=== PATIENT | male | born 1955 | race Caucasian/White ===

== ENCOUNTER → 2018-01-28 13:02 | Outpatient (CLI) | payer OTHER, SELFPAY ==
--- NOTE | 2018-01-28 13:08 | RAD_ITS ---
STUDY: X-RAY - LUMBAR SPINE REASON FOR EXAM: Male, 62 years old. Back pain TECHNIQUE: 5 view(s) of the lumbar spine were obtained. COMPARISON: None FINDINGS: Normal lumbar lordosis. There is no substantial scoliosis. There is a normal alignment of the vertebrae. There is multilevel endplate spondylosis of the lumbar vertebrae. There is multi-level degenerative disc disease with multi-level disc space narrowing. No fracture. There is no demonstrated spondylolysis of the pars interarticulares. The soft tissue structures are unremarkable. RAD/L/S Spine Min 4 Views IMPRESSION: Degenerative changes of the spine, as detailed above. Electronically Signed: Ethan Adams DO at 9:03 EDT Tel , Service support ,
== END ==
PROVIDERS: Family Provider Family Medicine; PCP Family Medicine; Visit Provider Family Medicine
DX: M54.5 Low back pain (principal)
CPT/HCPCS: 72110

== ENCOUNTER → 2018-02-24 11:59 | Outpatient (CLI) | payer OTHER, SELFPAY ==
[2018-02-24 15:59] LABS: Absolute Lymphocyte Count 1.12 X10^3/ul (0.83-4.51); Absolute Neutrophil Count 4.7 X10^3/uL (2.0-7.7); Basophil# 0.03 X10^3/uL; Basophil% 0.5 % (0-1); Eosinophil# 0.01 X10^3/uL; Eosinophils% 0.2 % (0-5); Hematocrit 44.2 % (40-54); Lymphocyte # 1.12 X10^3/ul (4.0); Lymphocyte % 17.6 % (19-41); Mean Corp Hgb Conc 33.9 g/gl (32-36); Mean Corpuscular Hgb 30.5 pg (27.0-32.0); Mean Corpuscular Volume 89.8 fL (80-94); Monocyte# 0.45 X10^3/uL; Monocyte% 7.1 % (0-10); Neutrophil # 4.73 X10^3/uL (2.7-7.7); Neutrophil % 74.4 % (47-70); Platelet Count 252 K/mm3 (150-450); RBC Distribution Width CV 13.8 % (11.6-14.6); RBC Distribution Width SD 45.2 fl (35.1-43.9); Red Blood Count 4.92 M/mm3 (4.6-6.2); White Blood Count 6.4 K/mm3 (4.4-11.0)
[2018-02-24 16:04] LABS: POSITIVE COUNT NO; POSITIVE DIFFERENTIAL NO; POSITIVE MORPHOLOGY NO
[2018-02-24 16:16] LABS: Erythrocyte Sedimentation Rate 5 mm/hr (0-20)
[2018-02-24 16:22] LABS: AST(SGOT) 12 U/L (15-37); Alanine Aminotransfer ALT/SGPT 21 U/L (16-61); Albumin, Serum 3.5 g/dL (3.2-5.0); Alkaline Phosphatase 59 U/L (45-117); Amylase 28 U/L (25-115); Anion Gap 8 (5-15); BUN 19 mg/dL (7-18); BUN/Creat Ratio 21.7 RATIO (10-20); Calcium,Total 8.7 mg/dL (8.5-10.1); Chloride 102 mmol/L (98-107); Creatinine, Serum 0.88 mg/dL (0.70-1.30); EST Glomerular Filtration Rate 93 mL/min (>60); Est Glom Filt Rate - Afr Amer 113 mL/min (>60); Globulin 3.4 g/dL (2.2-4.2); Glucose 95 mg/dL (74-106); Lipase 65 U/L (73-393); PSA,Total - Annual Screen 4.14 ng/mL (0.00-4.00); Protein, Total 6.9 g/dL (6.4-8.2); Sodium Level 141 mmol/L (136-145); Uric Acid 7.2 mg/dL (3.5-7.2)
== END ==
PROVIDERS: Family Provider Family Medicine; PCP Family Medicine; Visit Provider Family Medicine
DX: R10.9 Unspecified abdominal pain (principal); M10.9 Gout, unspecified; Z12.5 Encounter for screening for malignant neoplasm of prostate
CPT/HCPCS: 36415; 80053; 82150; 83690; 84153; 84550; 85025; 85652; 86140; G0103

== ENCOUNTER → 2018-03-03 08:01 | Outpatient (CLI) | payer OTHER, SELFPAY ==
--- NOTE | 2018-03-03 08:07 | US_ITS ---
STUDY: ABDOMINAL ULTRASOUND - RIGHT UPPER QUADRANT REASON FOR VISIT: Male, 63 years old. Elevated bilirubin TECHNIQUE: Ultrasound evaluation of the right upper quadrant was performed with real-time and static leon-scale imaging. TECHNICAL QUALITY: Adequate. COMPARISON: Prior study of June 17, 2006 FINDINGS: Liver: The liver measures 19.3 cm. There is increased echogenicity consistent with fatty infiltration. The bile ducts are within normal limits. There is hepatic color flow. The direction of portal flow is hepatopetal. There is a complex echogenic focus of the right hepatic lobe measuring 2.7 x 2.7 x 2.9 cm. Gallbladder: Normal distended gallbladder. The gallbladder wall measures 3.0 mm. There is a negative sonographic Linton's sign. There is no pericholecystic fluid. There are no gallstones. Common Bile Duct (C.B.D.): The common bile duct measures 4.5 mm. Pancreas: Normal size of the head, body and tail of the pancreas. There is increased echogenicity of the pancreas. There is no demonstrated pancreatic mass or cyst. There is mild dilatation of the pancreatic duct, measuring 3 mm. Right Kidney: Normal size of the right kidney. The right kidney measures 11.4 x 5.2 x 6.1 cm. Normal renal cortex. The right cortex measures 1.9 cm. There is no demonstrated renal mass or cyst. There is no right hydronephrosis. There are 2 renal calcifications measuring 3 and 5 mm respectively. US/Abdomen Limited IMPRESSION: 1. Hepatomegaly. Increased hepatic echogenicity suggestive of steatosis. Complex echogenic focus of the right hepatic lobe measuring 2.7 x 2.7 x 2.9 cm. This may represent a hemangioma. CT of the abdomen with and without intravenous contrast is recommended for further evaluation of this finding. 2. Increased echogenicity of the pancreas. Mild dilatation of the pancreatic duct measuring up to 3 mm in diameter. 3. Nonobstructing right nephrolithiasis. Electronically Signed: Norbert Yates MD at 17:05 EDT , Service support ,
== END ==
PROVIDERS: Family Provider Family Medicine; PCP Family Medicine; Visit Provider Family Medicine
DX: R16.0 Hepatomegaly, not elsewhere classified (principal); R17 Unspecified jaundice; N20.0 Calculus of kidney
CPT/HCPCS: 76705

== ENCOUNTER → 2018-03-24 13:47 | Outpatient (CLI) | payer OTHER, SELFPAY ==
--- NOTE | 2018-03-24 13:49 | CT_ITS ---
STUDY: CT ABDOMEN WITH CONTRAST REASON FOR EXAM: Male, 63 years old. Abdominal pain, abnormal ultrasound, fatty liver. RADIATION DOSAGE (If Supplied By Facility): CTDIvol = ( 19.55 ) mGy, DLP = ( 1207.93 ) mGycm TECHNIQUE: Transaxial images were obtained post I.V. administration of 100 ml of Isovue 300 contrast, and without oral contrast. Sagittal and coronal images were reconstructed. Individualized dose optimization techniques were used for this CT. COMPARISON: Right upper Quadrant ultrasound March 03, 2018 FINDINGS: The visualized lung bases are unremarkable. The visualized portions of the heart are within normal limits. Liver size within normal limits. Density is difficult to assess post-IV contrast enhancement. Well-defined 2.95 x 2.25 x 2.5 cm poorly enhancing low-density seen in the right lobe of the liver, correlating to the complex lesion identified on ultrasound. Imaging is relatively late in the portal vein phase, and the appearance is not particularly typical of hemangioma. The patent portal vein diameter is 16 mm. Normal gallbladder and extrahepatic biliary system. There is mild splenomegaly, measuring 14.2 x 13.7 x 6.4 cm. Normal pancreas. Normal bilateral adrenal glands. There is an exophytic 11.5 mm rounded lesion emanating from the anteromedial cortex of the upper pole right kidney with a density of 14 Hounsfield units, likely a mildly complicated cyst. Normal left kidney. No hydronephrosis. Normal visualized stomach. Normal small intestine. There are multiple colonic diverticula consistent with diverticulosis. The appendix is visualized and appears normal. There is mild atherosclerotic calcification of the abdominal aorta and proximal iliac arteries with elongation and tortuosity, but without a demonstrated aneurysm. Normal inferior vena cava. Normal retroperitoneum. There is a small umbilical hernia containing fat. There are diffuse degenerative changes of the visualized spine. CT/Abdomen WITH IV Contrast IMPRESSION: 1. 2.95 cm well defined, poorly enhancing low density lesion in the right lobe of liver correlation the complex lesion seen on ultrasound. This does not have the typical characteristic of cavernous hemangioma, but its etiology remains uncertain. Further evaluation with MRI suggested. 2. Prostatomegaly. 3. 11.mm exophytic probable complicated cyst at the anteromedial upper pole of the right kidney. No hydronephrosis. 4. Colonic diverticulosis without demonstrated acute diverticulitis. No sign of bowel obstruction. The appendix is normal. 5. Small, fat-containing umbilical hernia. 6. Diffuse degenerative changes of the spine. Electronically Signed: Anshul Novak MD at 17:55 EDT , Service support ,
== END ==
PROVIDERS: Family Provider Family Medicine; PCP Family Medicine; Visit Provider Family Medicine
DX: K76.0 Fatty (change of) liver, not elsewhere classified (principal)
CPT/HCPCS: 74160; Q9967

== ENCOUNTER → 2018-04-01 12:57 | Outpatient (CLI) | payer OTHER, SELFPAY ==
--- NOTE | 2018-04-01 13:00 | MRI_ITS ---
STUDY: MRI ABDOMEN WITH AND WITHOUT CONTRAST REASON FOR EXAM: Male, 63 years old. Liver lesion requiring further characterization. TECHNIQUE: Standardized fat and water weighted pulse sequences were obtained in all 3 orthogonal planes post contrast administration. 10 ml of Gadavist contrast material was administered intravenously for the contrast portion of the examination. COMPARISON: CT abdomen 03/24/2018, ultrasound abdomen 03/03/2018 and 06/17/2016. FINDINGS: Oval smoothly circumscribed focus within the right liver, measuring approximately 28 x 27 x 32 mm, exhibits low signal on T1, homogeneously bright signal on T2. On postcontrast images the lesion exhibits centripetal enhancement, peripheral puddling, gradual central fill-in, in a pattern consistent with benign hemangioma. Simple cyst of the anterior medial margin of the right renal superior pole measures 1.1 cm. No complex features, no enhancement. No other acute intra-abdominal process is evident. MRI/MRI Abd WITH and W/O Contrast IMPRESSION: Benign right renal cyst. Benign hemangioma the liver. Electronically Signed: Henri Tripp, at 17:27 EDT Tel , Service support ,
== END ==
PROVIDERS: Family Provider Family Medicine; PCP Family Medicine; Visit Provider Family Medicine
DX: R16.0 Hepatomegaly, not elsewhere classified (principal); N28.1 Cyst of kidney, acquired; D18.09 Hemangioma of other sites
CPT/HCPCS: 74183; A9585

== ENCOUNTER → 2018-04-23 16:10 | Outpatient (CLI) | payer OTHER, SELFPAY ==
[2018-04-23 17:56] LABS: ALB/GLOB Ratio 1.1 RATIO (0.9-2.4); AST(SGOT) 14 U/L (15-37); Alanine Aminotransfer ALT/SGPT 23 U/L (16-61); Albumin, Serum 3.5 g/dL (3.2-5.0); Alkaline Phosphatase 68 U/L (45-117); Anion Gap 6 (5-15); BUN 20 mg/dL (7-18); CRP 8.18 mg/L (0.0-3.0); Calcium,Total 8.5 mg/dL (8.5-10.1); Chloride 105 mmol/L (98-107); Creatinine, Serum 1.11 mg/dL (0.70-1.30); EST Glomerular Filtration Rate 71 mL/min (>60); Est Glom Filt Rate - Afr Amer 86 mL/min (>60); Globulin 3.2 g/dL (2.2-4.2); Glucose 116 mg/dL (74-106); Potassium 3.7 mmol/L (3.5-5.1); Protein, Total 6.7 g/dL (6.4-8.2); Sodium Level 141 mmol/L (136-145)
[2018-04-23 17:58] LABS: Vitamin B12 355 pg/mL (211-911)
[2018-04-25 13:33] LABS: H. Pylori Antibody (IgG) 0.16 (0.00-0.79); Hep C Antibodies 0.1 s/co ratio (0.0-0.9)
[2018-04-27 22:06] LABS: Beef <0.10 kU/L (Class 0); Corn <0.10 kU/L (Class 0); Egg, Whole <0.10 kU/L (Class 0); Milk (Cow) <0.10 kU/L (Class 0); Peanut <0.10 kU/L (Class 0); Pork <0.10 kU/L (Class 0); Soybean <0.10 kU/L (Class 0); Wheat <0.10 kU/L (Class 0)
[2018-04-28 11:11] LABS: Chocolate <0.10 kU/L (Class 0)
== END ==
PROVIDERS: Family Provider Family Medicine; PCP Family Medicine; Visit Provider Family Medicine
DX: R10.9 Unspecified abdominal pain (principal); E53.8 Deficiency of other specified B group vitamins; R53.83 Other fatigue; Z11.59 Encounter for screening for other viral diseases
CPT/HCPCS: 36415; 71046; 80053; 82607; 84403; 86003; 86005; 86140; 86677; 86803

== ENCOUNTER → 2018-06-09 07:06 | Outpatient (CLI) | payer OTHER, SELFPAY ==
--- NOTE | 2018-06-09 10:35 | STRESSREP_ITS ---
Stress Test Report Pharmacologic myocardial perfusion stress test. 63-year-old male with a history of fatigue. Stress protocol: Resting EKG demonstrates normal sinus rhythm with a rate of 76 bpm normal intervals and noted resting blood pressure 182/102 mmHg. 0.4 mg of regadenoson was infused per usual protocol followed by rapid intravenous saline flush i njection continuous EKG monitoring was performed. The maximum heart rate attained was 90 bpm which was 57% of maximum predicted heart rate the maximum workload was 1 metabolic equivalent. At rest there were no ST or T wave changes noted suggest abnormal flow reserve at peak infusion no ST or T wave changes were noted suggest abnormal flow reserve. No clinical angina was noted. Myocardial perfusion protocol. 14.0 mCi of technetium 99m sestamibi was injected at rest. 0.4 mg of regadenoson was infused per usual protocol peak infusion 42.4 mCi of technetium 99m sestamibi was injected stress images were obtained stress and rest images were reconstructed and compared in the short axis vertical long horizontal long axis. Gated images were also obtained per Perfusion SPECT analysis: Review of the stress images demonstrate normal uptake of tracer noted in all areas of the myocardium. The resting images similarly demonstrate normal uptake of tracer noted in all areas of the myocardium. No areas of reversibility are noted suggest ischemia. Gated SPECT analysis: The gated ejection fraction is 65%. Conclusion: Normal pharmacologic myocardial perfusion stress test. Preserved ejection fraction.
== END ==
PROVIDERS: Family Provider Family Medicine; PCP Family Medicine; Visit Provider Family Medicine
DX: R53.83 Other fatigue (principal)
CPT/HCPCS: 78452; 93017; A9500; A4216; J2785

== ENCOUNTER → 2018-07-17 10:15 | Outpatient (CLI) | payer OTHER, SELFPAY ==
--- NOTE | 2018-07-17 10:19 | RAD_ITS ---
STUDY: X-RAY - LEFT SHOULDER REASON FOR EXAM: Male, 63 years old. Pain. TECHNIQUE: 3 view(s) of the shoulder. COMPARISON: None. FINDINGS: Normal glenohumeral articulation. There is degenerative arthrosis of the acromioclavicular joint without inferior osseous spur formation. Normal acromion. Normal humeral head and visualized proximal humerus. There is periarticular soft tissue calcification consistent with a calcific tendinitis. Normal visualized pulmonary apex. RAD/Shoulder min 2 Views IMPRESSION: Findings concerning for early supraspinatus calcific tendinitis in the appropriate clinical setting. AC joint degenerative change. Electronically Signed: Homero Arroyo DO at 8:33 EST , Service support ,
== END ==
PROVIDERS: Family Provider Family Medicine; PCP Family Medicine; Referring Provider Family Medicine; Visit Provider Family Medicine
DX: M19.012 Primary osteoarthritis, left shoulder (principal)
CPT/HCPCS: 73030

== ENCOUNTER → 2018-07-31 11:18 | Outpatient (CLI) | payer OTHER, SELFPAY ==
--- NOTE | 2018-07-31 11:24 | US_ITS ---
STUDY: SOFT TISSUE NECK ULTRASOUND REASON FOR EXAM: Male, 63 years old. Left neck lump TECHNIQUE: Ultrasound evaluation of the left neck soft tissue was performed with real-time and static leon-scale imaging. COMPARISON: None. FINDINGS: There is a subcutaneous nonvascular isoechoic nodule measuring 1.9 x 1.9 x 1.1 cm echogenic center possibly a lymph node. US/Head/Neck Soft Tissue IMPRESSION: Possible subcutaneous node in the area of concern. Correlate with CT if clinically indicated.. Electronically Signed: Dino Burgos DO at 0:03 EST Tel [phone], Service support ,
--- OUTSIDE RECORDS SUMMARY | 2018-09-25 14:01 | XMS RPT_ITS ---
:1955 Author Organization OHIP Support Name Relationship Address Phone AMBER MOLINA Unavailable [address] + [place] [address] S Unavailable Unavailable Unavailable SCHEMTIAN, BAKARI Unavailable [address] + [place] [address] JESSE, AMBER Unavailable [address] + [place] [address] JESSE, DARLYN Unavailable [address] + [place] [address] S Unavailable Unavailable Unavailable JESSE, AMBER Unavailable [address] + [place] [address] JESSE, DARLYN Unavailable [address] + [place] [address] S Unavailable Unavailable Unavailable JESSE, AMBER Unavailable [address] + [place] [address] JESSE, DARLYN Unavailable [address] + [place] [address] S Unavailable Unavailable Unavailable JESSE, AMBER Unavailable [address] + [place] [address] JESSE, DARLYN Unavailable [address] + [place] [address] S Unavailable Unavailable Unavailable JESSE, AMBER Unavailable [address] + [place] [address] JESSE, DARLYN Unavailable [address] + [place] [address] S Unavailable Unavailable Unavailable JESSE, AMBER Unavailable [address] + [place] [address] JESSE, DARLYN Unavailable [address] + [place] [address] S Unavailable Unavailable Unavailable JESSE, AMBER Unavailable [address] + [place] [address] MACY MOLINAE Unavailable [address] + [place] [address] S Unavailable Unavailable Unavailable JESSE, AMBER Unavailable [address] + [place] [address] MACY MOLINAE Unavailable [address] + [place] [address] S Unavailable Unavailable Unavailable JESSE, AMBER Unavailable [address] + [place] [address] MACY MOLINAE Unavailable [address] + [place] [address] S Unavailable Unavailable Unavailable Care Team Providers Name Role Phone Sharif Rosales Attending Unavailable Connie, Osorioer Referring Unavailable Ranney, Christopher Primary Care Unavailable Ranney, Christopher Attending Unavailable Ranney, Christopher Primary Care Unavailable Connie, Osorioer Attending Unavailable Mahendraney, Christopher Referring Unavailable Ranney, Christopher Primary Care Unavailable Connie, Joseopher Attending Unavailable Ranney, Christopher Referring Unavailable Ranney, Christopher Primary Care Unavailable Ranney, Christopher Attending Unavailable Ranney, Christopher Referring Unavailable Ranney, Christopher Primary Care Unavailable Mahendraney, Christopher Attending Unavailable Ranney, Christopher Referring Unavailable Ranney, Christopher Primary Care Unavailable Ranney, Christopher Attending Unavailable Ranney, Christopher Referring Unavailable Ranney, Christopher Primary Care Unavailable Dale Hardy Attending Unavailable Mahendraney, Christopher Referring Unavailable Ranney, Christopher Attending Unavailable Ranney, Christopher Referring Unavailable Ranney, Christopher Primary Care Unavailable Ranney, Christopher Attending Unavailable Ranney, Christopher Referring Unavailable Ranney, Christopher Primary Care Unavailable PROBLEMS PROBLEMS DATE TYPE CONDITION / CODE ATTENDING STATUS SOURCE 07/17/2018 Unknown M25.512 - Pain in Ran[place], Active [place] left shoulder / [facility] M25.512(ICD-10) Hospital Repository 04/23/2018 Unknown R10.9 - Ranney, Active [place] Unspecified [facility] [place] [facility] abdominal pain / Hospital R10.9(ICD-10) Repository 04/23/2018 Unknown E53.8 - Ranney, Active [place] Deficiency of [facility] other specified B Hospital group vitamins / Repository E53.8(ICD-10) 03/20/2018 Unknown R17 - Unspecified Connie, Active [place] jaundice / [facility] [place] R17(ICD-10) Hospital Repository 01/28/2018 Unknown M54.5 - Low back Connie, Active [place] pain / [facility] M54.5(ICD-10) Hospital Repository PROCEDURES PROCEDURES No Procedure Records FoundRESULTS RESULTS HEAD/NECK SOFT TISSUE Observed: 07/31/2018 Status: F Source: [place] 11:25 AM [facility] REPOSITORY [facility] Imaging Services [address] [place] [address] Head/Neck Soft Tissue MR#: [id number] Acct: [id number] Name: NORBERT MOLINA Rep #: [id number] : 1955 M 63 From: Dino Burgos DO PCP: Sharif Rosales MD Status: REG CLI Study: Head/Neck Soft Tissue Date of Exam: 07/31/18 Exam# [id number] Ordering Dr: Boni Rosales MD STUDY: SOFT TISSUE NECK ULTRASOUND REASON FOR EXAM: Male, 63 years old. Left neck lump TECHNIQUE: Ultrasound evaluation of the left neck soft tissue was performed with real-time and static leon-scale imaging. COMPARISON: None. FINDINGS: There is a subcutaneous nonvascular isoechoic nodule measuring 1.9 x 1.9 x 1.1 cm echogenic center possibly a lymph node. US/Head/Neck Soft Tissue IMPRESSION: Possible subcutaneous node in the area of concern. Correlate with CT if clinically indicated.. Electronically Signed: Dino Burogs DO at 0:03 EST Tel [phone], Service support , CC: Sharif Rosales MD Wafer Polisher: Signed SHOULDER MIN 2 VIEWS Observed: 07/17/2018 Status: F Source: [place] 10:[address] [facility] REPOSITORY [facility] Imaging Services [address] [place] [address] Shoulder min 2 Views MR#: [id number] Acct: [id number] Name: NORBERT MOLINA Rupert Rep #: [id number] : 1955 M 63 From: Homero Arroyo DO PCP: Sharif Rosales MD Status: REG CLI Study: Shoulder min 2 Views Date of Exam: 07/17/18 Exam# [id number] Ordering Dr: Boni Rosales MD STUDY: X-RAY - LEFT SHOULDER REASON FOR EXAM: Male, 63 years old. Pain. TECHNIQUE: 3 view(s) of the shoulder. COMPARISON: None. FINDINGS: Normal glenohumeral articulation. There is degenerative arthrosis of the acromioclavicular joint without inferior osseous spur formation. Normal acromion. Normal humeral head and visualized proximal humerus. There is periarticular soft tissue calcification consistent with a calcific tendinitis. Normal visualized pulmonary apex. RAD/Shoulder min 2 Views IMPRESSION: Findings concerning for early supraspinatus calcific tendinitis in the appropriate clinical setting. AC joint degenerative change. Electronically Signed: Homero Arroyo DO at 8:33 EST , Service support , CC: Sharif Rosales MD Wafer Polisher: Signed STRESS REPORT Observed: 06/09/2018 Status: F Source: [place] 10:[address] [facility] REPOSITORY [facility] Cardiovascular Services [address] [place] [address] MR#: [id number] Acct: [id number] Name: NORBERT MOLINA Rep #: [id number] : 1955 63 From: Dale Hardy MD Primary Care: Ranney MD,Christopher Status: REG CLI Ordering Dr: Sex: M C Stress Test Report Pharmacologic myocardial perfusion stress test. 63-year-old male with a history of fatigue. Stress protocol: Resting EKG demonstrates normal sinus rhythm with a rate of 76 bpm normal intervals and noted resting blood pressure 182/102 mmHg. 0.4 mg of regadenoson was infused per usual protocol followed by rapid intravenous saline flush injection continuous EKG monitoring was performed. The maximum heart rate attained was 90 bpm which was 57% of maximum predicted heart rate the maximum workload was 1 metabolic equivalent. At rest there were no ST or T wave changes noted suggest abnormal flow reserve at peak infusion no ST or T wave changes were noted suggest abnormal flow reserve. No clinical angina was noted. Myocardial perfusion protocol. 14.0 mCi of technetium 99m sestamibi was injected at rest. 0.4 mg of regadenoson was infused per usual protocol peak infusion 42.4 mCi of technetium 99m sestamibi was injected stress images were obtained stress and rest images were reconstructed and compared in the short axis vertical long horizontal long axis. Gated images were also obtained per Perfusion SPECT analysis: Review of the stress images demonstrate normal uptake of tracer noted in all areas of the myocardium. The resting images similarly demonstrate normal uptake of tracer noted in all areas of the myocardium. No areas of reversibility are noted suggest ischemia. Gated SPECT analysis: The gated ejection fraction is 65%. Conclusion: Normal pharmacologic myocardial perfusion stress test. Preserved ejection fraction. 06/09/18 1035 <Electronically signed by Dale Hardy MD> Date Dale Hardy MD CC: Sharif Rosales MD Date Dictated: 06/09/18 1033 Date Transcribed: 06/09/18 103 Wafer Polisher: CO Signed COMPREHENSIVE METABOLIC Collected: 04/23/2018 Status: F Source: [place] 4:[address] [facility] REPOSITORY Order Comment: Order Date: 04/23/18 Order Info: 0786-1 - CMP TYPE CODE TESTS RESULT OUT OF RANGE REFERENCE UNITS LAB L501.0100 74-106 mg/dL High GLU 116 Result Comment: Fasting Glucose result from 100 to 125 mg/dL suggests IMPAIRED HOMEOSTASIS per A.D.A. criteria. Please note revised GLUCOSE reference range effective 2017. LAB L501.1000 7-18 mg/dL High BUN 20 LAB L501.1100 0.70-1.30 mg/dL Normal CREAT,SERUM 1.11 Result Comment: The validity of the calculated GFR AND GFRAA in patients over 70 years has not been determined. Clinical correlation is essential. LAB L501.1110 >60 mL/min Normal EST GFR 71 Result Comment: Non- GFR Calc LAB L501.1115 >60 mL/min Normal EST GFR - AA 86 Result Comment: GFR Calc LAB L501.1300 10-20 RATIO Normal BUN/CRE 18.0 LAB L501.1500 6.4-8.2 g/dL T Normal PROT 6.7 LAB L501.1800 3.2-5.0 g/dL Normal ALB 3.5 LAB L501.1950 2.2-4.2 g/dL Normal GLOB 3.2 LAB L501.2000 0.9-2.4 RATIO Normal A/G 1.1 LAB L501.2200 8.5-10.1 mg/dL CA Normal 8.5 LAB L501.4100 15-37 U/L Low AST 14 LAB L501.4305 45-117 U/L Normal ALK P 68 LAB L501.4405 16-61 U/L Normal ALT 23 LAB L501.4600 0.20-1.00 mg/dL T Normal BILI 0.90 LAB L501.5300 136-145 mmol/L NA Normal 141 LAB L501.5600 3.5-5.1 mmol/L K Normal 3.7 LAB L501.5900 98-107 mmol/L CL Normal 105 LAB L501.6100 21.0-32.0 mmol/L Normal CO2 30.0 LAB L501.6200 5-15 Normal GAP 6 Performed By: #### L500.4050, L503.0105, L509.3000 #### [facility] [address] [place], [place], [address] #### L3100.1900, L5500.0400 #### [facility] (refer to report for specific site) refer to report for address and phone number VITAMIN B12 Collected: 04/23/2018 Status: F Source: [place] [address]:[address] [facility] REPOSITORY Order Comment: Order Date: 04/23/18 Order Info: 2132-9 - B12 Order Info: 2986-8 - REMA TYPE CODE TESTS RESULT OUT OF RANGE REFERENCE UNITS LAB L503.0105 211-911 pg/mL Normal Vitamin B12 355 Performed By: #### L500.4050, L503.0105, L509.3000 #### [facility] [address] [facility] [place], [address] #### L3100.1900, L5500.0400 #### [facility] (refer to report for specific site) refer to report for address and phone number TESTOSTERONE, SERUM TOTAL Collected: 04/23/2018 Status: F Source: [place] 4:[address] [facility] REPOSITORY Order Comment: Order Date: 04/23/18 Order Info: 213-9 - B12 Order Info: 2986-8 - REMA TYPE CODE TESTS RESULT OUT OF REFERENCE UNITS RANGE LAB L509.3000 ng/dL Testosterone Normal 261.47 Result Comment: NORMAL REFERENCE RANGES MALE AGE <50 123.06 - 813.86 ng/dL MALE AGE >50 89.98 - 780.10 ng/dL FEMALE PREMENOPAUSE AGE 21 - 60 9.01 - 47.94 ng/dL FEMALE POSTMENOPAUSE AGE 45 - 89 <7.00 - 45.62 ng/dL REFERENCE RANGE AND METHODOLOGY CHANGED 08/21/2017 Performed By: #### L500.4050, L503.0105, L509.3000 #### [facility]. [place], [place], [address] #### L3100.1900, L5500.0400 #### [facility] (refer to report for specific site) refer to report for address and phone number H. PYLORI ANTIBODY Collected: 04/23/2018 Status: F Source: [place] (IGG) 4:[address] [facility] REPOSITORY Order Comment: Order Date: 04/23/18 Order Info: 0363-1 - HECAB Order Info: 7902-0 - HPYL TYPE CODE TESTS RESULT OUT OF RANGE REFERENCE UNITS LAB L3100.1900 0.00-0.79 Normal H.PYLORI 0.16 286137 Result Comment: Result Units: Index Value Negative <0.80 Equivocal 0.80 - 0.89 Positive >0.89 Performed at: [address] [id number] Quality Manager: Don Villa PhD, Phone: [phone] Performed By: #### L500.4050, L503.0105, L509.3000 #### [facility] [address]rit[address] Osman [place], [place], [address] #### L3100.1900, L5500.0400 #### [facility] (refer to report for specific site) refer to report for address and phone number ALLERGEN, RAST FOOD Collected: 04/23/2018 Status: F Source: [place] PROFILE 4:[address] [facility] REPOSITORY Order Comment: Order Date: 04/23/18 Order Info: 0762-1 - RAST TYPE CODE TESTS RESULT OUT OF RANGE REFERENCE UNITS LAB L5500.3002 Class 0 kU/L MILK Normal (COW) <0.10 LAB L5500.3004 Class 0 kU/L WHEAT Normal <0.10 LAB L5500.3008 Class 0 kU/L CORN Normal <0.10 LAB L5500.3013 Class 0 kU/L Normal PEANUT <0.10 LAB L5500.3014 Class 0 kU/L Normal SOYBEAN <0.10 LAB L5500.3026 Class 0 kU/L PORK Normal <0.10 LAB L5500.3027 Class 0 kU/L BEEF Normal <0.10 LAB L5500.3052 Class 0 kU/L Normal CHOCOLATE <0.10 Result Comment: Performed at: [address] [id number] Quality Manager: Guerrero Zhong MD, Phone: [phone] LAB L5500.3245 Class 0 kU/L Normal EGG, <0.10 WHOLE LAB L5500.3902 . Normal Negative FISH/SHELL MIX Result Comment: Allergens in this mix are: Blue mussel Fish [place] Shrimp Tuna LAB L5500.8100 . Normal RAST COMMENT Comment Result Comment: Levels of Specific IgE Class Description of Class ----- < 0.10 0 Negative 0.10 - 0.31 0/I Equivocal/Low 0.32 - 0.55 I Low 0.56 - 1.40 II Moderate 1.41 - 3.90 III High 3.91 - 19.00 IV Very High 19.01 - 100.00 V Very High >100.00 Very High Performed By: #### L500.4050, L503.0105, L509.3000 #### [facility] [address] [place], [address] #### L3100.1900, L5500.0400 #### [facility] (refer to report for specific site) refer to report for address and phone number CRP Collected: 04/23/2018 Status: F Source: [place] 4:17 [facility] REPOSITORY Order Comment: Order Date: 04/23/18 Order Info: 0786-1 - CMP TYPE CODE TESTS RESULT OUT OF RANGE REFERENCE UNITS LAB L501.6710 0.0-3.0 mg/L High 8.18 C-REACTIVE PROT Result Comment: C-Reactive Protein (CRP) provides useful information for the diagnosis, therapy and monitoring of inflammatory processes and associated diseases. For the evaluation of Relative Risk for Cardiovascular Disease, a High Sensitivity CRP (HSCRP) should be ordered. Performed By: #### L501.6710 #### [facility] [address] [facility]. [place], [place], [address] HEPATITIS C ANTIBODIES Collected: 04/23/2018 Status: F Source: [place] 4:17 [facility] REPOSITORY Order Comment: Order Date: 04/23/18 Order Info: 0363-1 - HECAB Order Info: 7902-0 - HPYL TYPE CODE TESTS RESULT OUT OF RANGE REFERENCE UNITS LAB L3100.0650 0.0-0.9 s/co ratio Normal HEP C AB 0.1 Result Comment: Negative: < 0.8 Indeterminate: 0.8 - 0.9 Positive: > 0.9 The CDC recommends that a positive HCV antibody result be followed up with a HCV Nucleic Acid Amplification test (113675). Performed By: #### L3100.0625 #### [facility] (refer to report for specific site) refer to report for address and phone number CHEST PA AND LATERAL Observed: 04/23/2018 Status: F Source: [place] 4:14 PM [facility] HOSPITAL REPOSITORY [facility] Imaging Services [address] [place] [address] Chest PA and Lateral MR#: [id number] Acct: [id number] Name: NORBERT MOLINA Rep #: [id number] : 1955 M 63 From: Guerrero Meyer MD PCP: Sharif Rosales MD Status: REG CLI Study: Chest PA and Lateral Date of Exam: 04/23/18 Exam# [id number] Ordering Dr: Boni Rosales MD STUDY: X-RAY CHEST REASON FOR EXAM: Male, 63 years old. Fatigue TECHNIQUE: Frontal and lateral views of the chest. COMPARISON: 02/08/2016 FINDINGS: Cervical spine fusion. The lungs are clear and expanded. There is no demonstrated pleural abnormality. Normal size heart. Normal mediastinum and ronna. Normal visualized pulmonary arteries. There is atherosclerotic tortuosity of the aortic arch and descending thoracic aorta. There are diffuse degenerative changes of the visualized thoracic spine. Normal visualized ribs, clavicles, and shoulders. There is no demonstrated abnormality of the visualized soft tissue structures of the upper abdomen. RAD/Chest PA and Lateral IMPRESSION: No acute pulmonary findings. Electronically Signed: Guerrero Meyer MD at 6:59 EDT Tel , Service support , CC: Sharif Rosales MD Wafer Polisher: Signed MRI ABD WITH AND W/O Observed: 04/01/2018 Status: F Source: [place] CONTRAST 1:03 PM [facility] HOSPITAL REPOSITORY [facility] Imaging Services [address] [place] [address] MRI Abd WITH and W/O Contrast MR#: [id number] Acct: [id number] Name: NORBERT MOLINA Rep #: [id number] : 1955 M 63 From: Henri Tripp MD PCP: Sharif Rosales MD Status: REG CLI Study: MRI Abd WITH and W/O Contrast Date of Exam: 04/01/18 Exam# [id number] Ordering Dr: Boni Rosales MD STUDY: MRI ABDOMEN WITH AND WITHOUT CONTRAST REASON FOR EXAM: Male, 63 years old. Liver lesion requiring further characterization. TECHNIQUE: Standardized fat and water weighted pulse sequences were obtained in all 3 orthogonal planes post contrast administration. 10 ml of Gadavist contrast material was administered intravenously for the contrast portion of the examination. COMPARISON: CT abdomen 03/24/2018, ultrasound abdomen 03/03/2018 and 06/17/2016. FINDINGS: Oval smoothly circumscribed focus within the right liver, measuring approximately 28 x 27 x 32 mm, exhibits low signal on T1, homogeneously bright signal on T2. On postcontrast images the lesion exhibits centripetal enhancement, peripheral puddling, gradual central fill-in, in a pattern consistent with benign hemangioma. Simple cyst of the anterior medial margin of the right renal superior pole measures 1.1 cm. No complex features, no enhancement. No other acute intra-abdominal process is evident. MRI/MRI Abd WITH and W/O Contrast IMPRESSION: Benign right renal cyst. Benign hemangioma the liver. Electronically Signed: Henri Tripp, at 17:27 EDT Tel , Service support , CC: Sharif Rosales MD Wafer Polisher: Signed ABDOMEN WITH IV Observed: 03/24/2018 Status: F Source: [place] CONTRAST 1:[address] [facility] REPOSITORY [facility] Imaging Services [address] [place] [address] Abdomen WITH IV Contrast MR#: [id number] Acct: [id number] Name: NORBERT MOLINA Rep #: [id number] : 1955 [place] 63 From: Jose Novak MD PCP: Sharif Rosales MD Status: REG CLI Study: Abdomen WITH IV Contrast Date of Exam: 03/24/18 Exam# [id number] Ordering Dr: Boni Rosales MD STUDY: CT ABDOMEN WITH CONTRAST REASON FOR EXAM: Male, 63 years old. Abdominal pain, abnormal ultrasound, fatty liver. RADIATION DOSAGE (If Supplied By Facility): CTDIvol = ( 19.55 ) mGy, DLP = ( 1207.93 ) mGycm TECHNIQUE: Transaxial images were obtained post I.V. administration of 100 ml of Isovue 300 contrast, and without oral contrast. Sagittal and coronal images were reconstructed. Individualized dose optimization techniques were used for this CT. COMPARISON: Right upper Quadrant ultrasound March 03, 2018 FINDINGS: The visualized lung bases are unremarkable. The visualized portions of the heart are within normal limits. Liver size within normal limits. Density is difficult to assess post-IV contrast enhancement. Well-defined 2.95 x 2.25 x 2.5 cm poorly enhancing low-density seen in the right lobe of the liver, correlating to the complex lesion identified on ultrasound. Imaging is relatively late in the portal vein phase, and the appearance is not particularly typical of hemangioma. The patent portal vein diameter is 16 mm. Normal gallbladder and extrahepatic biliary system. There is mild splenomegaly, measuring 14.2 x 13.7 x 6.4 cm. Normal pancreas. Normal bilateral adrenal glands. There is an exophytic 11.5 mm rounded lesion emanating from the anteromedial cortex of the upper pole right kidney with a density of 14 Hounsfield units, likely a mildly complicated cyst. Normal left kidney. No hydronephrosis. Normal visualized stomach. Normal small intestine. There are multiple colonic diverticula consistent with diverticulosis. The appendix is visualized and appears normal. There is mild atherosclerotic calcification of the abdominal aorta and proximal iliac arteries with elongation and tortuosity, but without a demonstrated aneurysm. Normal inferior vena cava. Normal retroperitoneum. There is a small umbilical hernia containing fat. There are diffuse degenerative changes of the visualized spine. CT/Abdomen WITH IV Contrast IMPRESSION: 1. 2.95 cm well defined, poorly enhancing low density lesion in the right lobe of liver correlation the complex lesion seen on ultrasound. This does not have the typical characteristic of cavernous hemangioma, but its etiology remains uncertain. Further evaluation with MRI suggested. 2. Prostatomegaly. 3. 11.mm exophytic probable complicated cyst at the anteromedial upper pole of the right kidney. No hydronephrosis. 4. Colonic diverticulosis without demonstrated acute diverticulitis. No sign of bowel obstruction. The appendix is normal. 5. Small, fat-containing umbilical hernia. 6. Diffuse degenerative changes of the spine. Electronically Signed: Anshul Novak MD at 17:55 EDT , Service support , CC: Sharif Rosales MD Wafer Polisher: Signed ABDOMEN LIMITED Observed: 03/03/2018 Status: F Source: [place] 8:[address] [facility] REPOSITORY [facility] Imaging Services [address] [place] [address] Abdomen Limited MR#: [id number] Acct: [id number] Name: LALITA MOLINAEZEKIEL Rep #: [id number] : 1955 63 From: Norbert Yates MD PCP: Sharif Rosales MD Status: REG CLI Study: Abdomen Limited Date of Exam: 03/03/18 Exam# [id number] Ordering Dr: Boni Rosales MD STUDY: ABDOMINAL ULTRASOUND - RIGHT UPPER QUADRANT REASON FOR VISIT: Male, 63 years old. Elevated bilirubin TECHNIQUE: Ultrasound evaluation of the right upper quadrant was performed with real-time and static leon-scale imaging. TECHNICAL QUALITY: Adequate. COMPARISON: Prior study of June 17, 2006 FINDINGS: Liver: The liver measures 19.3 cm. There is increased echogenicity consistent with fatty infiltration. The bile ducts are within normal limits. There is hepatic color flow. The direction of portal flow is hepatopetal. There is a complex echogenic focus of the right hepatic lobe measuring 2.7 x 2.7 x 2.9 cm. Gallbladder: Normal distended gallbladder. The gallbladder wall measures 3.0 mm. There is a negative sonographic Linton's sign. There is no pericholecystic fluid. There are no gallstones. Common Bile Duct (C.B.D.): The common bile duct measures 4.5 mm. Pancreas: Normal size of the head, body and tail of the pancreas. There is increased echogenicity of the pancreas. There is no demonstrated pancreatic mass or cyst. There is mild dilatation of the pancreatic duct, measuring 3 mm. Right Kidney: Normal size of the right kidney. The right kidney measures 11.4 x 5.2 x 6.1 cm. Normal renal cortex. The right cortex measures 1.9 cm. There is no demonstrated renal mass or cyst. There is no right hydronephrosis. There are 2 renal calcifications measuring 3 and 5 mm respectively. US/Abdomen Limited IMPRESSION: 1. Hepatomegaly. Increased hepatic echogenicity suggestive of steatosis. Complex echogenic focus of the right hepatic lobe measuring 2.7 x 2.7 x 2.9 cm. This may represent a hemangioma. CT of the abdomen with and without intravenous contrast is recommended for further evaluation of this finding. 2. Increased echogenicity of the pancreas. Mild dilatation of the pancreatic duct measuring up to 3 mm in diameter. 3. Nonobstructing right nephrolithiasis. Electronically Signed: Norbert Yates MD at 17:05 EDT , Service support , CC: Sharif Rosales MD Wafer Polisher: Signed CBC W/DIFF, AUTOMATED Collected: 02/24/2018 Status: F Source: [place] 12:[address] [facility] REPOSITORY Order Comment: Order Date: 02/24/18 Order Info: 0184-1 - CBCD Order Info: 85980-9 - SED TYPE CODE TESTS RESULT OUT OF RANGE REFERENCE UNITS LAB L100.1000 4.4-11.0 K/mm3 Normal WBC 6.4 LAB L100.1200 4.6-6.2 M/mm3 Normal RBC 4.92 LAB L100.1300 13.0-16.5 g/dl Normal HGB 15.0 LAB L100.1400 40-54 % Normal HCT 44.2 LAB L100.1500 80-94 fL Normal MCV 89.8 LAB L100.1600 27.0-32.0 pg Normal MCH 30.5 LAB L100.1700 32-36 g/gl Normal MCHC 33.9 LAB L100.1810 11.6-14.6 % Normal RDW CV 13.8 LAB L100.1820 35.1-43.9 fl High RDW SD 45.2 LAB L100.1900 150-450 K/mm3 Normal PLT 252 LAB L100.2000 6.2-12.0 fl Normal MPV 10.0 LAB L100.2100 47-70 % High NEUT% 74.4 LAB L100.2200 19-41 % Low LY% 17.6 LAB L100.2300 0-10 % Normal MONO% 7.1 LAB L100.2400 0-5 % Normal EO% 0.2 LAB L100.2500 0-1 % Normal BASO% 0.5 LAB L100.2550 0.0-0.9 % Normal IM GRAN % 0.200 Result Comment: IG% - Immature Granulocytes (promyelocytes, myelocytes and metamyelocytes) > 1% indicates that a LEFT SHIFT is Present. LAB L100.2620 2.0-7.7 X10 3/uL Normal Absolute Neut 4.7 LAB L100.2720 0.83-4.51 X10 3/ul Normal Absolute Lymph 1.12 Performed By: #### L100.0100, L101.9900, L500.4050, L501.2400, L501.2450, L501.9910 #### [facility] [address] [place], [address] ERYTHROCYTE SED RATE Collected: 02/24/2018 Status: F Source: [place] 12:[address] [facility] REPOSITORY Order Comment: Order Date: 02/24/18 Order Info: 0184-1 - CBCD Order Info: 02759-4 - SED TYPE CODE TESTS RESULT OUT OF RANGE REFERENCE UNITS LAB L102.0000 0-20 mm/hr Normal SED RATE 5 Performed By: #### L100.0100, L101.9900, L500.4050, L501.2400, L501.2450, L501.9910 #### [facility] [address] [place], [address] COMPREHENSIVE METABOLIC Collected: 02/24/2018 Status: F Source: [place] [facility] 12:[address] [facility] REPOSITORY Order Comment: Order Date: 02/24/18 Order Info: 0786-1 - CMP Order Info: 3084-1 - URIC Order Info: 1798-8 - VILLA Order Info: 3040-3 - LIPASE Order Info: 2857-1 - PSA TYPE CODE TESTS RESULT OUT OF RANGE REFERENCE UNITS LAB L501.0100 74-106 mg/dL Normal GLU 95 Result Comment: Please note revised GLUCOSE reference range effective 2017. LAB L501.1000 7-18 mg/dL High BUN 19 LAB L501.1100 0.70-1.30 mg/dL Normal CREAT,SERUM 0.88 Result Comment: The validity of the calculated GFR AND GFRAA in patients over 70 years has not been determined. Clinical correlation is essential. LAB L501.1110 >60 mL/min Normal EST GFR 93 Result Comment: Non- GFR Calc LAB L501.1115 >60 mL/min Normal EST GFR - AA 113 Result Comment: GFR Calc LAB L501.1300 10-20 RATIO High BUN/CRE 21.7 LAB L501.1500 6.4-8.2 g/dL T Normal PROT 6.9 LAB L501.1800 3.2-5.0 g/dL Normal ALB 3.5 LAB L501.1950 2.2-4.2 g/dL Normal GLOB 3.4 LAB L501.2000 0.9-2.4 RATIO Normal A/G 1.0 LAB L501.2200 8.5-10.1 mg/dL CA Normal 8.7 LAB L501.4100 15-37 U/L Low AST 12 LAB L501.4305 45-117 U/L Normal ALK P 59 LAB L501.4405 16-61 U/L Normal ALT 21 LAB L501.4600 0.20-1.00 mg/dL High T BILI 1.40 LAB L501.5300 136-145 mmol/L NA Normal 141 LAB L501.5600 3.5-5.1 mmol/L K Normal 4.0 LAB L501.5900 98-107 mmol/L CL Normal 102 LAB L501.6100 21.0-32.0 mmol/L Normal CO2 31.0 LAB L501.6200 5-15 Normal GAP 8 Performed By: #### L100.0100, L101.9900, L500.4050, L501.2400, L501.2450, L501.9910 #### [facility] [address] [place], [place], [address] AMYLASE Collected: 02/24/2018 Status: F Source: [place] 12:00 [facility] REPOSITORY Order Comment: Order Date: 02/24/18 Order Info: 0786-1 - CMP Order Info: 3083-09 - URIC Order Info: 1798-04 - VILLA Order Info: 0-3 - LIPASE Order Info: 1 - PSA TYPE CODE TESTS RESULT OUT OF RANGE REFERENCE UNITS LAB L501.2400 25-115 U/L Normal VILLA 28 Performed By: #### L100.0100, L101.9900, L500.4050, L501.2400, L501.2450, L501.9910 #### [facility] [address] [place], [place], [address] LIPASE Collected: 02/24/2018 Status: F Source: [place] 12:[address] [facility] REPOSITORY Order Comment: Order Date: 02/24/18 Order Info: 0786-1 - CMP Order Info: 3084-1 - URIC Order Info: 8 - VILLA Order Info: 3040-3 - LIPASE Order Info: 2857-1 - PSA TYPE CODE TESTS RESULT OUT OF REFERENCE UNITS RANGE LAB L501.2450 73-393 U/L Low LIPASE 65 Performed By: #### L100.0100, L101.9900, L500.4050, L501.2400, L501.2450, L501.9910 #### [facility] [address] [place], [address] PSA,TOTAL - ANNUAL Collected: 02/24/2018 Status: F Source: [place] SCREEN 12:[address] [facility] REPOSITORY Order Comment: Order Date: 02/24/18 Order Info: 0786-1 - CMP Order Info: 3084-1 - URIC Order Info: 8 - VILLA Order Info: 3040-3 - LIPASE Order Info: 2857-1 - PSA TYPE CODE TESTS RESULT OUT OF REFERENCE UNITS RANGE LAB L501.9910 0.00-4.00 ng/mL High PSA,TOT 4.14 SCREEN Result Comment: This test was performed using the TPSA assay method for the Zyngenia chemistry system. Values obtained with different assay methods cannot be used interchangably. When changing PSA assays in the course of monitoring a patient, additional sequential testing should be carried out to confirm baseline values. Performed By: #### L100.0100, L101.9900, L500.4050, L501.2400, L501.2450, L501.9910 #### [facility] [address] [place], [address] URIC ACID Collected: 02/24/2018 Status: F Source: [place] 12:[address] [facility] REPOSITORY Order Comment: Order Date: 02/24/18 Order Info: 0786-1 - CMP Order Info: 3084-1 - URIC Order Info: 1798-04 - VILLA Order Info: 3040-3 - LIPASE Order Info: 2857-1 - PSA TYPE CODE TESTS RESULT OUT OF RANGE REFERENCE UNITS LAB L501.1400 3.5-7.2 mg/dL Normal URIC 7.2 Result Comment: The drugs N-Acetylcysteine and Metamizole may falsely depress this assay. Performed By: #### L501.1400 #### [facility] [address] [place], [address] CRP Collected: 02/24/2018 Status: F Source: [place] 12:[address] [facility] REPOSITORY Order Comment: Order Date: 02/24/18 Order Info: 0786-1 - CMP Order Info: 3084-1 - URIC Order Info: 1798-8 - VILLA Order Info: 3040-3 - LIPASE Order Info: 2857-1 - PSA TYPE CODE TESTS RESULT OUT OF RANGE REFERENCE UNITS LAB L501.6710 0.0-3.0 mg/L High 10.20 C-REACTIVE PROT Result Comment: C-Reactive Protein (CRP) provides useful information for the diagnosis, therapy and monitoring of inflammatory processes and associated diseases. For the evaluation of Relative Risk for Cardiovascular Disease, a High Sensitivity CRP (HSCRP) should be ordered. Performed By: #### L501.6710 #### [facility] [address] [facility] [place], [address] L/S SPINE MIN 4 Observed: 01/28/2018 Status: F Source: [place] VIEWS 1:[address] [facility] REPOSITORY [facility] Services [address] [place] [address] L/S Spine Min 4 Views MR#: [id number] Acct: [id number] Name: NORBERT MOLINA Rep #: [id number] : 1955 M 62 From: Ethan Adams DO PCP: Sharif Rosales MD Status: REG CLI Study: L/S Spine Min 4 Views Date of Exam: 01/28/18 Exam# [id number] Ordering Dr: Boni Rosales MD STUDY: X-RAY - LUMBAR SPINE REASON FOR EXAM: Male, 62 years old. Back pain TECHNIQUE: 5 view(s) of the lumbar spine were obtained. COMPARISON: None FINDINGS: Normal lumbar lordosis. There is no substantial scoliosis. There is a normal alignment of the vertebrae. There is multilevel endplate spondylosis of the lumbar vertebrae. There is multi-level degenerative disc disease with multi-level disc space narrowing. No fracture. There is no demonstrated spondylolysis of the pars interarticulares. The soft tissue structures are unremarkable. RAD/L/S Spine Min 4 Views IMPRESSION: Degenerative changes of the spine, as detailed above. Electronically Signed: Ethan AdamsDO at 9:03 EDT Tel , Service support , CC: Sharif Rosales MD Wafer Polisher: Signed ALLERGIES ALLERGIES No Allergies Records FoundENCOUNTERS ENCOUNTERS ADMIT/DISCHARGE ACCOUNT ADMITTING ENCOUNTER LOCATION SOURCE NUMBER CLASS 07/31/2018 [id number] Ambulatory [place] 7 [facility] ing:US Repository 07/17/2018 [id number] Ambulatory [place] 1 [facility] ing:MTRAD Repository 06/09/2018 [id number] Ambulatory [place] 4 [facility] ing:CVS Repository 06/09/2018 [id number] Ambulatory BMSBuilding:W [place] 0 [facility] Repository 04/23/2018 [id number] Ambulatory [place] 3 [facility] ing:MTLAB Repository 04/01/2018 [id number] Ambulatory [place] 2 [facility] ing:MRI Repository 03/24/2018 [id number] Ambulatory [place] 9 [facility] ing:CT Repository 03/03/2018 [id number] [facility] ing:US Repository 02/24/2018 [id number] Ambulatory [place] 2 [facility] ing:MFPLAB Repository 01/28/2018 [id number] Ambulatory [place] 9 [facility] ing:MTRAD Repository PAYERS PAYERS ENCOUNTER GUARANTOR PAYER SUBSCRIBER SOURCE 07/31/2018 NORBERT [id number] [place] Insurance:MEDICAL MARTYDOB: TEREZA Glez [facility] [id number] [address]Mub: Number: Repository [id number] () Date:5241-57-20BB [address] [place] [address]XC: 07/31/2018 Secondary NOT GIVENUNK [place] Insurance:SELF PAY [facility] Number: Effective Repository Date:2018-07-29 07/17/2018 NORBERT Emery Primary AMBER Amos [id number] [place] Insurance:MEDICAL MARTYDOB: [facility] [id number] [facility] [address]Mbt: Number: Repository [id number] () Date:9076-03-88BO [place] [id number]: 07/17/2018 Secondary NOT GIVENUNK [place] Insurance:SELF PAY [facility] Number: Effective Repository Date:2018-07-17 06/09/2018 NORBERT Emery Primary AMBER Amos [id number] [place] Insurance:MEDICAL MARTYDOB: [facility] [id number] [facility] [address]Ybc: Number: Repository [id number] () Date:4723-10-06OG[address] [address]MR: 06/09/2018 Secondary NOT GIVENUNK [place] Insurance:SELF PAY [facility] Number: Effective Repository Date:2018-05-15 06/09/2018 NORBERT Emery Primary AMBER Amos [id number] [place] Insurance:MEDICAL MARTYDOB: [facility] [id number] Cancer Center [address]Tel: Number: Repository [id number] () Date:[id number] [address] [address]SU: 06/09/2018 Secondary NOT GIVENUNK [place] Insurance:SELF PAY [facility] Number: Effective Repository Date:2018-06-09 04/23/2018 Norbert Emery Primary Amber Amos [id number] [place] Insurance:MEDICAL MartyDOB: [facility] [id number] Cancer Center [address]Riz: Number: Repository [id number] () Date:3135-84-59BV[address] [address]TJ: 04/23/2018 Secondary NOT GIVENUNK [place] Insurance:SELF PAY [facility] Number: Effective Repository Date:2018-04-23 04/01/2018 Norbert Emery Primary Amber Colindresy[address] [place] Insurance:MEDICAL MartyDOB: [facility] [id number] [id number]: Number: Repository [id number] (HP) Date:8592-37-76XY [address] [address]IU: 04/01/2018 Secondary NOT GIVENUNK [place] Insurance:SELF PAY [facility] Number: Effective Repository Date:2018-04-01 03/24/2018 Norbert Emery Primary Amber Colindresy4917 [place] Insurance:MEDICAL MartyDOB: [facility] [id number] Cancer Center [address]Rha: Number: Repository [id number] () Date:2229-17-31HQ[address] [address]DR: 03/24/2018 Secondary NOT GIVENUNK [place] Insurance:SELF PAY [facility] Number: Effective Repository Date:2018-03-11 03/03/2018 Lalitaezekiel [id number] Primary [place] Insurance:MEDICAL MartyDOB: [facility] [id number] [id number]: (330) Number: Repository [phone] () [id number] Date:6473-50-65RU[address] [address]PH: 03/03/2018 Secondary NOT GIVENUNK [place] Insurance:SELF PAY [facility] Number: Effective Repository Date:2018-02-25 02/24/2018 Lalitaezekiel Molina4917 Primary Amber [place] Insurance:MEDICAL MartyDOB: [facility] [id number] [facility] [address]Ajk: (330) Number: Repository [phone] () [id number] Date:3043-20-60BY[address] [address]NB: 02/24/2018 Secondary NOT GIVENUNK [place] Insurance:SELF PAY [facility] Number: Effective Repository Date:2018-02-24 01/28/2018 Norbert Colindresy4917 Primary Amber Jasso [place] Insurance:MEDICAL MartyDOB: [facility] [id number] [facility] [address]Fji: (330) Number: Repository [phone] () [id number] Date:6347-06-90QG[address] [address]CG: 01/28/2018 Secondary NOT GIVENUNK [place] Insurance:SELF PAY [facility] Number: Effective Repository Date:2018-01-28
== END ==
PROVIDERS: Family Provider Family Medicine; PCP Family Medicine; Referring Provider Family Medicine; Visit Provider Family Medicine
DX: R59.0 Localized enlarged lymph nodes (principal)
CPT/HCPCS: 76536

== ENCOUNTER → 2018-08-21 07:57 | Outpatient (CLI) | payer OTHER, SELFPAY ==
--- NOTE | 2018-08-21 08:00 | CT_ITS ---
STUDY: CT SOFT TISSUE NECK WITH CONTRAST REASON FOR EXAM: Male, 63 years old. Cervical lymphadenopathy. Lump on left neck x2 years. Tender to touch. Marked with BB. 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 RADIATION DOSAGE (If Supplied By Facility): CTDIvol = ( 26.07 ) mGy, DLP = ( 852.96 ) mGycm TECHNIQUE: The patient was scanned in a multi-detector CT scanner. High resolution transaxial imaging was performed following intravenous administration of 75mL ml of Isovue 300 contrast material. Sagittal and coronal images were reconstructed. Individualized dose optimization techniques were used for this CT. COMPARISON: Ultrasound of the neck 07/31/2018. FINDINGS: Underneath the left neck and metallic BB marker is 2.4 x 1.7 cm benign lipoma of the subcutaneous space. No lymphadenopathy. Normal bilateral parotid glands. Normal bilateral education liaison spaces. Normal bilateral parapharyngeal spaces. Redundancy of the medial pharyngeal course of the right cervical internal carotid artery. This form 360 degree loop. No suspicious mass in both carotid sheaths. Normal bilateral sublingual and submandibular glands and spaces. Normal visualized nasopharynx. Normal retropharyngeal space. Normal perivertebral space. Normal visualized bilateral faucial tonsils. The visualized tongue, tongue base and oropharynx are normal. The visualized cervical lymph nodes (levels I-) are within normal size limits, and maintain normal morphology. There is no demonstrated solid or cystic mass lesion. There is no abnormal contrast enhancement. Normal epiglottis, bilateral vallecula and hypopharynx. The pre-epiglottic and paraglottic adipose spaces are normal. Normal visualized bilateral piriform sinuses, aryepiglottic folds, vocal cords, and arytenoid-cricoid articulations. Normal subglottic trachea. Normal bilateral lobes of the thyroid gland. Normal visualized pulmonary apices. Normal visualized paranasal sinuses. Normal visualized cervical spine. Mucosal edema with sclerotic thickening of the right temporal mastoid air cells. Fluid opacification of the right middle ear space. CT/Soft Tissue Neck WITH Contrast IMPRESSION: 1. Benign subcutaneous lipoma underneath the metallic BB marker in the left neck measuring 2.4 x 1.[address] evidence of cervical lymphadenopathy in the suprahyoid neck and infrahyoid neck. 3. 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 4. Chronic right otomastoiditis. Please correlate with otoscopy. Electronically Signed: Juventino Henson MD at 13:39 EST , Service support ,
[2018-08-21 08:11] LABS: CREATININE FINGERSTICK 1.3 mg/dL (0.70-1.30)
== END ==
PROVIDERS: Family Provider Family Medicine; PCP Family Medicine; Referring Provider Family Medicine; Visit Provider Family Medicine
DX: D17.0 Benign lipomatous neoplasm of skin and subcutaneous tissue of head, face and neck (principal); H70.11 Chronic mastoiditis, right ear
CPT/HCPCS: 70491; Q9967

== ENCOUNTER → 2019-05-12 12:54 | Outpatient (CLI) | payer OTHER, SELFPAY ==
--- NOTE | 2019-05-12 13:01 | VDLE_ITS ---
Reason For Study: venous insufficiency,swelling RIGHT LEFT CFV is compressible, spontaneous, phasic, CFV is compressible, spontaneous, phasic, competent and demonstrates normal competent, and demonstrates normal augmentation. augmentation. FV is compressible, spontaneous, phasic, FV is compressible, spontaneous, phasic, competent and demonstrates normal competent and demonstrates normal augmentation. augmentation. POP V is compressible, spontaneous, phasic, POP V is compressible, spontaneous, phasic, competent and demonstrates normal competent and demonstrates normal augmentation. augmentation. T/P Trunk is compressible. T/P Trunk is compressible. PTV is compressible. PTV is compressible. RT PerV is compressible. LT PerV is compressible. SFJ is INCOMPETENT and measures .80 x .96 cm. SFJ is competent and measures .92 x .95 cm. GSV proximal thigh measures .32 x .34 cm. GSV proximal thigh measures .41 x .43 cm. GSV at knee measures .10 x .15 cm. GSV at knee measures .2 x .22 cm. GSV above knee is competent. GSV is competent throughout. GSV below knee is INCOMPETENT for greater SSV proximal calf is competent and than 0.5 seconds. measures .33 x .37 cm. SSV proximal calf is competent and measures .16 x .16 cm. Procedure Exam performed in department. The exam was diagnostic. Interpretation Summary Deep veins of the lower extremities are bilaterally patent and compressible segmentally. There is no evidence of deep vein thrombosis on either side. Valvular competence appears intact within the proximal deep venous systems bilaterally. The great saphenous veins appear bilaterally patent and compressible segmentally. The right sapheno-femoral junction is incompetent . The left sapheno- femoral junction is competent . The right great saphenous vein appears competent above the knee. The right great saphenous vein appears incompetent below the knee. The left great saphenous vein appears segmentally competent. Small saphenous veins are patent and competent bilaterally. Ordering Physician: Ryan Jang Performed By: Joselito Brasher, RVT
== END ==
PROVIDERS: Family Provider Family Medicine; PCP Family Medicine; Referring Provider Podiatrist; Visit Provider Podiatrist
DX: I87.2 Venous insufficiency (chronic) (peripheral) (principal); M79.89 Other specified soft tissue disorders
CPT/HCPCS: 93970

== ENCOUNTER 2019-07-03 02:02 | Emergency (ER) | payer OTHER, SELFPAY ==
[2019-07-03 02:03] VITALS: BP 193/95; PULSE 90; RESP 16; TEMP 37.4; O2SAT 97; BMI 48.0
--- NOTE | 2019-07-03 02:29 | ED.VIS.GEN ---
History of Present Illness Chief Complaint: Gonzales C/O Informant: Patient, Significant Other Onset: Today Context: Gradual Onset Timing: Continuous Quality: gonzales blocked Location: urethral Current Severity: Severe - Discomfort from urinary retention Maximum Severity: Severe Associated Symptoms: Suprapubic discomfort. Hematuria. Narrative: Patient just had a total knee arthroplasty done at an outside hospital and was discharged today, he had urinary retention and he had a catheter placed and he was discharged with it. He is on Lovenox to prophylax against DVT. He developed hematuria right after they got home, and the catheter quickly clotted off and now he is unable to urinate and extremely uncomfortable. - Past Medical History (1) Prostate hypertrophy Status: Chronic (2) Arthritis Status: Chronic Past Medical History - Allergies and Home Meds Allergies/Adverse Reactions: Allergies No Known Allergies Allergy (Verified 07/03/19 02:07) Primary Care Physician: Boni Rosales MD [Primary Care Provider] - Surgical History: total knee arthroplasty Lives: Spouse/ Significant Other Smoking Status: Never smoker Review of Systems General: Denies: Chills, Fever, Sweats Gastrointestinal: Reports: Abdominal pain. Denies: Nausea, Vomiting Genitourinary: Reports: Hematuria, - - Urinary retention Musculoskeletal: Reports: Extremity Pain - Right knee postoperative pain. Denies: Neck pain, Back pain Skin: Reports: Wounds - knee surgical. Denies: Rash Neurological: Denies: Headache, Weakness, Numbness Physical Exam Vital Signs/Narrative: Vital Signs Temp Pulse Resp BP Pulse Ox 07/03/19 02:03 99.3 F H 90 16 193/95 H 97 General: Well nourished, Well developed, Acute Distress - uncomfortable Abdomen: Soft, Normal bowel sounds, Tender - suprapubic, - - suprapubic distension. Negative for: Guarding, Rebound tenderness Skin: Normal color, No rash Neurological: Alert, Oriented x3, Cranial nerves II-XII grossly intact, Normal Strength, Normal Sensation Psychological: Normal affect, Normal Mood Diagnostic/Tx/Re-eval - Medical Decision Making We remove the patient's Gonzales catheter which was a 16 South African, and replaced it with a 22 South African Gonzales, which resulted in gross hematuria, it did clear a little. We irrigated his bladder which resulted in getting a lot of clots out, and good flow. He felt much better. We irrigated some more, and eventually it cleared completely, and he had no recurrence of gross hematuria. At this time I feel he is stable to be discharged home and to follow-up with urology. He already has an appt in 3 days. ED Disposition - Plan for ED Patient: Disposition: Home or Assisted Living Diagnosis: Acute urinary retention, Obstructed Gonzales catheter, Hematuria Instructions: Hematuria, Caring for Your Leg Bag Referrals: Boni Rosales MD [Primary Care Provider] - Dr. Dawood [Other] (as scheduled)
[2019-07-03] MEDS: Lidocaine Jelly 2% 20 ML Syringe (URO-JET) 20 APPLIC TOPICAL (02:39)
[2019-07-03 05:40] VITALS: BP 166/94; PULSE 75; RESP 17; O2SAT 96
== END 2019-07-03 05:40 | disposition home or self-care (01) ==
PROVIDERS: Emergency Provider Emergency Medicine; Family Provider Family Medicine; PCP Family Medicine
DX: T83.091A Other mechanical complication of indwelling urethral catheter, initial encounter (principal); R31.9 Hematuria, unspecified; N40.0 Benign prostatic hyperplasia without lower urinary tract symptoms
CPT/HCPCS: 51702; 99283

== ENCOUNTER → 2019-08-05 14:05 | Outpatient (CLI) | payer OTHER, SELFPAY ==
--- NOTE | 2019-08-05 14:09 | VDLE_ITS ---
Reason For Study: Swelling RIGHT LEFT GSV is normal. CFV is compressible, spontaneous, phasic, CFV is compressible, spontaneous, phasic, competent, and demonstrates normal competent and demonstrates normal augmentation. augmentation. FV is compressible, spontaneous, phasic, competent and demonstrates normal augmentation. POP V is compressible, spontaneous, phasic, competent and demonstrates normal augmentation. T/P Trunk is compressible. PTV is compressible. RT PerV is compressible. Procedure Exam performed in department. A preliminary report was called and/or faxed to Dr. Rosales. Interpretation Summary Deep veins of the right lower extremity are patent and compressible segmentally. There is no evidence of right lower extremity deep vein thrombosis. Valvular competence appears intact within the proximal deep venous system on the right . The right great saphenous vein appears patent and compressible segmentally. Ordering Physician: Sharif Rosales Referring Physician: Sharif Rosales Performed By: Lupe Sullivan, LAWRENCE, RVT
== END ==
PROVIDERS: Family Provider Family Medicine; PCP Family Medicine; Referring Provider Family Medicine; Visit Provider Family Medicine
DX: M79.89 Other specified soft tissue disorders (principal)
CPT/HCPCS: 93971

== ENCOUNTER → 2019-08-18 11:03 | Outpatient (CLI) | payer OTHER, SELFPAY | PROVIDERS: Family Provider Family Medicine; PCP Family Medicine; Referring Provider Family Medicine | DX: N40.1 Benign prostatic hyperplasia with lower urinary tract symptoms (principal); N13.8 Other obstructive and reflux uropathy | CPT/HCPCS: 36415; 84153 ==

== ENCOUNTER → 2019-08-20 08:35 | Outpatient (CLI) | payer OTHER, SELFPAY ==
--- NOTE | 2019-08-20 08:37 | US_ITS ---
STUDY: RENAL ULTRASOUND - COMPLETE REASON FOR EXAM: Male, 64 years old. Flank pain TECHNIQUE: Ultrasound evaluation of the kidneys was performed with real-time and static khan-scale imaging. COMPARISON: Previous ultrasound of the abdomen March 03, 2018 FINDINGS: RIGHT KIDNEY: Normal location of the right kidney, which is normal in size. The right kidney measures 11.4 x 5.4 x 6.5 cm. There is a normal cortex of the right kidney. The renal cortex measures 1.5 cm. There is no right renal mass or cyst. There is a 7 x 7 x 6 mm nonobstructing calculus. There is no right hydronephrosis. DISTAL RIGHT URETER: There is non-visualization of the distal right ureter. There is no demonstrated right ureterovesical junction calculus. There is no demonstrated right ureteral jet. LEFT KIDNEY: Normal location of the left kidney, which is normal in size. The left kidney measures 11.6 x 5.5 x 5.9 cm. There is a normal cortex of the left kidney. The renal cortex measures 1.6 cm. There is no left renal mass or cyst. There are no left renal calculi. There is no left hydronephrosis. DISTAL LEFT URETER: There is non-visualization of the distal left ureter. There is no demonstrated left ureterovesical junction calculus. There is no demonstrated left ureteral jet. BLADDER: The distended urinary bladder has a volume of 70 ml. . There is wall irregularity of the posterior bladder the prostate is enlarged and demonstrates an impression on the posteroinferior aspect of the urinary bladder. A prostatic calcification is present measuring 0.8 x 1.7 x 0.7 cm. There are no demonstrated bladder calculi. US/Kidney and Bladder IMPRESSION: Nonobstructing right nephrolithiasis. Wall irregularity of the posterior bladder, which is unknown significance. Neoplastic process should be excluded. Enlarged prostate containing a calcification. A portion of the prostate demonstrates an extrinsic impression on the posteroinferior aspect of the urinary bladder. Electronically Signed: Norbert Yates MD at 19:01 EST , Service support ,
== END ==
PROVIDERS: Family Provider Family Medicine; PCP Family Medicine
DX: N20.0 Calculus of kidney (principal); N40.0 Benign prostatic hyperplasia without lower urinary tract symptoms
CPT/HCPCS: 76770

== ENCOUNTER → 2019-08-25 09:36 | Outpatient (CLI) | payer OTHER, SELFPAY ==
[2019-08-25 12:11] LABS: Absolute Lymphocyte Count 0.92 X10^3/uL (0.83-4.51); Absolute Neutrophil Count 5.2 X10^3/uL (2.0-7.7); Basophil# 0.04 X10^3/uL; Basophil% 0.6 % (0-1); Eosinophil# 0.09 X10^3/uL; Eosinophils% 1.3 % (0-5); Hematocrit 41.9 % (40-54); Hemoglobin 14.2 g/dL (13.0-16.5); Lymphocyte # 0.92 X10^3/ul (4.0); Lymphocyte % 13.8 % (19-41); Mean Corp Hgb Conc 33.9 g/dL (32-36); Mean Corpuscular Hgb 30.3 pg (27.0-32.0); Mean Corpuscular Volume 89.5 fL (80-94); Mean Platelet Vol. 9.9 fl (6.2-12.0); Monocyte# 0.45 X10^3/uL; Monocyte% 6.7 % (0-10); NRBC Flagged by Analyzer 0 % (0-5); Neutrophil # 5.16 X10^3/uL (2.7-7.7); Neutrophil % 77.3 % (47-70); POSITIVE MORPHOLOGY YES; Platelet Count 264 K/mm3 (150-450); RBC Distribution Width CV 13.6 % (11.6-14.6); Red Blood Count 4.68 M/mm3 (4.6-6.2); White Blood Count 6.7 K/mm3 (4.4-11.0)
[2019-08-25 12:25] LABS: ALB/GLOB Ratio 1.3 RATIO (0.9-2.4); AST(SGOT) 12 U/L (15-37); Alanine Aminotransfer ALT/SGPT 18 U/L (16-61); Albumin, Serum 3.7 g/dL (3.2-5.0); Alkaline Phosphatase 62 U/L (45-117); Anion Gap 5 (5-15); BUN 20 mg/dL (7-18); BUN/Creat Ratio 24.3 RATIO (10-20); Calcium,Total 8.7 mg/dL (8.5-10.1); Chloride 106 mmol/L (98-107); Creatinine, Serum 0.82 mg/dL (0.70-1.30); EST Glomerular Filtration Rate 100 mL/min (>60); Est Glom Filt Rate - Afr Amer 121 mL/min (>60); Globulin 2.9 g/dL (2.2-4.2); Glucose 97 mg/dL (74-106); Protein, Total 6.6 g/dL (6.4-8.2); Sodium Level 141 mmol/L (136-145)
[2019-08-25 12:41] LABS: Differential Indicated SCAN CRITERIA MET
== END ==
PROVIDERS: Family Provider Family Medicine; PCP Family Medicine; Visit Provider Family Medicine
DX: R10.9 Unspecified abdominal pain (principal)
CPT/HCPCS: 36415; 80053; 85025

== ENCOUNTER → 2020-07-07 11:21 | Outpatient (CLI) | payer MEDICARE, OTHER, SELFPAY ==
--- NOTE | 2020-07-07 11:30 | RAD_ITS ---
STUDY: X-RAY - ABDOMEN/PELVIS REASON FOR EXAM: Male, 65 years old. Abdominal pain. TECHNIQUE: AP supine and upright views of the abdomen and pelvis. COMPARISON: None. FINDINGS: Normal visualized lung bases. There is an unremarkable bowel gas pattern. There is no demonstrated free abdominal air. The visualized liver, spleen and kidneys are grossly normal in size and morphology. Normal soft tissue structures. Degenerative changes of the lumbar spine. 7 mm sclerotic lesion of the proximal right femur at the level of the lesser trochanter is nonspecific. RAD/Abd Inc Decub and/or Erect IMPRESSION: 1. Nonobstructive bowel gas pattern. 2. Subcentimeter sclerotic lesion of the proximal right femur is nonspecific but most commonly represents a bone island. Electronically Signed: Karthik Poole MD ([place]) at 9:34 EST , Service support ,
[2020-07-07 15:22] LABS: Absolute Lymphocyte Count 1.16 X10^3/uL (0.83-4.51); Absolute Neutrophil Count 4.8 X10^3/uL (2.0-7.7); Basophil# 0.03 X10^3/uL; Basophil% 0.5 % (0-1); Hematocrit 46.1 % (40-54); Hemoglobin 15.5 g/dL (13.0-16.5); Lymphocyte # 1.16 X10^3/ul (4.0); Lymphocyte % 18.1 % (19-41); Mean Corp Hgb Conc 33.6 g/dL (32-36); Mean Corpuscular Hgb 30.3 pg (27.0-32.0); Mean Corpuscular Volume 90.2 fL (80-94); Monocyte# 0.41 X10^3/uL; Monocyte% 6.4 % (0-10); NRBC Flagged by Analyzer 0 % (0-5); Neutrophil # 4.79 X10^3/uL (2.7-7.7); Neutrophil % 74.7 % (47-70); Platelet Count 269 K/mm3 (150-450); RBC Distribution Width CV 12.8 % (11.6-14.6); RBC Distribution Width SD 42.3 fl (35.1-43.9); Red Blood Count 5.11 M/mm3 (4.6-6.2); White Blood Count 6.4 K/mm3 (4.4-11.0)
[2020-07-07 16:18] LABS: ALB/GLOB Ratio 1.2 RATIO (0.9-2.4); AST(SGOT) 13 U/L (15-37); Alanine Aminotransfer ALT/SGPT 23 U/L (16-61); Albumin, Serum 3.7 g/dL (3.2-5.0); Alkaline Phosphatase 69 U/L (45-117); Anion Gap 4 (5-15); BUN 17 mg/dL (7-18); Calcium,Total 8.7 mg/dL (8.5-10.1); Chloride 104 mmol/L (98-107); Creatinine, Serum 0.81 mg/dL (0.70-1.30); EST Glomerular Filtration Rate 102 mL/min (>60); Est Glom Filt Rate - Afr Amer 123 mL/min (>60); Globulin 3.1 g/dL (2.2-4.2); Glucose 96 mg/dL (74-106); Protein, Total 6.8 g/dL (6.4-8.2); Sodium Level 139 mmol/L (136-145)
== END ==
PROVIDERS: PCP Family Medicine; Referring Provider Family Medicine; Visit Provider Family Medicine
DX: R10.9 Unspecified abdominal pain (principal)
CPT/HCPCS: 36415; 74019; 80053; 85025

== ENCOUNTER → 2021-07-17 12:38 | Outpatient (CLI) | payer MEDICARE, OTHER, SELFPAY ==
--- NOTE | 2021-07-17 12:46 | RAD_ITS ---
EXAM: XR ABDOMEN, 2 VIEWS AND XR CHEST, 1 VIEW : 1955 CLINICAL INDICATION: ABD PAIN TECHNIQUE: Frontal view of the chest, frontal view of the abdomen/pelvis and upright or decubitus view of the abdomen. This report was created using [employer] report generation technology. COMPARISON: None. FINDINGS: CHEST: LUNGS AND PLEURAL SPACES: Unremarkable. No consolidation or edema. No pneumothorax. No effusion. HEART: Unremarkable. Cardiac silhouette not enlarged. MEDIASTINUM: Central airways and mediastinal contour are unremarkable. ABDOMEN: INTRAPERITONEAL SPACE: No free air. GASTROINTESTINAL TRACT: Unremarkable. Non-obstructive. No bowel or stomach distention. ORGANS: Unremarkable as visualized. No organomegaly. No abnormal calcifications. TUBES, LINES AND DEVICES: None. BONES/JOINTS: No acute findings. SOFT TISSUES: No acute findings. RAD/Acute Abdomen Inc Chest IMPRESSION: Negative chest and abdominal series. at 0307 Reported and signed by: Cornelio Finn MD Electronically Signed: Cornelio Finn MD at 3:06 EST Tel , Service support ,
[2021-07-17 14:55] LABS: Hematocrit 44.4 % (40-54); Hemoglobin 15.4 g/dL (13.0-16.5); Mean Corp Hgb Conc 34.7 g/dL (32-36); Mean Corpuscular Hgb 30.6 pg (27.0-32.0); Mean Corpuscular Volume 88.1 fL (80-94); Mean Platelet Vol. 9.7 fl (6.2-12.0); Platelet Count 230 K/mm3 (150-450); RBC Distribution Width CV 12.9 % (11.6-14.6); RBC Distribution Width SD 41.6 fl (35.1-43.9); Red Blood Count 5.04 M/mm3 (4.6-6.2); White Blood Count 6.6 K/mm3 (4.4-11.0)
[2021-07-17 15:10] LABS: ALB/GLOB Ratio 1.1 RATIO (0.9-2.4); AST(SGOT) 13 U/L (15-37); Alanine Aminotransfer ALT/SGPT 19 U/L (16-61); Albumin, Serum 3.4 g/dL (3.2-5.0); Alkaline Phosphatase 61 U/L (45-117); Anion Gap 5 (5-15); BUN 17 mg/dL (7-18); Calcium,Total 8.9 mg/dL (8.5-10.1); Chloride 104 mmol/L (98-107); Cholesterol 190 mg/dL (200); Creatinine, Serum 0.77 mg/dL (0.70-1.30); EST Glomerular Filtration Rate 107 mL/min (>60); Est Glom Filt Rate - Afr Amer 130 mL/min (>60); Globulin 3.2 g/dL (2.2-4.2); Glucose 104 mg/dL (74-106); High Density Lipoprotein 43 mg/dL; PSA,Total - Annual Screen 3.34 ng/mL (0.00-4.00); Potassium 3.8 mmol/L (3.5-5.1); Protein, Total 6.6 g/dL (6.4-8.2); Sodium Level 139 mmol/L (136-145); Triglycerides 93 mg/dL; Uric Acid 7.1 mg/dL (3.5-7.2); Very Low Density Lipoprotein 19 mg/dL (5-40)
== END ==
PROVIDERS: PCP Family Medicine; Referring Provider Family Medicine; Visit Provider Family Medicine
DX: R10.9 Unspecified abdominal pain (principal); I10 Essential (primary) hypertension; N40.0 Benign prostatic hyperplasia without lower urinary tract symptoms; M10.9 Gout, unspecified; Z12.5 Encounter for screening for malignant neoplasm of prostate
CPT/HCPCS: 36415; 74022; 80053; 80061; 84153; 84550; 85027; G0103

== ENCOUNTER 2022-03-23 20:00 | Observation (INO) | payer MEDICARE, OTHER, SELFPAY ==
[2022-03-23 20:02] VITALS: BP 207/114; PULSE 80; RESP 17; TEMP 36.9; O2SAT 99; BMI 46.0
[2022-03-23 21:19] VITALS: BP 134/65
--- NOTE | 2022-03-23 22:19 | EX.ED.DYSGE1 ---
HPI History of Present Illness Chief Complaint: Wound Informant: patient Narrative Narrative: Patient had an infected sebaceous cyst resected from his right clavicle area earlier today by Dr. Bishop, he states he bent over to pick something up at home and it started bleeding and they could not get it stopped, they were instructed to leave the operative dressing on and not touch it until next Saturday. He denies any systemic symptoms. He is on no blood thinning medications or antiplatelet medications. PFSH PFSH Medical History no medical history no medical history Home Medications NK 03/23/22 [History Last Taken Unknown] Allergy/AdvReac Type Severity Reaction Status Date / Time No Known Allergies Allergy Verified 03/23/22 20:04 Family History no significant family his Social History Smoking Status: Never smoker ROS ROS ED Constitutional Constitutional ED: Denies chills or fever(s) Eyes Eyes: Denies change in vision or diplopia ENT ENT ED: Denies rhinorrhea or sore throat Cardiovascular Cardiovascular: Denies chest pain or palpitations Respiratory/Chest Respiratory/Chest: Denies cough or dyspnea Gastrointestinal Gastrointestinal: Denies abdominal pain, diarrhea, nausea or vomiting Genitourinary Genitourinary ED: Denies dysuria or hematuria Musculoskeletal Musculoskeletal: Denies back pain or neck pain Integumentary Reports other Details: Right shoulder/clavicle surgical wound, see above/HPI ; Denies abscess or rash Neurologic Neurologic: Denies headache(s), paresthesias or weakness Psychiatric Psychiatric: Denies anxiety or suicidal thoughts EXAM Physical Exam Const Vital Signs: 03/23/22 20:02 03/23/22 21:19 03/23/22 23:02 Temperature 98.5 F Temperature Source Temporal Pulse Rate 80 Respiratory Rate 17 Blood Pressure 207/114 H 134/65 H 133/93 H Blood Pressure Mean 145 88 106 Pulse Ox 99 Oxygen Delivery Method Room Air 03/23/22 23:40 Temperature 98.0 F Temperature Source Oral Pulse Rate 81 Respiratory Rate 16 Blood Pressure Blood Pressure Mean Pulse Ox 95 Oxygen Delivery Method Room Air Positive well nourished, well developed and obese General Appearance ED: well developed and NAD Nutritional Appearance: obese HEENT Reports moist mucous membranes normocephalic and atraumatic Eyes PERRL and EOMs intact bilaterally Neck full ROM and supple Resp normal respiratory effort and clear to auscultation bilaterally Cardio regular rate, regular rhythm and no murmurs GI non-tender and non-distended Auscultation: normoactive bowel sounds Palpation: soft Back/Spine no CVA tenderness General Back: other FROM Extremity normal to inspection General Extremety ED: Negative for edema, pulses abnormal or tenderness General Extremity: Negative for edema or pulses abnormal Neuro oriented x3, CN's II-XII intact bilaterally and no sensory deficits noted Sensorium / Orientation: awake and alert Motor Exam: strength 5/5 throughout Skin no rashes or lesions noted Skin Narrative: Actively bleeding from beneath the surgical dressing wound right clavicle. After removing the operative dressing, it is open and packed with gauze and actively bleeding. No signs of infection. MDM MDM MDM Narrative Medical decision making narrative: Discussed with Dr. Triplett who agreed with removing the surgical dressing, irrigating it with sterile saline, and repacking it with Surgicel or Surgifoam, then holding pressure. I did this, irrigated with 120 cc of fluid, placed a piece of Surgifoam which was the only coagulant dressing/foam that we had available, packed it with a folded sterile 4 x 4, and then applied firm pressure. I was unable to control the bleeding at all, it was more convenient/accessible to manage this with the patient sitting, however he started to become lightheaded and near syncopal, so we laid him down and had an IV placed with some fluids. At that point, the bleeding was significantly improved, but still present. I then discussed again with surgery, Dr. Triplett came and evaluated patient in the ED. See his progress notes; the patient ended up requiring operative intervention for this. He ended up maintaining stable vital signs in the emergency department and having a hemoglobin of 14.8 so I suspect that he had a near syncopal episode due to the blood loss and could have vagaled. Lab Data Attestation: I reviewed the patient's lab results. Labs: Laboratory Results - last 24 hr 03/23/22 22:33 WBC 8.4 RBC 4.78 Hgb 14.8 Hct 43.4 MCV 90.8 MCH 31.0 MCHC 34.1 RDW Std Deviation 44.8 H RDW Coeff of Esme 13.5 Plt Count 237 MPV 9.4 Procedures Other Procedures Procedure(s): Hemorrhage control by EDMD, at the bedside for 20 minutes continuously, see above for procedure details involving Surgifoam, sterile irrigation and packing, and holding pressure. Critical Care Time Critical Care Time: Yes Critical care time (excluding procedures): 30-74 minutes (35 min), Including time spent:, Discussing w/Patient &/or Family/Airconditioning Engineer, Discussing w/Consultants, Arranging Admission or Transfer, Performing Direct Patient Care at Bedside and - (Exclusive of procedure time) Discharge Plan Dx/Rx/DC Orders Clinical Impression: Postoperative hemorrhage from incision, Vasovagal near-syncope Disposition Disposition: Acute Care Hospital [facility] Discharge Date/Time: 03/24/22 00:30
[2022-03-23 22:41] LABS: Hematocrit 43.4 % (40-54); Hemoglobin 14.8 g/dL (13.0-16.5); Mean Corp Hgb Conc 34.1 g/dL (32-36); Mean Corpuscular Volume 90.8 fL (80-94); Mean Platelet Vol. 9.4 fl (6.2-12.0); Platelet Count 237 K/mm3 (150-450); RBC Distribution Width CV 13.5 % (11.6-14.6); RBC Distribution Width SD 44.8 fl (35.1-43.9); Red Blood Count 4.78 M/mm3 (4.6-6.2); White Blood Count 8.4 K/mm3 (4.4-11.0)
[2022-03-23] MEDS: Lidocaine 1%/Epi 1:100 (30ml) 30 ML VIAL INFILT (23:00)
[2022-03-23] MEDS: 0.9% Normal Saline 1,000 ML 999 ML IV (23:00)
[2022-03-23 23:02] VITALS: BP 133/93
[2022-03-23 23:40] VITALS: PULSE 81; RESP 16; TEMP 36.7; O2SAT 95; BMI 46.0
--- NOTE | 2022-03-23 23:41 | EX.PCM.CON.S ---
Assessment & Plan Assessment/Plan (1) Postoperative hemorrhage from incision: PLAN: Unfortunately I am can have to take him to surgery to get control this bleeding. Hopefully with a combination of electrocautery and suture ligation will be able to do that. We will plan on keeping him here overnight.I have counseled the patient as to the risks of the procedure, including but not limited to: infection, bleeding, injury to any blood vessels/nerves, , complications of anesthesia, etc. The patient verbalizes understanding. HPI Consult Data Date of Consult: 03/23/22 HPI Narrative HPI Narrative: CHRIS MOLINA, is a 67 M who presents Patient had an infected sebaceous cyst resected from his right clavicle area earlier today by Dr. Bishop, he states he bent over to pick something up at home and it started bleeding and they could not get it stopped, they were instructed to leave the operative dressing on and not touch it until next Saturday.? He denies any systemic symptoms.? He is on no blood thinning medications or antiplatelet medications. While in the ER I held pressure placed a wrist and put a suture of 0 Vicryl in there but he still bleeding and I am going to need to take him to surgery to get this to stop. [facility] Medical History no medical history Home Medications NK 03/23/22 [History Last Taken Unknown] Allergy/AdvReac Type Severity Reaction Status Date / Time No Known Allergies Allergy Verified 03/23/22 20:04 Family History no significant family his Social History Smoking Status: Never smoker ROS Cardiovascular Cardiovascular: Denies chest pain Respiratory/Chest Respiratory/Chest: Denies cough or dyspnea Gastrointestinal Gastrointestinal: Denies abdominal pain Physical Exam Const alert, oriented x3 and no apparent distress HEENT normocephalic and head/scalp atraumatic Eyes PERRL and EOMs intact bilaterally Resp clear to auscultation bilaterally Cardio Rate: regular rate GI soft to palpation Skin Skin Narrative: Right supraclavicular fossa with a wound that measures approximately 5 cm in length 2 cm in depth. Active venous oozing from it which cannot be controlled with simple pressure and/or suture ligation. Lab / Micro Data Result Diagrams: 03/23/22 22:33 Labs: Laboratory Results - last 24 hr 03/23/22 22:33: WBC 8.4, RBC 4.78, Hgb 14.8, Hct 43.4, MCV 90.8, MCH 31.0, MCHC 34.1, RDW Std Deviation 44.8 H, RDW Coeff of Esme 13.5, Plt Count 237, MPV 9.4
[2022-03-24] VITALS (10 sets, daily range): BP systolic 130–162; BP diastolic 77–103; PULSE 62–94; RESP 16–18; TEMP 36.6–37.3; O2SAT 89–95; BMI 46.0
[2022-03-24] MEDS: 0.9% Normal Saline 1,000 ML 55 ML IV (00:30)
[2022-03-24] MEDS: Bupivacaine 0.25% 30 ML Vial (01:13)
--- NOTE | 2022-03-24 01:44 | PCM.OPRPT ---
Report of Operation Date of Procedure: 03/24/22 Pre-Operative Diagnosis: Postop bleeding wound of right neck (supraclavicular fossa) Post-Operative Diagnosis: Same Surgery/Procedure Performed:: Wound exploration with electrocautery of wound Description of Surgical Findings:: This is a 67-year-old gentleman who had an incision and drainage of an abscess in his right supraclavicular fossa by another surgeon in the office. I explored the wound in the ER there was a area of oozing where I placed a [id number] of 0 Vicryl. And held pressure however the area was still quite a bit oozy and I felt the best thing to do was packed this and bring him to the OR where I can get a good look at everything and use electrocautery to create good hemostasis. Surgeon: James Triplett peer support specialist: Livan Lopez Type of Anesthesia: General Anesthesiologist: Carla Tao Estimated Blood Loss (mL): < 5 cc Description of Procedure: Patient was brought into the operating room. Under excellent general anesthetic the right neck in the supraclavicular fossa area was sterilely prepped and draped in the usual fashion. Packing was removed patient had an oozy wound posteriorly this was controlled with electrocautery as well as an oozy part of the wound laterally. This also was controlled with electrocautery. I had previously explored the wound in the ER and placed an 0 Vicryl suture this area was not bleeding. Once I had used electrocautery and the wound I injected local lightly packed it and waited for about 3 minutes to see if there was any other bleeding areas posteriorly it was still a little bit oozy (posteriorly) and I used some more electrocautery and had good hemostasis. Once I was convinced the area was no longer bleeding I packed it with a Betadine soaked 4 x 4. Sterile dressings were applied. And the patient tolerated the procedure well. Admit VTE Documentation VTE Present on Admission: No VTE Mechan Device Prophylaxis: SCD's VTE Pharm Prophylaxis ordered?: No Reason prophylaxis not ordered:: Treatment Not Indicated
[2022-03-24] MEDS: Cefazolin 1 GM/50 ML BAG IV (05:09)
[2022-03-24 06:28] LABS: Absolute Lymphocyte Count 0.62 X10^3/uL (0.83-4.51); Absolute Neutrophil Count 11.7 X10^3/uL (2.0-7.7); Basophil# 0.02 X10^3/uL; Basophil% 0.2 % (0-1); Hematocrit 45.7 % (40-54); Hemoglobin 15.3 g/dL (13.0-16.5); Lymphocyte # 0.62 X10^3/ul (0.83-4.51); Mean Corp Hgb Conc 33.5 g/dL (32-36); Mean Corpuscular Volume 92.7 fL (80-94); Mean Platelet Vol. 9.6 fl (6.2-12.0); Monocyte# 0.14 X10^3/uL; Monocyte% 1.1 % (0-10); NRBC Flagged by Analyzer 0 % (0-5); Neutrophil # 11.67 X10^3/uL (2.7-7.7); Neutrophil % 93.1 % (47-70); Platelet Count 238 K/mm3 (150-450); RBC Distribution Width CV 13.5 % (11.6-14.6); Red Blood Count 4.93 M/mm3 (4.6-6.2); White Blood Count 12.5 K/mm3 (4.4-11.0)
[2022-03-24 06:44] LABS: Anion Gap 5 (5-15); BUN 21 mg/dL (7-18); BUN/Creat Ratio 22.8 RATIO (10-20); Calcium,Total 8.8 mg/dL (8.5-10.1); Chloride 105 mmol/L (98-107); Creatinine, Serum 0.92 mg/dL (0.70-1.30); EST Glomerular Filtration Rate 87 mL/min (>60); Est Glom Filt Rate - Afr Amer 106 mL/min (>60); Estimated Creatinine Clearance 70.31 ml/min; Glucose 152 mg/dL (74-106); Potassium 4.2 mmol/L (3.5-5.1); Sodium Level 140 mmol/L (136-145)
--- NOTE | 2022-03-24 09:07 | PCM.PN.SRG ---
Subjective Subjective No complaints this morning. Dressing did not need to be changed last night Objective Data Objective Data Remove Dressing packing looks fine Vital Signs: Vital Signs Temp Pulse Resp BP Pulse Ox O2 Del Method O2 Flow Rate 99.1 F 89 18 162/88 H 95 Room Air 2 03/24/22 08:59 03/24/22 08:59 03/24/22 08:59 03/24/22 08:59 03/24/22 08:59 03/24/22 08:59 03/24/22 08:59 Oxygen Flow Rate (L/min) 2 Oxygen Delivery Method Room Air Weight: 285 lb Body Mass Index (BMI) 46.0 Intake & Output: Intake and Output for Last 24 Hours 03/22/22 03/23/22 03/24/22 23:59 23:59 23:59 Intake Total 1450 / 1450 Output Total 900 / 900 Balance 550 / 550 Lab / Micro Data Result Diagrams: 03/24/22 05:30 03/24/22 05:30 Labs: Laboratory Results - last 24 hr 03/23/22 22:33: WBC 8.4, RBC 4.78, Hgb 14.8, Hct 43.4, MCV 90.8, MCH 31.0, MCHC 34.1, RDW Std Deviation 44.8 H, RDW Coeff of Esme 13.5, Plt Count 237, MPV 9.4 03/24/22 05:30: WBC 12.5 H, RBC 4.93, Hgb 15.3, Hct 45.7, MCV 92.7, MCH 31.0, MCHC 33.5, RDW Std Deviation 46.0 H, RDW Coeff of Esme 13.5, Plt Count 238, MPV 9.6, Immature Gran % (Auto) 0.600, Neut % (Auto) 93.1 H, Lymph % (Auto) 5.0 L, [place] % (Auto) 1.1, Eos % (Auto) 0.0, Baso % (Auto) 0.2, Absolute Neuts (auto) 11.7 H, Absolute Lymphs (auto) 0.62 L, Nucleated RBC % 0 03/24/22 05:30: Sodium 140, Potassium 4.2, Chloride 105, Carbon Dioxide 30.0, Anion Gap 5, BUN 21 H, Creatinine 0.92, Estim Creat Clear Calc 70.31, Est GFR (MDRD) Af Amer 106, Est GFR (MDRD) Non-Af 87, BUN/Creatinine Ratio 22.8 H, Glucose 152 H, Calcium 8.8 Assessment & Plan Assessment/Plan (1) Postoperative hemorrhage from incision: PLAN: This point I [place] leave the packing in and I am going to just redressed the wound. I am going to see him back on Saturday take the packing out at that time and I think this will hopefully prevent any further bleeding.
--- NOTE | 2022-03-24 09:09 | DCINST_ITS ---
Discharge Instructions Procedure General Surgery Diet Discharge Diet: Light diet - advance as tolerated (If you have questions about your diet instructions, please talk to your doctor.) Activity Discharge Activity: May Not Drive (for 1 week or while taking narcotic pain medicine.) May shower in (days): 1 Lifting Restrictions: 10 pounds Dressing / Incision Call your doctor if your incision/area has: Continuous Slow Oozing, Sudden Increased Bleeding, Increased Pain/ Swelling, Increased Redness and Foul Smelling Discharge Call your doctor if you observe: Fever of 101 or Higher Suture Line Care: Avoid Pulling/Pushing and Avoid Pinching/Bending Additional Dressing/Incision Instructions:: Change or remove dressing in 4 days. Leave steri-strips in place for 1 week. Follow Up Care Please Follow Up With: Justina Maxwell PA-C When: Call office to schedule an appointment to be seen in about 10 days. Test Results: Test results from this visit will be discussed in further detail at your follow- up appointment, if applicable. Discharge Plan Admission Admit Date/Time: 03/24/22 00:02 Attending Provider: James Triplett Primary Care Provider: Boni Rosales Discharge Orders/Prescriptions Prescriptions: No Action NK Referrals / Follow Up: Boni Rosales MD [Primary Care Provider] - Justina Maxwell PA-C [PHYSICIAN ASSISTANT LABORATORY DIRECTOR] - (1 patient to follow-up on Saturday for packing removal and dressing change) Disposition Disposition (needs filled in before D/C Order can be placed): Home, Self Care
--- NOTE | 2022-03-24 12:59 | NURSING ---
Pt unable to void. Bladder scanned for 483. Dr. Triplett paged. Castaneda cath placed per orders. 675cc clear yellow urine out. Education given and reviewed with patient for discharge on Castaneda Catheter.
== END 2022-03-24 13:16 | disposition home or self-care (01) ==
LOC: ED 23:35 → MS3 03-24 00:23
PROVIDERS: Admitting Provider Surgery; Emergency Provider Emergency Medicine; PCP Family Medicine; Visit Provider Surgery
PROC: (CPT 20100; principal; 2022-03-24 00:45)
DX: L76.21 Postprocedural hemorrhage of skin and subcutaneous tissue following a dermatologic procedure (principal); E66.01 Morbid (severe) obesity due to excess calories; Z68.42 Body mass index [BMI] 45.0-49.9, adult; R55 Syncope and collapse; L72.3 Sebaceous cyst; L02.413 Cutaneous abscess of right upper limb; R42 Dizziness and giddiness; Y84.8 Other medical procedures as the cause of abnormal reaction of the patient, or of later complication, without mention of misadventure at the time of the procedure; G47.33 Obstructive sleep apnea (adult) (pediatric)
CPT/HCPCS: 20100; 00300; 36415; 80048; 85025; 85027; 96361; 96365; 99251; 99284; J7030; G0463; J2405

== ENCOUNTER 2022-03-29 04:31 | Emergency (ER) | payer MEDICARE, OTHER, SELFPAY ==
[2022-03-29 04:39] VITALS: BP 225/101; PULSE 95; RESP 16; TEMP 36.7; O2SAT 97; BMI 47.3
[2022-03-29 04:54] VITALS: BP 178/76
--- NOTE | 2022-03-29 04:57 | EX.ED.DYSGE1 ---
HPI History of Present Illness Chief Complaint: Complaint Narrative Narrative: Patient is a 67-year-old male with past medical history of prostate hypertrophy. He reports that he has had occasional urinary retention as well. He states he recently had surgery and following this he could not urinate so had a catheter placed. He states the catheter was removed on Saturday and he was urinating well on Saturday and throughout the day Saturday. He believes the last time he urinated was Saturday evening around 10 PM. He states he woke this morning feeling pain and distention in his abdomen and could not urinate despite trying to for the last few hours. Therefore with concern he may need a catheter replaced he presents for evaluation. [facility] Medical History (Updated 03/29/22 @ 05:[address] Yan Clifford DO) CPAP (continuous positive airway pressure) dependence Sleep apnea Home Medications tamsulosin 0.4 mg capsule (Flomax) 0.4 mg PO QHS 03/29/22 [History Last Taken Unknown] Allergy/AdvReac Type Severity Reaction Status Date / Time No Known Allergies Allergy Verified 03/29/22 04:33 Social History Smoking Status: Never smoker ROS [facility] ED Constitutional Constitutional ED: Denies chills or fever(s) ENT ENT ED: Denies sore throat Cardiovascular Cardiovascular: Denies chest pain Respiratory/Chest Respiratory/Chest: Denies cough or dyspnea Gastrointestinal Gastrointestinal: Reports abdominal pain; Denies diarrhea, nausea or vomiting Genitourinary Genitourinary ED: Reports other Details: Positive urinary retention ; Denies dysuria Musculoskeletal Musculoskeletal: Denies back pain or myalgias Integumentary Denies rash Neurologic Neurologic: Denies headache(s) Hematologic/Lymphatic Hematologic/Lymphatic: Denies easy bleeding or easy bruising EXAM Physical Exam Const Vital Signs: 03/29/22 04:39 03/29/22 04:54 Temperature 98.0 F Temperature Source Oral Pulse Rate 95 Respiratory Rate 16 Blood Pressure 225/101 H 178/76 H Blood Pressure Mean 142 110 Pulse Ox 97 Oxygen Delivery Method Room Air Positive well nourished, well developed and obese General Appearance ED: well developed Nutritional Appearance: obese Eyes PERRL and EOMs intact bilaterally Neck supple Resp normal respiratory effort and clear to auscultation bilaterally Cardio regular rate and regular rhythm Rate: other Other Details: Radial pulses are plus 2 out of 4 bilaterally are equal and symmetric GI non-distended GI Narrative: Patient has organomegaly present in the suprapubic region with tender to palpation at the site consistent with a distended bladder. No voluntary guarding or rigidity no pulsatile mass Auscultation: normoactive bowel sounds Palpation: soft Narrative: No testicular swelling no blood or discharge from the urethral meatus no signs of secondary skin infection Back/Spine no CVA tenderness Extremity normal to inspection Neuro oriented x3 and CN's II-XII intact bilaterally Sensorium / Orientation: alert Psych mental status grossly normal Skin no rashes or lesions noted MDM MDM MDM Narrative Medical decision making narrative: Patient presented to the ER hypertensive but I felt this was related to his pain from urinary retention. He had a Castaneda catheter placed and drained about 800 mL of clear urine. He states he just finished his last dose of Bactrim today and therefore I felt no need to check for UTI. He also reported only been roughly 7 hours since his last urination and therefore my concern for acute kidney injury is low. At this time as the patient's symptoms been resolved with Castaneda catheter placement and I have low concern for infection or HORACE do not feel there is need for further work-up and patient can be discharged home with Castaneda catheter in place and urology follow-up Discharge Plan Triage Chief Complaint: Complaint ED Provider: Yan Clifford Dx/Rx/DC Orders Clinical Impression: Acute urinary retention, Prostate hypertrophy Instructions: ED Castaneda Catheter, Care, ED Urinary Retention, Male Prescriptions: No Action tamsulosin [Flomax] 0.4 mg Capsule 0.4 mg PO QHS Primary Care Provider: Boni Rosales Referrals: Boni Rosales MD [Primary Care Provider] - Brad Narayan MD [Med Staff - Active Staff] - 2 Days Activity Restrictions/Additional Instructions: Please follow-up with urology for repeat evaluation and leave the Castaneda catheter in place until evaluated by them. Please return to the ER should you have any further concerns Disposition Disposition: Home, Self Care
[2022-03-29 05:06] VITALS: BP 178/76; PULSE 81; RESP 18; O2SAT 96
== END 2022-03-29 05:08 | disposition home or self-care (01) ==
PROVIDERS: Emergency Provider Emergency Medicine; PCP Family Medicine; Visit Provider Emergency Medicine
DX: N40.1 Benign prostatic hyperplasia with lower urinary tract symptoms (principal); Z68.42 Body mass index [BMI] 45.0-49.9, adult; R33.8 Other retention of urine; E66.9 Obesity, unspecified
CPT/HCPCS: 99282

== ENCOUNTER → 2022-04-23 | Outpatient (CLI) | payer MEDICARE, OTHER, SELFPAY ==
[2022-04-23 15:24] LABS: Vitamin B12 310 pg/mL (211-911)
[2022-04-23 15:30] LABS: AST(SGOT) 14 U/L (15-37); Alanine Aminotransfer ALT/SGPT 20 U/L (16-61); Albumin, Serum 3.5 g/dL (3.2-5.0); Alkaline Phosphatase 70 U/L (45-117); Bilirubin, Direct 0.22 mg/dL (0.00-0.30); Cholesterol 173 mg/dL (200); High Density Lipoprotein 45 mg/dL; Protein, Total 6.5 g/dL (6.4-8.2); Triglycerides 92 mg/dL; Uric Acid 6.7 mg/dL (3.5-7.2); Very Low Density Lipoprotein 18 mg/dL (5-40)
== END | disposition home or self-care (01) ==
LOC: MFPLAB 11:56
PROVIDERS: PCP Family Medicine; Visit Provider Family Medicine
DX: Z13.220 Encounter for screening for lipoid disorders (principal); Z12.5 Encounter for screening for malignant neoplasm of prostate; K76.0 Fatty (change of) liver, not elsewhere classified; N40.0 Benign prostatic hyperplasia without lower urinary tract symptoms; M10.9 Gout, unspecified; E53.8 Deficiency of other specified B group vitamins
CPT/HCPCS: 36415; 80061; 80076; 82607; 84550

== ENCOUNTER → 2023-01-11 | Outpatient (CLI) | payer MEDICARE, OTHER, SELFPAY ==
--- NOTE | 2023-01-11 14:16 | CT_ITS ---
STUDY: CT Abdomen And Pelvis W/ Contrast Injection 01/11/2023 4:48 PM REASON FOR EXAM: Male, 67 years old. right to left lower abd pain x 3-4 weeks. worsened this past week. nausea. known enlarged prostate. Colonoscopy 1 year ago. pain ABD PAIN Individualized dose optimization techniques were used for this CT. COMPARISON: 03.24.18. TECHNIQUE: CT Abdomen And Pelvis W/ Contrast Injection Oral and amp; IV Gastrografin and amp; 100mL Isovue-300 FINDINGS: There are atherosclerotic calcifications of visualized coronary arteries. The visualized portions of the heart are within normal limits. Stable 25 mm hypodensity in the right lobe of the liver. ACR White Paper guidelines ([place], et al. JACR 2017; 14(11):9189-3490.) suggest no follow-up is necessary. Normal gallbladder and extrahepatic biliary system. Normal spleen. Normal pancreas. Normal bilateral adrenal glands. No acute findings of the right kidney. No acute findings of the left kidney. Normal visualized stomach. Normal small intestine. There are multiple colonic diverticula consistent with diverticulosis. There is non-visualization of the appendix. There are calcifications of the abdominal aorta. This is consistent for atherosclerotic disease. There is NO abdominal aortic aneurysm. Vascular workup can be obtained based on clinical correlation. Normal inferior vena cava. Subcentimeter mesenteric lymph nodes. Urinary bladder wall has wall thickening. This can be related to a partially contractile state. However, a cystitis is not excluded. Urinalysis should be performed in an effort to exclude cystitis. There is enlargement of the prostate gland.There are prostatic calcifications. There is an umbilical hernia containing fat. There are diffuse degenerative changes of the visualized lumbar spine. There is bilateral neural foraminal stenosis at L4-5 and L5-S1.There is a left-sided inguinal hernia containing adipose tissue. CT/Abdomen/Pelvis WITH Contrast IMPRESSION: (NOT LISTED IN ORDER OF SIGNIFICANCE) Stable 25 mm hypodensity in the right lobe of the liver. ACR White Paper guidelines ([place], et al. JACR 2017; 14(11):7127-9265.) suggest no follow-up is necessary. There is enlargement of the prostate gland. There is an umbilical hernia containing fat. Urinary bladder wall has wall thickening. This can be related to a partially contractile state. However, a cystitis is not excluded. Urinalysis should be performed in an effort to exclude cystitis. There are multiple colonic diverticula consistent with diverticulosis. Other findings as above. Electronically Signed: Moose Castellon MD at 16:54 EDT ,
== END | disposition home or self-care (01) ==
LOC: CT 14:15
PROVIDERS: PCP Family Medicine; Referring Provider Family Medicine; Visit Provider Family Medicine
DX: R10.9 Unspecified abdominal pain (principal)
CPT/HCPCS: 36415; 74177; 80053; 83690; 85025; Q9967

== ENCOUNTER → 2023-01-11 | Outpatient (CLI) | payer MEDICARE, OTHER, SELFPAY ==
[2023-01-11 15:26] LABS: Absolute Lymphocyte Count 0.95 X10^3/uL (0.83-4.51); Absolute Neutrophil Count 4.9 X10^3/uL (2.0-7.7); Basophil# 0.04 X10^3/uL; Basophil% 0.6 % (0-1); Hematocrit 43.7 % (40-54); Hemoglobin 14.9 g/dL (13.0-16.5); Lymphocyte # 0.95 X10^3/ul (0.83-4.51); Lymphocyte % 15.2 % (19-41); Mean Corp Hgb Conc 34.1 g/dL (32-36); Mean Corpuscular Hgb 29.9 pg (27.0-32.0); Mean Corpuscular Volume 87.6 fL (80-94); Mean Platelet Vol. 10.2 fl (6.2-12.0); Monocyte# 0.41 X10^3/uL; Monocyte% 6.5 % (0-10); NRBC Flagged by Analyzer 0 % (0-5); Neutrophil # 4.85 X10^3/uL (2.7-7.7); Neutrophil % 77.4 % (47-70); Platelet Count 247 K/mm3 (150-450); RBC Distribution Width CV 13.2 % (11.6-14.6); RBC Distribution Width SD 42.1 fl (35.1-43.9); Red Blood Count 4.99 M/mm3 (4.6-6.2); White Blood Count 6.3 K/mm3 (4.4-11.0)
[2023-01-11 15:41] LABS: ALB/GLOB Ratio 1.3 RATIO (0.9-2.4); AST(SGOT) 17 U/L (15-37); Alanine Aminotransfer ALT/SGPT 23 U/L (16-61); Albumin, Serum 3.6 g/dL (3.2-5.0); Alkaline Phosphatase 56 U/L (45-117); Anion Gap 3 (5-15); BUN 20 mg/dL (7-18); BUN/Creat Ratio 21.6 RATIO (10-20); Chloride 109 mmol/L (98-107); Creatinine, Serum 0.93 mg/dL (0.70-1.30); EST Glomerular Filtration Rate 86 mL/min (>60); Est Glom Filt Rate - Afr Amer 105 mL/min (>60); Globulin 2.7 g/dL (2.2-4.2); Glucose 108 mg/dL (74-106); Lipase 16 U/L (13-75); Potassium 3.9 mmol/L (3.5-5.1); Protein, Total 6.3 g/dL (6.4-8.2); Sodium Level 142 mmol/L (136-145)
== END | disposition home or self-care (01) ==
LOC: MTLAB 13:53
PROVIDERS: PCP Family Medicine; Referring Provider Family Medicine; Visit Provider Family Medicine
DX: R10.9 Unspecified abdominal pain (principal)
CPT/HCPCS: 36415; 80053; 83690; 85025

== ENCOUNTER → 2024-12-10 | Outpatient (CLI) | payer MEDICARE, OTHER, SELFPAY ==
[2024-12-10 16:27] LABS: ALB/GLOB Ratio 1.7 RATIO (0.9-2.4); AST(SGOT) 20 U/L (<=37); Alanine Aminotransfer ALT/SGPT 17 U/L (<=46); Albumin, Serum 4.2 g/dL (3.4-4.8); Alkaline Phosphatase 69 U/L (40-129); Anion Gap 11 (5-15); BUN 14 mg/dL (4-19); BUN/Creat Ratio 16.7 RATIO (10-20); Calcium,Total 9.3 mg/dL (7.6-11.0); Chloride 100 mmol/L (98-108); Cholesterol 185 mg/dL (<=200); Creatinine, Serum 0.82 mg/dL (0.70-1.20); EST Glomerular Filtration Rate 95 (>60); Globulin 2.5 g/dL (2.2-4.2); Glucose 109 mg/dL (70-99); High Density Lipoprotein 46 mg/dL; Low Density Lipoprotein Calc. 120 mg/dL; PSA,Total - Annual Screen 4.58 ng/mL (0.02-4.00); Potassium 4.3 mmol/L (3.3-5.1); Protein, Total 6.8 g/dL (5.9-8.4); Sodium Level 138 mmol/L (133-145); Total Bilirubin 1.33 mg/dL (0.00-1.30); Triglycerides 96 mg/dL; Very Low Density Lipoprotein 19 mg/dL (5-40); Vitamin B12 508 pg/mL (180-914); cholesterol:hdl ratio screen 4.01
== END | disposition home or self-care (01) ==
PROVIDERS: PCP Family Medicine; Referring Provider Family Medicine; Visit Provider Family Medicine
DX: I10 Essential (primary) hypertension (principal); Z12.5 Encounter for screening for malignant neoplasm of prostate
CPT/HCPCS: 80053; 80061; 82607; 84153; G0103

== ENCOUNTER 2025-01-21 07:14 | Emergency (ER) | payer MEDICARE, OTHER, SELFPAY ==
[2025-01-21 07:14] VITALS: BP 209/127; BP 210/130; PULSE 108; RESP 20; TEMP 36.6; O2SAT 97; BMI 45.1
--- NOTE | 2025-01-21 07:22 | EDS_ITS ---
HPI History of Present Illness Chief Complaint: Castaneda C/O Narrative Narrative: 69-year-old male past medical history of BPH states he had a bladder scan performed yesterday and was seen by urology at [facility] yesterday. He states he had a bladder scan so he had a catheter that was transurethral as well as procedure performed rectally. He states that since then, he has had mild difficulty urinating. He states that it was at 2 AM, approximately 5-1/2 hours ago where he really felt the buildup of urine. He is describing suprapubic discomfort. No fevers or chills, no nausea or vomiting. He states that he has had problems and had to have Castaneda catheters in the past. No exacerbating or's. [facility] Medical History CPAP (continuous positive airway pressure) dependence Sleep apnea Home Medications ?Medication ?Instructions ?Recorded ?Last Taken ?Type tamsulosin 0.4 mg capsule (Flomax) 0.4 mg PO QHS 03/29 Unknown History Allergy/AdvReac Type Severity Reaction Status Date / Time No Known Allergies Allergy Verified 03/29/22 04:33 Social History Smoking Status: Never smoker ROS ROS ED ROS Narrative Review of systems positive for suprapubic bladder discomfort retention/unable to urinate. No fevers or chills, no nausea or vomiting, no other problems. EXAM Physical Exam Narrative Exam Narrative: Afebrile. Vital signs noted. Nontoxic-appearing. Cardiovascular examination reveals mild tachycardia. Lungs are clear to auscultation bilaterally. Abdomen is soft with noted bladder distention and tenderness suprapubically, no guarding or rebound. Positive bowel sounds. Neurological examination nonfocal and nonlateralizing. Const Vital Signs: 01/21/25 07:14 01/21/25 07:14 01/21/25 08:17 Temperature 98 F 98.5 F Temperature Source Temporal Pulse Rate 108 H 75 Respiratory Rate 20 H 18 Blood Pressure 209/127 H 210/130 H 110/64 Blood Pressure Mean 154 156 79 Pulse Ox 97 94 Oxygen Delivery Method Room Air 01/21/25 08:18 Temperature Temperature Source Pulse Rate Respiratory Rate Blood Pressure 110/64 Blood Pressure Mean 79 Pulse Ox Oxygen Delivery Method MDM MDM MDM Narrative Medical decision making narrative: Differential diagnosis includes but not limited to urinary retention secondary to BPH versus opiate use versus infection. Castaneda catheter will be placed and UAC performed. In discussion with the patient, he states he did not really prefer straight catheterization versus Castnaeda catheter insertion. He felt that keeping a Castaneda catheter for few days and following up with his urologist might be more beneficial instead of performing straight catheter drainage of the bladder. After Castaneda catheter insertion, he had approximately 600 mL of urine that had drained. Per RN, he had a small clot/blood upon initial insertion, but the remainder has been yellow in color. Upon repeat examination, patient states there is less pressure on his bladder and he feels improved. I reviewed his urinalysis. Additionally, I reviewed his medication list and he is supposed to be taking tamsulosin but he states that he had not been taking it recently and his urologist was okay with that. As he thought he was having problems yesterday evening he did take 1 Flomax. As he has the Castaneda inserted, he was told that he should start taking it daily again and follow-up with his urologist by even calling the office today. He will be given a Castaneda leg bag. In review of his urinalysis, it is negative for infection with 0 WBCs and 0 bacteria with only 5-10 RBCs. I do not feel antibiotics are indicated. I feel he be discharged to follow-up. Return instructions to the emergency department were reviewed. Disposition is discharged home in stable condition. History & Record Review Discussion w/independent historian: Patient Lab Data Attestation: I reviewed the patient's lab results. Labs: Laboratory Results - last 24 hr 01/21/25 07:30 Urine Color Yellow Urine Clarity Clear Urine pH 6.0 Ur Specific [place] 1.015 Urine Protein 15 H Urine Glucose (UA) Normal Urine Ketones Negative Urine Occult Blood 150 H Urine Nitrite Negative Urine Bilirubin Negative Urine Urobilinogen Normal Ur Leukocyte Esterase Negative Urine RBC 5-10 SEEN Urine WBC 0 SEEN Ur Squamous Epith Cells 0 SEEN Urine Bacteria 0 SEEN Urine Mucus 0 SEEN Discharge Plan Triage Chief Complaint: Castaneda C/O ED Provider: Juventino Escobar Dx/Rx/DC Orders Clinical Impression: Acute urinary retention, Prostate hypertrophy Instructions: ED Castaneda Catheter, Care, ED Urinary Retention, Male Prescriptions: No Action tamsulosin [Flomax] 0.4 mg Capsule 0.4 mg PO QHS Primary Care Provider: Sharif Rosales Referrals: Sharif Rosales MD [Primary Care Provider] - Activity Restrictions/Additional Instructions: Follow-up with your urologist for Castaneda catheter removal. Call the office even later today to make an appointment. Start your Flomax/tamsulosin again as previously directed. Return with new or worsening symptoms. Print Language: Martiniquais Disposition Disposition: Home, Self Care
[2025-01-21 07:43] LABS: Bacteria 0 SEEN /hpf (None Seen); Mucous, Urine 0 SEEN /hpf (<or=2+); Squamous Epithelial Cells - UA 0 SEEN /hpf (0-5); White Blood Cells 0 SEEN /hpf (0-5)
[2025-01-21 08:17] VITALS: BP 110/64; PULSE 75; RESP 18; TEMP 36.9; O2SAT 94
[2025-01-21 08:18] VITALS: BP 110/64
[2025-01-21 08:52] LABS: Color, Urine Yellow (Yellow); Glucose, Dipstick Normal (Normal); Ketone-Dipstick Negative (Negative); Leukocyte Esterase-Dipstick Negative /ul (Negative); Nitrite-Dipstick Negative (Negative); Occult Blood-Urine 150 /ul (Negative); Protein-Dipstick 15 mg/dl (Negative); Specific Gravity, Urine 1.015 (1.002-1.030); Urine Bilirubin Dipstick Negative (Negative); Urine Clarity Clear (Clear); Urine Urobilinogen Normal (Normal)
[2025-01-21 09:01] LABS: Red Blood Cells-Urine 5-10 SEEN /hpf (0-5)
== END 2025-01-21 09:23 | disposition home or self-care (01) ==
PROVIDERS: Emergency Provider Emergency Medicine; PCP Family Medicine; Visit Provider Emergency Medicine
DX: R33.9 Retention of urine, unspecified (principal); N40.1 Benign prostatic hyperplasia with lower urinary tract symptoms; G47.30 Sleep apnea, unspecified
CPT/HCPCS: 51702; 81001; 99283

== ENCOUNTER 2025-01-22 14:07 | Emergency (ER) | payer MEDICARE, OTHER, SELFPAY ==
[2025-01-22 14:07] VITALS: BP 121/83; PULSE 103; RESP 17; TEMP 36.2; O2SAT 95
--- NOTE | 2025-01-22 14:58 | EX.ED.GUMALE ---
HPI History of Present Illness Chief Complaint: Castaneda C/O Informant: patient Narrative Narrative: 69-year-old male presents with an issue with his Castaneda catheter. He had a placed yesterday as result of urinary retention that he had postoperatively the day before. Has been making good urine. He saw a little bit of blood today, does not think he yanked on it or anything, but he is also concerned that he had a little bit of leaking from his penis around the catheter, and he wants the tubing replaced because it kinks too easily. Denies any abdominal pain, nausea, vomiting, low back discomfort that is new, fevers or chills. He is on no anticoagulant. [facility] Medical History CPAP (continuous positive airway pressure) dependence Sleep apnea Home Medications ?Medication ?Instructions ?Recorded ?Last Taken ?Type tamsulosin 0.4 mg capsule (Flomax) 0.4 mg PO QHS 03/29/22 Unknown History Allergy/AdvReac Type Severity Reaction Status Date / Time No Known Allergies Allergy Verified 01/22/25 14:07 Social History Smoking Status: Never smoker ROS ROS ED Constitutional Constitutional ED: Denies chills or fever(s) Gastrointestinal Gastrointestinal: Denies abdominal pain, nausea or vomiting Genitourinary Genitourinary ED: Reports as per HPI and hematuria Musculoskeletal Musculoskeletal: Denies back pain or neck pain Integumentary Denies rash Neurologic Neurologic: Denies headache(s), paresthesias or weakness EXAM Physical Exam Const Vital Signs: 01/22/25 14:07 Temperature 97.2 F L Temperature Source Temporal Pulse Rate 103 H Respiratory Rate 17 Blood Pressure 121/83 H Blood Pressure Mean 95 Pulse Ox 95 Oxygen Delivery Method Room Air Positive well nourished and well developed General Appearance ED: well developed and NAD HEENT Reports moist mucous membranes normocephalic and atraumatic Eyes PERRL and EOMs intact bilaterally Neck full ROM and supple Resp normal respiratory effort GI non-tender and non-distended Auscultation: normoactive bowel sounds Palpation: soft Narrative: [place]-tinged transparent urine within the catheter. He has a temperature Castaneda in place. No active leaking from around the catheter. Back/Spine no CVA tenderness General Back: other FROM Extremity normal to inspection Neuro oriented x3, CN's II-XII intact bilaterally and no sensory deficits noted Sensorium / Orientation: awake and alert Motor Exam: strength 5/5 throughout Skin no rashes or lesions noted and no wounds MDM MDM MDM Narrative Medical decision making narrative: Nursing changed his tubing and bag. We also irrigated his bladder, and we did get some small blood clots out. We then observed him, and there was no more bleeding, transparent yellow urine. I do not think he needs a urinalysis, this should prevent more leaking. Encouraged to return for any other issues otherwise following up with urology as scheduled next week. Discharge Plan Triage Chief Complaint: Castaneda C/O ED Provider: Jayden Rahman Dx/Rx/DC Orders Clinical Impression: Hematuria, Complication of Castaneda catheter Instructions: ED Castaneda Catheter, Care Prescriptions: No Action tamsulosin [Flomax] 0.4 mg Capsule 0.4 mg PO QHS Primary Care Provider: Sharif Rosales Referrals: your urologist [Other] - Keep Andi appointment (next week) Sharif Rosales MD [Primary Care Provider] - Print Language: [place] Korean Disposition Disposition: Home, Self Care
[2025-01-22 16:33] VITALS: BP 150/83; PULSE 78; RESP 16; TEMP 36.6; O2SAT 99
== END 2025-01-22 16:34 | disposition home or self-care (01) ==
PROVIDERS: Emergency Provider Emergency Medicine; PCP Family Medicine; Visit Provider Emergency Medicine
DX: T83.091A Other mechanical complication of indwelling urethral catheter, initial encounter (principal); R31.9 Hematuria, unspecified; G47.30 Sleep apnea, unspecified; X58.XXXA Exposure to other specified factors, initial encounter
CPT/HCPCS: 99282; A4216

== ENCOUNTER 2025-01-24 07:36 | Emergency (ER) | payer MEDICARE, OTHER, SELFPAY ==
[2025-01-24 07:37] VITALS: BP 200/118; PULSE 81; RESP 20; TEMP 36.4; O2SAT 100; BMI 45.4
--- NOTE | 2025-01-24 07:45 | EX.ED.DYSGE1 ---
HPI History of Present Illness Chief Complaint: Castaneda C/O Informant: patient Onset/Context/Timing Onset: Today Context: Sudden Onset Timing: Continuous Quality: Dull Location: Bladder Worsened by: Nothing Relieved by: Nothing Narrative Narrative: Patient with leaking around his Castaneda catheter. Patient states he noticed that this morning. Patient admits to mild dull pain when he first tries to urinate. Patient states he noted some darkening of his urine today. Patient denies any fevers or chills. Patient had a recent cystoscopy and has had the Castaneda catheter in place since that time. Patient was seen here 2 days ago and had the Castaneda catheter changed. Patient states he has only been passing small clots occasionally. [facility] Medical History (Updated 01/24/25 @ 09:[address] Ton Zazueta DO) Hypertension Prostate hypertrophy CPAP (continuous positive airway pressure) dependence Sleep apnea Home Medications ?Medication ?Instructions ?Recorded ?Last Taken ?Type tamsulosin 0.4 mg capsule (Flomax) 0.4 mg PO QHS 03/29/22 01/24/25 History losartan 100 mg tablet 100 mg PO DAILY 01/24/25 01/24/25 History Allergy/AdvReac Type Severity Reaction Status Date / Time No Known Allergies Allergy Verified 01/24/25 07:37 Surgical History (Updated 01/24/25 @ 08:[address] Ton Zazueta DO) Hx of cystoscopy Hx of cervical discectomy Social History Smoking Status: Never smoker ROS ROS ED Constitutional Constitutional ED: Denies chills or fever(s) Eyes Eyes: Denies blurry vision or change in vision ENT ENT ED: Denies rhinorrhea or sore throat Cardiovascular Cardiovascular: Denies chest pain or palpitations Respiratory/Chest Respiratory/Chest: Denies cough or dyspnea Gastrointestinal Gastrointestinal: Denies nausea or vomiting Genitourinary Genitourinary ED: Reports hematuria; Denies dysuria Musculoskeletal Musculoskeletal: Denies back pain or neck pain Integumentary Denies abscess or rash Neurologic Neurologic: Denies headache(s) or weakness Allergic/Immunologic Allergic/Immunologic ED: Denies mouth swelling or urticaria EXAM Physical Exam Const Vital Signs: 01/24/25 07:37 Temperature 97.6 F L Temperature Source Temporal Pulse Rate 81 Respiratory Rate 20 H Blood Pressure 200/118 H Blood Pressure Mean 145 Pulse Ox 100 Oxygen Delivery Method Room Air Positive well nourished and well developed Constitutional Narrative: BMI is 45.5 General Appearance ED: well developed and NAD HEENT Reports moist mucous membranes Neck supple and no JVD Resp normal respiratory effort and clear to auscultation bilaterally Cardio regular rate and regular rhythm GI non-tender and non-distended Palpation: soft Neuro oriented x3, CN's II-XII intact bilaterally and no sensory deficits noted Sensorium / Orientation: alert Motor Exam: strength 5/5 throughout Psych mental status grossly normal MDM MDM MDM Narrative Medical decision making narrative: Patient was given options to irrigate the Castaneda catheter, remove the Castaneda catheter, and replace the Castaneda catheter. Patient would prefer to have the Castaneda catheter removed to see if he can urinate on his own. History & Record Review Additional record(s) reviewed:: Prior ED visit and Prior labs Treatment and Re-Evaluation :: Patient was able to urinate twice here in the emergency department. Patient had no dysuria. Patient feels better. Patient was to go home. Patient was instructed to follow-up with his primary care physician and urologist as scheduled. Patient was instructed to return if worse in any way. Patient understood and was agreeable with the plan. All questions were answered. Discharge Plan Triage Chief Complaint: Castaneda C/O ED Provider: Ton Zazueta Dx/Rx/DC Orders Clinical Impression: Prostate hypertrophy, Hypertension Instructions: ED BPH (Enlarged Prostate) Prescriptions: No Action tamsulosin [Flomax] 0.4 mg Capsule 0.4 mg PO QHS losartan 100 mg tablet 100 mg PO DAILY Patient Comments: PT TAKES EVERY OTHER DAY Primary Care Provider: Sharif Rosales Referrals: Sharif Rosales MD [Primary Care Provider] - 3-5 Days Print Language: Bolivian Disposition Disposition: Home, Self Care
[2025-01-24 09:26] VITALS: BP 180/78; PULSE 82; RESP 18; TEMP 36.6; O2SAT 96
== END 2025-01-24 09:27 | disposition home or self-care (01) ==
PROVIDERS: Emergency Provider Emergency Medicine; PCP Family Medicine; Visit Provider Emergency Medicine
DX: I10 Essential (primary) hypertension (principal); N40.0 Benign prostatic hyperplasia without lower urinary tract symptoms; G47.30 Sleep apnea, unspecified; Z79.899 Other long term (current) drug therapy
CPT/HCPCS: 99282

== ENCOUNTER 2025-01-25 05:43 | Emergency (ER) | payer MEDICARE, OTHER, SELFPAY ==
[2025-01-25 05:44] VITALS: BP 238/116; PULSE 95; RESP 22; TEMP 36.6; O2SAT 100; BMI 45.5
[2025-01-25 06:16] LABS: Bacteria 0 SEEN /hpf (None Seen); Mucous, Urine 0 SEEN /hpf (<or=2+); Squamous Epithelial Cells - UA 0 SEEN /hpf (0-5); White Blood Cells 0 SEEN /hpf (0-5)
[2025-01-25 06:18] LABS: Color, Urine Yellow (Yellow); Glucose, Dipstick Normal (Normal); Ketone-Dipstick Negative (Negative); Leukocyte Esterase-Dipstick Negative /ul (Negative); Nitrite-Dipstick Negative (Negative); Occult Blood-Urine 250 /ul (Negative); Protein-Dipstick 30 mg/dl (Negative); Specific Gravity, Urine 1.015 (1.002-1.030); Urine Bilirubin Dipstick Negative (Negative); Urine Clarity Clear (Clear); Urine Urobilinogen Normal (Normal)
[2025-01-25 06:54] LABS: Red Blood Cells-Urine 5-10 SEEN /hpf (0-5)
--- NOTE | 2025-01-25 07:00 | EX.ED.GUMALE ---
HPI History of Present Illness Chief Complaint: Complaint Informant: patient Narrative Narrative: 69-year-old male presenting to the emergency room with a chief complaint of difficulty urinating. Patient states that he recently had a Castaneda catheter placed. States he followed up with urology had what sounds like cystoscopy and prostate examination. He restarted Flomax. States he has self cathing supplies at home but did not want to wake his up. He states that around midnight and again a few hours later he urinated but did not seem like the same amount that he should. He notes some pressure in the lower pelvis. He has a follow-up appoint with urology . He does not wish a Castaneda catheter but is curious if he has a UTI. [facility] Medical History Hypertension Prostate hypertrophy CPAP (continuous positive airway pressure) dependence Sleep apnea Home Medications ?Medication ?Instructions ?Recorded ?Last Taken ?Type tamsulosin 0.4 mg capsule (Flomax) 0.4 mg PO QHS 03/29/22 01/24/25 History losartan 100 mg tablet 100 mg PO DAILY 01/24/25 01/24/25 History Allergy/AdvReac Type Severity Reaction Status Date / Time No Known Allergies Allergy Verified 01/24/25 07:37 Surgical History Hx of cystoscopy Hx of cervical discectomy Social History Smoking Status: Never smoker ROS ROS ED Constitutional Constitutional ED: Denies chills or weight loss Eyes Eyes: Denies change in vision or diplopia ENT ENT ED: Denies ear pain, rhinorrhea or sore throat Cardiovascular Cardiovascular: Denies chest pain, orthopnea, palpitations or racing heartbeat Respiratory/Chest Respiratory/Chest: Denies cough, dyspnea or orthopnea Gastrointestinal Gastrointestinal: Denies abdominal pain, diarrhea, nausea or vomiting Genitourinary Genitourinary ED: Reports other Details: Urinary retention ; Denies dysuria, hematuria or urinary frequency Musculoskeletal Musculoskeletal: Denies arthralgias or myalgias Integumentary Denies abscess or rash Neurologic Neurologic: Denies headache(s) or weakness Psychiatric Psychiatric: Denies anxiety, depression, suicidal ideation or suicidal thoughts Endocrine Endocrinology: Denies polydipsia, polyphagia or polyuria Allergic/Immunologic Allergic/Immunologic ED: Denies mouth swelling, tongue swelling or urticaria EXAM Physical Exam Const Vital Signs: 01/25/25 05:44 Temperature 97.8 F Temperature Source Oral Pulse Rate 95 Respiratory Rate 22 H Blood Pressure 238/116 H Blood Pressure Mean 156 Pulse Ox 100 Oxygen Delivery Method Room Air Positive well nourished and well developed General Appearance ED: well developed HEENT Reports normocephalic, head/scalp atraumatic and moist mucous membranes Eyes PERRL and EOMs intact bilaterally Neck no lymphadenopathy, supple and no JVD Resp normal respiratory effort and clear to auscultation bilaterally Cardio regular rate, regular rhythm and no murmurs GI normal to inspection, nondistended, normoactive bowel sounds and non-tender Palpation: soft Narrative: Circumcised male. No significant swelling or blood at meatus. Back/Spine no CVA tenderness and normal ROM Extremity normal to inspection General Extremety ED: Negative for edema General Extremity: Negative for edema Neuro oriented x3 and CN's II-XII intact bilaterally Sensorium / Orientation: alert Motor Exam: strength 5/5 throughout Psych mental status grossly normal Mood & Affect: Negative for depressed or tearful Skin no rashes or lesions noted and no wounds MDM MDM MDM Narrative Medical decision making narrative: Differential diagnosis includes but not limited to urinary retention UTI BPH prostatitis HORACE Patient was straight cath per his wishes with about 550 cc removed. Urinalysis demonstrates 5-10 red cells no white blood cells no bacteria negative nitrates negative leukocyte esterase. Again the patient does not wish to go home with a Castaneda catheter. He has catheter supplies at home and is willing to self cath and if he has problems is going to return with plans on getting a Castaneda catheter at that time otherwise he will follow-up with urology as scheduled on . History & Record Review Discussion w/independent historian: Patient Additional record(s) reviewed:: Prior ED visit and Prior labs Lab Data Attestation: I reviewed the patient's lab results. Labs: Laboratory Results - last 24 hr 01/25/25 06:05 Urine Color Yellow Urine Clarity Clear Urine pH 6.0 Ur Specific [place] 1.015 Urine Protein 30 H Urine Glucose (UA) Normal Urine Ketones Negative Urine Occult Blood 250 H Urine Nitrite Negative Urine Bilirubin Negative Urine Urobilinogen Normal Ur Leukocyte Esterase Negative Urine RBC 5-10 SEEN Urine WBC 0 SEEN Ur Squamous Epith Cells 0 SEEN Urine Bacteria 0 SEEN Urine Mucus 0 SEEN Discharge Plan Triage Chief Complaint: Complaint ED Provider: James Trinidad Dx/Rx/DC Orders Clinical Impression: Acute urinary retention, Hematuria Instructions: ED Urinary Retention, Male Prescriptions: No Action tamsulosin [Flomax] 0.4 mg Capsule 0.4 mg PO QHS losartan 100 mg tablet 100 mg PO DAILY Patient Comments: PT TAKES EVERY OTHER DAY Primary Care Provider: Sharif Rosales Referrals: Sharif Rosales MD [Primary Care Provider] - Activity Restrictions/Additional Instructions: As we discussed in keeping with your wishes that you would like to try to self cath if needed as compared to placing a catheter now you are being discharged home. Continue to orally hydrate and if you cannot urinate self cath. If you are having difficulties self cathing and please return to emergency. Please follow-up with your urologist as scheduled. Print Language: Filipino Disposition Disposition: Home, Self Care
[2025-01-25 07:04] VITALS: BP 139/84; PULSE 80; RESP 18; TEMP 36.6; O2SAT 96
== END 2025-01-25 07:05 | disposition home or self-care (01) ==
PROVIDERS: Emergency Provider Emergency Medicine; PCP Family Medicine; Visit Provider Emergency Medicine
DX: R31.9 Hematuria, unspecified (principal); I10 Essential (primary) hypertension; R33.9 Retention of urine, unspecified; N40.0 Benign prostatic hyperplasia without lower urinary tract symptoms; Z79.899 Other long term (current) drug therapy
CPT/HCPCS: 81001; 99283; P9612

== ENCOUNTER 2025-02-13 07:17 | Emergency (ER) | payer MEDICARE, OTHER, SELFPAY ==
[2025-02-13 07:17] VITALS: BP 216/129; PULSE 95; RESP 14; TEMP 36.6; O2SAT 98; BMI 44.9
--- NOTE | 2025-02-13 07:20 | ED.RN ---
pt states that he never has to wait when he comes in and does not want to wait long.
--- NOTE | 2025-02-13 07:49 | EX.ED.GUMALE ---
HPI History of Present Illness Chief Complaint: Complaint Narrative Narrative: 69-year-old male past medical history of BPH, previous urinary retention, states that sometimes he self catheterizes presents with urinary retention requesting a straight catheterization. He relates history that he just returned from [place]. He had been doing well for a few weeks so he stopped taking his Flomax about a week ago. Additionally, he tried pumpkin seeds, and thinks he is constipated which is pressing against his bladder and causing him to go into urinary retention. He has catheters at home which he usually self catheterizes when this happens, but states he does not have any lubrication. Since around midnight, he has not urinated. This was 8 hours ago. The pain developed at around 4 AM, approximately 4 hours ago. He presents to the emergency department denying other symptoms and wanting a straight catheterization. He states he does not want a Castaneda with a bag. [facility] Medical History Hypertension Prostate hypertrophy CPAP (continuous positive airway pressure) dependence Sleep apnea Home Medications ?Medication ?Instructions ?Recorded ?Last Taken ?Type tamsulosin 0.4 mg capsule (Flomax) 0.4 mg PO QHS 03/29/22 01/24/25 History losartan 100 mg tablet 100 mg PO DAILY 01/24/25 01/24/25 History Allergy/AdvReac Type Severity Reaction Status Date / Time No Known Allergies Allergy Verified 02/13/25 07:18 Surgical History Hx of cystoscopy Hx of cervical discectomy Social History Smoking Status: Never smoker ROS ROS ED ROS Narrative Review of systems positive for urinary retention, suprapubic discomfort, unable to urinate for 8 hours. Denies other symptoms. EXAM Physical Exam Narrative Exam Narrative: Afebrile. Vital signs noted. Patient sitting up on the edge of the bed, rocking back and forth, appears mildly uncomfortable. Cardiovascular examination regular rate and rhythm. Lungs clear to auscultation bilaterally. Abdomen is soft with mild suprapubic discomfort. Positive bowel sounds. Neurological examination nonfocal, nonlateralizing, moves all extremities. Const Vital Signs: 02/13/25 07:17 Temperature 98 F Temperature Source Temporal Pulse Rate 95 Respiratory Rate 14 Blood Pressure 216/129 H Blood Pressure Mean 158 Pulse Ox 98 Oxygen Delivery Method Room Air MDM MDM MDM Narrative Medical decision making narrative: Differential diagnosis includes but not limited to urinary retention from BPH and medication noncompliance versus constipation. Patient does have elevated blood pressure which I think is secondary to his suprapubic discomfort and urinary retention. As he is familiar with self catheterization, straight cath will be performed. As long as this relieves his abdominal discomfort, he will be sent home with lubrication for his catheters, although he states that he can pick some up at the drugstore. He already has follow-up with Dr. Narayan. He was told that he should take his Flomax as previously directed daily. He had approximately 450 mL of urine drained from his bladder through straight cath. He feels markedly improved on reexamination and was motivated for discharge. He was given a few packets of lubrication, but told that he should still take his Flomax daily and follow-up with urology as scheduled. Return instructions to the emergency department were reviewed. Disposition is discharged home in improved and stable condition. History & Record Review Discussion w/independent historian: Patient Additional record(s) reviewed:: Prior ED visit (Previous urinary retention and BPH) Discharge Plan Triage Chief Complaint: Complaint ED Provider: Juventino Escobar Dx/Rx/DC Orders Clinical Impression: Urinary retention, Prostate hypertrophy Instructions: Self-Catheterization for Men, ED BPH (Enlarged Prostate), ED Urinary Retention, Male Prescriptions: No Action tamsulosin [Flomax] 0.4 mg Capsule 0.4 mg PO QHS losartan 100 mg tablet 100 mg PO DAILY Patient Comments: PT TAKES EVERY OTHER DAY Primary Care Provider: Sharif Rosales Referrals: Sharif Rosales MD [Primary Care Provider] - Brad Narayan MD [Med Staff - Active Staff] - Keep Andi appointment Activity Restrictions/Additional Instructions: If you go into urinary retention again, you may need to self catheterize like you have in the past. Make sure you are taking your Flomax daily. Follow-up with urology, Dr. Narayan, as scheduled. Return with new or worsening symptoms. Print Language: Guatemalan Disposition Disposition: Home, Self Care
--- OUTSIDE RECORDS SUMMARY | 2025-02-13 07:49 | XMS RPT_ITS | CCD ---
Author Organization [facility] Care Team Providers Care Maxillofacial Pathology Name Role Phone CONNIE WEN, DR KENDRICK Primary Care Physician Connie WEN, Mireille Love Primary Care Provider Connie WEN, Mireille Love Primary Care Provider Connie WEN, Mireille Love Primary Care Provider Connie WEN, Mireille Love Primary Care Provider Connie WEN, Mireille Love Primary Care Provider Connie WEN, Dr. Kendrick Primary Care Provider Connie WEN, Dr. Kendrick Attending Provider Connie WEN, Dr. Kendrick Referring Provider [phone] Juventino Escobar MD Emergency Provider Josiah WEN, Dr. Carpenter Emergency Provider Dr. Ton Zazueta DO Emergency Provider Dr. James Trinidad DO Emergency Provider Mireille Rosales Primary Care Unavailable Juventino Escobar Attending Unavailable Mireille Rosales Primary Care Unavailable James Trinidad Attending Unavailable Mireille Rosales Primary Care Unavailable Ton Zazueta Attending Unavailable Mireille Rosales Attending Unavailable Mireille Rosales Primary Care Unavailable Mireille Rosales Referring Unavailable Mireille Rosales Primary Care Unavailable Jayden Rahman Attending Unavailable MIREILLE ROSALES Primary Care UnavailHAMILTON Christianson Attending Unavailjerome e MIREILLE ROSALES Primary Care Unavailjerome e HAMILTON VICENTE Referring MIREILLE Samayoa Primary Care HAMILTON Ayala Attending MIREILLE [facility] HAMILTON Ayala Attending David farfan Medications Current Medications Medication Drug Class(es) Dates Sig (Normalized) Sig (Original) 8 hr acetaminophen 650 mg extended release oral tablet (11 sources) take 1 tablet by mouth every eight hours as needed acetaminophen (TYLENOL ARTHRITIS PAIN) 650 mg CR tablet Take 650 mg by mouth every 8 hours as needed. Active Comment on above: Take 650 mg by mouth every 8 hours as needed. aspirin 325 mg oral tablet (11 sources) Platelet Aggregation Inhibitor, Nonsteroidal Anti-inflammatory Drug aspirin 325 mg ORAL tablet Take 325 mg by mouth as needed. Active Comment on above: Take 325 mg by mouth as needed. CPAP (11 sources) CPAP Active CPAP losartan potassium 100 mg oral tablet (3 sources) Angiotensin 2 Receptor Darwin Start: 12-16-2024 take 1 tablet by mouth once daily Losartan 100 mg tablet Active 100 mg PO DAILY January 24, 2025 12:00am Completed/Discontinued Medications Medication Drug Class(es) Dates Sig (Normalized) Sig (Original) docusate sodium 100 mg oral capsule (3 sources) Start: 07-03-2019 End: 03-29-2022 take 1 capsule by mouth once daily as needed docusate sodium (COLACE) 100 mg capsule Take 1 capsule by mouth once daily as needed. 0 07/03/2019 03/29/2022 Discontinued (Course of therapy completed) Comment on above: Take 1 capsule by [facility] once daily as needed. ergocalciferol, vitamin D2, (VITAMIN D2 ORAL) (3 sources) End: 03-29-2022 ergocalciferol, vitamin D2, (VITAMIN D2 ORAL) Take by mouth once daily. 0 03/29/2022 Discontinued (Discontinued by Patient) ergocalciferol, vitamin D2, (VITAMIN D2 ORAL) Take by mouth once daily. 0 Active Comment on above: Take by mouth once d aily. psyllium husk (METAMUCIL ORAL) (3 sources) End: 03-29-2022 psyllium husk (METAMUCIL ORAL) Take by mouth. 0 03/29/2022 Discontinued (Discontinued by Patient) psyllium husk (M ETAMUCIL ORAL) Take by mouth. 0 Active Comment on above: Take by mouth. sulfamethoxazole 800 mg / trimethoprim 160 mg oral tablet (2 sources) Dihydrofolate Reductase Inhibitor Antibacterial, Sulfonamide Antimicrobial Start: End: sulfamethoxazole-tr imethoprim (BACTRIM DS) 800-160 mg per tablet Take 1 tablet by mouth twice daily for 3 days. FOR 3 DAYS. 6 tablet 0 03/26/2022 03/29/2022 Discontinued (Course of therapy completed) Comment on above: Take 1 tablet by leander twice daily for 3 days. FOR 3 DAYS. tamsulosin hydrochloride 0.4 mg oral capsule (15 sources) alpha-Adrenergic Darwin Start: End: take 2 capsules by mouth once daily at bedtime tamsulosin (FLOMAX) 0.4 mg Take 2 capsules by mouth daily at bedtime. 180 capsule 3 08/21/2023 01/20/2025 Discontinued Start: 03-29-2022 End: 07-24-2023 take 1 capsule by mouth at bedtime Tamsulosin (Flomax) 0.4 mg Capsule Active 0.4 mg PO AT BEDTIME March 29, 2022 12:00am Comment on above: Take 1 capsule by mo ut daily at bedtime. take 1 capsule by mo uth daily at bedtime Problems Active Problems Problem Classification Problem Date Documented Date Episodic/Chronic Complication of device; implant or graft (10 sources) Obstructed indwelling urinary catheter; Translations: [Other mechanical complication of indwelling urethral catheter, initial encounter] Onset: 01-28-2025 07-04-2019 Episodic Complications of surgical procedures or medical care (11 sources) Postoperative hemorrhage; Translations: [Postoperative hemorrhage from incision] Episodic Disorders of lipid metabolism (11 sources) Hyperlipidemia; Translations: [Hyperlipidemia, unspecified] Onset: 09-25-2007 09-25-2007 Chronic Diverticulosis and diverticulitis (11 sources) Diverticulosis of colon; Translations: [Diverticulosis of large intestine without perforation or abscess without bleeding] Onset: 08-02-2006 10-19-2007 Chronic Essential hypertension (14 sources) Essential hypertension; Translations: [Essential (primary) hypertension] Onset: 09-25-2007 06-05-2019 Chronic Genitourinary symptoms and ill-defined conditions (20 sources) Nocturia; Translations: [Nocturia] Onset: 09-25-2007 10-19-2007 Episodic Hyperplasia of prostate (12 sources) Large prostate ; Translations: [Benign prostatic hyperplasia without lower urinary tract symptoms] Onset: 01-20-2025 Chronic Neoplasms of unspecified nature or uncertain behavior (11 sources) Neoplasm of brain; Translations: [Neoplasm of unspecified behavior of brain] Onset: 09-25-2007 10-19-2007 Chronic Osteoarthritis (20 sources) Degenerative joint disease involving multiple joints; Translations: [Polyosteoarthritis, unspecified] Onset: 11-18-2007 11-18-2007 Chronic Other diseases of bladder and urethra (1 source) Other specified disorders of bladder; Translations: [Bladder wall thickening] Onset: 01-20-2025 Chronic Other diseases of bladder and urethra (2 sources) Hypertrophy of bladder; Translations: [Other specified disorders of bladder] 02-01-2025 Chronic Other male genital disorders (11 sources) Secondary erectile dysfunction; Translations: [Male erectile dysfunction, unspecified] Onset: 10-06-2008 10-06-2008 Chronic Other nervous system disorders (11 sources) Carpal tunnel syndrome; Translations: [Carpal tunnel syndrome, unspecified upper limb] Onset: 09-25-2007 09-25-2007 Chronic Other nutritional; endocrine; and metabolic disorders (11 sources) Morbid obesity; Translations: [Morbid (severe) obesity due to excess calories] Onset: 09-25-2007 06-05-2019 Chronic Other screening for suspected conditions (not mental disorders or infectious disease) (7 sources) Patient encounter status; Translations: [Encounter for screening for malignant neoplasm of prostate] Onset: 12-18-2024 03-18-2024 Episodic Other skin disorders (1 source) Infection of sebaceous cyst; Translations: [Sebaceous cyst] Episodic Residual codes; unclassified (11 sources) Sleep apnea; Translations: [Sleep apnea, unspecified] Onset: 09-25-2007 06-05-2019 Chronic Syncope (9 sources) Vasovagal symptom; Translations: [Syncope and collapse] Episodic Unclassified (2 sources) next week Past or Other Problems Problem Classification Problem Date Documented Date Episodic/Chronic Abdominal hernia (11 sources) Diaphragmatic hernia; Translations: [Diaphragmatic hernia without obstruction or gangrene] Onset: 10-06-2008 10-06-2008 Episodic Abdominal pain (11 sources) Abdominal pain; Translations: [Unspecified abdominal pain] Onset: 10-19-2007 10-19-2007 Episodic Other and unspecified benign neoplasm (11 sources) Lipoma (clinical); Translations: [Benign lipomatous neoplasm, unspecified] Onset: 06-12-2011 06-12-2011 Episodic Other skin disorders (11 sources) Sebaceous cyst of skin; Translations: [Sebaceous cyst] Onset: 05-31-2009 05-31-2009 Episodic Residual codes; unclassified (11 sources) Edema; Translations: [Edema, unspecified] Onset: 09-25-2007 09-25-2007 Episodic Skin and subcutaneous tissue infections (11 sources) Abscess; Translations: [Cutaneous abscess, unspecified] Onset: 12-17-2013 12-17-2013 Episodic Spondylosis; intervertebral disc disorders; other back problems (20 sources) Neck pain; Translations: [Cervicalgia] Onset: 09-25-2007 10-19-2007 Episodic Results Test Name Value Interpretation Reference Range Facility Bilirubin Test strip Ql (U)O rdered By: James Trinidad on 01-25-2025 Bilirubin Ql (U) Negative Negative [facility] Emergency Department Summary on 01-25-2025 Emergency Department Summary [facility] Medical Records Department [address] [place] [address] Emergency Department Summary 01/25/25 MR#: [id number] Acct: [id number] Name: NORBERT GOINS Rep #: [id number] : [id number] 69 From: James Trinidad DO PCP: Dr. Mireille Rosales MD Status:DEP ER Location: ED [facility] History of Present Illness Chief Complaint: Complaint Informant: patient Narrative Narrative: 69-year-old male presenting to the emergency room with a chief complaint of difficulty urinating. Patient states that he recently had a Castaneda catheter placed. States he followed up with urology had what sounds like cystoscopy and prostate examination. He restarted Flomax. States he has self cathing supplies at home but did not want to wake his up. He states that around midnight and again a few hours later he urinated but did not seem like the same amount that he should. He notes some pressure in the lower pelvis. He has a follow-up appoint with urology . He does not wish a Castaneda catheter but is curious if he has a UTI. [facility] Medical History Hypertension Prostate hypertrophy CPAP (continuous positive airway pressure) dependence Sleep apnea Home Medications ???Medication ???Instructions ???Recorded ???Last Taken ???Type tamsulosin 0.4 mg capsule (Flomax) 0.4 mg PO QHS 03/29/22 01/24/25 History losartan 100 mg tablet 100 mg PO DAILY 01/24/25 01/24/25 History Allergy/AdvReac Type Severity Reaction Status Date / Time No Known Allergies Allergy Verified 01/24/25 07:37 Surgical History Hx of cystoscopy Hx of cervical discectomy Social History Smoking Status: Never smoker ROS ROS ED Constitutional Constitutional ED: Denies chills or weight loss Eyes Eyes: Denies change in vision or diplopia ENT ENT ED: Denies ear pain, rhinorrhea or sore throat Cardiovascular Cardiovascular: Denies chest pain, orthopnea, palpitations or racing heartbeat Respiratory/Chest Respiratory/Chest: Denies cough, dyspnea or orthopnea Gastrointestinal Gastrointestinal: Denies abdominal pain, diarrhea, nausea or vomiting Genitourinary Genitourinary ED: Reports other Details: Urinary retention ; Denies dysuria, hematuria or urinary frequency Musculoskeletal Musculoskeletal: Denies arthralgias or myalgias Integumentary Denies abscess or rash Neurologic Neurologic: Denies headache(s) or weakness Psychiatric Psychiatric: Denies anxiety, depression, suicidal ideation or suicidal thoughts Endocrine Endocrinology: Denies polydipsia, polyphagia or polyuria Allergic/Immunologic Allergic/Immunologic ED: Denies mouth swelling, tongue swelling or urticaria EXAM Physical Exam Const Vital Signs: 01/25/25 05:44 Temperature 97.8 F Temperature Source Oral Pulse Rate 95 Respiratory Rate 22 H Blood Pressure 238/116 H Blood Pressure Mean 156 Pulse Ox 100 Oxygen Delivery Method Room Air Positive well nourished and well developed General Appearance ED: well developed HEENT Reports normocephalic, head/scalp atraumatic and moist mucous membranes Eyes PERRL and EOMs intact bilaterally Neck no lymphadenopathy, supple and no JVD Resp normal respiratory effort and clear to auscultation bilaterally Cardio regular rate, regular rhythm and no murmurs GI normal to inspection, nondistended, normoactive bowel sounds and non-tender Palpation: soft Narrative: Circumcised male. No significant swelling or blood at meatus. Back/Spine no CVA tenderness and normal ROM Extremity normal to inspection General Extremety ED: Negative for edema General Extremity: Negative for edema Neuro oriented x3 and CN's II-XII intact bilaterally Sensorium / Orientation: alert Motor Exam: strength 5/5 throughout Psych mental status grossly normal Mood Affect: Negative for depressed or tearful Skin no rashes or lesions noted and no wounds MDM MDM MDM Narrative Medical decision making narrative: Differential diagnosis includes but not limited to urinary retention UTI BPH prostatitis HORACE Patient was straight cath per his wishes with about 550 cc removed. Urinalysis demonstrates 5-10 red cells no white blood cells no bacteria negative nitrates negative leukocyte esterase. Again the patient does not wish to go home with a Castaneda catheter. He has catheter supplies at home and is willing to self cath and if he has problems is going to return with plans on getting a Castaneda catheter at that time otherwise he will follow-up with urology as scheduled on . History Record Review Discussion w/independent historian: Patient Additional record(s) reviewed:: Prior ED (more content not included)... Normal [facility] Ketones Test strip Ql (U)Ord ered By: James Trinidad on 01-25-2025 Ketones Ql (U) Negative Negative [facility] Microscopic analysis of urin e for red blood cells (RBC)Ordered By: James Trinidad on 01-25-2025 Microscopic analysis of urine for red blood cells (RBC) 5-10 SEEN /hpf 0-5 [facility] Mucus LM Ql (Urine sed)Order ed By: James Trinidad on 01-25-2025 Mucus Ql (Urine sed) 0 SEEN /hpf [facility] Nitrite Test strip Ql (U)Ord ered By: James Trinidad on 01-25-2025 Nitrite Ql (U) Negative Negative [facility] Protein Test strip Ql (U)Ord ered By: James Trinidad on 01-25-2025 Protein Ql (U) 30 mg/dl High Negative [facility] Squamous epithelial cells de tection in urine sediment by light microscopyOrdered By: James Trinidad on 01-25-2025 Epithelial cells.squamous LM Ql (Urine sed) 0 SEEN /hpf 0-5 [facility] Urinalysis, Completeon 01-25 RBC 5-10 SEEN Normal 0-5 [facility] Comment on above: Order Comment: LOLY CTOR TO SPECIFY Performed By: #### L [id number] #### [facility] [address] [place], [address] BACTERIA 0 SEEN Normal None Seen [facility] Comment on above: Order Comment: LOLY CTOR TO SPECIFY Performed By: #### L [id number] #### [facility] [address] [place], [address] EPI,SQUAMOUS 0 SEEN Normal 0-5 [facility] Comment on above: Order Comment: LOLY CTOR TO SPECIFY Performed By: #### [id number] #### [facility] [address] [place], [address] Mucus Ql (Urine sed) 0 SEEN Normal [facility] Comment on above: Order Comment: LOLY CTOR TO SPECIFY Performed By: #### [id number] #### [facility] [address] [place], [address] WBC 0 SEEN Normal 0-5 [facility] Comment on above: Order Comment: LOLY CTOR TO SPECIFY Performed By: #### [id number] #### [facility] [address] [place], [address] Urine clarityOrdered By: Bryan Trinidad on 01-25-2025 Clarity (U) Clear Clear [facility] Urine color determinationOrd ered By: James Trinidad on 01-25-2025 Color (U) Yellow Yellow [facility] Urine glucose detectionOrder ed By: James Trinidad on 01-25-2025 Glucose Ql (U) Normal mg/dl Normal [facility] Urine leukocyte esterase det ection by dipstickOrdered By: James Trinidad on 01-25-2025 Leukocyte esterase Test strip Ql (U) Negative Negative [facility] Urine pHOrdered By: James hewitt on 01-25-2025 pH (U) 6.0 [pH] 5.0 - 8.0 [facility] Urine sediment bacteria coun t by microscopy (number/high power field)Ordered By: James Trinidad on 01-25-2025 Bacteria LM.HPF (Urine sed) [#/Area] 0 /[HPF] None Seen [facility] Urine specific gravity measu rementOrdered By: James Trinidad on 01-25-2025 Specific gravity (U) [Rel density] 1.015 1.002-1.03 0 [facility] Urine urobilinogen measureme ntOrdered By: James Trinidad on 01-25-2025 Urobilinogen Ql (U) Normal mg/dl Normal [facility] White blood cell countOrdere d By: James Trinidad on 01-25-2025 White blood cell count 0 SEEN /hpf 0-5 [facility] Emergency Department Summary on 01-24-2025 Emergency Department Summary [facility] Medical Records Department [address] [place] [address] Emergency Department Summary 01/24/25 MR#: [id number] Acct: [id number] Name: NORBERT GOINS Rep #: [id number] : 1955 69 From: Ton Zazueta DO PCP: Dr. Mireille Rosales MD Status:DEP ER Location: ED HPI History of Present Illness Chief Complaint: Castaneda C/O Informant: patient Onset/Context/Timing Onset: Today Context: Sudden Onset Timing: Continuous Quality: Dull Location: Bladder Worsened by: Nothing Relieved by: Nothing Narrative Narrative: Patient with leaking around his Castaneda catheter. Patient states he noticed that this morning. Patient admits to mild dull pain when he first tries to urinate. Patient states he noted some darkening of his urine today. Patient denies any fevers or chills. Patient had a recent cystoscopy and has had the Castaneda catheter in place since that time. Patient was seen here 2 days ago and had the Castaneda catheter changed. Patient states he has only been passing small clots occasionally. [facility] Medical History (Updated 01/24/25 @ 09:[address] Ton Zazueta, DO) Hypertension Prostate hypertrophy CPAP (continuous positive airway pressure) dependence Sleep apnea Home Medications ???Medication ???Instructions ???Recorded ???Last Taken ???Type tamsulosin 0.4 mg capsule (Flomax) 0.4 mg PO QHS 03/29/22 01/24/25 History losartan 100 mg tablet 100 mg PO DAILY 01/24/25 01/24/25 History Allergy/AdvReac Type Severity Reaction Status Date / Time No Known Allergies Allergy Verified 01/24/25 07:37 Surgical History (Updated 01/24/25 @ 08:[address] Ton Zazueta, DO) Hx of cystoscopy Hx of cervical discectomy Social History Smoking Status: Never smoker ROS ROS ED Constitutional Constitutional ED: Denies chills or fever(s) Eyes Eyes: Denies blurry vision or change in vision ENT ENT ED: Denies rhinorrhea or sore throat Cardiovascular Cardiovascular: Denies chest pain or palpitations Respiratory/Chest Respiratory/Chest: Denies cough or dyspnea Gastrointestinal Gastrointestinal: Denies nausea or vomiting Genitourinary Genitourinary ED: Reports hematuria; Denies dysuria Musculoskeletal Musculoskeletal: Denies back pain or neck pain Integumentary Denies abscess or rash Neurologic Neurologic: Denies headache(s) or weakness Allergic/Immunologic Allergic/Immunologic ED: Denies mouth swelling or urticaria EXAM Physical Exam Const Vital Signs: 01/24/25 07:37 Temperature 97.6 F L Temperature Source Temporal Pulse Rate 81 Respiratory Rate 20 H Blood Pressure 200/118 H Blood Pressure Mean 145 Pulse Ox 100 Oxygen Delivery Method Room Air Positive well nourished and well developed Constitutional Narrative: BMI is 45.5 General Appearance ED: well developed and NAD HEENT Reports moist mucous membranes Neck supple and no JVD Resp normal respiratory effort and clear to auscultation bilaterally Cardio regular rate and regular rhythm GI non-tender and non-distended Palpation: soft Neuro oriented x3, CN's II-XII intact bilaterally and no sensory deficits noted Sensorium / Orientation: alert Motor Exam: strength 5/5 throughout Psych mental status grossly normal MDM MDM MDM Narrative Medical decision making narrative: Patient was given options to irrigate the Castaneda catheter, remove the Castaneda catheter, and replace the Castaneda catheter. Patient would prefer to have the Castaneda catheter removed to see if he can urinate on his own. History Record Review Additional record(s) reviewed:: Prior ED visit and Prior labs Treatment and Re-Evaluation :: Patient was able to urinate twice here in the emergency department. Patient had no dysuria. Patient feels better. Patient was to go home. Patient was instructed to follow-up with his primary care physician and urologist as scheduled. Patient was instructed to return if worse in any way. Patient understood and was agreeable with the plan. All questions were answered. Discharge Plan Triage Chief Complaint: Castaneda C/O ED Provider: Ton Zazueta Dx/Rx/DC Orders Clinical Impression: Prostate hypertrophy, Hypertension Instructions: ED BPH (Enlarged Prostate) Prescriptions: No Action tamsulosin [Flomax] 0.4 mg Capsule 0.4 mg PO QHS losartan 100 mg tablet 100 mg PO DAILY Patient Comments: PT TAKES EVERY OTHER DAY Primary Care Provider: Mireille Rosales Referrals: Mireille Rosales MD [Primary Care Provider] - 3-5 Days Print Language: Anguillan Disposition Disposition: Home, Self Care What to do if you have Problems For any increased pain, shortness of breath, bleeding, nausea or vomiting, chest pain, or any u (more content not included)... Normal [facility] Emergency Department Summary on 01-22-2025 Emergency Department Summary [facility] Medical Records Department [address] [place] [address] Emergency Department Summary 01/22/25 MR#: [id number] Acct: [id number] Name: NORBERT GOINS Rep #: [id number] : 1955 69 From: Jayden Rahman MD PCP: Dr. Mireille Rosales MD Status:REG ER Location: ED HPI History of Present Illness Chief Complaint: Castaneda C/O Informant: patient Narrative Narrative: 69-year-old male presents with an issue with his Castaneda catheter. He had a placed yesterday as result of urinary retention that he had postoperatively the day before. Has been making good urine. He saw a little bit of blood today, does not think he yanked on it or anything, but he is also concerned that he had a little bit of leaking from his penis around the catheter, and he wants the tubing replaced because it kinks too easily. Denies any abdominal pain, nausea, vomiting, low back discomfort that is new, fevers or chills. He is on no anticoagulant. [facility] Medical History CPAP (continuous positive airway pressure) dependence Sleep apnea Home Medications ???Medication ???Instructions ???Recorded ???Last Taken ???Type tamsulosin 0.4 mg capsule (Flomax) 0.4 mg PO QHS 03/29/22 Unknown H istory Allergy/AdvReac Type Severity Reaction Status Date / Time No Known Allergies Allergy Verified 01/22/25 14:07 Social History Smoking Status: Never smoker ROS ROS ED Constitutional Constitutional ED: Denies chills or fever(s) Gastrointestinal Gastrointestinal: Denies abdominal pain, nausea or vomiting Genitourinary Genitourinary ED: Reports as per HPI and hematuria Musculoskeletal Musculoskeletal: Denies back pain or neck pain Integumentary Denies rash Neurologic Neurologic: Denies headache(s), paresthesias or weakness EXAM Physical Exam Const Vital Signs: 01/22/25 14:07 Temperature 97.2 F L Temperature Source Temporal Pulse Rate 103 H Respiratory Rate 17 Blood Pressure 121/83 H Blood Pressure Mean 95 Pulse Ox 95 Oxygen Delivery Method Room Air Positive well nourished and well developed General Appearance ED: well developed and NAD HEENT Reports moist mucous membranes normocephalic and atraumatic Eyes PERRL and EOMs intact bilaterally Neck full ROM and supple Resp normal respiratory effort GI non-tender and non-distended Auscultation: normoactive bowel sounds Palpation: soft Narrative: [place]-tinged transparent urine within the catheter. He has a temperature Castaneda in place. No active leaking from around the catheter. Back/Spine no CVA tenderness General Back: other FROM Extremity normal to inspection Neuro oriented x3, CN's II-XII intact bilaterally and no sensory deficits noted Sensorium / Orientation: awake and alert Motor Exam: strength 5/5 throughout Skin no rashes or lesions noted and no wounds MDM MDM MDM Narrative Medical decision making narrative: Nursing changed his tubing and bag. We also irrigated his bladder, and we did get some small blood clots out. We then observed him, and there was no more bleeding, transparent yellow urine. I do not think he needs a urinalysis, this should prevent more leaking. Encouraged to return for any other issues otherwise following up with urology as scheduled next week. Discharge Plan Triage Chief Complaint: Castaneda C/O ED Provider: Jayden Rahman Dx/Rx/DC Orders Clinical Impression: Hematuria, Complication of Castaneda catheter Instructions: ED Castaneda Catheter, Care Prescriptions: No Action tamsulosin [Flomax] 0.4 mg Capsule 0.4 mg PO QHS Primary Care Provider: Mireille Rosales Referrals: your urologist [Other] - Keep Andi appointment (next week) Mireille Rosales MD [Primary Care Provider] - Print Language: Anguillan Disposition Disposition: Home, Self Care What to do if you have Problems For any increased pain, shortness of breath, bleeding, nausea or vomiting, chest pain, or any unexpected problems, contact your Primary Care Provider. Call [facility] ([phone]) or report to the closest Emergency Room. Call 911 if necessary. 01/22/25 2275 Cosigner Signature (if applicable): CC: Dr. Mireille Rosales MD Signed Normal [facility] Bilirubin Test strip Ql (U)O rdered By: Juventino Escobar on 01-21-2025 Bilirubin Ql (U) Negative Negative [facility] Emergency Department Summary on 01-21-2025 Emergency Department Summary [facility] Medical Records Department [address] [place] [address] Emergency Department Summary 01/21/25 MR#: [id number] Acct: [id number] Name: LALITA GOINSCHRISTIANO Rupert Rep #: [id number] : 1955 69 From: Juventino Escobar MD PCP: Dr. Mireille Rosales MD Status:REG ER Location: ED HPI History of Present Illness Chief Complaint: Castaneda C/O Narrative Narrative: 69-year-old male past medical history of BPH states he had a bladder scan performed yesterday and was seen by urology at my [facility] yesterday. He states he had a bladder scan so he had a catheter that was transurethral as well as procedure performed rectally. He states that since then, he has had mild difficulty urinating. He states that it was at 2 AM, approximately 5-1/2 hours ago where he really felt the buildup of urine. He is describing suprapubic discomfort. No fevers or chills, no nausea or vomiting. He states that he has had problems and had to have Castaneda catheters in the past. No exacerbating or's. [facility], [facility] Medical History CPAP (continuous positive airway pressure) dependence Sleep apnea Home Medications ???Medication ???Instructions ???Recorded ???Last Taken ???Type tamsulosin 0.4 mg capsule (Flomax) 0.4 mg PO QHS 03/29/22 Unknown H istory Allergy/AdvReac Type Severity Reaction Status Date / Time No Known Allergies Allergy Verified 03/29/22 04:33 Social History Smoking Status: Never smoker ROS ROS ED ROS Narrative Review of systems positive for suprapubic bladder discomfort retention/unable to urinate. No fevers or chills, no nausea or vomiting, no other problems. EXAM Physical Exam Narrative Exam Narrative: Afebrile. Vital signs noted. Nontoxic-appearing. Cardiovascular examination reveals mild tachycardia. Lungs are clear to auscultation bilaterally. Abdomen is soft with noted bladder distention and tenderness suprapubically, no guarding or rebound. Positive bowel sounds. Neurological examination nonfocal and nonlateralizing. Const Vital Signs: 01/21/25 07:14 01/21/25 07:14 01/21/25 08:17 Temperature 98 F 98.5 F Temperature Source Temporal Pulse Rate 108 H 75 Respiratory Rate 20 H 18 Blood Pressure 209/127 H 210/130 H 110/64 Blood Pressure Mean 154 156 79 Pulse Ox 97 94 Oxygen Delivery Method Room Air 01/21/25 08:18 Temperature Temperature Source Pulse Rate Respiratory Rate Blood Pressure 110/64 Blood Pressure Mean 79 Pulse Ox Oxygen Delivery Method MDM MDM MDM Narrative Medical decision making narrative: Differential diagnosis includes but not limited to urinary retention secondary to BPH versus opiate use versus infection. Castaneda catheter will be placed and UAC performed. In discussion with the german amato, he states he did not really prefer straight catheterization versus Castaneda catheter insertion. He felt that keeping a Castaneda catheter for few days and following up with his urologist might be more beneficial instead of performing straight catheter drainage of the bladder. After Castaneda catheter insertion, he had approximately 600 mL of urine that had drained. Per RN, he had a small clot/blood upon initial insertion, but the remainder has been yellow in color. Upon repeat examination, patient states there is less pressure on his bladder and he feels improved. I reviewed his urinalysis. Additionally, I reviewed his medication list and he is supposed to be taking tamsulosin but he states that he had not been taking it recently and his urologist was okay with that. As he thought he was having problems yesterday evening he did take 1 Flomax. As he has the Castaneda inserted, he was told that he should start taking it daily again and follow-up with his urologist by even calling the office today. He will be given a Castaneda leg bag. In review of his urinalysis, it is negative for infection with 0 WBCs and 0 bacteria with only 5-10 RBCs. I do not feel antibiotics are indicated. I feel he be discharged to follow-up. Return instructions to the emergency department were reviewed. Disposition is discharged home in stable condition. History Record Review Discussion w/independent historian: Patient Lab Data Attestation: I reviewed the patient's lab results. Labs: Laboratory Results - last 24 hr 01/21/25 07:30 Urine Color Yellow Urine Clarity Clear Urine pH 6.0 Ur Specific [place] 1.015 Urine Protein 15 H Urine Glucose (UA) Normal Urine Ketones Negative Urine Occult Blood 150 H Urine Nitrite Negative Urine Bilirubin Negative Urine Urobilinogen Normal Ur Leukocyte Esterase Negative Urine RBC 5-10 SEEN Urine WBC 0 SEEN Ur Squamous Epith Cells 0 SEEN U (more content not included)... Normal [facility] Ketones Test strip Ql (U)Ord ered By: Juventino Escobar on 01-21-2025 Ketones Ql (U) Negative Negative [facility] Microscopic analysis of urin e for red blood cells (RBC)Ordered By: Juventino Escobar on 01-21-2025 Microscopic analysis of urine for red blood cells (RBC) 5-10 SEEN /hpf 0-5 [facility] Mucus LM Ql (Urine sed)Order ed By: Juventino Escobar on 01-21-2025 Mucus Ql (Urine sed) 0 SEEN /hpf [facility] Nitrite Test strip Ql (U)Ord ered By: Juventino Escobar on 01-21-2025 Nitrite Ql (U) Negative Negative [facility] Protein Test strip Ql (U)Ord ered By: Juventino Escobar on 01-21-2025 Protein Ql (U) 15 mg/dl High Negative [facility] Squamous epithelial cells de tection in urine sediment by light microscopyOrdered By: Juventino Escobar on 01-21-2025 Epithelial cells.squamous LM Ql (Urine sed) 0 SEEN /hpf 0-5 [facility] Urinalysis, Completeon 01-21 RBC 5-10 SEEN Normal 0-5 [facility] Comment on above: Order Comment: NATHANIEL TER SPECIMEN Performed By: #### L 400.0001 #### [facility] [address] [place], [address] BACTERIA 0 SEEN Normal None Seen [facility] Comment on above: Order Comment: NATHANIEL TER SPECIMEN Performed By: #### L 400.0001 #### [facility] [address] [place], [address] EPI,SQUAMOUS 0 SEEN Normal 0-5 [facility] Comment on above: Order Comment: NATHANIEL TER SPECIMEN Performed By: #### L 400.0001 #### [facility] [address] [place], [address] Mucus Ql (Urine sed) 0 SEEN Normal [facility] Comment on above: Order Comment: NATHANIEL TER SPECIMEN Performed By: #### L 400.0001 #### [facility] [address] [place], [address] WBC 0 SEEN Normal 0-5 [facility] Comment on above: Order Comment: NATHANIEL TER SPECIMEN Performed By: #### L 400.0001 #### [facility] [address] [place], [address] Urine clarityOrdered By: Jessica Escobar on 01-21-2025 Clarity (U) Clear Clear [facility] Urine color determinationOrd ered By: Juventino Escobar on 01-21-2025 Color (U) Yellow Yellow [facility] Urine glucose detectionOrder ed By: Juventino Escobar on 01-21-2025 Glucose Ql (U) Normal mg/dl Normal [facility] Urine leukocyte esterase det ection by dipstickOrdered By: Juventino Escobar on 01-21-2025 Leukocyte esterase Test strip Ql (U) Negative Negative [facility] Urine pHOrdered By: Juventino carrington on 01-21-2025 pH (U) 6.0 [pH] 5.0 - 8.0 [facility] Urine sediment bacteria coun t by microscopy (number/high power field)Ordered By: Juevntino Escobar on 01-21-2025 Bacteria LM.HPF (Urine sed) [#/Area] 0 /[HPF] None Seen [facility] Urine specific gravity measu rementOrdered By: Juventino Escobar on 01-21-2025 Specific gravity (U) [Rel density] 1.015 1.002-1.03 0 [facility] Urine urobilinogen measureme ntOrdered By: Juventino Escobar on 01-21-2025 Urobilinogen Ql (U) Normal mg/dl Normal [facility] White blood cell countOrdere d By: Juventino Escobar on 01-21-2025 White blood cell count 0 SEEN /hpf 0-5 [facility] CNOVon 01-20-2025 CNOV Office Visit (UROLMD ) -- NORBERT GOINS ([id number]) 1955 M Date Time Provider Department 01/20/25 2:00 PM [facility]IL[facility] VICENTE UROLUNA During your visit today, we recorded the following information about you: Weight Height 131.1 kg 1.676 m Hamilton Vicente MD 01/20/2025 2:58 PM Signed AFTER YOUR CYSTOSCOPY You have undergone a cystoscopy: Hamilton Vicente MD has inserted a telescope into your bladder through your urethra. WHAT TO EXPECT -Possible burning during urination; and/or -Blood tinged urine. - More urgency for 1-2 days These normally subside within 24-48 hours and with increased fluid intake. WHAT TO DO: -Resume normal activities and medication. -Increase your fluid intake for the next day. MEDICATION: -If an antibiotic is prescribed, take it as directed until ALL the medication is gone. WHEN TO CALL THE DOCTOR: -If you have a fever above 100* Fahrenheit; -If you are unable to urinate; -If large blood clots form in your urine; and/or -If your urine becomes bloody and does not clear with increased fluids. PHONE NUMBERS: [phone] [place] [phone] [place] [phone] [place] [phone] [facility] MD 01/20/2025 3:03 PM Signed [facility] UROLOGY PROCEDURE NOTE [facility] ([facility]) FLEXIBLE CYSTOURETHROSCOPY AND TRUS UROLOGY OUTPATIENT PROCEDURE NOTE UNIVERSAL PROTOCOL AND SAFETY CHECKLISTUNIVERSAL PROTOCOL / SAFETY CHECKLIST Procedure to be Performed: Cysto/TRUS Indication: Bladder Wall Thickening Sign In: A Moment of CARE was completed. Personnel directly involved with the procedure wore the appropriate PPE (Personal Protective Equipment). Patient/Surrogate Stated/Verified: PATIENT VERIFIED(optional for EMERGENT procedures): Patient name, Date of , Relevant allergies and The intended procedure Time Out Communication: Intended patient and procedure match the source documents. Consent documented and matches the intended procedure. Sign Out: SIGN OUT (optional for EMERGENT procedures): All specimen containers correctly labeled. PHYSICIAN NOTE: FLEXIBLE CYSTOURETHROSCOPY AND TRANSRECTAL ULTRASOUND PROCEDURE DATE: January 20, 2025 FINDINGS Urethra: Normal Sphincter: Normal / Coapted Prostate: Enlarged Lateral Lobes / Enlarged Median Lobe Bladder Neck: High, Patent Urothelium: normal appearing, no evidence of tumor, no erythema, no foreign body Trabeculation: Yes Inflammation: No Diverticulum: Yes Ureteral Orifices: normal appearing, orthotopic position, clear efflux bilaterally Trigone: normal appearing Procedure: Flexible cystoscopy and transrectal ultrasound Anesthesia: Lidocaine Gel Procedure Details: In the cystoscopy suite, the patient was placed in the supine position, prepped, and draped in the usual manner. Lidocaine gel was placed per urethra for local anasthesia. No tamie-procedural antibiotics were given. Cystourethroscopy was performed using a flexible scope. Sterile technique was maintained throughout. The urethra, prostate, and bladder were inspected in their entirety. Specific findings from the procedure are detailed in the corresponding section of this note. The cystoscope was carefully removed. The patient was placed in the lateral decubitus position. Digital rectal exam was normal. The ultrasound probe was placed into the rectum and the prostate visualized. The prostate was visualized in sagittal and transverse planes and no hypoechoic lesion identified. The total prostate volume was 129 gm Complications: None Estimated Blood Loss: None Preoperative diagnosis: BPH with obstruction Postoperative diagnosis: Same Disposition / Plan: - I discussed the potential etiologies of his urinary symptoms which sound most consistent with an enlarged prostate - I discussed the treatment options which include medications or surgery - We discussed surgical options for BPH including simple prostatectomy, transurethral resection of prostate (TURP), greenlight photovaporization of the prostate (PVP), Rezum, Urolift, I-TIND, and HoLEP -We discussed the r/b with risks including bleeding, urinary retention, need for intermittent catheterization, worsened urinary symptoms, failure to improve symptoms, recurrent symptoms and retrograde ejaculation. - The decision for which surgical approach depends on patient preference, patient specific anatomy and size, and medical comorbidities - He would be a good candidate for HoLEP -He chose to discontinue Tamsulosin on his own. - We also discussed the addition of Finasteride if the patient would prefer maximal medical therapy - He will consider his options but prefers to remain off medication. - Check PSA in 6 months prior to follow up Hamilton Vicente MD, MS Associate Staff Richard (more content not included)... Normal [facility] ISOPSA ASSAY FOR UROLOGY USE ONLYOrdered By: Robin Andino on 01-05-2025 Interpretation View results in Scan hunter Documents link when available. [facility] IsoPSA 6.1 [facility] TPSA Results 4.4 [facility] Free PSA [Mass/Vol]on 2024 Free PSA/Total PSA [Mass fraction] 29 % [facility] Comment on above: Total and free PSA t est methodology used is the Electrochemiluminescence Immunoassay by [employer]. Total or free PSA values by differing methodologies cannot be interchanged. The below table lists the probability of finding prostate cancer upon needle biopsy, for men 50 years or older and total PSA concentrations from 4.0-10.0 ng/mL. Results should be interpreted within the broader clinical context. Free PSA(%) 50-59 years 60-69 years >69 years <11 49.2% 57.5% 64.5% 11-18 26.9% 33.9% 40.8% 19-25 18.3% 23.9% 29.7% >25 9.1% 12.2% 15.8% Interpretation and review of laboratory results Abnormal [facility] Prostate specific Ag [Mass/Vol] 4.02 ng/mL High NINF - 2.60 ng/mL [facility] Comment on above: Total PSA test metho dology used is the Electrochemiluminescence Immunoassay by [employer]. Total PSA values by differing methodologies cannot be interchanged. For an individual patient, the significance of a PSA level should be interpreted in a broad clinical context, including age, race, family history, digital rectal exam, prostate size, results of prior testing (prostate biopsy, free PSA, PCA3), and use of 5-alpha reductase inhibitors. Considering the high incidence of asymptomatic cancer in the general population that may not pose an ultimate risk to a patient, the decision to recommend urological evaluation or prostate biopsy should be individualized after consideration of all these factors. REFERENCE: Kayla Harris M.D., M.P.H., Qamar Arciniega M.D., Ph.D., Guerrero Smith M.D., Ginette Watkins, M.P.H., Erica Pop Sc.D. Effect of Verification Bias on Screening for Prostate Cancer by Measurement of Prostatic Specific Antigen. N Engl J Med 2003,349:335-42. [facility] Free PSA/Total PSA [Mass fraction] 29 % Normal [facility] Comment on above: Order Comment: Speci men Type: BLOOD SPECIMEN Ordering Facility: [facility] Address: [address] [place] [address] Result Comment: Tota l and free PSA test methodology used is the Electrochemiluminescence Immunoassay by [employer]. Total or free PSA values by differing methodologies cannot be interchanged. The below table lists the probability of finding prostate cancer upon needle biopsy, for men 50 years or older and total PSA concentrations from 4.0-10.0 ng/mL. Results should be interpreted within the broader clinical context. Free PSA(%) 50-59 years 60-69 years >69 years <11 49.2% 57.5% 64.5% 11-18 26.9% 33.9% 40.8% 19-25 18.3% 23.9% 29.7% >25 9.1% 12.2% 15.8% Performed By: #### 1 0886-0 #### [facility] CLIA [id number] [address] [place] [address] [place] Prostate specific Ag [Mass/Vol] 4.02 ng/mL High <2.60 [facility] Comment on above: Order Comment: Speci men Type: BLOOD SPECIMEN Ordering Facility: [facility] Address: [address] [place] [address] Result Comment: Tota l PSA test methodology used is the Electrochemiluminescence Immunoassay by [employer]. Total PSA values by differing methodologies cannot be interchanged. For an individual patient, the significance of a PSA level should be interpreted in a broad clinical context, including age, race, family history, digital rectal exam, prostate size, results of prior testing (prostate biopsy, free PSA, PCA3), and use of 5-alpha reductase inhibitors. Considering the high incidence of asymptomatic cancer in the general population that may not pose an ultimate risk to a patient, the decision to recommend urological evaluation or prostate biopsy should be individualized after consideration of all these factors. REFERENCE: Kayla Harris M.D., M.P.H., Qamar Arciniega M.D., Ph.D., Guerrero Smith M.D., Ginette Watkins, M.P.H., Erica Pop, ScIshmaelD. Effect of Verification Bias on Screening for Prostate Cancer by Measurement of Prostatic Specific Antigen. N Engl J Med 2003,349:335-42. Performed By: #### 1 0886-0 #### [facility] CLIA [id number] [address] [place] [address] OF [facility] ISOPSA ASSAY FOR UROLOGY USE ONLYon 01-04-2025 INTERPRETATION View results in Scan hunter Documents link when available. Normal [facility] Comment on above: Order Comment: Speci men Type: BLOOD SPECIMEN Ordering Facility: [facility] Address: [address] [place] [address] Performed By: #### I SOPSA #### [facility] CLIA [id number] [address] [place] [address], [place] [address] ISOPSA INDEX 6.1 Normal [facility] Comment on above: Order Comment: Speci men Type: BLOOD SPECIMEN Ordering Facility: [facility] Address: [address] [place] [address] Performed By: #### I SOPSA #### [facility] CLIA [id number] [address] [place] [address], [place] [address] TPSA RESULTS 4.4 Normal [facility] Comment on above: Order Comment: Speci men Type: BLOOD SPECIMEN Ordering Facility: [facility] Address: [address] [place] [address] Performed By: #### I SOPSA #### [facility] CLIA [id number] [address] [place] [address], [place] [address] CNOVon 12-18-2024 CNOV Office Visit (UROLMD ) -- NORBERT GOINS ([id number]) 1955 M Date Time Provider Department 12/18/24 10:00 AM [facility]ILTON VICENTE During your visit today, we recorded the following information about you: Weight Height 133.8 kg 1.676 m Jamila Hunter NEREIDA 02/01/2025 12:06 AM Signed Post void bladder scan completed. 0 ml residual remaining. Results reported to Hamilton Frausto MD 02/01/2025 12:06 AM Signed [facility] UROLOGY ESTABLISHED PATIENT CLINIC NOTE UROL [facility] PATIENT INFO: Norbert Goins AGE: [age] year old PCP: Mireille Rosales MD IMPRESSION/PLAN: 1. Benign prostatic hyperplasia with urinary retention - ICD9: 600.01, 788.20, ICD10: N40.1, R33.8 (primary diagnosis) -Patient had previously been on tamsulosin. Will not restart at this time since patient does not feel voiding symptoms are bothersome. Will further evaluate prostate lodgment and bladder wall thickening with cystoscopy/TRUS. 2. Prostate cancer screening - ICD9: V76.44, ICD10: Z12.5 Follow-up PSA as stated below 3. Screening for genitourinary condition - ICD9: V81.6, ICD10: Z13.89 4. Bladder wall thickening - ICD9: 596.89, ICD10: N32.89 -See above 5. Elevated prostate specific antigen (PSA) - ICD9: 790.93, ICD10: R97.20 - I discussed the implications of an elevated total PSA value. I discussed several possible causes of elevation, including BPH, prostatitis and prostate cancer. I also discussed causes of false elevations of PSA values, including sexual activity, bicycle/motorcycle riding, vigorous exercise, and taking vitamins containing biotin 48-72 hours prior to PSA test. We talked about approaches to management which would include surveillance with PSA rechecks at regular intervals, IsoPSA testing, MRI of prostate followed by biopsy, Transperineal biopsy, or standard TRUS Bx. After discussing the pros and cons of each approach we decided to proceed with obtaining an IsoPSA test, along with a repeat total and free PSA I explained that the iso-PSA test provides a clearer picture to determine if the elevation is caused by high-grade prostate cancer. In clinical studies of 429 patients undergoing biopsy, IsoPSA test had a sensitivity of 93% and specificity of 47% for predicting the presence of high grade prostate cancer (Mcpherson>=7) on biopsy. In that study, IsoPSA had a negative predictive value of 92%%, meaning that 92% of patients with IsoPSA Indicies <=6.0 did not have a high-grade cancer (Cosme>=7) detected on biopsy. REASON FOR VISIT: Elevated PSA, BPH HPI: Norbert Goins returns for continuing evaluation and management. Last seen March 18, 2024 Was recently told that his PSA was elevated, now at 4.58. Known history of BPH (without voiding dysfunction), and recent CT shows bladder wall thickening. INTERNATIONAL PROSTATE SYMPTOM SCORE (I-PSS) 1)INCOMPLETE EMPTYING Over the past month, how often have you had a sensation of not emptying your bladder completely after you finished urinating? SCORE: 1- Less than 1 time in 5 2)FREQUENCY Over the past month, how often have you had to urinate again less than two hours after you finished urinating? SCORE: 0- Not at all 3)INTERMITTENCY Over the past month, how often have you found you stopped and started again several times when you urinated? SCORE: 1- Less than 1 time in 5 4)URGENCY Over the past month, how often have you found it difficult to postpone urination? SCORE: 1- Less than 1 time in 5 5)WEAK STREAM Over the past month, how often have you had a weak stream? SCORE: 1- Less than 1 time in 5 6)STRAINING Over the past month, how often have you had to push or strain to begin urination SCORE: 0- Not at all 7)NOCTURIA Over the past month, how many times did you most typically get up to urinate from the time you went to bed at night until the time you get up in the morning? SCORE:1 TOTAL I-PSS SCORE: 5 QUALITY OF LIFE DUE TO URINARY SYMPTOMS If you were to spend the rest of yur life with your urinary condition just the way it is now, how would you feel about that? 1- Pleased UROLOGICAL DATA: Urinalysis: GLUCOSE UA (POCT) Negative 12/18/2024 BILIRUBIN UA (POCT) Small 12/18/2024 KETONE UA (POCT) 40 12/18/2024 SPECIFIC GRAVITY UA (POCT) 1.020 12/18/2024 HEMOGLOBIN/BLOOD UA (POCT) Negative 12/18/2024 PH UA (POCT) 6.0 12/18/2024 PROTEIN UA (POCT) Negative 12/18/2024 UROBILINOGEN UA (POCT) 1.0 12/18/2024 NITRITE UA (POCT) Negative 12/18/2024 LEUKOCYTES UA (POCT) Trace 12/18/2024 COLOR UA (POCT) Yellow 12/18/2024 CLARITY UA (POCT) Clear 12/18/2024 Post Void Residual, Ultrasound: 0 cc, empties well OTHER DATA: PSA Date Value 01/04/2025 4.02 ng/mL 08/18/2019 2.70 PSA, Percent Free (%) Date Value 01/04/2025 29 IsoPSA (no units) Date Value 01/04/2025 6.1 (more content not included)... Normal [facility] UA DIP, URINE (POC)on 2024 BILIRUBIN UA (POCT) Small Abnormal Negative [facility] CLARITY UA (POCT) Clear [facility] COLOR UA (POCT) Yellow [facility] GLUCOSE UA (POCT) Negative Negative mg/dL [facility] Hemoglobin Ql (U) Negative Negative [facility] Interpretation and review of laboratory results Abnormal [facility] KETONE UA (POCT) 40 mg/dL Abnormal Negative [facility] LEUKOCYTES UA (POCT) Trace Abnormal Negative [facility] NITRITE UA (POCT) Negative Negative [facility] PH UA (POCT) 6 4.5 - 8.0 [facility] Protein Ql (U) Negative Negative mg/dL [facility] SPECIFIC GRAVITY UA (POCT) 1.02 1.005 - 1.030 [facility] UROBILINOGEN UA (POCT) 1 Chante l E.U./dL [facility] Location:[facility], [address] [place], [address] [facility] POINT OF CARE [facility] Anion gap in Serum or Plasma Ordered By: Mireille Rosales on 12-10-2024 Anion gap [Moles/Vol] 11 mmol/L 5- [facility] BUN/creatinine ratioOrdered By: Mireille Rosales on 12-10-2024 Urea nitrogen/Creatinine [Mass ratio] 16.7 mg/mg 10- [facility] Bilirubin, totalOrdered By: Mireille Rosales on 12-10-2024 Bilirubin [Mass/Vol] 1.33 mg/dL High 0.00-1.30 [facility] Calculated very low density lipoprotein (VLDL) cholesterol measurementOrdered By: Mireille Rosales on 12-10-2024 Calculated very low density lipoprotein (VLDL) cholesterol measurement 19 mg/dL - [facility] VLDL Cholesterol 19 mg/dL - [facility] Carbon dioxide, total [Moles /volume] in Central venous bloodOrdered By: Mireille Rosales on 12-10-2024 CO2 [Moles/Vol] 27.0 mmol/L 21.0-32.0 [facility] Chloride assayOrdered By: Bossman Rosales on 12-10-2024 Chloride [Moles/Vol] 100 mmol/L 98-108 [facility] Comprehensive Metabolic Prof ilon 12-10-2024 Albumin [Mass/Vol] 4.2 g/dL Normal 3.4-4.8 [facility] Comment on above: Order Comment: Order Date: 06/30/24 Order Info: [id number] - CMP Order Info: [id number] - LIPID Order Info: [id number] - PSA Performed By: #### L 501.9910, L500.4100, [id number] #### [facility] [address] [place], [address] Albumin/Globulin [Mass ratio] 1.7 {ratio} Normal 0.9-2.4 [facility] Comment on above: Order Comment: Order Date: 06/30/24 Order Info: [id number] - CMP Order Info: [id number] - LIPID Order Info: [id number] - PSA Performed By: #### L 501.9910, L500.4100, [id number] #### [facility] [address] [place], [address] ALK PHOS 69 U/L Normal 40-129 [facility] Comment on above: Order Comment: Order Date: 06/30/24 Order Info: [id number] - CMP Order Info: - LIPID Order Info: 1 - PSA Performed By: #### L 501.9910, L500.4100, [id number] #### [facility] [address] [place], [address] ALT [Catalytic activity/Vol] 17 U/L Normal <=46 [facility] Comment on above: Order Comment: Order Date: 06/30/24 Order Info: [id number]- - CMP Order Info: - LIPID Order Info: [id number] - PSA Performed By: #### L 501.9910, L500.4100, [id number] #### [facility] [address] [place], [address] AST [Catalytic activity/Vol] 20 U/L Normal <=37 [facility] Comment on above: Order Comment: Order Date: 06/30/24 Order Info: [id number] - CMP Order Info: - LIPID Order Info: [id number] - PSA Performed By: #### L 501.9910, L500.4100, [id number] #### [facility] [address] [place], [address] Bilirubin [Mass/Vol] 1.33 mg/dL High 0.00-1.30 [facility] Comment on above: Order Comment: Order Date: 06/30/24 Order Info: [id number] - CMP Order Info: - LIPID Order Info: [id number] - PSA Performed By: #### L 501.9910, L500.4100, L500.4050 #### [facility] [address] [place], [address] BUN/CRE 16.7 RATIO Normal 10-20 [facility] Comment on above: Order Comment: Order Date: 06/30/24 Order Info: [id number] - CMP Order Info: - LIPID Order Info: [id number] - PSA Performed By: #### L 501.9910, L500.4100, L500.4050 #### [facility] [address] [place], [address] Calcium [Mass/Vol] 9.3 mg/dL Normal 7.6-11.0 [facility] Comment on above: Order Comment: Order Date: 06/30/24 Order Info: [id number] - CMP Order Info: - LIPID Order Info: [id number] - PSA Performed By: #### L 501.9910, L500.4100, [id number] #### [facility] [address] [place], [address] Chloride [Moles/Vol] 100 mmol/L Normal 98-108 [facility] Comment on above: Order Comment: Order Date: 06/30/24 Order Info: [id number] - CMP Order Info: - LIPID Order Info: [id number] - PSA Performed By: #### L 501.9910, L500.4100, [id number] #### [facility] [address] [place], [address] CO2 [Moles/Vol] 27.0 mmol/L Normal 21.0-32.0 [facility] Comment on above: Order Comment: Order Date: 06/30/24 Order Info: [id number] - CMP Order Info: - LIPID Order Info: [id number] - PSA Performed By: #### L 501.9910, L500.4100, [id number] #### [facility] [address] [place], [address] Creatinine [Mass/Vol] 0.82 mg/dL Normal 0.70-1.20 [facility] Comment on above: Order Comment: Order Date: 06/30/24 Order Info: [id number] - CMP Order Info: - LIPID Order Info: [id number] - PSA Performed By: #### L 501.9910, L500.4100, [id number] #### [facility] [address] [place], [address] GAP 11 Normal 5-15 [facility] Comment on above: Order Comment: Order Date: 06/30/24 Order Info: [id number] - CMP Order Info: - LIPID Order Info: [id number] - PSA Performed By: #### L 501.9910, L500.4100, [id number] #### [facility] [address] [place], [address] GFR/1.73 sq M.predicted among non-blacks MDRD (S/P/Bld) [Vol rate/Area] 95 mL/min/{1.73_m2} Normal >60 [facility] Comment on above: Order Comment: Order Date: 06/30/24 Order Info: [id number] - CMP Order Info: - LIPID Order Info: [id number] - PSA Result Comment: mL/m in/1.73m2 CKD-EPI Creatinine Equation (2020) Performed By: #### L 501.9910, L500.4100, [id number] #### [facility] [address] [place], [address] Globulin (S) [Mass/Vol] 2.5 g/dL Normal 2.2-4.2 [facility] Comment on above: Order Comment: Order Date: 06/30/24 Order Info: [id number] - CMP Order Info: - LIPID Order Info: [id number] - PSA Performed By: #### L 501.9910, L500.4100, [id number] #### [facility] [address] [place], [address] Glucose [Mass/Vol] 109 mg/dL High 70-99 [facility] Comment on above: Order Comment: Order Date: 06/30/24 Order Info: [id number] - CMP Order Info: [id number] - LIPID Order Info: 1 - PSA Performed By: #### L 501.9910, L500.4100, L500.4050 #### [facility] [address] [place], [address] Potassium [Moles/Vol] 4.3 mmol/L Normal 3.3-5.1 [facility] Comment on above: Order Comment: Order Date: 06/30/24 Order Info: [id number]- - CMP Order Info: [id number] - LIPID Order Info: [id number] - PSA Performed By: #### L 501.9910, L500.4100, [id number] #### [facility] [address] [place], [address] Sodium [Moles/Vol] 138 mmol/L Normal 133-145 [facility] Comment on above: Order Comment: Order Date: 06/30/24 Order Info: [id number] - CMP Order Info: - LIPID Order Info: [id number] - PSA Performed By: #### L 501.9910, L500.4100, [id number] #### [facility] [address] [place], [address] T PROT 6.8 g/dL Normal 5.9-8.4 [facility] Comment on above: Order Comment: Order Date: 06/30/24 Order Info: [id number] - CMP Order Info: - LIPID Order Info: [id number] - PSA Performed By: #### L 501.9910, L500.4100, [id number] #### [facility] [address] [place], [address] Urea nitrogen [Mass/Vol] 14 mg/dL Normal 4-19 [facility] Comment on above: Order Comment: Order Date: 06/30/24 Order Info: [id number] - CMP Order Info: [id number] - LIPID Order Info: [id number] - PSA Performed By: #### L 501.9910, L500.4100, L500.4050 #### [facility] [address] [place], [address] GFR/1.73 sq M.predicted magdalene g non-blacks MDRD (S/P/Bld) [Vol rate/Area]Ordered By: Mireille Rosales on 12-10-2024 Estimated GFR (MDRD) Non-Af Amer 95 >60 [facility] Comment on above: mL/min/1.73m2 CKD-EP I Creatinine Equation (2020) Glomerular filtration rate ( GFR) estimation/1.73 sq m using serum, plasma, or whole bOrdered By: Mireille Rosales on 12-10-2024 GFR/1.73 sq M.predicted among non-blacks MDRD (S/P/Bld) [Vol rate/Area] 95 mL/min/{1.73_m2} >60 [facility] Comment on above: mL/min/1.73m2 CKD-EP I Creatinine Equation (2020) LDL calc ser/plasOrdered By: Mireille Rosales on 12-10-2024 Cholesterol in LDL [Mass/Vol] 120 mg/dL [facility] Comment on above: Safpexkvyj=876-451 m g/dL & Higher Ecsh=448 mg/dL or greater LDL Cholesterol, Calculated 120 mg/dL [facility] Comment on above: Nxvbybdtfe=560-367 m g/dL & Higher Ohwt=817 mg/dL or greater Laboratory - Chemistry and C hemistry - challengeOrdered By: Mireille Rosales on 12-10-2024 AST [Catalytic activity/Vol] 20 U/L <38 [facility] Lipid Profileon 12-10-2024 CHOL:HDL 4.01 Normal [facility] Comment on above: Order Comment: Order Date: 06/30/24 Order Info: [id number] - CMP Order Info: [id number] - LIPID Order Info: [id number] - PSA Performed By: #### L 501.9910, L500.4100, L500.4050 #### [facility] [address] [place], [address] Cholesterol [Mass/Vol] 185 mg/dL Normal <=200 [facility] Comment on above: Order Comment: Order Date: 06/30/24 Order Info: [id number] - CMP Order Info: - LIPID Order Info: [id number] - PSA Result Comment: Chol esterol level, Desirable <200 mg/dL Borderline high cholesterol 200-239 mg/dL High cholesterol >=240 mg/dL Recommendations of the NCEP Adult Treatment Panel for the following risk-cutoff thresholds for the [place] population. Performed By: #### L 501.9910, L500.4100, L500.4050 #### [facility] [address] [place], [address] Cholesterol in HDL [Mass/Vol] 46 mg/dL Normal [facility] Comment on above: Order Comment: Order Date: 06/30/24 Order Info: [id number] - CMP Order Info: - LIPID Order Info: [id number] - PSA Result Comment: Julieta onal Cholesterol Education Program (NCEP) guidelines: <40 mg/dL: Low HDL-cholesterol (major risk factor for CHD) >= 60 mg/dL: High HDL-cholesterol (negative risk factor for CHD) HDL-cholesterol is affected by a number of factors, e.g. smoking, exercise, hormones, sex and age. Performed By: #### L 501.9910, L500.4100, L500.4050 #### [facility] [address] [place], [address] Cholesterol in LDL [Mass/Vol] 120 mg/dL Normal [facility] Comment on above: Order Comment: Order Date: 06/30/24 Order Info: [id number] - CMP Order Info: - LIPID Order Info: [id number] - PSA Result Comment: Bord yqhdxc=363-341 mg/dL Higher Etck=567 mg/dL or greater Performed By: #### L 501.9910, L500.4100, L500.4050 #### [facility] [address] [place], [address] Cholesterol in VLDL [Mass/Vol] 19 mg/dL Normal 5-40 [facility] Comment on above: Order Comment: Order Date: 06/30/24 Order Info: 07 - CMP Order Info: - LIPID Order Info: [id number] - PSA Performed By: #### L 501.9910, L500.4100, L500.4050 #### [facility] [address] [place], [place], [address] Triglyceride [Mass/Vol] 96 mg/dL Normal [facility] Comment on above: Order Comment: Order Date: 06/30/24 Order Info: [id number] - CMP Order Info: [id number] - LIPID Order Info: [id number] - PSA Result Comment: The drugs N-Acetylcysteine and Metamizole may falsely depress this assay. Normal range: <150 mg/dL Borderline High: 150-199 mg/dL High: 200-499 mg/dL Very High: >500 mg/dL Performed By: #### L 501.9910, L500.4100, L500.4050 #### [facility] [address] [place], [address] PSA, total screeningOrdered By: Mireille Rosales on 12-10-2024 Prostate Specific Antigen Screen 4.58 ng/mL High 0.02-4.00 [facility] Comment on above: This test was perfor med using the [employer] tPSA method. Measured values of a patient sample can vary depending on the testing procedure used. PSA values determined on patient samples by different testing procedures cannot be used interchangeably. If there is a change in PSA assays while monitoring therapy, sequential testing should be performed to confirm baseline values. PSA,Total - Annual Screenon 12-10-2024 PSA,TOT SCREEN 4.58 ng/mL High 0.02-4.00 [facility] Comment on above: Order Comment: Order Date: 06/30/24 Order Info: [id number] - CMP Order Info: [id number] - LIPID Order Info: [id number] - PSA Result Comment: This test was performed using the [employer] tPSA method. Measured values of a patient??sample can vary depending on the testing procedure used. PSA values determined on patient samples by different testing procedures cannot be used interchangeably. If there is a change in PSA assays while monitoring therapy, sequential testing should be performed to confirm baseline values. Performed By: #### L 501.9910, L500.4100, L500.4050 #### [facility] [place], [address] Potassium (Unsp spec) [Mass/ Vol]Ordered By: Mireille Rosales on 12-10-2024 Potassium [Moles/Vol] 4.3 mmol/L 3.3-5.1 [facility] Potassium measurement (mass/ volume)Ordered By: Mireille Rosales on 12-10-2024 Potassium (Unsp spec) [Mass/Vol] 4.3 mmol/L 3.3-5.1 [facility] Screening total cholesterol/ high density lipoprotein (HDL) cholesterol ratioOrdered By: Mireille Rosales on 12-10-2024 Cholesterol.total/Chol esterol in HDL [Mass ratio] 4.01 {ratio} [facility] Serum creatinine measurement (mass/volume)Ordered By: Mireille Rosales on 12-10-2024 Creatinine [Mass/Vol] 0.82 mg/dL 0.70-1.20 [facility] Serum globulin measurementOr dered By: Mireille Rosales on 12-10-2024 Globulin (S) [Mass/Vol] 2.5 g/dL 2.2-4.2 [facility] Serum glucose measurement (m ass/volume)Ordered By: Mireille Rosales on 12-10-2024 Glucose [Mass/Vol] 109 mg/dL High 70-99 [facility] Serum or plasma alanine aguirre otransferase (ALT) measurementOrdered By: Mireille Rosales on 12-10-2024 ALT [Catalytic activity/Vol] 17 U/L <47 [facility] Serum or plasma albumin patrick urement (mass/volume)Ordered By: Mireille Rosales on 12-10-2024 Albumin [Mass/Vol] 4.2 g/dL 3.4-4.8 [facility] Serum or plasma albumin/glob ulin mass ratioOrdered By: Mireille Rosales on 12-10-2024 Albumin/Globulin [Mass ratio] 1.7 {ratio} 0.9-2.4 [facility] Serum or plasma alkaline jessica sphatase measurementOrdered By: Mireille Rosales on 12-10-2024 ALP [Catalytic activity/Vol] 69 U/L 40-129 [facility] Serum or plasma calcium patrick urement (mass/volume)Ordered By: Mireille Rosales on 12-10-2024 Calcium [Mass/Vol] 9.3 mg/dL 7.6-11.0 [facility] Serum or plasma cholesterol in HDL measurement (mass/volume)Ordered By: Mireille Rosales on 12-10-2024 Cholesterol in HDL [Mass/Vol] 46 mg/dL >40 [facility] Comment on above: National Cholesterol Education Program (NCEP) guidelines:<40 mg/dL: Low HDL-cholesterol (major risk factor for CHD)>= 60 mg/dL: High HDL-cholesterol (negative risk factor for CHD)HDL-cholesterol is affected by a number of factors, e.g. smoking, exercise, hormones, sex and age. Serum or plasma cholesterol measurement (mass/volume)Ordered By: Mireille Rosales on 12-10-2024 Cholesterol [Mass/Vol] 185 mg/dL <201 [facility] Comment on above: Cholesterol level, D esirable <200 mg/dLBorderline high cholesterol 200-239 mg/dLHigh cholesterol >=240 mg/dLRecommendations of the NCEP Adult Treatment Panel for the following risk-cutoff thresholds for the [place] population. Serum or plasma urea nitroge n measurement (mass/volume)Ordered By: Mireille Rosales on 12-10-2024 Urea nitrogen [Mass/Vol] 14 mg/dL 4-19 [facility] Sodium levelOrdered By: Hang Rosales on 12-10-2024 Sodium [Moles/Vol] 138 mmol/L 133-145 [facility] Total proteinOrdered By: Archana istopher Rosales on 12-10-2024 Protein [Mass/Vol] 6.8 g/dL 5.9-8.4 [facility] Triglycerides measurementOrd ered By: Mireille Rosales on 12-10-2024 Triglyceride [Mass/Vol] 96 mg/dL <199 [facility] Comment on above: The drugs N-Acetylcy steine and Metamizole may falsely depress this assay. Normal range: <150 mg/dLBorderline High: 150-199 mg/dLHigh: 200-499 mg/dLVery High: >500 mg/dL Vitamin B12on 12-10-2024 Cobalamin (Vitamin B12) [Mass/Vol] 508 pg/mL Normal 180-914 [facility] Comment on above: Order Comment: Order Date: 06/30/24 Order Info: [id number] - CMP Order Info: [id number] - LIPID Order Info: [id number] - PSA Performed By: #### L 503.0106 #### [facility] [address] [place], [address] Vitamin B12 ser/plasOrdered By: Mireille Rosales on 12-10-2024 Cobalamin (Vitamin B12) [Mass/Vol] 508 pg/mL 180-914 [facility] CNOVon 03-18-2024 CNOV Office Visit (UROLMD ) -- NORBERT GOINS ([id number]) 1955 M Date Time Provider Department 03/18/24 11:00 AM [facility] During your visit today, we recorded the following information about you: Weight Height 138.8 kg 1.676 m Jamila Hunter MA 03/18/2024 11:42 AM Signed Post void bladder scan completed. 0 ml residual remaining. Results reported to Hamilton Frausto MD 03/18/2024 11:42 AM Signed [facility] UROLOGY ESTABLISHED PATIENT CLINIC NOTE UROL [facility] PATIENT INFO: Norbert Goins 69 year old PCP: Mireille Rosales MD IMPRESSION/PLAN: 1. Benign prostatic hyperplasia with urinary retention - ICD9: 600.01, 788.20, ICD10: N40.1, R33.8 (primary diagnosis) -At this point patient is really asymptomatic and does not have any major complaints such as the previous urinary retention he had presented with. Since he is rarely taking tamsulosin have asked him to discontinue the medication altogether. He is in agreement. He may contact me in the future if he develops symptoms. 2. Prostate cancer screening - ICD9: V76.44, ICD10: Z12.5 -Patient is due for PSA testing. He plans to see his PCP for general exam in the very near future and we will have him obtain a PSA. Visit complexity inherent to evaluation and management associated with medical care services that serve as the continuing focal point for all needed health care services and/or with medical care services that are part of ongoing care related to a patient?s single, serious condition or a complex condition. REASON FOR VISIT: BPH management HPI: Norbert Goins returns for continuing evaluation and management. Overall he feels to be doing well and does not present with any urinary complaints. He periodically takes tamsulosin 0.4 as needed, about 1 time a month, mostly if he's having more nocturia. I had originally asked him to increase his dose to 0.8 mg but he failed to do so. Overall feels that he's voiding fine without medication. INTERNATIONAL PROSTATE SYMPTOM SCORE (I-PSS) 1)INCOMPLETE EMPTYING Over the past month, how often have you had a sensation of not emptying your bladder completely after you finished urinating? SCORE: 1- Less than 1 time in 5 2)FREQUENCY Over the past month, how often have you had to urinate again less than two hours after you finished urinating? SCORE: 1- Less than 1 time in 5 3)INTERMITTENCY Over the past month, how often have you found you stopped and started again several times when you urinated? SCORE: 1- Less than 1 time in 5 4)URGENCY Over the past month, how often have you found it difficult to postpone urination? SCORE: 1- Less than 1 time in 5 5)WEAK STREAM Over the past month, how often have you had a weak stream? SCORE: 1- Less than 1 time in 5 6)STRAINING Over the past month, how often have you had to push or strain to begin urination SCORE: 0- Not at all 7)NOCTURIA Over the past month, how many times did you most typically get up to urinate from the time you went to bed at night until the time you get up in the morning? SCORE:1 TOTAL I-PSS SCORE: 6 QUALITY OF LIFE DUE TO URINARY SYMPTOMS If you were to spend the rest of yur life with your urinary condition just the way it is now, how would you feel about that? 1- Pleased UROLOGICAL DATA: Patient was unable to provide urine specimen today. Post Void Residual, Ultrasound: 0 cc, empties well OTHER DATA: PSA (no units) Date Value 08/18/2019 2.70 No results found for: ISOPSA Creatinine Date Value Ref Range Status 06/30/2019 0.86 0.73 - 1.22 mg/dL Final 06/05/2019 0.93 0.73 - 1.22 mg/dL Final 05/04/2001 0.7 0.7 - 1.4 mg/dL Final 05/03/2001 0.6 (A) 0.7 - 1.4 mg/dL Final No results found for: TESTOST, TESTFREE PMHx/PSHx: see above, otherwise unchanged Rx: reviewed and unchanged ROS: see above, otherwise unchanged Labs: None Imaging: None MEDICATIONS: Current Outpatient Medications Medication Sig tamsulosin (FLOMAX) 0.4 mg Take 2 capsules by mouth daily at bedtime. acetaminophen (TYLENOL ARTHRITIS PAIN) 650 mg CR tablet Take 650 mg by mouth every 8 hours as needed. CPAP aspirin 325 mg ORAL tablet Take 325 mg by mouth as needed. No current facility-administered medications for this visit. PHYSICAL EXAM: Ht 167.6 cm (5' 6) Wt (!) 138.8 kg (306 lb) BMI 49.39 kg/m? Body mass index is 49.39 kg/m?. General: Well masculinized, well nourished male Psych: euthymic, NAD Neuro: AANDOx3 Inguinal: No lesions, adenopathy, or hernias exam deferred SUNSHINE deferred FOLLOW UP: as needed Hamilton Vicente M.D, MS Associate Staff [facility] [place] [facility] Allergies As of Date: 03/18/2024 (No Known Allergies) Date Reviewed: 03/18/2024 Reviewed by: Jamila Hunter, (more content not included)... Normal [facility] Basophil percentageon 2021 Bilirubin [Mass/Vol] 1.20 mg/dL 0.20-1.00 [facility] Work Phone: Comment on above: For patients on eltr ombopag therapy, use of Dimension Cameron TBIL is not recommended. Cholesterol [Mass/Vol] 173 mg/dL <200 [facility] Work Phone: Comment on above: <200 mg/dL Desirable 200-240 mg/dL Borderline >240 mg/dL High Risk Protein [Mass/Vol] 6.5 g/dL 6.4-8.2 [facility] Work Phone: Triglyceride [Mass/Vol] 92 mg/dL <199 [facility] [place] Work Phone: Comment on above: The drugs N-Acetylcy steine and Metamizole may falsely depress this assay.Serum Triglycerides Reference Interval Normal <150 mg/dL Borderline high 150 - 199 mg/dL High 200 - 499 mg/dL Very High > or = 500 mg/dL Direct bilirubinon 2 Bilirubin.direct [Mass/Vol] 0.22 mg/dL 0.00-0.30 [facility] [place] Work Phone: Laboratory - Chemistry and C hemistry - challengeon 04-23-2022 ALP [Catalytic activity/Vol] 70 U/L 45-117 [facility] Work Phone: ALT [Catalytic activity/Vol] 20 U/L 16-61 [facility] Work Phone: Cobalamin (Vitamin B12) [Mass/Vol] 310 pg/mL 211-911 [facility] Work Phone: Globulin (S) [Mass/Vol] 3.0 g/dL 2.2-4.2 [facility] Work Phone: Serum or plasma albumin patrick urement (mass/volume)on 04-23-2022 Albumin [Mass/Vol] 3.5 g/dL 3.2-5.0 [facility] Work Phone: Serum or plasma cholesterol in HDL measurement (mass/volume)on 04-23-2022 Cholesterol in HDL [Mass/Vol] 45 mg/dL >40 [facility] [place] Work Phone: Comment on above: The drugs N-Acetylcy steine and Metamizole may falsely depress this assay. Reference Range HDL <40 mg/dL Low HDL Cholesterol HDL >or= 60 mg/dL High HDL Cholesterol Serum or plasma cholesterol in VLDL measurement (mass/volume)on 04-23-2022 Cholesterol in VLDL [Mass/Vol] 18 mg/dL 5-40 [facility] Work Phone: Serum or plasma low density lipoprotein (LDL) cholesterol measurement (mass/volume)on 04-23-2022 Cholesterol in LDL [Mass/Vol] 110 mg/dL 0-130 [facility] Work Phone: Serum or plasma uric acid me asurement (mass/volume)on 04-23-2022 Urate [Mass/Vol] 6.7 mg/dL 3.5-7.2 [facility] Work Phone: Comment on above: The drugs N-Acetylcy steine and Metamizole may falsely depress this assay. Thin prep Papanicolaou smear with manual screeningon 04-23-2022 Thin prep Papanicolaou smear with manual screening 14 U/L 15-37 [facility] Work Phone: Absolute lymphocyte counton 03-24-2022 Lymphocytes Auto (Unsp spec) [#/Vol] 0.62 10*3/uL 0.83-4.51 [facility] Work Phone: Basophil percentageon 2021 Basophils/100 WBC (Bld) 0.2 % 0-1 [facility] Work Phone: Chloride [Moles/Vol] 105 mmol/L 98-107 [facility] Work Phone: Eosinophils/100 WBC (Bld) 0.0 % 0-5 [facility] Work Phone: Glucose [Mass/Vol] 152 mg/dL 74-106 [facility] Work Phone: Comment on above: Fasting Glucose resu lt greater than or equal to 126 mg/dL suggests DIABETES MELLITUS per A.D.A. criteria. Neutrophils (Bld) [#/Vol] 11.7 10*3/uL 2.0-7.7 [facility] Work Phone: Neutrophils/100 WBC (Bld) 93.1 % 47-70 [facility] Work Phone: [phone] Potassium [Moles/Vol] 4.2 mmol/L 3.5-5.1 [facility] Work Phone: Sodium [Moles/Vol] 140 mmol/L 136-145 [facility] Work Phone: WBC (Bld) [#/Vol] 12.5 10*3/uL 4.4-11.0 [facility] Work Phone: Blood erythrocytes count (nu mber/volume)on 03-24-2022 RBC (Bld) [#/Vol] 4.93 10*6/uL 4.6-6.2 [facility] Work Phone: Blood hemoglobin measurement (mass/volume)on 03-24-2022 Hemoglobin (Bld) [Mass/Vol] 15.3 g/dL 13.0-16.5 [facility] Work Phone: Blood lymphocytes/100 leukoc yteson 03-24-2022 Lymphocytes/100 WBC (Bld) 5.0 % 19-41 [facility] Work Phone: Blood monocytes/100 leukocyt eson 03-24-2022 Monocytes/100 WBC (Bld) 1.1 % 0-10 [facility] Work Phone: Blood platelet mean volumeon 03-24-2022 Platelet mean volume (Bld) [Entitic vol] 9.6 fL 6.2-12.0 [facility] Work Phone: Determination of erythrocyte mean corpuscular volume (MCV)on 03-24-2022 MCV (RBC) [Entitic vol] 92.7 fL 80-94 [facility] Work Phone: Hematocrit Auto (Bld) [Volum e fraction]on 03-24-2022 Hematocrit (Bld) [Volume fraction] 45.7 % 40-54 [facility] Work Phone: Laboratory - Chemistry and C hemistry - challengeon 03-24-2022 CO2 [Moles/Vol] 30.0 mmol/L 21.0-32.0 [facility] Work Phone: Urea nitrogen/Creatinine [Mass ratio] 22.8 mg/mg 10-20 [facility] [place] Work Phone: Laboratory - Hematology and Cell countson 03-24-2022 Erythrocyte distribution width (RBC) [Entitic vol] 46.0 fL 35.1-43.9 [facility] Work Phone: Erythrocyte distribution width (RBC) [Ratio] 13.5 % 11.6-14.6 [facility] Work Phone: Immature granulocytes/100 WBC (Bld) 0.600 % 0.0-0.9 [facility] Work Phone: Comment on above: IG% - Immature Granu locytes (promyelocytes, myelocytes and metamyelocytes) > 1% indicates that a LEFT SHIFT is Present. MCH (RBC) [Entitic mass] 31.0 pg 27.0-32.0 [facility] Work Phone: Nucleated RBC/100 WBC (Bld) [Ratio] 0 % 0-5 [facility] Work Phone: MCHC Auto (RBC) [Mass/Vol]on 03-24-2022 MCHC (RBC) [Mass/Vol] 33.5 g/dL 32-36 [facility] Work Phone: No Panel Informationon 03-24 Estimated Creatinine Clearance Calc 70.31 ml/min [facility] Work Phone: Estimated GFR (MDRD) Amer 106 mL/min >60 [facility] Work Phone: Comment on above: GFR Calc Estimated GFR (MDRD) Non-Af Amer 87 mL/min >60 [facility] Work Phone: Comment on above: Non- GFR Calc Platelets bldon 03-24-2022 Platelets (Bld) [#/Vol] 238 10*3/uL 150-450 [facility] Work Phone: Serum or plasma calcium patrick urement (mass/volume)on 03-24-2022 Calcium [Mass/Vol] 8.8 mg/dL 8.5-10.1 [facility] Work Phone: Serum or plasma creatinine m easurement (mass/volume)on 03-24-2022 Creatinine [Mass/Vol] 0.92 mg/dL 0.70-1.30 [facility] Work Phone: Comment on above: The validity of the calculated GFR & GFRAA in patients over 70 years has not been determined. Clinical correlation is essential. Serum or plasma urea nitroge n measurement (mass/volume)on 03-24-2022 Urea nitrogen [Mass/Vol] 21 mg/dL 7-18 [facility] Work Phone: Thin prep Papanicolaou smear with manual screeningon 03-24-2022 Thin prep Papanicolaou smear with manual screening 5 5-15 [facility] Work Phone: Basophil percentageon 2021 WBC (Bld) [#/Vol] 8.4 10*3/uL 4.4-11.0 [facility] Work Phone: Blood erythrocytes count (nu mber/volume)on 03-23-2022 RBC (Bld) [#/Vol] 4.78 10*6/uL 4.6-6.2 [facility] Work Phone: Blood hemoglobin measurement (mass/volume)on 03-23-2022 Hemoglobin (Bld) [Mass/Vol] 14.8 g/dL 13.0-16.5 [facility] Work Phone: Blood platelet mean volumeon 03-23-2022 Platelet mean volume (Bld) [Entitic vol] 9.4 fL 6.2-12.0 [facility] Work Phone: Determination of erythrocyte mean corpuscular volume (MCV)on 03-23-2022 MCV (RBC) [Entitic vol] 90.8 fL 80-94 [facility] Work Phone: Hematocrit Auto (Bld) [Volum e fraction]on 03-23-2022 Hematocrit (Bld) [Volume fraction] 43.4 % 40-54 [facility] Work Phone: Laboratory - Hematology and Cell countson 03-23-2022 Erythrocyte distribution width (RBC) [Entitic vol] 44.8 fL 35.1-43.9 [facility] Work Phone: Erythrocyte distribution width (RBC) [Ratio] 13.5 % 11.6-14.6 [facility] Work Phone: MCH (RBC) [Entitic mass] 31.0 pg 27.0-32.0 [facility] Work Phone: MCHC Auto (RBC) [Mass/Vol]on 03-23-2022 MCHC (RBC) [Mass/Vol] 34.1 g/dL 32-36 [facility] Work Phone: Platelets bldon 03-23-2022 Platelets (Bld) [#/Vol] 237 10*3/uL 150-450 [facility] Work Phone: XR FLUORO GUIDANCE FOR THERA PY INJECTIONon 01-30-2022 XR FLUORO GUIDANCE FOR THERAPY INJECTION ORIGINAL Images acquired, not reported on this accession number. [facility] ([place]) PROGRESSon 07-23-2019 PROGRESS HNO ID: [id number] Author: Melisa Huizar) LANETTE French Service: ? Author Type: Clinical Steel Melter Type: Progress Notes Filed: 07/23/2019 11:22 AM Note Text: NAME:Norbert Goins DATE: July 23, 2019 CCF#: [id number] Lower Extremity X-Ray(s): Knee, AP / Lat / Merchant Right and Wt. Bearing COMPLETED TECH ID SIGN: MELISA FRENCH [facility] XR KNEE 3V AP/LAT/MERCHANT R Ton 07-23-2019 XR KNEE 3V AP/LAT/MERCHANT RT * * *Final Report* * * DATE OF EXAM: Jul 23 2019 11:20AM HEIDI [id number] - XR KNEE 3V AP/LAT/MERCHANT RT / PROCEDURE REASON: M25.561-Right knee pain, unspecified chronicity * * * * Physician Interpretation * * * * PROCEDURE: Right knee INDICATION: Right knee pain, unspecified chronicity .1ST P.O. TKR TECHNIQUE: XR KNEE 3V AP/LAT/MERCHANT RT COMPARISON: 03/10/2019 FINDINGS: There is a new right total knee arthroplasty in satisfactory position without evidence for loosening. No fracture or joint effusion. Lateral joint compartment narrowing in the left knee appears similar. IMPRESSION: Interval TKA Trim Sawyer: PSCB Transcribe Date/Time: Jul 23 2019 11:33A Dictated by : ТАТЬЯНА NAIK MD This examination was interpreted and the report reviewed and electronically signed by: ТАТЬЯНА NAIK MD on Jul 23 2019 11:33AM EST [id number] [facility] Cult Urineon 07-17-2019 Cult Urine Test performed at [facility] No growth <1,000 CFU/ml. [facility] Comment on above: Performed By: #### C _URI #### [place] [address] ED NOTEon 07-17-2019 ED NOTE HNO ID: [id number] Author: Francisco OmerRn) CAROL Curiel Service: Emergency Medicine Author Type: Registered Nurse Type: ED Notes Filed: 07/17/2019 11:44 AM Note Text: Patient discharged to home, accompanied by W/ , Uses walker Discharge instructions given to patient, discharge teaching performed, Patient verbalized understanding of discharge instructions and follow-up care, Patient AANDOx4 MAEx4. Patient ambulates without difficulty. Pt provided information for accessing Imaging3. Belongings remain with patient, Valuables remain with patient. [facility] ED NOTE HNO ID: [id number] Author: Sameera OmerRn) CAROL Farris Service: Emergency Medicine Author Type: Registered Nurse Type: ED Notes Filed: 07/17/2019 10:16 AM Note Text: Visitor at bedside. [facility] ED NOTE HNO ID: [id number] Author: Mariam Landers DO Service: Emergency Medicine Author Type: Physician Type: ED Notes Filed: 07/17/2019 9:36 AM Note Text: TEACHING ATTESTATION: I personally saw and examined the patient. I reviewed the resident?s note. I agree with the resident?s assessment and plan unless otherwise noted. This is a 64-year-old male presents to the emergency department with urinary retention. Patient had a knee replacement on 06/29/2019 and had a Castaneda placed since his surgery since he could not urinate. He did see a physician's botany laboratory assistant yesterday who pulled his Castaneda catheter and then patient was sent home with catheters to self catheter as he continued to have trouble urinating. Patient states he was in an extreme amount of pain last night as he was having difficulty Being himself and was getting blood clots. Patient was seen with Dr. Wilson, resident physician, please see his note for full history and physical exam. Patient did have on ultrasound approximately 400 mL of urine. Castaneda was placed and 400 mL of urine was obtained that was nonbloody. Urinalysis and urine culture pending. We will make contact with urology to set up outpatient follow-up as patient cannot be seen by a urologist in [place]. Please see Dr. Wilson's note for final disposition and diagnosis. Abdomen is soft and pain much improved after Castaneda catheter placed. Normal [facility] ED NOTE HNO ID: [id number] Author: Sameera Brock) CAROL Farris Service: Emergency Medicine Author Type: Registered Nurse Type: ED Notes Filed: 07/17/2019 8:59 AM Note Text: urine specimen obtained and sent. Normal [facility] ED NOTE HNO ID: [id number] Author: Sameera Brock) CAROL Farris Service: Emergency Medicine Author Type: Registered Nurse Type: ED Notes Filed: 07/17/2019 9:00 AM Note Text: Bladder scan completed per order - appx 348 ml of urine noted in bladder - physician made aware [facility] ED NOTE HNO ID: [id number] Author: Sameera Brock) CAROL Farris Service: Emergency Medicine Author Type: Registered Nurse Type: ED Notes Filed: 07/17/2019 8:34 AM Note Text: Physician at bedside assessing pt at this time. [facility] ED PROV NOTEon 07-17-2019 ED PROV NOTE HNO ID: [id number] Author: Mariam Landers DO Service: Emergency Medicine Author Type: Physician Type: ED Provider Notes Filed: 07/18/2019 9:36 PM Note Text: ED Provider Note Patient Name: Norbert Goins SERVICE DATE: 07/17/19 History Patient presents with: Urinary Problem: The patient has been unable to void since last night. The patient has had a castaneda catheter recently. The patient has a known UTI. Patient is a 64 year old male with past medical history of right knee replacement, urinary retention presents emergency Department with inability to urinate. Patient had knee replacement surgery on June 29, a Castaneda was placed for urinary retention during that stay. Castaneda was removed yesterday at urology office by the physician's botany laboratory assistant. Patient passed a voiding trial at that time but later developed urinary retention. Patient was given instructions as well as supplies for straight cathetering. Patient has been unable to straight catheter since last night and has having increasing abdominal pain with inability to void. Patient has tried multiple times Thing is gotten blood clots only no urine. Patient has no other complaints. 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 HENT: Negative for congestion and rhinorrhea. Eyes: Negative for pain and visual disturbance. Respiratory: Negative for cough and shortness of breath. Cardiovascular: Negative for chest pain and leg swelling. Gastrointestinal: Positive for abdominal pain. Negative for vomiting. Genitourinary: Positive for difficulty urinating. Negative for dysuria and frequency. Musculoskeletal: Negative for arthralgias and myalgias. Skin: Negative for pallor and rash. Neurological: Negative for syncope and headaches. Psychiatric/Behavioral: Negative for self-injury and suicidal ideas. Physical Exam BP 139/83 Pulse 86 Temp (Src) 97.9 (Oral) Resp 16 Ht 5' 4 (1.63m) Wt 260 lb (117.9kg) SpO2 95% BMI 44.61 kg/(m2). O2 Therapy: Room Air Physical Exam Vitals signs and nursing note reviewed. Constitutional: General: He is not in acute distress. Appearance: He is well-developed. He is not diaphoretic. HENT: Head: Normocephalic and atraumatic. Nose: Nose normal. Eyes: Pupils: Pupils are equal, round, and reactive to light. Neck: Musculoskeletal: Normal range of motion and neck supple. Cardiovascular: Rate and Rhythm: Normal rate and regular rhythm. Pulmonary: Effort: Pulmonary effort is normal. Breath sounds: Normal breath sounds. Abdominal: General: Bowel sounds are normal. Palpations: Abdomen is soft. Tenderness: There is tenderness (Suprapubic). Musculoskeletal: Normal range of motion. General: Swelling (Right leg) present. No deformity. Comments: No calf tenderness Skin: General: Skin is warm and dry. Capillary Refill: Capillary refill takes less than 2 seconds. Comments: Well-healing right knee surgical incision Neurological: General: No focal deficit present. Mental Status: He is alert and oriented to person, place, and time. Psychiatric: Behavior: Behavior normal. Diagnostic Testing ED Labs Ordered and Reviewed URINALYSIS WITH MICROSCOPIC (AK,AV,EU,FV,HL,LADY,MM,SP) - Abnormal; Notable for the following components: Result Value Ref Range Ketones, Urine 15 (*) Negative mg/dL Hemoglobin, Urine SMALL (*) Negative Leukocytes Esterase SMALL (*) Negative RBC, Urine 8.2 (*) 0.0 - 5.0 /hpf WBC, Urine 26.5 (*) 0.0 - 5.0 /hpf All other components within normal limits URINE CULTURE (AK,AV,EU,FV,HL,LADY,MM,SP) Procedures ED Course / Clinical Impression ED Course as of Jul 17 1622 Freeman Wilson's Documentation SatJul 17, 2019 0912 64 year old male presents with urinary retention. On initial assessment patient was found non-toxic, no acute distress, vitals hemodynamically stable and afebrile. Initial concern for urinary tract infection, urinary retention, hematuria, clots. 0933 Urinalysis shows small hemoglobin likely secondary from catheterization, small leukocyte esterase with 26 white blood cells, no bacteria seen. Patient is on day 2 of a three-day ciprofloxacin prescription. Urology attending paged. [phone] Lawson who will facilitate outpatient follow-up, no need for more abx. No indication for admission. Discussed findings and diagnosis with the patient, follow-up and return to ED precautions given, patient voiced understanding, agrees with plan, questions answered, patient was discharged. Clinical Impressions as of Jul 17 1622 Urine retention MDM / Disposition / Plan MDM SIGNATURE: MD Freeman Olivarez (Res) MD Steve Resident 07/17/191621 Mariam Landers DO 07/18/192135 [facility] Urinalysis Routineon 019 Bacteria LM.HPF (Urine sed) [#/Area] NONE Normal None [facility] Comment on above: Performed By: #### U RIN2 #### [address] [address] Ep Cells Urine 0.9 /hpf Normal 0.0-5.0 [facility] Comment on above: Performed By: #### U RIN2 #### [address] [address] Hyaline Cast 0.7 /lpf Normal 0.0-1.0 [facility] Comment on above: Performed By: #### U RIN2 #### [address] [address] RBC LM.HPF (Urine sed) [#/Area] 8.2 /[HPF] High 0.0-5.0 [facility] Comment on above: Performed By: #### U RIN2 #### [address] [address] WBC LM.HPF (Urine sed) [#/Area] 26.5 /[HPF] High 0.0-5.0 [facility] Comment on above: Performed By: #### U RIN2 #### [address], [place] [address] Appearance (U) CLEAR Normal [facility] Comment on above: Performed By: #### U RIN2 #### [facility] [address] [place] [address] Bilirubin (U) [Mass/Vol] Negative Normal Negative [facility] Comment on above: Performed By: #### U RIN2 #### [facility] [address] [place] [address] Color (U) YELLOW Normal [facility] Comment on above: Performed By: #### U RIN2 #### [facility] [address] [place] [address] Glucose Ql (U) Negative Normal Negative [facility] Comment on above: Performed By: #### U RIN2 #### [facility] [address] [place] [address] Hemoglobin,Urine SMALL Abnormal Negative [facility] Comment on above: Performed By: #### U RIN2 #### [facility] [address] [place] [address] Ketone Urine 15 mg/dL Abnormal Negative [facility] Comment on above: Performed By: #### U RIN2 #### [facility] [address] [place] [address] Leukocytes Esterase SMALL Abnormal Negative [facility] Comment on above: Performed By: #### U RIN2 #### [facility] [address] [place] [address] Nitrites Urine Negative Normal Negative [facility] Comment on above: Performed By: #### U RIN2 #### [facility] [address] [place] [address] pH (U) 7.0 [pH] Normal 5.0-8.0 [facility] Comment on above: Performed By: #### U RIN2 #### [facility] [address] [place] [address] Protein (U) [Mass/Vol] Negative Normal Negative [facility] Comment on above: Performed By: #### U RIN2 #### [place] [address] Specific [place], Ur 1.014 Normal 1.005-[address] [facility] Comment on above: Performed By: #### U RIN2 #### [facility] [address] [place] [address] Urobilinogen,Ur 0.2 EU/dL Normal 0.2-1.0 [facility] Comment on above: Performed By: #### U RIN2 #### [facility] [address] [place] [address] CASE MANAGEMon 07-02-2019 CASE MANAGEM HNO ID: [id number] Author: Neisha (Rn) CAROL Bauman Service: Case Management Author Type: Registered Nurse Type: Care Mgt Progress Note Filed: 07/02/2019 11:17 AM Note Text: CARE MANAGEMENT DISCHARGE NOTE SERVICE DATE: 07/02/2019 SERVICE TIME: 11:14 AM LOS: 0 days Admission Date: 06/29/2019 DISCHARGE ARRANGEMENT (list agency and phone number) Home Care - PT Provider: [facility] Notified of dc, all dc documents completed, SOC 24-48 hrs after dc CAREGIVER ASSESSMENT: Caregiver is ready, willing and able to meet the patient's needs as recommended by the inter-professional team? Yes Patient's transition needs and plan for meeting these needs: DC home with [facility], surgical follow up Does the patient have an acute stroke diagnosis, or has the patient had a stroke during this admission? No HANDOFF COMMUNICATION: Primary Care Physician: Name: Mireille Rosales Summary of care sent to: Arturo Lockhart MD? Internal Medicine [phone] [facility] [address] [place] [address] Mireille Rosales MD? PCP - General Family Practice [phone] [facility] [address] [place] [id number] [facility]? [phone] [address] Next Steps: Follow up Sushil Dumas Jr, MD? Urology Other [phone] [address] [facility] [address] TRANSPORTATION ARRANGEMENTS: Car - Spouse to transport ADDITIONAL CONTACT RESOURCES: Discharge Information Row Name Admission (Current) from 06/29/[address] [place] [facility] Start of Care 07/03/19 FOLLOW UP: Future Appointments Date Time Provider Department Center 07/09/2019 9:30 AM Teo DONG (Pa) [facility] 07/23/2019 11:30 AM Tima MCADAMS (Pa) [place] [facility] SIGNATURE: Neisha Bauman RN PATIENT NAME: Norbert Goins DATE: July 02, 2019 TIME: 11:13 AM PAGER/CONTACT #: [phone] Normal [facility] CBCon 07-02-2019 Erythrocyte distribution width (RBC) [Ratio] 13.6 % Normal 11.5-15.0 [facility] Comment on above: Performed By: #### T SCR30 #### [facility] [address] [phone] Hematocrit (Bld) [Volume fraction] 35.4 % Low 39.0-51.0 [facility] Comment on above: Performed By: #### T SCR30 #### [facility] [address] [phone] Hemoglobin (Bld) [Mass/Vol] 11.9 g/dL Low 13.0-17.0 [facility] Comment on above: Performed By: #### T SCR30 #### [facility] [address] [phone] MCH (RBC) [Entitic mass] 30.5 pG Normal 26.0-34.0 [facility] Comment on above: Performed By: #### T SCR30 #### [facility] [address] [phone] MCHC (RBC) [Mass/Vol] 33.6 g/dL Normal 30.5-36.0 [facility] Comment on above: Performed By: #### T SCR30 #### [facility] [address] [phone] MCV (RBC) [Entitic vol] 90.8 fL Normal 80.0-100.0 [facility] Comment on above: Performed By: #### T SCR30 #### [facility] [address] [phone] Platelet mean volume (Bld) [Entitic vol] 9.7 fL Normal 9.0-12.7 [facility] Comment on above: Performed By: #### T SCR30 #### [facility] [address] [facility] [phone] Platelets (Bld) [#/Vol] 217 10*3/uL Normal 150-400 [facility] Comment on above: Performed By: #### T SCR30 #### [facility] [address] [facility] [phone] RBC (Bld) [#/Vol] 3.90 10*6/uL Low 4.20-6.00 [facility] Comment on above: Performed By: #### T SCR30 #### [facility] [address] [facility] [phone] WBC (Bld) [#/Vol] 6.08 10*3/uL Normal 3.70-11.00 [facility] Comment on above: Performed By: #### T SCR30 #### [facility] [address] [facility] [phone] CNCOon 07-02-2019 CNCO Letter Text Normal [facility] PLAN OF CAREon 07-02-2019 PLAN OF CARE HNO ID: [id number] Author: Lynsey Henry (Regional Sales Consultant) Service: Pharmacy Author Type: ? Type: Plan of Care Filed: 07/02/2019 3:51 PM Note Text: INSULATION CUTTER AND FORMER BEDSIDE DELIVERY SURVEY 1. Patient to use [facility] Bedside Delivery - YES Insurance Information as follows: 2. Insurance card on file - YES 3. Credit card for payment - YES PHARMACY BEDSIDE DELIVERY SERVICE Patient Name: Norbert Goins The marked outpatient medications were Filled at: [place] and delivered to the patient's bedside to 273 Medication List START taking these medications docusate sodium 100 mg capsule Commonly known as: COLACE Take 1 capsule by mouth twice daily. X enoxaparin 40 mg/0.4 mL Syrg Commonly known as: LOVENOX Inject 0.4 mL subcutaneously once daily for 11 days. X oxyCODONE-acetaminophen 5-325 mg tablet Commonly known as: PERCOCET Take 1-2 tablets by mouth every 4 hours as needed for Pain for up to 7 days. X polyethylene glycol 3350 17 gram packet Commonly known as: MIRALAX, GLYCOLAX Take 1 Packet by mouth once daily. X tamsulosin ER 0.4 mg Cap Commonly known as: FLOMAX Take 1 capsule by mouth once daily. X CONTINUE taking these medications aspirin 325 mg tablet CPAP VITAMIN D2 ORAL You might also be taking other medications not listed above. If you have questions about any of your other medications, talk to the person who prescribed them or your Primary Care Provider. STOP taking these medications FISH OIL ORAL mupirocin 2 % ointment Commonly known as: BACTROBAN TYLENOL 325 mg Cap Generic drug: acetaminophen Lynsey Henry (Fermentalg) PAGER: [phone] July 02, 2019 3:[address] [facility] PROGRESSon 07-02-2019 PROGRESS HNO ID: [id number] Author: Artruo Lockhart Service: General Internal Medicine Author Type: Physician Type: Progress Notes Filed: 07/02/2019 9:42 AM Note Text: INPATIENT CONSULT PROGRESS NOTES Patient Name: Norbert Goins DATE of SERVICE: 07/02/2019 TIME of SERVICE: 7:54 CONSULTING SERVICE: Medicine,post op 3 . INTERVAL HPI: Uneventful night , pain is fairly control Patient seen and examined:Blood pressure 142/77, pulse 85, temperature 37.4 ?C (99.3 ?F), temperature source Oral, resp. rate 16, height 168.9 cm (5' 6.5), weight 118.4 kg (261 lb), SpO2 92 %. Vitals/Meds/Labs/U/O reviewed Alert AND Oriented NO n/v NO light headedness, NO sob CVS ? RRR Lungs ? CTAB Abdomen ? soft,NT, + BS LLE ? Ankle No edema RLE ? Ankle No edema Castaneda with clear urine MEDICATIONS: Current Facility-Administered Medications Medication Dose Route Frequency - enoxaparin 30 mg injection (LOVENOX) 30 mg SUBCUTANEOUS q 12 HR - NaCl 0.9% iv infusion 100 mL/hr INTRAVENOUS CONTINUOUS - NaCl 0.9% 2-10 mL 2-10 mL INTRAVENOUS q 12 H - ondansetron orally disintegrating 4 mg tab(s) (ZOFRAN ODT) 4 mg ORAL q 6 H PRN Or - ondansetron (PF) 4 mg injection (ZOFRAN) 4 mg INTRAVENOUS q 6 H PRN - polyethylene glycol 3350 17 g packet (MIRALAX, GLYCOLAX) 17 g ORAL DAILY PRN - aluminum-magnesium hydroxide-simethicone 200-200-20 mg/5 mL 30 mL (MAALOX,MYLANTA,MAG-AL PLUS) 30 mL ORAL q 6 H PRN - ascorbic acid (vitamin C) 500 mg tab(s) (VITAMIN C) 500 mg ORAL BID w MEALS - docusate sodium 100 mg cap(s) (COLACE) 100 mg ORAL BID - diazePAM 5 mg tab(s) (VALIUM) 5 mg ORAL DAILY PRN - tamsulosin ER 0.4 mg cap(s) (FLOMAX) 0.4 mg ORAL DAILY - oxyCODONE-acetaminophen 5-325 mg 1-2 tablet (PERCOCET) 1-2 tablet ORAL q 4 H PRN Body mass index is 41.5 kg/m?. DATA: CBC: Recent Labs 07/02/19 0641 WBC 6.08 RBC 3.90* HB 11.9* HCT 35.4* PLT 217 MCV 90.8 MCH 30.5 MPV 9.7 ASSESSMENT AND PLAN: A. OA S/P - Total Knee Unilateral: right, DVT prophylaxis with Lovenox and SCD Continue PT/OT LIZZY Urinary retension continue Flomax Discharge home with castaneda SIGNATURE: Arturo Lockhart MD [facility] PROGRESS HNO ID: [id number] Author: Juan F Mohamud Service: Orthopaedic Surgery Author Type: Nurse Practitioner Type: Progress Notes Filed: 07/02/2019 8:30 AM Note Text: -- Attestation signed by Enrrique Guillen at 07/15/2019 9:21 PM Orthopaedic Staff Note Patient seen and examined, and I agree with the above note. Patient shows no signs or symptoms of a DVT or infection at this time. Enrrique Guillen MD -- POSTOP NOTE ORTHOPEDIC SERVICE DATE: 07/02/2019 SERVICE TIME: 8:29 AM IMPRESSION/PLAN: S/P Procedure(s) (LRB): ARTHROPLASTY REPLACE JOINT TOTAL KNEE (Right) on 06/29/2019 Physical Therapy, recommending outpatient PT WBAT RLE DVT prophylaxis: with Lovenox and Intermittent pneumatic compression device (IPCD) Pain control Urinary retention - reinserted castaneda catheter yesterday, urology consulted, will follow up as outpatient. Case Management for discharge planning, discharge today Plan of care discussed with: Provider, RN, Patient. ACTIVE PROBLEM LIST DIVERTICULOSIS COLON - NO HEMORRHAGE Morbid Obesity (Hcc) Neoplasm of Unspecified Nature of Brain Sleep Apnea Edema Nocturia Essential Hypertension Other and Unspecified Hyperlipidemia Cervicalgia Carpal Tunnel Syndrome Lumbago Abdominal Pain, Unspecified Site Generalized Osteoarthrosis, Unspecified Site Diaphragmatic Hernia Without Mention of Obstruction Or Gangrene Impotence of Organic Origin Sebaceous Cyst Lipoma of Unspecified Site Abscess Primary Osteoarthritis of Right Knee Urinary Retention POST OPERATIVE COMPLICATIONS: Complicated by uneventful/none SUBJECTIVE: Patient states that they are comfortable Well Controlled knee(s) pain. Mild incisional pain. OBJECTIVE: VITAL SIGNS: BP 142/77 Pulse 85 Temp 37.4 ?C (99.3 ?F) (Oral) Resp 16 Ht 168.9 cm (5' 6.5) Wt 118.4 kg (261 lb) SpO2 93% BMI 41.50 kg/m? INTAKE AND OUTPUT: Intake/Output Summary (Last 24 hours) at 07/02/2019 0829 Last data filed at 07/02/2019 0600 Gross per 24 hour Intake ? Output 2905 ml Net -2905 ml LABS: Hemoglobin Date Value Ref Range Status 07/02/2019 11.9 (L) 13.0 - 17.0 g/dL Final 07/01/2019 12.0 (L) 13.0 - 17.0 g/dL Final Hematocrit Date Value Ref Range Status 07/02/2019 35.4 (L) 39.0 - 51.0 % Final 07/01/2019 35.6 (L) 39.0 - 51.0 % Final Platelet Count Date Value Ref Range Status 07/02/2019 217 150 - 400 k/uL Final 07/01/2019 212 150 - 400 k/uL Final WBC Date Value Ref Range Status 07/02/2019 6.08 3.70 - 11.00 k/uL Final 07/01/2019 8.46 3.70 - 11.00 k/uL Final Creatinine Date Value Ref Range Status 06/30/2019 0.86 0.73 - 1.22 mg/dL Final 06/05/2019 0.93 0.73 - 1.22 mg/dL Final Potassium Date Value Ref Range Status 06/30/2019 4.1 3.7 - 5.1 mmol/L Final 06/05/2019 4.1 3.7 - 5.1 mmol/L Final VTE Prophylaxis: Active VTE Risk Category Order: 06/29/19 1615 VTE RISK CATEGORY: SURGICAL MODERATE [place]ISK ([place] Active VTE Medication Orders: 06/30/19 0900 ENOXAPARIN 30 MG INJECTION (LOVENOX) Active VTE Prophylaxis Orders: 06/29/19 161 PNEUMATIC COMPRESSION STOCKINGS ([place]) 06/29/19 161 ACTIVITY - MOBILIZE PATIENT ([place], [place]) PHYSICAL EXAMINATION: Right Lower Extremity: Dorsalis pedis pulses palpable. Posterior tibial pulses palpable. Dorsi flexion 5/5. Plantar flexion 5/5. Extensor hallucis extension: 5/5. Sensory intact to light touch L1-S1. Dressing clean, dry and intact. Surgical site no drainage and Silverlon intact. Thigh is not swollen, calf is not tender, no signs of DVT or infection Problem Review and Assessment: Skin and Abdominal Wall: Patient monitored, no new events overnight Cardiovascular and Vascular: Patient monitored, no new events overnight Respiratory: Patient monitored, no new events overnight Endocrine and Metabolic: Patient monitored, no new events overnight Gastrointestinal: Patient monitored, no new events overnight Genitourinary and Nephrology: Patient monitored, no new events overnight Behavioral, Cerebrovascular and Nervous: Patient monitored, no new events overnight Infectious: Patient monitored, no new events overnight DATA: Diagnostic tests reviewed for today's visit: Most recent labs and imaging results. SIGNATURE: Juan F Mohamud APRN.CNP PATIENT NAME: Norbert Goins DATE: July 02, 2019 TIME: 8:29 AM PAGER/CONTACT #: [phone] The patient has undergone major orthopedic surgery and participating in therapy. Pain cannot be managed within an average of 30 MED per day. Patient requiring average of higher than 30 MED per day in order to control pain and allow patient to actively and safely participate in therapy and this is the lowest dose consistent with patient's medical condition. Non-narcotic medication options have been discussed. In addition, the patient has been advised of the benefits and risks of the opioid (including the potential for addiction). Patient demonstrated understanding of risks of benefits. [facility] THERAPY NTon 07-02-2019 THERAPY NT HNO ID: [id number] Author: Maureen Milan Service: Physical Therapy Author Type: Polisher Hand Type: Therapy (PT/OT/Speech/Resp) Filed: 07/02/2019 9:49 AM Note Text: -- Attestation signed by Pedro Eddy at 07/08/2019 9:08 AM I reviewed and agree with the documentation corresponding to this therapy visit. SIGNATURE: Pedro Eddy, PT DATE: July 08, 2019 TIME: 9:08 AM -- Physical Therapy Treatment SERVICE DATE: 07/02/2019 SERVICE TIME: 08 to 0850 ROOM: [id number] Recommended Discharge Disposition: Home PT Recommended Discharge Disposition Comments: Patient would benefit from continued PT to address strength, balance, endurance and safety deficits. Anticipated Discharge Needs: Family Training;Physical Assist at Home;Supervision at Home Physical Assist at Home for: Transfers;Ambulation;Clean ing;Laundry;Meals;Medicati on Management;Stairs;Safety;S elf Care;Shopping;Transportati on Supervision at Home due to: Decreased safety awareness(s/p R TKA) Recommended Discharge Equipment: No equipment needs anticipated PT Recommendations to Nursing: Ambulate with device;To bathroom;In halls;Transfer to/from chair;OOB for Meals;Sit at edge of bed;With assist of 1 person(attend to dizziness, paced activity) Device: Wheeled Walker(gait belt) PT 6 Clicks Score: 17 Precautions/Activity Restrictions: Total Knee Replacement;Weight Bearing Restrictions;Fall Risk;Lines/Tubes/Drains Extremity With Weight Bearing Restricted: Right Lower Extremity Right Lower Extremity Weight Bearing Status: WBAT ASSESSMENT : Patient successfully able to tolerate gait training and seated exercises with no adverse effects. Patient continues to require cues for safety, patient is noted to be impulsive. At times, patient is dismissive of therapist cues and education. Patient requires no more than CGA with all functional mobility. Patient now agreeable to Home PT, case work aide notified. Patient would benefit from continued therapy to address strength, balance, endurance and safety deficits. R Knee AROM, sitting with no overpressure: 90 degrees of flexion Patient Disposition at Start of Session: Supine in Bed;Call Sun in Reach;SCDs;Other: See Comment(Ice to knee) Patient Disposition at End of Session: OOB in Chair;Call Sun in Reach;Other: See Comment(Ice to knee) Tolerated Full Session Physical Therapy Problem List: Education Deficit;Pain;Safety Deficits;Decreased Activity Tolerance;Decreased Range Of Motion;Functional Mobility Impairment Patient /Caregiver Goals: Go Home(with Home PT and assist of family) Goals for Plan of Care: Able to perform HEP with: Supervision(x15 reps TKA exercises for increased funct motion AND stgth) Transfer supine to/from sit with: Supervision(w/min elev HOB, use of rail) Transfer sit to/from stand with: Supervision(w/walker WBAT RLE) Ambulate with: Supervision(WBAT RLE, safe tech) Distance: [id number]' for basic self care AND home mobility Device: Wheeled Walker Ambulate up and down curb step with: Contact Guard Assistance(WBAT RLE, safe tech) Device: Wheeled Walker Car transfer with: Minimal Assistance(w/walker WBAT RLE, safe tech) ROM: Achieve 10 - 90 degrees R knee motion to improve RLE functional abilities Goal: Patient voices AND demonstrates comprehension of TKA instructions AND education for safe homegoing w/assist AND OP PT. Progress Toward Goals: Progressing as expected Rehab Potential: Good PLAN: Treatment Frequency (times per week): 7;BID Current admission Treatment Interventions: Education;Self Care / Home Management;Energy Conservation Training;Joint Mobility;Strengthening;Fun ctional Mobility Training;Balance Training;Neuromuscular Re-education;Modalities;Ed thanh Management;Pain Management Modalities: Ice Plan of Care developed with: Patient;Caregiver;Family TREATMENT INTERVENTIONS: Therapy Diagnosis: Difficulty walking-musculoskeletal;Ge neral symptoms and signs-other;Decreased activities of daily living (ADL) Interventions Provided: Therapeutic Exercise (85483);Therapeutic Activity (55892);Gait Training (72157) Therapeutic Exercise (16118) Treatment Minutes: 10 1 unit Skilled Intervention(s): Instruction in therapeutic exercise for bilateral AP, GS with 5 second hold; R LE only heel slides, LAQ, slightly resisted isometric hip abduction/addduction x 15 reps each Verbal and tactile cuing provided for correct performance of exercises Cues for diaphragmatic breathing Re-emphasized the importance of frequent performance of anti-embolic exercises Therapeutic Activity (29603) Treatment Minutes: 4 0 units Skilled Intervention(s): Instructed patient in supine to sit pushing with upper extremities to sit up Instruction in sit to stand technique with proper hand placement and body positioning at edge of bed/chair Instruction in stand to sit technique with lower extremities touching chair/bed and reaching back for surface Gait Training (18040) Treatment Minutes: 15 1 unit Skilled Intervention(s): Instruction in sequencing, gait pattern, step-to gait Instruction in correction of gait deviations, cues for upright posture, safety, diaphragmatic breathing Instruction in use of equipment, cues for sequence and pattern Gait belt in place for safety with all functional mobility. RN aware of patient status. Discussed with patient sitting up for no longer than 1 hr and calling for assistance 100% of the time. Total Timed Code Treatment Minutes: 29 Total Treatment Time (minutes): 29 SUBJECTIVE: Current Hospital Course: Chart reviewed and no significant medical updates relevant to therapy were noted Reason for Physical Therapy Consult : for post musculoskeletal surgery care. Presented w/progressive R knee pain. 06/29/19 underwent R TKA Relevant Past Medical History: cervical fusion, obesity, sleep apnea, HLD, back pain, OA Patient Report: Patient agreeable to participate in PT. Patient states, This is just painful but I know if will get better. Patient appropriate for PT per RNAmy. 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',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 [employer], travels OBJECTIVE: CURRENT FUNCTIONAL STATUS: Current Functional Mobility Assist Level Additional Information Rolling Supine to Sit Minimal Assistance(HOB 30 degrees, assist with LE mgmt) Sit to Supine (patient in bed side chair at end of treatment) Scooting Stand By Assistance(forward to EOB) Sit to Stand Contact Guard Assistance(with FWW) Stand to Sit Contact Guard Assistance(with FWW) Bed to Chair Toilet/Commode Gait Contact Guard Assistance(step-to gait) Gait Device: Wheeled Walker Gait Distance (feet): 250'x1 Stairs Contact Guard Assistance([id number]) Not attempted this session Stairs Device: Crutch(es);Hand Held Assist;Rail Number of Stairs: 4(x2 trials total) Curb Step Car Transfer Gait Deviations Right Lower Extremity: Weight bearing decreased;Heel strike during initial stance decreased;Push-off during terminal stance decreased;Step length decreased General Gait Deviations: Antalgic gait pattern;Sonya decreased;Step length decreased;Flexed trunk posture Balance: Static Sitting;Dynamic Sitting;Static Standing;Dynamic Standing Static Sitting Balance: Good- / Fair+ Accepts minimal resistance Dynamic Sitting Balance: Good-/Fair+ Able to sit unsupported AND weight shift across midline minimally Static Standing Balance: Fair- Requires Min A or UE support in order to stand without LOB Dynamic Standing Balance: Poor+ Able to stand with Min A and reach ipsilaterally, unable to weight shift -HLM: 7: Walk 25 feet or more Please see discipline specific clinical documentation flowsheet for complete details for this therapy evaluation/treatment. SIGNATURE: Muareen Milan PTA PATIENT NAME: Norbert Goins DATE: July 02, 2019 TIME: 9:44 AM Normal [facility] CBCon 07-01-2019 Erythrocyte distribution width (RBC) [Ratio] 13.5 % Normal 11.5-15.0 [facility] Comment on above: Performed By: #### C BC ####[facility] [address] [address] Hematocrit (Bld) [Volume fraction] 35.6 % Low 39.0-51.0 [facility] Comment on above: Performed By: #### C BC ####[facility] [address] [place] [address] Hemoglobin (Bld) [Mass/Vol] 12.0 g/dL Low 13.0-17.0 [facility] Comment on above: Performed By: #### C BC ####[facility] [address] [place] [address] MCH (RBC) [Entitic mass] 30.4 pG Normal 26.0-34.0 [facility] Comment on above: Performed By: #### C BC ####[facility] [address] [place] [address] MCHC (RBC) [Mass/Vol] 33.7 g/dL Normal 30.5-36.0 [facility] Comment on above: Performed By: #### C BC ####[address] [address] MCV (RBC) [Entitic vol] 90.1 fL Normal 80.0-100.0 [facility] Comment on above: Performed By: #### C BC ####[facility] [address] [place] [address] Platelet mean volume (Bld) [Entitic vol] 10.1 fL Normal 9.0-12.7 [facility] Comment on above: Performed By: #### C BC ####[facility] [address] [place] [address] Platelets (Bld) [#/Vol] 212 10*3/uL Normal 150-400 [facility] Comment on above: Performed By: #### C BC ####[facility] [address] [place] [address] RBC (Bld) [#/Vol] 3.95 10*6/uL Low 4.20-6.00 [facility] Comment on above: Performed By: #### C BC ####[facility] [address] [phone] WBC (Bld) [#/Vol] 8.46 10*3/uL Normal 3.70-11.00 [facility] Comment on above: Performed By: #### C BC ####[facility] [address] [phone] NURSING PROGon 07-01-2019 NURSING PROG HNO ID: [id number] Author: Holly (Rn) CAROL Lynn Service: ? Author Type: Registered Nurse Type: Nursing Progress Note Filed: 07/01/2019 5:46 AM Note Text: Nursing Progress Note Patient Name: Norbert Goins Patient Location: [place] [address]/[place] [address] Daily Note: 2200 Pt BS 313. No pain or pressure at this time. 2225 Pt able to void 100ml 2335 Pt void 50ml 300Pt void 50ml. Pt C/o pain and pressure. BS 568. CERTIFIED NURSE AIDE paged to confirm straight cath vs castaneda. Straight cath attempted x2. Large blood clots obstructing catheter. CERTIFIED NURSE AIDE paged. 400 CERTIFIED NURSE AIDE to floor to attempt [address] castaneda. Coude placed for 1000ml dark mariam urine with clots. Will continue to monitor. This note was completed by: Holly Lynn RN [facility] PROGRESSon 07-01-2019 PROGRESS HNO ID: [id number] Author: Arturo Lockhart Service: General Internal Medicine Author Type: Physician Type: Progress Notes Filed: 07/01/2019 10:30 AM Note Text: INPATIENT CONSULT PROGRESS NOTES Patient Name: Norbert Goins DATE of SERVICE: 07/01/2019 TIME of SERVICE: 7:55 CONSULTING SERVICE: Medicine,post op 2 . INTERVAL HPI: castaneda cath reinserted yesterday Patient seen and examined:Blood pressure 126/63, pulse 67, temperature 36.3 ?C (97.3 ?F), temperature source Oral, resp. rate 16, height 168.9 cm (5' 6.5), weight 118.4 kg (261 lb), SpO2 96 %. Vitals/Meds/Labs/U/O reviewed Alert AND Oriented NO Nausea and vomiting NO light headedness, NO shortness of breathe CVS ? RRR Lungs ? CTAB Abdomen ? soft,NT, + BS LLE ? Ankle No edema RLE ? Ankle No edema Castaneda with clear urine MEDICATIONS: Current Facility-Administered Medications Medication Dose Route Frequency - enoxaparin 30 mg injection (LOVENOX) 30 mg SUBCUTANEOUS q 12 HR - NaCl 0.9% iv infusion 100 mL/hr INTRAVENOUS CONTINUOUS - NaCl 0.9% 2-10 mL 2-10 mL INTRAVENOUS q 12 H - HYDROcodone 5 mg - acetaminophen 325 mg tablet (NORCO) 1-2 tablet ORAL q 4 H PRN - ondansetron orally disintegrating 4 mg tab(s) (ZOFRAN ODT) 4 mg ORAL q 6 H PRN Or - ondansetron (PF) 4 mg injection (ZOFRAN) 4 mg INTRAVENOUS q 6 H PRN - polyethylene glycol 3350 17 g packet (MIRALAX, GLYCOLAX) 17 g ORAL DAILY PRN - aluminum-magnesium hydroxide-simethicone 200-200-20 mg/5 mL 30 mL (MAALOX,MYLANTA,MAG-AL PLUS) 30 mL ORAL q 6 H PRN - ascorbic acid (vitamin C) 500 mg tab(s) (VITAMIN C) 500 mg ORAL BID w MEALS - docusate sodium 100 mg cap(s) (COLACE) 100 mg ORAL BID - diazePAM 5 mg tab(s) (VALIUM) 5 mg ORAL DAILY PRN - tamsulosin ER 0.4 mg cap(s) (FLOMAX) 0.4 mg ORAL DAILY - bisacodyl 10 mg suppository (DULCOLAX) 10 mg RECTAL ONCE Body mass index is 41.5 kg/m?. DATA: CBC: Recent Labs 07/01/19 0624 WBC 8.46 RBC 3.95* HB 12.0* HCT 35.6* PLT 212 MCV 90.1 MCH 30.4 MPV 10.1 ASSESSMENT AND PLAN: A. OA S/P - Total Knee Unilateral: right, DVT prophylaxis with Lovenox and SCD Continue PT/OT LIZZY Urinary retension continue Flomax D/c castaneda at noon Possible discharge today SIGNATURE: Arturo Lockhart MD [facility] PROGRESS HNO ID: [id number] Author: Juan F Mohamud Service: Orthopaedic Surgery Author Type: Nurse Practitioner Type: Progress Notes Filed: 07/01/2019 8:24 AM Note Text: -- Attestation signed by Enrrique Gulilen at 07/02/2019 12:25 AM Orthopaedic Staff Note Patient seen and examined, and I agree with the above note. Patient shows no signs or symptoms of a DVT or infection at this time. Enrrique Guillen MD -- POSTOP NOTE ORTHOPEDIC SERVICE DATE: 07/01/2019 SERVICE TIME: 8:22 AM IMPRESSION/PLAN: S/P Procedure(s) (LRB): ARTHROPLASTY REPLACE JOINT TOTAL KNEE (Right) on 06/29/2019 Physical Therapy, recommending outpatient PT WBAT RLE Urinary retention - reinserted castaneda last night with blood clots. Flomax started yesterday. D/c castaneda at noon. DVT prophylaxis: with Lovenox and Intermittent pneumatic compression device (IPCD) Pain control Case Management for discharge planning Plan of care discussed with: Provider, RN, Patient. ACTIVE PROBLEM LIST DIVERTICULOSIS COLON - NO HEMORRHAGE Morbid Obesity (Hcc) Neoplasm of Unspecified Nature of Brain Sleep Apnea Edema Nocturia Essential Hypertension Other and Unspecified Hyperlipidemia Cervicalgia Carpal Tunnel Syndrome Lumbago Abdominal Pain, Unspecified Site Generalized Osteoarthrosis, Unspecified Site Diaphragmatic Hernia Without Mention of Obstruction Or Gangrene Impotence of Organic Origin Sebaceous Cyst Lipoma of Unspecified Site Abscess Primary Osteoarthritis of Right Knee POST OPERATIVE COMPLICATIONS: Complicated by urinary retention s/p spinal SUBJECTIVE: Patient states that they are comfortable Controlled knee(s) pain. Denies incisional pain. OBJECTIVE: VITAL SIGNS: BP 126/63 Pulse 67 Temp 36.3 ?C (97.3 ?F) (Oral) Resp 16 Ht 168.9 cm (5' 6.5) Wt 118.4 kg (261 lb) SpO2 96% BMI 41.50 kg/m? INTAKE AND OUTPUT: Intake/Output Summary (Last 24 hours) at 07/01/2019 0822 Last data filed at 07/01/2019 0800 Gross per 24 hour Intake 240 ml Output 1500 ml Net -1260 ml LABS: Hemoglobin Date Value Ref Range Status 07/01/2019 12.0 (L) 13.0 - 17.0 g/dL Final 06/30/2019 13.5 13.0 - 17.0 g/dL Final Hematocrit Date Value Ref Range Status 07/01/2019 35.6 (L) 39.0 - 51.0 % Final 06/30/2019 39.2 39.0 - 51.0 % Final Platelet Count Date Value Ref Range Status 07/01/2019 212 150 - 400 k/uL Final 06/30/2019 241 150 - 400 k/uL Final WBC Date Value Ref Range Status 07/01/2019 8.46 3.70 - 11.00 k/uL Final 06/30/2019 11.76 (H) 3.70 - 11.00 k/uL Final Creatinine Date Value Ref Range Status 06/30/2019 0.86 0.73 - 1.22 mg/dL Final 06/05/2019 0.93 0.73 - 1.22 mg/dL Final Potassium Date Value Ref Range Status 06/30/2019 4.1 3.7 - 5.1 mmol/L Final 06/05/2019 4.1 3.7 - 5.1 mmol/L Final VTE Prophylaxis: Active VTE Risk Category Order: 06/29/19 1615 VTE RISK CATEGORY: SURGICAL MODERATE RISK ([place]) Active VTE Medication Orders: 06/30/19 0900 ENOXAPARIN 30 MG INJECTION (LOVENOX) Active VTE Prophylaxis Orders: 06/29/19 1615 PNEUMATIC COMPRESSION STOCKINGS ([place]) 06/29/19 1615 ACTIVITY - MOBILIZE PATIENT ([place], [place]) PHYSICAL EXAMINATION: Right Lower Extremity: Dorsalis pedis pulses palpable. Posterior tibial pulses palpable. Dorsi flexion 5/5. Plantar flexion 5/5. Extensor hallucis extension: 5/5. Sensory intact to light touch L1-S1. Dressing clean, dry and intact. Surgical site no drainage and Silverlon intact. Thigh is not swollen, calf is not tender, no signs of DVT or infection Problem Review and Assessment: Skin and Abdominal Wall: Patient monitored, no new events overnight Cardiovascular and Vascular: Patient monitored, no new events overnight Respiratory: Patient monitored, no new events overnight Endocrine and Metabolic: Patient monitored, no new events overnight Gastrointestinal: Patient monitored, no new events overnight Genitourinary and Nephrology: Patient monitored, no new events overnight Behavioral, Cerebrovascular and Nervous: Patient monitored, no new events overnight Infectious: Patient monitored, no new events overnight DATA: Diagnostic tests reviewed for today's visit: Most recent labs and imaging results. SIGNATURE: Juan F Mohamud APRN.CNP PATIENT NAME: Norbert Goins DATE: July 01, 2019 TIME: 8:22 AM PAGER/CONTACT #: [phone] The patient has undergone major orthopedic surgery and participating in therapy. Pain cannot be managed within an average of 30 MED per day. Patient requiring average of higher than 30 MED per day in order to control pain and allow patient to actively and safely participate in therapy and this is the lowest dose consistent with patient's medical condition. Non-narcotic medication options have been discussed. In addition, the patient has been advised of the benefits and risks of the opioid (including the potential for addiction). Patient demonstrated understanding of risks of benefits. [facility] THERAPY NTon 07-01-2019 THERAPY NT HNO ID: [id number] Author: Maureen Milan Service: Physical Therapy Author Type: Polisher Hand Type: Therapy (PT/OT/Speech/Resp) Filed: 07/01/2019 11:00 AM Note Text: -- Attestation signed by Pedro OmerPt) Surjit at 07/08/2019 9:06 AM I reviewed and agree with the documentation corresponding to this therapy visit. SIGNATURE: Pedro Eddy, PT DATE: July 08, 2019 TIME: 9:06 AM -- PHYSICAL THERAPY MISSED VISIT SERVICE DATE: 07/01/2019 SERVICE TIME: 1035 to 1035 ROOM: [place] [address] Attempted Treatment. Patient not seen due to Declined. Patient sleeping upon arrival however, easily awakes. Patient reports he is anxious to have catheter removed in an house and declined PT until catheter has been removed. States, you know, I just want to get this taken out and see how things go. I am not worried about walking and getting into the house, maybe we can do it after the catheter comes out. Patient with many questions regarding urology, notified RACING DRIVER Clifton Mohamud. Will re-attempt patient as schedule permits and with patient appropriateness. SIGNATURE: Maureen Milan PTA PATIENT NAME: Norbert Goins DATE: July 01, 2019 TIME: 10:57 AM Normal [facility] Urinalysison 07-01-2019 Bilirubin, Urine Negative Normal Negative [facility] Comment on above: Performed By: #### U A, UAMIC ####[facility] [address] [place] [phone] Clarity (U) Clear Normal Clear [facility] Comment on above: Performed By: #### U A, UAMIC ####[facility] [address] [place] [phone] Color (U) Yellow Normal Yellow [facility] Comment on above: Performed By: #### U A, UAMIC ####[facility] [address] [place] [address] Glucose Ql (U) Negative Normal Negative [facility] Comment on above: Performed By: #### U A, UAMIC ####[facility] [address] [place] [address] Hemoglobin/Blood,Ur Large Critically abnormal Negative [facility] Comment on above: Performed By: #### U A, UAMIC ####[facility] [address] [place] [address] Ketones Ql (U) Negative Normal Negative [facility] Comment on above: Performed By: #### U A, UAMIC ####[facility] [address] [place] [address] Leukest Negative Normal [facility] Comment on above: Performed By: #### U A, UAMIC ####[facility] [address] [place] [address] Nitrite Ql (U) Negative [facility] Comment on above: Performed By: #### U A, UAMIC ####[facility] [address] [place] [address] pH (Bld) 6.0 Normal 5.0-8.0 [facility] Comment on above: Performed By: #### U A, UAMIC ####[facility] [address] [place] [address] Protein (U) [Mass/Vol] Negative Normal Negative [facility] Comment on above: Performed By: #### U A, UAMIC ####[facility] [address] [place] [address] Specific [place], Ur <=1.005 Normal 1.001-[address] [place] [address] Comment on above: Performed By: #### U A, UAMIC ####[facility] [address] [place] [address] Urobilinogen Qn (U) 0.2 Normal 0.2-1.0 [facility] Comment on above: Performed By: #### U A, UAMIC ####[facility] [address] [place] [address] Urine Microscopic (FOR LAB U SE ONLY)on 07-01-2019 Cast SEE COMMENT Normal 0 [facility] Comment on above: Result Comment: 0 Performed By: #### T SCR30 #### [facility] Laboratory [address] [facility] [phone] Epithelial cells LM.HPF (Urine sed) [#/Area] SEE COMMENT Normal [facility] Comment on above: Result Comment: 0-5 Squamous Epithelial Cells Performed By: #### T SCR30 #### [facility] [address] [facility] [phone] RBC (U) [#/Vol] 5-10 Critically abnormal 0-3 [facility] Comment on above: Performed By: #### T SCR30 #### [facility] [address] [facility] [phone] WBC (Bld) [#/Vol] 0-5 Normal 0-5 [facility] Comment on above: Performed By: #### T SCR30 #### [facility] [address] [place] [phone] Basic Metabolic Panlon 06-30 Anion gap [Moles/Vol] 10 mmol/L Normal 9-18 [facility] Comment on above: Performed By: #### C BC, BMP ####[facility] [address] [place] [address] Calcium [Mass/Vol] 8.9 mg/dL Normal 8.5-10.2 [facility] Comment on above: Performed By: #### C BC, BMP ####[facility] [address] [place] [address] Chloride [Moles/Vol] 100 mmol/L Normal 97-105 [facility] Comment on above: Performed By: #### C BC, BMP ####[facility] [address] [place] [address] CO2 [Moles/Vol] 26 mmol/L Normal 22-30 [facility] Comment on above: Performed By: #### C BC, BMP ####[facility] [address] [place] [address] Creatinine [Mass/Vol] 0.86 mg/dL Normal 0.73-1.22 [facility] Comment on above: Performed By: #### C BC, BMP ####[facility] [address] [place] [address] eGFR- Amer. >60 Normal [facility] Comment on above: Performed By: #### C ESTELLA, BMP ####[facility] [phone] GFR/1.73 sq M predicted among non-blacks MDRD (S/P/Bld) [Vol rate/Area] mL/min/{1.73_m2} [facility] Comment on above: Result Comment: eGFR (Estimated GFR) Units of measure: mL/min/1.73 meters squared eGFR is derived from the reexpressed MDRD Study equation using the following parameters: serum creatinine, age, gender and race. The creatinine assay has been calibrated to be traceable to IDMS. An eGFR <60 mL/min/1.73m2 for >3 months is consistent with chronic kidney disease. Refer to KDOQI guidelines for clinical interpretation. In patients with unstable renal function, e.g. those with acute kidney injury, the eGFR may not accurately reflect actual GFR. Performed By: #### C ESTELLA, BMP ####[facility] [address] [place] [phone] Glucose [Mass/Vol] 136 mg/dL High 74-99 [facility] Comment on above: Result Comment: The [place] Diabetes Association (ADA) provides guidance for cutoff values for fasting glucose and random glucose. The ADA defines fasting as no caloric intake for at least 8 hours. Fasting plasma glucose results between 100 to 125 mg/dL indicate increased risk for diabetes (prediabetes). Fasting plasma glucose results greater than or equal to 126 mg/dL meet the criteria for diagnosis of diabetes. In the absence of unequivocal hyperglycemia, results should be confirmed by repeat testing. In a patient with classic symptoms of hyperglycemia or hyperglycemic crisis, random plasma glucose results greater than or equal to 200 mg/dL meet the criteria for diagnosis of diabetes. Reference: Standards of Medical Care in Diabetes 2016, [place] Diabetes Association. Diabetes Care. 2016.39(Suppl 1). Performed By: #### C BC, BMP ####[facility] [phone] Potassium [Moles/Vol] 4.1 mmol/L Normal 3.7-5.1 [facility] Comment on above: Performed By: #### C BC, BMP ####[facility] [phone] Sodium [Moles/Vol] 136 mmol/L Normal 136-144 [facility] Comment on above: Performed By: #### C BC, BMP ####[facility] [address] [place] [phone] Urea nitrogen [Mass/Vol] 20 mg/dL Normal 9-24 [facility] Comment on above: Performed By: #### C BC, BMP ####[facility] [address] [place] [phone] CASE MGT INIT Tresa 2018 CASE MGT INIT ARASELI HNO ID: [id number] Author: Neisha (Rn) CAROL Bauman Service: Case Management Author Type: Registered Nurse Type: Care Mgt Initial Assessment Filed: 06/30/2019 12:46 PM Note Text: CARE MANAGEMENT: ASSESSMENT AND DISCHARGE PLAN SERVICE DATE: 06/30/2019 SERVICE TIME: 12:41 PM PRIMARY CARE PHYSICIAN: Mireille Rosales MD (Confirmed with spouse) ADMISSION STATUS: Extended Recovery Needs Prior to Discharge: To Be Determined;Discharge Prescriptions;OT/PT Evaluation;Discharge Transportation;Pharmacy Bedside Delivery 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 No Advance Directive: Current Advance Directive: Health Care Power of Lithographic Proofer Apprentice In Chart: No Car Oiler Attempted to Assist with AD Completion: Yes Action: Education Provided(Spouse stated documents at home, she is POA) Health Literacy: 1. How often do you need to have someone help you when you read instructions, pamphlets, or other written material from your doctor or pharmacy? Never - 1 2. How confident are you filling out medical forms by yourself? Extremely - 1 If Patient scores > 3 on either question, the following interventions were put into place: Patient did not score > 3 FUNCTIONAL AND COGNITIVE/BEHAVIORAL PRIOR TO ADMISSION: Baseline Mental Status: Alert AND Oriented, Person, Place , Time and Situation Functional Status: Independent Does Patient Currently Receive Any Community Services or Home Care? None Equipment Prior to Admission: Bi-level Positive Airway Pressure/Continuous Positive Airway Pressure Cane - Straight Crutches Elevated toilet seat Walker Grab Bars Has the Patient Been in a Snf Facility in the Past 30 days? No SOCIAL: Living Arrangement: Home Lives With: Spouse Financial Resources: Employed: [employer] Primary Contact: Extended Emergency Contact Information Primary Emergency Contact: BusterAmber Jasso Mobile Relation: Spouse Supportive: Yes Other Important Patient Contacts: None Caregiver Assessment: Caregiver is ready, willing and able to meet the patient's needs as recommended by the inter-professional team? Yes Patient's transition needs and plan for meeting these needs: DC home with Outpatient Therapy, surgical follow up Does the patient have an acute stroke diagnosis, or has the patient had a stroke during this admission? No Medication Adherence: I am convinced of the importance of my prescription medication: Agree completely - 0 I worry that my prescription medication will do more harm than good to me Disagree completely - 0 I feel financially burdened by my [id number] expenses for my prescription medication: Disagree completely - 0 Patient is categorized as low risk < 2 Are you interested in bedside delivery of your medications? Yes, uses [facility] on [address] in [place] Food Concerns: In the Last Month, Have You had Trouble Getting Food? No trouble getting food During the Last Month, Have You Worried Whether Your Food Would Run Out Before You Had Enough Money to Buy More? No Is the Patient Psychosocially Complex? No ASSESSMENT AND PLAN: Medical Needs: 2 or more chronic diseases and Wound Care - active or potential Psychosocial Needs: None FREEDOM OF CHOICE EXPLAINED: Yes - CM met with patient at bedside to complete initial assessment and discuss dc planning. Patient requesting dc orders for Outpatient Therapy and spouse will transport home AND to therapy sessions. CM will follow for any further dc planning needs. POTENTIAL TRANSITION PLANS Outpatient Therapy SIGNATURE: Neisha Bauman RN PATIENT NAME: Norbert Goins DATE: June 30, 2019 TIME: 12:41 PM PAGER/CONTACT #: [phone] Normal [facility] CBCon 06-30-2019 Erythrocyte distribution width (RBC) [Ratio] 13.3 % Normal 11.5-15.0 [facility] Comment on above: Performed By: #### C ESTELLA, BMP ####[facility] [address] [place] [address] Hematocrit (Bld) [Volume fraction] 39.2 % Normal 39.0-51.0 [facility] Comment on above: Performed By: #### C ESTELLA, BMP ####[facility] [address] [place] [address] Hemoglobin (Bld) [Mass/Vol] 13.5 g/dL Normal 13.0-17.0 [facility] Comment on above: Performed By: #### C ESTELLA, BMP ####[facility] [address] [place] [address] MCH (RBC) [Entitic mass] 30.4 pG Normal 26.0-34.0 [facility] Comment on above: Performed By: #### C ESTELLA, BMP ####[facility] [address] [place] [address] MCHC (RBC) [Mass/Vol] 34.4 g/dL Normal 30.5-36.0 [facility] Comment on above: Performed By: #### C ESTELLA, BMP ####[facility] [address] [place] [address] MCV (RBC) [Entitic vol] 88.3 fL Normal 80.0-100.0 [facility] Comment on above: Performed By: #### C ESTELLA, BMP ####[facility] [address] [place] [address] Platelet mean volume (Bld) [Entitic vol] 10.3 fL Normal 9.0-12.7 [facility] Comment on above: Performed By: #### C ESTELLA, BMP ####[facility] [address] [place] [address] Platelets (Bld) [#/Vol] 241 10*3/uL Normal 150-400 [facility] Comment on above: Performed By: #### C ESTELLA, BMP ####[facility] [address] [place] [phone] RBC (Bld) [#/Vol] 4.44 10*6/uL Normal 4.20-6.00 [facility] Comment on above: Performed By: #### C ESTELLA, BMP ####[facility] [address] [phone] WBC (Bld) [#/Vol] 11.76 10*3/uL High 3.70-11.00 [facility] Comment on above: Performed By: #### C ESTELLA, BMP ####[facility] [address] [phone] PROGRESSon 06-30-2019 PROGRESS HNO ID: [id number] Author: Arturo Lockhart Service: General Internal Medicine Author Type: Physician Type: Progress Notes Filed: 06/30/2019 10:43 AM Note Text: INPATIENT CONSULT PROGRESS NOTES Patient Name: Norbert Goins DATE of SERVICE: 06/30/19 TIME of SERVICE: 8:17 CONSULTING SERVICE: Medicine,post op 1 Plan of care discussed with: Provider, RN, Patient. INTERVAL HPI: required castaneda cath last night Patient seen and examined: Vitals/Meds/Labs/U/O reviewed Alert Oriented mild nausea this morning, No vomiting NO light headedness, NO shortness of breathe Dry oral mucosa CVS ? RRR Lungs ? Clear to auscultation Abdomen ? soft,NT, + BS LLE ? Ankle No edema RLE ? Ankle No edema MEDICATIONS: Current Facility-Administered Medications Medication Dose Route Frequency - enoxaparin 30 mg injection (LOVENOX) 30 mg SUBCUTANEOUS q 12 HR - NaCl 0.9% iv infusion 75 mL/hr INTRAVENOUS CONTINUOUS - NaCl 0.9% 2-10 mL 2-10 mL INTRAVENOUS q 12 H - HYDROcodone 5 mg - acetaminophen 325 mg tablet (NORCO) 1-2 tablet ORAL q 4 H PRN - morphine 2 mg injection 2 mg INTRAVENOUS q 2 H PRN - ketorolac 15 mg injection (TORADOL) 15 mg INTRAVENOUS q 6 H - ondansetron orally disintegrating 4 mg tab(s) (ZOFRAN ODT) 4 mg ORAL q 6 H PRN Or - ondansetron (PF) 4 mg injection (ZOFRAN) 4 mg INTRAVENOUS q 6 H PRN - polyethylene glycol 3350 17 g packet (MIRALAX, GLYCOLAX) 17 g ORAL DAILY PRN - aluminum-magnesium hydroxide-simethicone 200-200-20 mg/5 mL 30 mL (MAALOX,MYLANTA,MAG-AL PLUS) 30 mL ORAL q 6 H PRN - ascorbic acid (vitamin C) 500 mg tab(s) (VITAMIN C) 500 mg ORAL BID w MEALS - docusate sodium 100 mg cap(s) (COLACE) 100 mg ORAL BID - scopolamine 1 mg over 3 days 1 Patch (TRANSDERM-SCOP) 1 Patch TRANSDERMAL Pre-Op Once - diazePAM 5 mg tab(s) (VALIUM) 5 mg ORAL DAILY PRN PHYSICAL EXAM: Patient Vitals for the past 24 hrs: BP Temp Temp src Pulse Resp SpO2 Height Weight 06/30/19 0753 147/79 36.5 ?C (97.7 ?F) Oral 67 16 93 % ? ? 06/30/19 0324 131/70 36.4 ?C (97.5 ?F) Oral 82 16 95 % ? ? 06/29/19 2353 141/82 36.4 ?C (97.5 ?F) Oral 76 16 96 % ? ? 06/29/19 1938 152/91 36.5 ?C (97.7 ?F) Oral 100 16 93 % ? ? 06/29/19 1721 142/91 36.5 ?C (97.7 ?F) Oral (!) 54 16 93 % ? ? 06/29/19 1618 143/78 36.8 ?C (98.2 ?F) Oral 63 16 93 % ? ? 06/29/19 1600 144/85 36.4 ?C (97.5 ?F) Temporal Art 61 16 97 % ? ? 06/29/19 1545 133/79 ? ? (!) 58 16 96 % ? ? 06/29/19 1530 148/84 ? ? (!) 58 16 95 % ? ? 06/29/19 1515 146/83 ? ? 68 16 94 % ? ? 06/29/19 1458 142/85 37.1 ?C (98.8 ?F) Temporal Art 76 12 96 % ? ? 06/29/19 1205 141/78 ? ? 67 16 99 % ? ? 06/29/19 1200 150/88 ? ? 61 16 98 % ? ? 06/29/19 1155 170/94 ? ? 69 16 95 % ? ? 06/29/19 1119 161/88 37.1 ?C (98.8 ?F) Temporal Art 65 16 95 % 168.9 cm (5' 6.5) 118.4 kg (261 lb) Body mass index is 41.5 kg/m?. DATA: CBC: Recent Labs 06/30/19440 WBC 11.76* RBC 4.44 HB 13.5 HCT 39.2 PLT 241 MCV 88.3 MCH 30.4 MPV 10.3 Coags: No results for input(s): INR, APTT in the last 24 hours. Invalid input(s): PT CMP: Recent Labs 06/30/19440 NA 136 K 4.1 CHLOR 100 CO2 26 BUN 20 CREAT 0.86 GLUC 136* CA 8.9 ANION 10 ASSESSMENT AND PLAN: A. OA S/P - Total Knee Unilateral: right, DVT prophylaxis with Lovenox and SCD Continue PT/OT LIZZY Possible discharge today D/c janet SIGNATURE: Arturo Lockhart MD TIME: 10:[address] [facility] PROGRESS HNO ID: [id number] Author: Juan F Leija) [employer] Service: Orthopaedic Surgery Author Type: Nurse Practitioner Type: Progress Notes Filed: 06/30/2019 9:12 AM Note Text: -- Attestation signed by Enrrique Guillen at 07/02/2019 12:23 AM Orthopaedic Staff Note Patient seen and examined, and I agree with the above note. Patient shows no signs or symptoms of a DVT or infection at this time. Enrrique Guillen MD -- POSTOP NOTE ORTHOPEDIC SERVICE DATE: 06/30/2019 SERVICE TIME: 9:10 AM IMPRESSION/PLAN: S/P Procedure(s) (LRB): ARTHROPLASTY REPLACE JOINT TOTAL KNEE (Right) on 06/29/2019 Physical Therapy evaluation WBAT RLE Complaining of dizziness, Meniere's exacerbation likely anesthesia induced DVT prophylaxis: with Lovenox and Intermittent pneumatic compression device (IPCD) Pain control Case Management for discharge planning, await therapy recommendations Plan of care discussed with: Provider, RN, Patient. ACTIVE PROBLEM LIST DIVERTICULOSIS COLON - NO HEMORRHAGE Morbid Obesity (Hcc) Neoplasm of Unspecified Nature of Brain Sleep Apnea Edema Nocturia Essential Hypertension Other and Unspecified Hyperlipidemia Cervicalgia Carpal Tunnel Syndrome Lumbago Abdominal Pain, Unspecified Site Generalized Osteoarthrosis, Unspecified Site Diaphragmatic Hernia Without Mention of Obstruction Or Gangrene Impotence of Organic Origin Sebaceous Cyst Lipoma of Unspecified Site Abscess Primary Osteoarthritis of Right Knee POST OPERATIVE COMPLICATIONS: Complicated by uneventful/none SUBJECTIVE: Patient states that they are comfortable Well Controlled knee(s) pain. Denies incisional pain. OBJECTIVE: VITAL SIGNS: BP 147/79 Pulse 67 Temp 36.5 ?C (97.7 ?F) (Oral) Resp 16 Ht 168.9 cm (5' 6.5) Wt 118.4 kg (261 lb) SpO2 93% BMI 41.50 kg/m? INTAKE AND OUTPUT: Intake/Output Summary (Last 24 hours) at 06/30/2019 0910 Last data filed at 06/30/2019 0400 Gross per 24 hour Intake 1340 ml Output 975 ml Net 365 ml LABS: Hemoglobin Date Value Ref Range Status 06/30/2019 13.5 13.0 - 17.0 g/dL Final 06/05/2019 15.1 13.0 - 17.0 g/dL Final Hematocrit Date Value Ref Range Status 06/30/2019 39.2 39.0 - 51.0 % Final 06/05/2019 45.4 39.0 - 51.0 % Final Platelet Count Date Value Ref Range Status 06/30/2019 241 150 - 400 k/uL Final 06/05/2019 279 150 - 400 k/uL Final WBC Date Value Ref Range Status 06/30/2019 11.76 (H) 3.70 - 11.00 k/uL Final 06/05/2019 7.42 3.70 - 11.00 k/uL Final Creatinine Date Value Ref Range Status 06/30/2019 0.86 0.73 - 1.22 mg/dL Final 06/05/2019 0.93 0.73 - 1.22 mg/dL Final Potassium Date Value Ref Range Status 06/30/2019 4.1 3.7 - 5.1 mmol/L Final 06/05/2019 4.1 3.7 - 5.1 mmol/L Final VTE Prophylaxis: Active VTE Risk Category Order: 06/29/19 1615 VTE RISK CATEGORY: SURGICAL MODERATE RISK ([place], [place]) Active VTE Medication Orders: 06/30/19 0900 ENOXAPARIN 30 MG INJECTION (LOVENOX) Active VTE Prophylaxis Orders: 06/29/19 161 PNEUMATIC COMPRESSION STOCKINGS ([place]) 06/29/19 161 ACTIVITY - MOBILIZE PATIENT ([place], [place]) PHYSICAL EXAMINATION: Right Lower Extremity: Dorsalis pedis pulses palpable. Posterior tibial pulses palpable. Dorsi flexion 5/5. Plantar flexion 5/5. Extensor hallucis extension: 5/5. Sensory intact to light touch L1-S1. Dressing clean, dry and intact. Surgical site no drainage and Silverlon intact. Thigh is not swollen, calf is not tender, no signs of DVT or infection Problem Review and Assessment: Skin and Abdominal Wall: Patient monitored, no new events overnight Cardiovascular and Vascular: Patient monitored, no new events overnight Respiratory: Patient monitored, no new events overnight Endocrine and Metabolic: Patient monitored, no new events overnight Gastrointestinal: Patient monitored, no new events overnight Genitourinary and Nephrology: Patient monitored, no new events overnight Behavioral, Cerebrovascular and Nervous: Patient monitored, no new events overnight Infectious: Patient monitored, no new events overnight DATA: Diagnostic tests reviewed for today's visit: Most recent labs and imaging results. SIGNATURE: Juan F Mohamud APRN.CNP PATIENT NAME: Norbert Goins DATE: June 30, 2019 TIME: 9:10 AM PAGER/CONTACT #: [phone] The patient has undergone major orthopedic surgery and participating in therapy. Pain cannot be managed within an average of 30 MED per day. Patient requiring average of higher than 30 MED per day in order to control pain and allow patient to actively and safely participate in therapy and this is the lowest dose consistent with patient's medical condition. Non-narcotic medication options have been discussed. In addition, the patient has been advised of the benefits and risks of the opioid (including the potential for addiction). Patient demonstrated understanding of risks of benefits. Normal [facility] THERAPY NTon 06-30-2019 THERAPY NT HNO ID: [id number] Author: Maureen Milan Service: Physical Therapy Author Type: Polisher Hand Type: Therapy (PT/OT/Speech/Resp) Filed: 06/30/2019 5:01 PM Note Text: -- Attestation signed by Pedro Eddy at 07/08/2019 9:07 AM I reviewed and agree with the documentation corresponding to this therapy visit. SIGNATURE: Pedro Eddy, PT DATE: July 08, 2019 TIME: 9:07 AM -- Physical Therapy Treatment SERVICE DATE: 06/30/2019 SERVICE TIME: 1544 to 1624 ROOM: [id number] Recommended Discharge Disposition: Outpatient Physical Therapy Recommended Discharge Disposition Comments: Patient w/ dizziness, R knee pain w/motion/amb, decreased RLE motion AND strength, balance AND functional mobility s/p R TKA indicating benefit of continued OP PT post acute stay to restore full functional RLE use. Anticipated Discharge Needs: Family Training;Physical Assist at Home;Supervision at Home Physical Assist at Home for: Transfers;Ambulation;Clean ing;Laundry;Meals;Medicati on Management;Stairs;Safety;S elf Care;Shopping;Transportati on Supervision at Home due to: Decreased safety awareness(s/p R TKA) Recommended Discharge Equipment: No equipment needs anticipated PT Recommendations to Nursing: Ambulate with device;To bathroom;In halls;Transfer to/from chair;OOB for Meals;Sit at edge of bed;With assist of 1 person(attend to dizziness, paced activity) Device: Wheeled Walker(gait belt) PT 6 Clicks Score: 17 Precautions/Activity Restrictions: Total Knee Replacement;Weight Bearing Restrictions;Fall Risk;Lines/Tubes/Drains Extremity With Weight Bearing Restricted: Right Lower Extremity Right Lower Extremity Weight Bearing Status: WBAT ASSESSMENT : Patient pleasant and cooperative. Patient is distractible and requires frequent redirection. Patient able to tolerate gait training, stair training and seated exercises with no adverse effects. Patient notes slight nausea at end of session. Patient demonstrates poor insight into current deficits and is at times impulsive. Consistent cues provided throughout session for safety. Patient requires CGA-SBA with all functional mobility and gait training. R Knee AROM, sitting with no overpressure: 95 degrees of flexion Patient Disposition at Start of Session: Supine in Bed;Call Sun in Reach;SCDs;Family Present;Other: See Comment(Ice to knee) Patient Disposition at End of Session: Supine in Bed;Call Sun in Reach;SCDs;Family Present;Other: See Comment(Ice to knee) Tolerated Full Session Physical Therapy Problem List: Education Deficit;Pain;Safety Deficits;Decreased Activity Tolerance;Decreased Range Of Motion;Balance Impaired Patient /Caregiver Goals: Go Home(with Home PT and assist of family) Goals for Plan of Care: Able to perform HEP with: Supervision(x15 reps TKA exercises for increased funct motion AND stgth) Transfer supine to/from sit with: Supervision(w/min elev HOB, use of rail) Transfer sit to/from stand with: Supervision(w/walker WBAT RLE) Ambulate with: Supervision(WBAT RLE, safe tech) Distance: [id number]' for basic self care AND home mobility Device: Wheeled Walker Ambulate up and down curb step with: Contact Guard Assistance(WBAT RLE, safe tech) Device: Wheeled Walker Car transfer with: Minimal Assistance(w/walker WBAT RLE, safe tech) ROM: Achieve 10 - 90 degrees R knee motion to improve RLE functional abilities Goal: Patient voices AND demonstrates comprehension of TKA instructions AND education for safe homegoing w/assist AND OP PT. Progress Toward Goals: Progressing as expected Rehab Potential: Good PLAN: Treatment Frequency (times per week): 7;BID Current admission Treatment Interventions: Education;Self Care / Home Management;Energy Conservation Training;Joint Mobility;Strengthening;Fun ctional Mobility Training;Balance Training;Neuromuscular Re-education;Modalities;Ed thanh Management;Pain Management Modalities: Ice Plan of Care developed with: Patient;Caregiver;Family TREATMENT INTERVENTIONS: Therapy Diagnosis: Difficulty walking-musculoskeletal;Ge neral symptoms and signs-other;Decreased activities of daily living (ADL) Interventions Provided: Therapeutic Exercise (72918);Therapeutic Activity (32379);Gait Training (47379) Therapeutic Exercise (32112) Treatment Minutes: 10 1 unit Skilled Intervention(s): Instruction in therapeutic exercise for R LE only heel slides, LAQ x 15 reps each Verbal and tactile cuing provided for correct performance of exercises Cues for diaphragmatic breathing Re-emphasized the importance of frequent performance of anti-embolic exercises Therapeutic Activity (76556) Treatment Minutes: 10 1 unit Skilled Intervention(s): Instructed patient in supine to sit pushing with upper extremities to sit up Instructed patient in sit to supine using safe, effective technique Instruction in sit to stand technique with proper hand placement and body positioning at edge of bed/chair Instruction in stand to sit technique with lower extremities touching chair/bed and reaching back for surface Issued to patient discharge instructions sheet for orthopedics with extensive education/review on the following topics: -safety/precautions recommendations -activity recommendations/contraindi cations includin) WB restrictions are in effect until follow-up with surgeon 2) balance activity and rest 3) do not sit for longer than 1 hour without getting up to move around 4) Must contact MD to get permission to resume driving -parameters of ice and cryotherapy as well as elevation of surgical level about level of heart -signs and symptoms of infection -symptoms of blood clot -equipment recommended and issued -rehab department phone number and contact information Gait Training (95972) Treatment Minutes: 20 1 unit Skilled Intervention(s): Instruction in sequencing, gait pattern, step-to gait Instruction in correction of gait deviations, cues for upright posture, safety, safe pacing Instruction in stair negotiation, [id number]. Instruction in use of equipment, cues for sequence and pattern Gait belt in place for safety with all functional mobility. RN aware of patient status. Discussed with patient sitting up for no longer than 1 hr and calling for assistance 100% of the time. Total Timed Code Treatment Minutes: 40 Total Treatment Time (minutes): 40 SUBJECTIVE: Current Hospital Course: Chart reviewed and no significant medical updates relevant to therapy were noted Reason for Physical Therapy Consult : for post musculoskeletal surgery care. Presented w/progressive R knee pain. 06/29/19 underwent R TKA Relevant Past Medical History: cervical fusion, obesity, sleep apnea, HLD, back pain, OA Patient Report: Patient agreeable to participate in PT. Patient states, I am just going to pull on the door jam to get into my house like I always do, it will be fine. Patient appropriate for PT per RNChin. 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',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 [employer], travels OBJECTIVE: CURRENT FUNCTIONAL STATUS: Current Functional Mobility Assist Level Additional Information Rolling Supine to Sit Stand By Assistance(HOB 30 degrees, use of rails) Sit to Supine Stand By Assistance(HOB 30 degrees, no use of rails) Scooting Stand By Assistance(forward/retro in bed) Sit to Stand Contact Guard Assistance(with FWW) Stand to Sit Contact Guard Assistance(with FWW) Bed to Chair Toilet/Commode Gait Contact Guard Assistance(step-to gait ) Gait Device: Wheeled Walker Gait Distance (feet): 80'x2 Stairs Contact Guard Assistance([id number]) Stairs Device: Crutch(es);Hand Held Assist;Rail Number of Stairs: 4(x2 trials total) x1 trial crutch and hand held assist x1 trial crutch and hand rail Curb Step Car Transfer Gait Deviations Right Lower Extremity: Weight bearing decreased;Heel strike during initial stance decreased;Push-off during terminal stance decreased;Step length decreased General Gait Deviations: Sonya decreased;Step length decreased;Flexed trunk posture;Non-functional gait speed Balance: Static Sitting;Dynamic Sitting;Static Standing;Dynamic Standing Static Sitting Balance: Good- / Fair+ Accepts minimal resistance Dynamic Sitting Balance: Good-/Fair+ Able to sit unsupported AND weight shift across midline minimally Static Standing Balance: Fair- Requires Min A or UE support in order to stand without LOB Dynamic Standing Balance: Poor+ Able to stand with Min A and reach ipsilaterally, unable to weight shift JH-HLM: 7: Walk 25 feet or more Please see discipline specific clinical documentation flowsheet for complete details for this therapy evaluation/treatment. SIGNATURE: Maureen Milan PTA PATIENT NAME: Norbert Goins DATE: June 30, 2019 TIME: 4:[address] [facility] THERAPY NT HNO ID: [id number] Author: Pedro (Pt) Surjit Service: Physical Therapy Author Type: Physical Therapist Type: Therapy (PT/OT/Speech/Resp) Filed: 06/30/2019 3:40 PM Note Text: Physical Therapy Evaluation SERVICE DATE: 06/30/2019 SERVICE TIME: 1046 to 1136 ROOM: [place] [id number] Recommended Discharge Disposition: Outpatient Physical Therapy Recommended Discharge Disposition Comments: Patient w/ dizziness, R knee pain w/motion/amb, decreased RLE motion AND strength, balance AND functional mobility s/p R TKA indicating benefit of continued OP PT post acute stay to restore full functional RLE use. Anticipated Discharge Needs: Family Training;Physical Assist at Home;Supervision at Home Physical Assist at Home for: Transfers;Ambulation;Clean ing;Laundry;Meals;Medicati on Management;Stairs;Safety;S elf Care;Shopping;Transportati on Supervision at Home due to: Decreased safety awareness(s/p R TKA) Recommended Discharge Equipment: No equipment needs anticipated PT Recommendations to Nursing: Ambulate with device;To bathroom;In halls;Transfer to/from chair;OOB for Meals;Sit at edge of bed;With assist of 1 person(attend to dizziness, paced activity) Device: Wheeled Walker(gait belt) PT 6 Clicks Score: 17 Precautions/Activity Restrictions: Total Knee Replacement;Weight Bearing Restrictions;Fall Risk;Lines/Tubes/Drains Extremity With Weight Bearing Restricted: Right Lower Extremity Right Lower Extremity Weight Bearing Status: WBAT ASSESSMENT : Patient presents with dizziness, R knee pain w/motion/amb, decreased RLE motion AND strength, balance AND functional mobility s/p R TKA. Requires skilled PT for progressive therapeutic exercise, balance AND functional mobility training, instruction in safety, TKA HEP, proper equipment use, pain AND edema control techniques, progressive AND paced activity, with attention to physiological symptoms. Co-morbidities (see below) influence his current functional status. 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 Recommending initial 24 hr assist for safe transition to home setting and OP PT for progressive TKA rehab to restore full RLE function without compensations. Patient Disposition at Start of Session: OOB in Chair;Call Sun in Reach(iceman R knee) Patient Disposition at End of Session: Supine in Bed;Call Sun in Reach;SCDs;Family Present(iceman R knee) Tolerated Full Session(w/dizziness) Physical Therapy Problem List: Education Deficit;Edema;Pain;Safety Deficits;Impaired Self Care;Decreased Activity Tolerance;Decreased Range Of Motion;Decreased Strength;Functional Mobility Impairment;Balance Impaired;Decreased Skin Integrity Patient /Caregiver Goals: Go Home Goals for Plan of Care: Able to perform HEP with: Supervision(x15 reps TKA exercises for increased funct motion AND stgth) Transfer supine to/from sit with: Supervision(w/min elev HOB, use of rail) Transfer sit to/from stand with: Supervision(w/walker WBAT RLE) Ambulate with: Supervision(WBAT RLE, safe tech) Distance: [id number]' for basic self care AND home mobility Device: Wheeled Walker Ambulate up and down curb step with: Contact Guard Assistance(WBAT RLE, safe tech) Device: Wheeled Walker Car transfer with: Minimal Assistance(w/walker WBAT RLE, safe tech) ROM: Achieve 10 - 90 degrees R knee motion to improve RLE functional abilities Goal: Patient voices AND demonstrates comprehension of TKA instructions AND education for safe homegoing w/assist AND OP PT. Progress Toward Goals: Progressing as expected Rehab Potential: Good PLAN: Treatment Frequency (times per week): 7;BID Current admission Treatment Interventions: Education;Self Care / Home Management;Energy Conservation Training;Joint Mobility;Strengthening;Fun ctional Mobility Training;Balance Training;Neuromuscular Re-education;Modalities;Ed thanh Management;Pain Management Modalities: Ice Plan of Care developed with: Patient;Caregiver;Family TREATMENT INTERVENTIONS: Therapy Diagnosis: Difficulty walking-musculoskeletal;Ge neral symptoms and signs-other;Decreased activities of daily living (ADL) Interventions Provided: Evaluation;Therapeutic Exercise (77503);Therapeutic Activity (07208);Gait Training (46553) $ Evaluation-Low (93109) Billed Units: 1 unit Therapeutic Exercise (43086) Treatment Minutes: 15 1 unit Skilled Intervention(s): Instruction in therapeutic exercise - to perform TKA exercises 2x/day, intermitt anti-embolytics to increase circulation Verbal and tactile cuing provided for correct ex technique - controlled motions, increased range as able, breathing w/exertion AND isometrics Facilitation of muscle control, optimal recruitment and alignment via tapping, tactile cues to increase isolated R quads contraction Education in benefits of general exercise AND mobility Performed RLE exercises per flow sheet, including passive AND sheet assisted R calf stretch, sheet assisted R heel slide in supine Issued AND reviewed written TKA HEP instructions. Therapeutic Activity (15948) Treatment Minutes: 15 1 unit Skilled Intervention(s): Instructed patient in sit to supine using safe, effective technique, breathing during LOWER EXTREMITY raise Instructed patient to attend to AND communicate physiological changes, paul increased dizziness during session Educated patient on TKA precautions with demonstrations provided Educated patient on WBAT WB status right LE. Educated patient on importance of OOB activity with nursing to reduce risk of functional decline, purpose of anti-embolitic exercises Educated patient on role of PT during acute stay Educated patient on PT POC and rationale for discharge recommendation of initial [facility] for safe transition to home setting, including basement business. Instructed patient in use of call light for ALL OOB and mobility activities for safety in hospital setting Gait Training (96536) Treatment Minutes: 10 1 unit Skilled Intervention(s): Prior to patient practice, therapist demonstrated sit to stand transfers and amb with WBAT status. Therapist demonstrated safe walker negotiation for forward/retro/side steps and safe approach of sitting surface. Gait belt intact with all functional out of bed mobility Patient provided with step by step cues with all functional mobility. Instruction in sit to stand technique with proper hand placement and body positioning at edge of bed/chair, Instruction in stand to sit technique with LE's touching chair/bed and reaching back for surface Instruction in sequencing, gait pattern - step to pattern, with plan to progress to step through pattern Instruction in correction of gait deviations - flat foot placement, w/ expectation of calf stretch Instruction in WB precautions - WBAT based on pain level, increase BUE wt bearing as needed Instruction in use of equipment, cues for sequence and pattern - wheeled walker vs rollator (recommended w/patient's quick pace) Gait belt intact with all functional out of bed mobility Patient provided with step by step cues with all functional mobility. Notified RN of patient status, performance, PT recommendations Total Timed Code Treatment Minutes: 40 Total Treatment Time (minutes): 50 SUBJECTIVE: Current Hospital Course: Chart reviewed; POD #1 R TKA Reason for Physical Therapy Consult : for post musculoskeletal surgery care. Presented w/progressive R knee pain. 06/29/19 underwent R TKA Relevant Past Medical History: cervical fusion, obesity, sleep apnea, HLD, back pain, OA; per pt, Meniere's disease Patient Report: Patient agreeable to PT session, with plan for return to bed end of session. Patient reports prior use of valium for Meniere's dizziness symptoms. Patient relates that he has not experienced dizziness in quite a while. Patient with vague answers to questions about his prior functional status and home setting. Patient also making several statements indicating plans for home activity in opposition to instructions (I might get up. It's probably already healed. and desire to get into his hot tub). 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',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 [employer], travels OBJECTIVE: Range of Motion: ROM Limitation Comments ROM Limitation Comments: grossly 20-90 R knee AAROM, 0 R ankle dflex, 10 - 120 to L knee, 10 L ankle dflex Strength: WFL Except;Strength Limitation Comments Strength Limitation Comments: grossly 2/5 R hip, knee Quality of Movement: (tends to move about quickly, breath holding) Vision Deficits: Wears glasses(reading) Dizziness 3/10 (out of 1-10 scale) throughout session 3/10 R knee w/R knee motions AND amb (0/10 start of session) Follows 2 step commands w/ mod cues 2+ edema BLE Silvadene dressing ant L knee, no dng CURRENT FUNCTIONAL STATUS: Cuing provided for functional mobility as noted in above interventions. Current Functional Mobility Assist Level Additional Information Rolling Supine to Sit Sit to Supine Contact Guard Assistance(min elev HOB, use of rail) W/RLE management Scooting Contact Guard Assistance(sitting, supine) W/RLE management in supine Sit to Stand Contact Guard Assistance(w/walker, WBAT RLE) For safety, balance Stand to Sit Contact Guard Assistance(w/walker, WBAT RLE) For safety, balance Bed to Chair Toilet/Commode Gait Contact Guard Assistance(WBAT RLE) for safety, balance Gait Device: Wheeled Walker Gait Distance (feet): 60' Stairs Curb Step Car Transfer Gait Deviations Right Lower Extremity: Weight bearing decreased;Stance time decreased;Heel strike during initial stance decreased;Knee flexion during stance increased;Step length decreased;Lacks full knee extension during terminal swing;Foot clearance decreased;Lacks hip extension beyond mid-stance;Ankle dorsiflexion limited(wt on R toes/in ankle pflex) General Gait Deviations: Step length decreased;Flexed trunk posture;Difficulty changing direction/turning(step to gait pattern, quick pace, limited walker use in turn) Balance: Static Sitting;Dynamic Sitting;Static Standing;Dynamic Standing Static Sitting Balance: Good- / Fair+ Accepts minimal resistance Dynamic Sitting Balance: Good-/Fair+ Able to sit unsupported AND weight shift across midline minimally Static Standing Balance: Fair-(WBAT RLE) Requires Min A or UE support in order to stand without LOB(WBAT RLE) Dynamic Standing Balance: Poor+(WBAT RLE) Able to stand with Min A and reach ipsilaterally, unable to weight shift(WBAT RLE) -HLM: 7: Walk 25 feet or more Please see discipline specific clinical documentation flowsheet for complete details for this therapy evaluation/treatment. SIGNATURE: Pedro Eddy PT PATIENT NAME: Norbert Goins DATE: June 30, 2019 TIME: 3:[address] [facility] THERAPY NT HNO ID: [id number] Author: Erika Todd Service: Occupational Therapy Author Type: Occupational Therapist Type: Therapy (PT/OT/Speech/Resp) Filed: 06/30/2019 10:38 AM Note Text: Occupational Therapy Evaluation SERVICE DATE: 06/30/2019 SERVICE TIME: 914 to 950 ROOM: [id number] Recommended Discharge Disposition: Home OT Recommended Discharge Disposition Comments: for home safety evaluation and follow through with recommendations Anticipated Discharge Needs: Physical Assist at Home;Equipment Physical Assist at Home for: Cleaning;Meals;Laundry;Ella f Care;Safety Recommended Discharge Equipment: Shower Chair;Grab Bars-Shower OT Recommendations to Nursing: To Bathroom for ADL?s /and or Toileting;OOB for meals;With assist of 1 person Equipment: Wheeled Walker(gait belt) OT 6 Clicks Score: 20 Precautions/Activity Restrictions: Total Knee Replacement;Lines/Tubes/Dr menendez ASSESSMENT: Pt is at CGA/Sharmila level for ADLS and functional mobility. Patient's impairments and limitations include impaired self care task performance, decreased functional mobility, decreased alertness, dizziness (hx of Meniere's? vitals were stable) . This may impact patient's ability to function without assist from caregivers. Patient is willing to participate as able. Patient requires skilled OT services to address self care limitations as well as advancement of daily activities with recommendation of progression to home OT level of care post hospital stay. Patient Disposition at Start of Session: Supine in Bed;Call Sun in Reach Patient Disposition at End of Session: OOB in Chair;Call Sun in Reach Tolerance Limited By Alertness Occupational Therapy Problem List: Pain;Safety Deficits;Impaired Self Care;Functional Mobility Impairment Patient /Caregiver Goals: Go Home Goals for Plan of Care: Grooming with: Stand By Assistance Lower Body Bathing with: Stand By Assistance Lower Body Dressing with: Stand By Assistance Toilet Hygiene with: Stand By Assistance Chair Transfer with: Stand By Assistance Toilet Transfer with: Stand By Assistance Progress Toward Goals: Progressing as expected PLAN: Treatment Frequency (times per week): 5 Current admission Treatment Interventions: Education;Self Care / Home Management;Functional Mobility Training Plan of Care developed with: Patient TREATMENT INTERVENTIONS: Therapy Diagnosis: Decreased activities of daily living (ADL) Interventions Provided: Evaluation;Therapeutic Activity (51149) $ Evaluation-Low (03103) Billed Units: 1 unit Therapeutic Activity (97310) Treatment Minutes: 24 2 units Skilled Intervention(s): Pt educated in role of OT. Pt educated in knee precautions with therapist demonstration. Instructed and facilitated in LB dressing with verbal, visual, and tactile cues for safety and technique while adhering to knee precautions. Pt educated in role of iceman to assist with pain and edema, therapist demonstrated don/doffing. Pt educated in DME for safety with TKR handout given. Instructed and facilitated in bed mobility, sit to stand technique with proper hand placement and body positioning, walker safety, functional mobility from bed to chair with verbal, visual, and tactile cues for hand placement, walker sequencing, safety (impulsivity), and encouragement. Instructed in walk in shower with therapist simulation and recommendation use of shower chair. Extended time required. Pt educated in plan of care. 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) Entry To Home: Stairs Number Of Stairs Into Home: 1 Number Of Stairs To Bed/Bath: 0(first floor set-up) Tub/Shower Type: walk in shower Laundry: spouse will complete Equipment Owned: Cane;Wheeled Walker;Rollator;Elevated Toilet Seat Prior Functional Level: Within Functional Limits Prior Functional Level Comments: per patient, ind with ADLS, IADLS, + 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 OBJECTIVE: Cognition/Communication Deficits Orientation Deficits: (alert and oriented x3) Responsiveness: Drowsy CURRENT FUNCTIONAL STATUS: Current Activities of Daily Living Assist Level Feeding Independent(per clinical judgment) Grooming Contact Guard Assistance(for safety during standing portion of task) Bathing Upper Body Supervision(per clinical judgment) Bathing Lower Body Minimal Assistance(for thoroughness, per clinical judgment) Dressing Upper Body Supervision(seated, per clinical judgment) Dressing Lower Body Contact Guard Assistance(pt able to don socks and simulated underwear seated EOB) Toileting Contact Guard Assistance(for safety in standing, per clinical judgment') Functional Mobility Assist Level Rolling Supine to Sit Stand By Assistance Sit to Supine Scooting Stand By Assistance Sit to Stand Contact Guard Assistance Stand to Sit Contact Guard Assistance Bed to Chair Toilet/Commode Functional Mobility Contact Guard Assistance Wheeled Walker Please see discipline specific clinical documentation flowsheet for complete details for this therapy evaluation/treatment. SIGNATURE: Erika Todd OTR/L PATIENT NAME: Norbert Goins DATE: June 30, 2019 TIME: 10:[address] [facility] ANES Skyler 06-29-2019 ANES POST HNO ID: [id number] Author: Vladimir Ochoa Service: Anesthesiology Author Type: Anesthesiologist Type: Anesthesia PostOp Filed: 06/29/2019 4:48 PM Note Text: POST ANESTHESIA EVALUATION NOTE SERVICE DATE: 06/29/2019 SERVICE TIME: : 1955 Vitals: 06/29/19 1119 06/29/19 1458 06/29/19 1600 06/29/19 1618 Temp: 37.1 ?C (98.8 ?F) 37.1 ?C (98.8 ?F) 36.4 ?C (97.5 ?F) 36.8 ?C (98.2 ?F) 06/29/19 1530 06/29/19 1545 06/29/19 1600 06/29/19 1618 BP: 148/84 133/79 144/85 143/78 06/29/19 1530 06/29/19 1545 06/29/19 1600 06/29/19 1618 Pulse: (!) 58 (!) 58 61 63 06/29/19 1530 06/29/19 1545 06/29/19 1600 06/29/19 1618 Resp: 16 16 16 16 06/29/19 1530 06/29/19 1545 06/29/19 1600 06/29/19 1618 SpO2: 95% 96% 97% 93% Validated Vital Signs: Yes POST ANES STATUS: No apparent anesthetic complications. The patient is appropriately hydrated with stable respiratory and cardiovascular status. Patient has safe and adequate airway control. The patient has appropriate pain relief and no significant post operative nausea or vomiting. The patient has achieved baseline mental status. Intra-Operative Events: No Significant Anesthesia Events Further assessment by Anesthesia Service: None Other Remarks: SIGNATURE: Vladimir Ochoa MD PATIENT NAME: Norbert Goins DATE: June 29, 2019 TIME: 4:48 PM PAGER/CONTACT #: anesthesia [facility] ANES PREOPon 06-29-2019 ANES PREOP HNO ID: [id number] Author: Moses Inman Service: Anesthesiology Author Type: Anesthesiologist Type: Anesthesia PreOp Filed: 06/29/2019 11:31 AM Note Text: ANESTHESIOLOGY DAY OF SURGERY NOTE SERVICE DATE: 06/29/2019 SERVICE TIME: 11:31 AM : 1955 Procedure(s) (LRB): ARTHROPLASTY REPLACE JOINT TOTAL KNEE (Right) Surgeon(s): Enrrique Guillen Estimated body mass index is 41.5 kg/m? as calculated from the following: Height as of this encounter: 168.9 cm (5' 6.5). Weight as of this encounter: 118.4 kg (261 lb). Most recent hematocrit and potassium results: Hematocrit 45.4 06/05/2019 Potassium 4.1 06/05/2019 ANES DOS/PREOP NOTE: Vitals: 06/29/19 1119 BP: 161/88 Pulse: 65 Resp: 16 Temp: 37.1 ?C (98.8 ?F) TempSrc: Temporal Artery SpO2: 95% Weight: 118.4 kg (261 lb) Height: 168.9 cm (5' 6.5) ACTIVE PROBLEM LIST DIVERTICULOSIS COLON - NO HEMORRHAGE Morbid Obesity (Hcc) Neoplasm of Unspecified Nature of Brain Sleep Apnea Edema Nocturia Essential Hypertension Other and Unspecified Hyperlipidemia Cervicalgia Carpal Tunnel Syndrome Lumbago Abdominal Pain, Unspecified Site Generalized Osteoarthrosis, Unspecified Site Diaphragmatic Hernia Without Mention of Obstruction Or Gangrene Impotence of Organic Origin Sebaceous Cyst Lipoma of Unspecified Site Abscess Primary Osteoarthritis of Right Knee 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, brain stem PAST SURGICAL HISTORY Procedure Laterality Date - COLONOSCOP W/ OR W/O BRS SPEC 08/02/06 Diverticulosis - EGD W/O [facility] SPECIMEN W/BX 08/02/06 HH, antral gastritis - PAST SURGICAL HISTORY OF 2000 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 Current Outpatient Medications on File Prior to Encounter: acetaminophen (TYLENOL) 325 mg cap Take by mouth. aspirin 325 mg ORAL tablet Take 325 mg by mouth as needed. Current Facility-Administered Medications Medication Dose Route Frequency Provider Last Rate Last Dose - lactated ringers infusion 50 mL/hr INTRAVENOUS CONTINUOUS Tima Moore (Pa) - tranexamic acid 1,000 mg in NaCl 0.9% 100 mL (CYKLOKAPRON) 1,000 mg INTRAVENOUS Pre-Op Once Tima Moore (Pa) - tranexamic acid 1,000 mg in NaCl 0.9% 100 mL (CYKLOKAPRON) 1,000 mg INTRAVENOUS ONCE Tima Moore (Pa) - ceFAZolin iv piggyback 2 g in D5W (iso-osmotic) 100 mL (ANCEF) 2 g INTRAVENOUS Pre-Op Once Tima Moore (Pa) - vancomycin 1.5 g in D5W 250 mL (VANCOCIN) 1.5 g INTRAVENOUS Pre-Op Once Tima Moore (Pa) - acetaminophen 650 mg tab(s) (TYLENOL) 650 mg ORAL Pre-Op Once Moses Inman - celecoxib 200 mg cap(s) (CeleBREX) 200 mg ORAL Pre-Op Once Moses Inman - gabapentin 100 mg cap(s) (NEURONTIN) 100 mg ORAL Pre-Op Once Moses Inman - oxyCODONE ER 10 mg tab(s) (OxyCONTIN) 10 mg ORAL Pre-Op Once Moses Inman - scopolamine 1 mg over 3 days 1 Patch (TRANSDERM-SCOP) 1 Patch TRANSDERMAL Pre-Op Once Moses Inman And - [START ON 06/30/2019] scopolamine - REMOVE PATCH OTHER ONCE Moses Inman And - scopolamine - VERIFY patch OTHER q 8 H Moses Inman - midazolam (PF) 2 mg injection (VERSED) 2 mg INTRAVENOUS ONCE Moses Inman Allergies: ALLERGIES No Known Allergies DOS EXAM: Adequate NPO status: Yes Anesthetic risks, benefits, alternatives, personnel and consent discussed: Yes Patient agrees to proceed: Yes Previous Anesthesia: No history of adverse event. Airway Assessment: MP 2; Neck ROM: Full ROM without neurologic symptoms; Airway Evaluation: No significant abnormalities Symptoms of Sleep Apnea: Snoring Dentition: Teeth intact Additional Physical Exam: Lungs: Patient health status unchanged since recent history and physical. See history and physical for exam findings. Cardiac: Patient health status unchanged since recent history and physical. See history and physical for exam findings. Additional Pertinent Findings: N/A Blood Products: Not anticipated for this procedure. Anesthetic Plan: Spinal, MAC with Sedation and Block with Sedation Pain Management Plan: Parenteral or Oral ASA Class: 3 Other Medical Problems: None I have interviewed and examined the patient. I have reviewed the medical record and/or the pre-anesthesia evaluation, pertinent labs, and test results. Significant changes in the patient's condition since the History and Physical, not otherwise documented in primary service progress notes: No This contains updated information obtained within 48 hours of Surgery/Procedure. SIGNATURE: Moses Inman MD PATIENT NAME: Norbert Goins DATE: June 29, 2019 TIME: 11:31 AM CSN: [id number] Normal [facility] CONSULTon 06-29-2019 CONSULT HNO ID: [id number] Author: Arturo Lockhart Service: General Internal Medicine Author Type: Physician Type: Consults Filed: 07/14/2019 11:56 AM Note Text: [facility]- Consultation NORBERT GOINS : 1955 AGE: 64 SEX: M ACCTNUM: [id number] HOSP SVC: OROR LOCATION: Formerly named [facility] ATTENDING PHYSICIAN: ENRRIQUE GUILLEN DATE OF SERVICE: 06/29/2019 TIME OF SERVICE: 04:45 PM REASON FOR CONSULTATION: Postop medical management. HISTORY: This is a 64-year-old young white gentleman whose significant medical history includes osteoarthritis, sleep apnea, and obesity. Patient underwent elective right total knee arthroplasty under spinal anesthesia. Patient had uneventful intraoperative course. Estimated blood loss 100 cc. During initial evaluation, patient was alert and oriented. Denying any nausea, vomiting, lightheadedness, dizziness. His pain is fairly controlled. PAST MEDICAL HISTORY: As mentioned above. PAST SURGICAL HISTORY: Includes brain stem tumor surgery, cervical neck fusion, colonic polyp. FAMILY HISTORY: Mother had colon cancer and diabetes. One sister with bladder cancer. SOCIAL HISTORY: He does not smoke or drink alcohol. MEDICATIONS: His current home medication list reviewed. ALLERGIES: He has no known drug allergies. REVIEW OF SYSTEMS: HEENT/Neck: No history of seizure disorder. History of migraine and history of schwannoma. No history of chronic cough, wheezing, or dyspnea with exertion. No history of asthma. History of obstructive sleep apnea. No history of coronary artery disease, congestive heart failure, or cardiac arrhythmia. Claims good appetite. Regular bowel movement. No history of hepatitis or colitis. No history of chronic dysuria, hematuria, CKD, or renal calculi. No history of diabetes, hypothyroidism. No history of DVTs, paresthesia of feet, or bleeding diathesis. PHYSICAL EXAM: General: Young white gentleman. The patient is alert and oriented. HEENT: Sclerae anicteric. Neck: Good carotid pulse felt. No carotid bruit. No thyromegaly appreciated. Lungs: Clear to auscultation bilaterally. Cardiovascular: S1, S2. Regular rhythm. No murmur, gallop, or rub present. Abdomen: Soft, nontender, nondistended. No mass felt. Lower Extremities: No ankle edema noted. IMPRESSION: 1. Osteoarthritis, status post right total knee arthroplasty. Deep venous thrombosis prophylaxis as ordered by Dr. Guillen. 2. Obstructive sleep apnea. Continue home CPAP. Thank you very much for kind referral. Continue to follow while he is in the hospital. Arturo Lockhart M.D. Internal Medicine SKCricket:[id number] /[id number] [facility] NURSING PROGon 06-29-2019 NURSING PROG HNO ID: [id number] Author: Devante (Rn) CAROL Bailey Service: Nursing Author Type: Registered Nurse Type: Nursing Progress Note Filed: 06/29/2019 3:52 PM Note Text: Report to Pebbles MACHADO. [facility] OPERATIVE NOon 06-29-2019 OPERATIVE NO HNO ID: [id number] Author: Enrrique Guillen Service: Orthopaedic Surgery Author Type: Physician Type: Operative Report Filed: 06/29/2019 4:12 PM Note Text: [facility] OPERATIVE REPORT PATIENT NAME: Norbert Goins CSN: [id number] LOG ID: [id number] Surgery Date: 06/29/2019 Surgeon(s) and Bacteriology Technician(s): Surgeon(s) and Role: * Enrrique Guillen - Primary * Jai Miranda - Fellow ???* Ilir Rucker - Resident * Tima STORM BMI: Estimated body mass index is 41.5 kg/m? as calculated from the following: Height as of this encounter: 168.9 cm (5' 6.5). Weight as of this encounter: 118.4 kg (261 lb). Procedure(s): Procedure(s) (LRB): ARTHROPLASTY REPLACE JOINT TOTAL KNEE (Right) Anesthesia: Spinal Incision Start: 1:18 PM Incision Stop: 2:55 PM Attestation: I was present for all of the critical portions of the operation and performed all critical portions. The resident/fellow/PA assisted during exposure, implantation of the device, and deep closure. The PA performed the closure of the subcutaneous tissue and skin. I was scrubbed from skin incision through the closure of the extensor mechanism and was immediately available for the duration of the entire case. Preop Diagnosis: Pre-Op Diagnosis Codes: * Primary osteoarthritis of right knee [M17.11] Postop Diagnosis: Same as Pre-Op Diagnosis Codes: * Primary osteoarthritis of right knee [M17.11] Implants: Implant Name Type Inv. Item Serial No. Director Oracle Lot No. LRB Model Num No. Used CEMENT SIMPLEX P BONE RADIOPAQUE FULL DOSE STERILE - [id number] Cement / Putty CEMENT SIMPLEX P BONE RADIOPAQUE FULL DOSE STERILE [employer] [id number] COMPONENT TRIATHLON 4 FEMORAL CEMENTED POSTERIOR STABILIZE KNEE RIGHT - [id number] Joint - Knee COMPONENT TRIATHLON 4 FEMORAL CEMENTED POSTERIOR STABILIZE KNEE RIGHT [employer] [id number] Right [id number] INSERT TRIATHLON 4 X3 9MM TIBIAL POSTERIOR STABILIZE KNEE - [id number] Joint - Knee INSERT TRIATHLON 4 X3 9MM TIBIAL POSTERIOR STABILIZE KNEE [employer] [id number] Right [id number] BASEPLATE TRIATHLON 4 UNIVERSAL COCR TIBIAL TOTAL STABILIZE CEMENTED KNEE - [id number] Plate BASEPLATE TRIATHLON 4 UNIVERSAL COCR TIBIAL TOTAL STABILIZE CEMENTED KNEE [employer] [id number] Right [id number] COMPONENT TRIATHLON 35MM 10MM PATELLAR ASYMMETRIC KNEE - [id number] Joint - Patella COMPONENT TRIATHLON 35MM 10MM PATELLAR ASYMMETRIC KNEE STRY/[facility] [employer] [id number] Right [id number] Problem List: ACTIVE PROBLEM LIST DIVERTICULOSIS COLON - NO HEMORRHAGE Morbid Obesity (Hcc) Neoplasm of Unspecified Nature of Brain Sleep Apnea Edema Nocturia Essential Hypertension Other and Unspecified Hyperlipidemia Cervicalgia Carpal Tunnel Syndrome Lumbago Abdominal Pain, Unspecified Site Generalized Osteoarthrosis, Unspecified Site Diaphragmatic Hernia Without Mention of Obstruction Or Gangrene Impotence of Organic Origin Sebaceous Cyst Lipoma of Unspecified Site Abscess Primary Osteoarthritis of Right Knee OPERATIVE INDICATIONS: The patient has a long history of progressive right knee pain, arthritis, and degeneration. Non-operative treatment has been attempted but has not improved or controlled the symptoms and pain that occurs during normal daily activities. Knee motion has also become limited and is restricting the patient. Total knee arthroplasty was recommended. The risks, benefits and potential complications of the arthroplasty surgery were discussed with the patient in detail. Specific details of the surgical procedure, hospitalization, recovery, rehabilitation, and long-term precautions were also presented. Pre-operative teaching was provided. Implant/prosthesis selection was outlined, and the many options available were explained; the final choice will be made at the time of the procedure to match the anatomy and condition of the bone, ligaments, tendons, and muscles. We discussed my relationship with [employer] and that I receive royalty payments from [employer] for technology I developed was fully disclosed. A [employer] product may be used in this care I provide. I do not receive any money for products that I or any other [facility] physicians prescribe or use. My choice on which product to use in this care was not influenced by my relationship with [employer]. I select the product that in my hands is believed to be the best option for treatment. The patient was evaluated medically for pre-operative optimization, and risk assessment. Tamie-operative blood management and the potential for blood transfusion were discussed with risks and options clearly outlined. Understanding of all topics was conveyed to me by the patient pre-operatively, and patient consent was given to proceed with the right total knee replacement. OPERATIVE PROCEDURE: The patient was identified and brought into the Operating Room by the anesthesia and nursing teams. Anesthesia was successfully performed. The patient was then positioned supine on the operating room table, and all bony prominences were padded. Intravenous antibiotic prophylaxis dosing was confirmed. A tourniquet was applied to the upper thigh. A full knee exam was done after anesthesia was in full effect. The patient had developed a valgus deformity in the knee from cartilage wear and bone loss. Flexion contracture was mild. The leg was prepped and draped in the usual sterile fashion. A surgical time-out was performed immediately preceding the incision with all personnel in the operating room; the patient identity was again confirmed, the correct knee surgical site and extremity were identified and confirmed, X-rays were reviewed, and availability of the appropriate surgical equipment was established. The knee was exsanguinated and exposed using an anterior-midline skin incision. Dissection was carried down through skin and subcutaneous tissue to the extensor mechanism with a scalpel. A median para-patellar arthrotomy was made to enter the knee space sharply. A large amount of normal appearing joint fluid was encountered and suctioned. The synovium was thickened, hypertrophic, and inflamed. A partial synovectomy was performed for exposure, and the medial and lateral gutters were cleared of scar and synovial reflections. The deep fibers of the medial collateral ligament was carefully elevated off the proximal 5-10 mm of tibial bone. The patella was then subluxed laterally. The knee was then flexed up to 90 degrees. Degenerative meniscal remnants were excised medially and laterally along with an excision of the patellar fat pad and anterior cruciate ligament. Assessment of the knee joint revealed severe end-stage articular cartilage damage. Retractors were then placed to protect the medial and lateral collateral ligament attachments on the distal femur. The intramedullary cavity of the femur was entered through the intra-condylar notch above the PCL with a step drill. The entry hole was overdrilled as compared to the intramedullary roberta diameter and the femoral canal was suctioned to prevent fat embolization. An intramedullary alignment system was then placed, fixed to the femur with pins, and the distal femoral osteotomy was made in 7 degrees of valgus with an 8 mm distal resection off the intact femoral condyle. The femoral component was then sized in the AP dimension followed by ML size verification to prevent component overhang. The 4-in-1 cutting block was then placed to allow for equal posterior condylar resections taking into account the extent of posterior condylar wear. Once the 4-in-1 block was [address], the anterior, posterior, and chamfer cuts were then fashioned with an oscillating saw. Remaining osteophytes were then removed with a rongeur. The patella was then measured and a patellar resection of 9-10 mm was carried out. The patella diameter was sized according to best fit and the drill holes were placed for the asymmetric patellar peg pattern. Attention was then turned to the tibia. Retractors were placed medially and laterally to protect the collateral ligaments. Using extra medullary alignment, including a pivoting drop roberta to reduce parallax in the varus valgus plane, a proximal tibial cut was carried out at 0 - 2? of varus and 0? of posterior slope. Box preparation was then completed on the femoral side including removal of posterior condylar osteophytes to enhance flexion. The appropriate tibial size was selected and the template was oriented along the lateral border of the tibia and rotationally to the middle one third of the patellar tendon attachment. The template was pinned into place and the punch was used to prepare the proximal tibia for a universal baseplate keel. Peripheral tibial osteophytes were removed as well as posterior femoral condylar osteophytes to enhance flexion. Trialing was carried out choosing a tibial trial thickness that allowed the knee to come into full extension and flexion to 130?. Mild ligamentous release was required for proper balancing. Excellent varus valgus stability was achieved throughout the range of motion. The bony surfaces were prepared with pulsatile lavage and thoroughly dried in preparation for cementing the final implants. Polymethylmethacrylate (PMMA) bone cement was utilized and the asymmetric patellar component was cemented into place along with the tibial baseplate. Suction was applied to an anterior tibial pinhole to help with cement penetration and avoid marrow contamination of the cement implant interface during component impaction. All excess cement was debrided from the wound. The femoral component was cemented into place again using intramedullary suction to aid with cement penetration. All excess cement was again debrided from the interfaces. The final tibial polyethylene insert was then impacted onto the tibial tray. Secure fixation was achieved. Once the cement had cured, the knee was copiously irrigated and the tourniquet was let down. Hemostasis was achieved with electrocautery and patellar tracking was then inspected. The patella tracked midline. The extensor mechanism was closed with Surgilon interrupted sutures. Knee stability and range of motion with the capsule closed was excellent, and range of motion was 0 to 130 without excessive stress on the repair. Instrument and sponge count was completed and confirmed correct. The subcutaneous tissues were closed with Polysorb interrupted sutures, and the skin was closed with a running 4-0 Maxon subcuticular stitch. Steri-Strips were applied to the tag ends of the suture and Sureclose skin adhesive was applied to the skin incision with the knee in flexion. A Silverlon dressing was applied again with the knee in flexion, followed by a compressive wrap. The patient was then transferred to PACU. EBL: 100 cc COMPLICATIONS: none DRAINS: none SPECIMEN SENT TO PATHOLOGY: Distal femoral bone fragments, proximal tibial joint surface, posterior patellar bone/cartilage, and synovium. SIGNATURE: Enrrique Guillen MD DATE: June 29, 2019 TIME: 2:[address] [facility] PT EDon 06-29-2019 PT ED HNO ID: [id number] Author: Libertad (Carol) CAROL Beach Service: ? Author Type: Registered Nurse Type: Patient Education Filed: 06/29/2019 11:08 AM Note Text: PRE OP LEARNING ASSESSMENT PROCEDURE/SURGERY: SURGERY: Right Total Knee Replacement READINESS TO LEARN COGNITIVE ABILITY: Alert and oriented MOTIVATION TO LEARN: Interested FAMILY SUPPORT: High - Very involved in pt care PATIENT LEARNS BEST BY: Verbal Instruction FACTORS AFFECTING LEARNING: None PHYSICAL LIMITATIONS AFFECTING LEARNING: Pain Electronically Signed By: Libertad Beach RN In Department: [facility] SURGERY [facility] SURGICAL PATHOLOGYon 019 SURGICAL PATHOLOGY Specimen originated from [facility] Specimen #: [id number] Submitting Physician: Enrrique Guillen M.D. FINAL DIAGNOSIS Knee, right, arthroplasty - Degenerative joint disease. SEK/breana/07/03/19 Salty Ramos MD (Electronic Signature) SPECIMEN SUBMITTED A: RIGHT KNEE BONE CLINICAL DATA PRIMARY OSTEOARTHRITIS OF RIGHT KNEE; RIGHT TOTAL KNEE REPLACEMENT GROSS DESCRIPTION A. Received in formalin labeled right knee are multiple segments of bone and cartilage measuring 6.6 x 6.5 x 3.2 cm in aggregate. Recognizable segments of tibial plateau and femoral condyles are identified, and display eburnation and roughening of the articular surfaces. No soft tissue is present. Software Quality Assurance Engineer sections to include articular surface are submitted in one cassette following decalcification. NEH/glw 06/30/2019 [place] [address] Date of Report: 07/03/2019 Date of Procedure: 06/29/2019 Date of Receipt: 06/29/2019 Submitted by: Enrrique Guillen M.D. Location: 2E Diagnostic interpretation performed at [place] [address]. [place] Number: [id number] [facility] NURSING PROGon 06-09-2019 NURSING PROG HNO ID: [id number] Author: Ale (Rn) CAROL Villeda Service: ? Author Type: Registered Nurse Type: Nursing Progress Note Filed: 06/17/2019 11:13 AM Note Text: PACC Nurse Progress Note History AND Physical: PACC Visit Date: 06/05/19 Original HANDP Date: N/A ED visit Date: N/A Outside HANDP Scanned Date: N/A Labs Within Last 6 Months: CBC: Date 06/05/19 Wnl BMP/CMP: Date 06/05/19 glucose 113 STAAMP: Date 06/05/19 +for MRSA message sent to provider and Dr Guillen TYPE AND SCREEN: Date 06/05/19 [place]: Date 05/01/2001 Anemia profile 06/05/19 Wnl Imaging Within Last 12 Months: X-ray bilateral knees 03/10/19 Cardiac Testing: EKG in last 12 Months: Yes: Date: 06/05/19, Comment: SINUS BRADYCARDIA WITH SINUS ARRHYTHMIA INFERIOR MYOCARDIAL INFARCTION BMI Percentile (PEDS): N/A Risk Assessment: N/A Anesthesia Review: N/A Narrative: N/A Pre-op Considerations: +LIZZY uses C-Pap Chart Check: Complete Mupirocin and instructions Ale Villeda RN June 17, 2019 11:13 AM June 10, 2019 10:22 AM Called and left message for patient to return call to PACC - for review of Mupirocin instructions. Maddi Alcala RN June 10, 2019 10:35 AM Received call back from patient. Reviewed abnormal nasal culture and Mupirocin instructions with patient - Apply 0.5 inch with cotton swab (Q-tip) to each nostril in the morning and evening for 5 days prior to and including day of surgery. Patient verbalized an understanding. EKG remains preliminary. Maddi Alcala RN Normal [facility] Type and SCR (30D)on 019 ABO/RH(D) Positive Normal [facility] Comment on above: Performed By: #### T [id number] #### [facility] Laboratory [address] [place] [address] HOSPon 05-27-2019 HOSP Patient:Norbert Goins MRN: Height:5' 6.5(1.689 m) Weight:261 lb (118.389 kg) Outpatient Medications as of 06/29/19: acetaminophen (TYLENOL) 325 mg cap mupirocin (BACTROBAN) 2 % ointment ergocalciferol, vitamin D2, (VITAMIN D2 ORAL) docosahexanoic acid/epa (FISH OIL ORAL) CPAP aspirin 325 mg ORAL tablet Admission/Clinic Administered Medications as of 06/29/19: lactated ringers infusion tranexamic acid 1,000 mg in NaCl 0.9% 100 mL (CYKLOKAPRON) tranexamic acid 1,000 mg in NaCl 0.9% 100 mL (CYKLOKAPRON) ceFAZolin iv piggyback 2 g in D5W (iso-osmotic) 100 mL (ANCEF) vancomycin 1.5 g in D5W 250 mL (VANCOCIN) scopolamine 1 mg over 3 days 1 Patch (TRANSDERM-SCOP) scopolamine - REMOVE PATCH scopolamine - VERIFY patch Problem List: DIVERTICULOSIS COLON - NO HEMORRHAGE [K57.30] Morbid obesity (HCC) [E66.01] Neoplasm of unspecified nature of brain [D49.6] Sleep apnea [G47.30] Edema [R60.9] Nocturia [R35.1] Essential hypertension [I10] Other and unspecified hyperlipidemia [E78.5] Cervicalgia [M54.2] Carpal tunnel syndrome [G56.00] Lumbago [M54.5] Abdominal pain, unspecified site [R10.9] Generalized osteoarthrosis, unspecified site [M15.9] Diaphragmatic hernia without mention of obstruction or gangrene [K44.9] Impotence of organic origin [N52.9] Sebaceous cyst [L72.3] Lipoma of unspecified site [D17.9] Abscess [L02.91] Primary osteoarthritis of right knee [M17.11] Allergies: No Known Allergies Date Verified:06/29/19 Lab Values Lab Value Units Date High Low POTA* 4.1 mmol/L 06/05/2019 5.1 3.7 KAMERON* 45.4 % 06/05/2019 51.0 39.0 Progress Notes ([place] [facility] [email or web address] MAYELIN Ricci 06/23/2019 4:03 PM Signed TOTAL JOINT COMPLETE CARE PROGRAM PRE-OPERATIVE TEACHING Service Date: 06/16/2019 Service Time: 3:54 PM Date of : 1955 Gender: male Date of Surgery: 06/29/19 Procedure: Right Total Knee Replacement Complete Care Program was discussed with the patient: Patient Coordinator Front Desk Identification: Patient identified a career technical supervisor to help when discharged to home: , taking some time off Home Environment: Home Layout: Ranch, Entry Steps: 1, small step, Bedroom Location: 1st floor, Bathroom Location: 1st floor and walk in shower. Pt owns walker?, crutches, cane. High toilets. Discussed with patient importance of attending joint education class and provided date and times of class: YES declined Patient received Joint Education Binder: Yes Patient plans discharge home with outpt PT if possible. SIGNATURE: MAYELIN Ricci PATIENT NAME: Norbert Goins DATE: June 16, 2019 TIME: 1:24 PM PAGER/CONTACT #: [phone] Progress Notes ([facility]): Maddi Saenz PA-C 06/10/2019 8:17 AM Signed Mupirocin called into [facility]. Ale Villeda will notify the patient. [facility] PROGRESSon 03-10-2019 PROGRESS HNO ID: [id number] Author: Myriam (Ct) Carolynn, LANETTE Service: ? Author Type: Clinical Steel Melter Type: Progress Notes Filed: 03/10/2019 2:36 PM Note Text: NAME:Norbert Goins DATE: March 10, 2019 CCF#: [id number] Lower Extremity X-Ray(s): Knee, AP / Lat / Merchant Bilateral and Wt. Bearing COMPLETED TECH ID SIGN: MYRIAM BRADY [facility] XR KNEE 3V AP/LAT/ANAMIKA BILon 03-10-2019 XR KNEE 3V AP/LAT/ANAMIKA ESTEFANIA * * *Final Report* * * DATE OF EXAM: Mar 10 2019 2:35PM HEIDI 5635 - XR KNEE 3V AP/LAT/ANAMIKA ESTEFANIA / PROCEDURE REASON: multiple diagnoses * * * * Physician Interpretation * * * * PROCEDURE: Bilateral knees INDICATION: Pain in both knees, unspecified chronicity TECHNIQUE: XR KNEE 3V AP/LAT/ANAMIKA ESTEFANIA COMPARISON: None FINDINGS: Right knee: Significant lateral joint compartment narrowing with resultant genu valgus. Moderate patellofemoral joint compartment narrowing. Tricompartment spur formation. No fracture or joint effusion. Left knee: Moderate lateral joint compartment narrowing is slight genu valgus. Significant lateral patellofemoral joint compartment narrowing. Tricompartment spur formation. No fracture or joint effusion. IMPRESSION: Bilateral osteoarthrosis Trim Sawyer: PSCKate Transcribe Date/Time: Mar 10 2019 3:56P Dictated by : ТАТЬЯНА NAIK MD This examination was interpreted and the report reviewed and electronically signed by: ТАТЬЯНА NAIK MD on Mar 10 2019 3:58PM EST [id number] [facility] Vital Signs Date Time Vital Sign Value Performing Clinician Katia velásquez 01-25-2025 07:04-0400 Body temperature 98 [degF] Dr. Mireille bonilla MD Work Phone: [facility] 01-25-2025 07:04-0400 Diastolic blood pressure 84 mm[Hg] Dr. Mireille Rosales MD Work Phone: [facility] 01-25-2025 07:04-0400 Heart rate 80 /min Dr. Mireille bonilla MD Work Phone: [facility] 01-25-2025 07:04-0400 Respiratory rate 18 /min Dr. Mireille bonilla MD Work Phone: [facility] 01-25-2025 07:04-0400 SaO2% (BldA) [Mass fraction] 96 % Dr. Mireille Rosales MD Work Phone: [facility] 01-25-2025 07:04-0400 Systolic blood pressure 139 mm[Hg] Dr. Mireille Rosales MD Work Phone: [facility] 01-25-2025 05:44-0400 Body height 167.[address] Mireille bonilla MD Work Phone: [phone] [place] [address] 01-25-2025 05:44-0400 Body mass index (BMI) [Ratio] 45.5 kg/m2 Dr. Mireille Rosales MD Work Phone: [facility] 01-25-2025 05:44-0400 Body weight 127.[address] Mireille bonilla MD Work Phone: [facility] 01-24-2025 09:26-0400 Body temperature 98 [degF] Dr. Mireille bonilla MD Work Phone: [facility] 01-24-2025 09:26-0400 Diastolic blood pressure 78 mm[Hg] Dr. Mireille Rosales MD Work Phone: [facility] 01-24-2025 09:26-0400 Heart rate 82 /min Dr. Mireille bonilla MD Work Phone: [facility] 01-24-2025 09:26-0400 Respiratory rate 18 /min Dr. Mireille bonilla MD Work Phone: [facility] 01-24-2025 09:26-0400 SaO2% (BldA) [Mass fraction] 96 % Dr. Mireille Rosales MD Work Phone: [facility] 01-24-2025 09:26-0400 Systolic blood pressure 180 mm[Hg] Dr. Mireille Rosales MD Work Phone: [facility] 01-24-2025 07:37-0400 Body height 167.[address] Mireille bonilla MD Work Phone: [phone] [place] [address] 01-24-2025 07:37-0400 Body mass index (BMI) [Ratio] 45.4 kg/m2 Dr. Mireille Rosales MD Work Phone: [phone] [place] [address] 01-24-2025 07:37-0400 Body weight 127.[address] Mireille bonilla MD Work Phone: 8(808)[phone] [place] [address] 01-22-2025 16:33-0400 Body temperature 98 [degF] Dr. Mireille bonilla MD Work Phone: 5(903)[phone] [place] [address] 01-22-2025 16:33-0400 Diastolic blood pressure 83 mm[Hg] Dr. Mireille Rosales MD Work Phone: [facility] 01-22-2025 16:33-0400 Heart rate 78 /min Dr. Mireille bonilla MD Work Phone: [facility] 01-22-2025 16:33-0400 Respiratory rate 16 /min Dr. Mireille bonilla MD Work Phone: [facility] 01-22-2025 16:33-0400 SaO2% (BldA) [Mass fraction] 99 % Dr. Mireille Rosales MD Work Phone: [facility] 01-22-2025 16:33-0400 Systolic blood pressure 150 mm[Hg] Dr. Mireille Rosales MD Work Phone: [facility] 01-21-2025 08:18-0400 Diastolic blood pressure 64 mm[Hg] Dr. Mireille Rosales MD Work Phone: [facility] 01-21-2025 08:18-0400 Systolic blood pressure 110 mm[Hg] Dr. Mireille Rosales MD Work Phone: [facility] 01-21-2025 08:17-0400 Body temperature 98.5 [degF] Dr. Mireille bonilla MD Work Phone: [facility] 01-21-2025 08:17-0400 Heart rate 75 /min Dr. Mireille bonilla MD Work Phone: [facility] 01-21-2025 08:17-0400 Respiratory rate 18 /min Dr. Mireille bonlila MD Work Phone: [facility] 01-21-2025 08:17-0400 SaO2% (BldA) [Mass fraction] 94 % Dr. Mireille Rosales MD Work Phone: [facility] 01-21-2025 07:14-0400 Body mass index (BMI) [Ratio] 45.1 kg/m2 Dr. Mireille Rosales MD Work Phone: [facility] 01-21-2025 07:14-0400 Body weight [address] Mireille bonilla MD Work Phone: [facility] 12-18-2024 10:01-0400 Body height 167.6 cm Hamilton Vicente MD Work Phone: [facility] 12-18-2024 10:01-0400 Body mass index (BMI) [Ratio] 47.61 kg/m2 Hamilton Vicente MD Work Phone: [facility] 12-18-2024 10:01-0400 Body weight 133.81 kg Hamilton Vicente MD Work Phone: [facility] 03-18-2024 11:08-0400 Body height 167.6 cm Hamilton Vicente MD Work Phone: [facility] 03-18-2024 11:08-0400 Body mass index (BMI) [Ratio] 49.39 kg/m2 Hamilton Vicente MD Work Phone: [facility] 03-18-2024 11:08-0400 Body weight 138.8 kg Hamilton Vicente MD Work Phone: [facility] 04-05-2022 10:22-0400 Body height 167.6 cm Hamilton Vicente MD Work Phone: [facility] 04-05-2022 10:22-0400 Body weight 134.26 kg Hamilton Vicente MD Work Phone: [facility] 04-04-2022 14:38-0400 Body height 167.6 cm Sussy Bishop MD Work Phone: [facility] 04-04-2022 14:38-0400 Body temperature 97.7 [degF] Sussy Bishop MD Work Phone: [facility] 04-04-2022 14:38-0400 Body weight 134.54 kg Sussy Bishop MD Work Phone: [facility] 04-04-2022 14:38-0400 Diastolic blood pressure 88 mm[Hg] Sussy Bishop MD Work Phone: [facility] 04-04-2022 14:38-0400 Heart rate 91 /min Sussy Bishop MD Work Phone: [facility] 04-04-2022 14:38-0400 SaO2% (BldA) [Mass fraction] 95 % Sussy Bishop MD Work Phone: [facility] 04-04-2022 14:38-0400 Systolic blood pressure 130 mm[Hg] Sussy Bishop MD Work Phone: [facility] 03-29-2022 05:06-0400 Diastolic blood pressure 76 mm[Hg] [facility] Work Phone: 03-29-2022 05:06-0400 Heart rate 81 /min [facility] Work Phone: 03-29-2022 05:06-0400 Respiratory rate 18 /min [facility] Work Phone: 03-29-2022 05:06-0400 SaO2% (BldA) [Mass fraction] 96 % [facility] Work Phone: 03-29-2022 05:06-0400 Systolic blood pressure 178 mm[Hg] [facility] Work Phone: 03-29-2022 04:39-0400 Body height 167.64 cm [facility] Work Phone: 03-29-2022 04:39-0400 Body mass index (BMI) [Ratio] 47.3 kg/m2 [facility] Work Phone: 03-29-2022 04:39-0400 Body temperature 98 [degF] [facility] Work Phone: 03-29-2022 04:39-0400 Body weight 133 kg [facility] Work Phone: 03-28-2022 14:35-0400 Body height 167.6 cm Sussy Bishop MD Work Phone: [facility] 03-28-2022 14:35-0400 Body temperature 97.81 [degF] Sussy Bishop MD Work Phone: [facility] 03-28-2022 14:35-0400 Body weight 133.81 kg Sussy Bishop MD Work Phone: [facility] 03-28-2022 14:35-0400 Diastolic blood pressure 84 mm[Hg] Sussy Bishop MD Work Phone: [facility] 03-28-2022 14:35-0400 Heart rate 97 /min Sussy Bishop MD Work Phone: [facility] 03-28-2022 14:35-0400 SaO2% (BldA) [Mass fraction] 96 % Sussy Bishop MD Work Phone: [facility] 03-28-2022 14:35-0400 Systolic blood pressure 140 mm[Hg] Sussy Bishop MD Work Phone: [facility] 03-24-2022 12:56-0400 Body temperature 99 [degF] [facility] Work Phone: 03-24-2022 12:56-0400 Diastolic blood pressure 88 mm[Hg] [facility] Work Phone: 03-24-2022 12:56-0400 Heart rate 85 /min [facility] Work Phone: 03-24-2022 12:56-0400 Respiratory rate 18 /min [facility] Work Phone: 03-24-2022 12:56-0400 SaO2% (BldA) [Mass fraction] 95 % [facility] Work Phone: 03-24-2022 12:56-0400 Systolic blood pressure 135 mm[Hg] [facility] Work Phone: 03-24-2022 08:59-0400 Inhaled oxygen flow rate 2 L/min [facility] Work Phone: 03-24-2022 02:44-0400 Body height 167.64 cm [facility] Work Phone: 03-24-2022 02:44-0400 Body mass index (BMI) [Ratio] 46 kg/m2 [facility] Work Phone: 03-24-2022 02:44-0400 Body weight 129.27 kg [facility] Work Phone: 03-24-2022 00:23-0400 Body temperature 98 [degF] [facility] Work Phone: 03-24-2022 00:23-0400 Diastolic blood pressure 93 mm[Hg] [facility] Work Phone: 03-24-2022 00:23-0400 Heart rate 81 /min [facility] Work Phone: 03-24-2022 00:23-0400 Respiratory rate 16 /min [facility] Work Phone: 03-24-2022 00:23-0400 SaO2% (BldA) [Mass fraction] 95 % [facility] Work Phone: 03-24-2022 00:23-0400 Systolic blood pressure 133 mm[Hg] [facility] Work Phone: 03-23-2022 23:40-0400 Body height 167.64 cm [facility] Work Phone: 03-23-2022 23:40-0400 Body mass index (BMI) [Ratio] 46 kg/m2 [facility] Work Phone: 03-23-2022 23:40-0400 Body weight 129.27 kg [facility] Work Phone: 03-19-2022 09:49-0400 Body height 167.6 cm Sussy Bishop MD Work Phone: [facility] 03-19-2022 09:49-0400 Body temperature 97.81 [degF] Sussy Bishop MD Work Phone: [facility] 03-19-2022 09:49-0400 Body weight 136.99 kg Sussy Bishop MD Work Phone: [facility] 03-19-2022 09:49-0400 Diastolic blood pressure 110 mm[Hg] Sussy Bishop MD Work Phone: [facility] 03-19-2022 09:49-0400 Heart rate 88 /min Sussy Bishop MD Work Phone: [facility] 03-19-2022 09:49-0400 Respiratory rate 14 /min Sussy Bishop MD Work Phone: [facility] 03-19-2022 09:49-0400 SaO2% (BldA) [Mass fraction] 97 % Sussy Bishop MD Work Phone: [facility] 03-19-2022 09:49-0400 Systolic blood pressure 166 mm[Hg] Sussy Bishop MD Work Phone: [facility] 01-30-2022 07:36-0400 Heart rate 69 /min DR RODOLFO LUCAS MD [facility] 01-30-2022 07:22-0400 Diastolic Blood Pressure NBP [address] RODOLFO LUCAS MD [facility] 01-30-2022 07:22-0400 Heart rate 74 /min DR RODOLFO LUCAS MD [facility] 01-30-2022 07:22-0400 Respiratory rate 16 /min DR RODOLFO LUCAS MD [facility] 01-30-2022 07:22-0400 Systolic Blood Pressure NBP [address] RODOLFO LUCAS MD [facility] 01-30-2022 07:13-0400 Diastolic Blood Pressure NBP [address] RODOLFO LUCAS MD [facility] 01-30-2022 07:13-0400 Heart rate 79 /min DR RODOLFO LUCAS MD [facility] 01-30-2022 07:13-0400 Respiratory rate 16 /min DR RODOLFO LUCAS MD [facility] 01-30-2022 07:13-0400 Systolic Blood Pressure NBP [address] RODOLFO LUCAS MD [facility] 01-30-2022 07:09-0400 Diastolic Blood Pressure NBP [address] RODOLFO LUCAS MD [facility] 01-30-2022 07:09-0400 Respiratory rate 15 /min DR RODOLFO LUCAS MD [facility] 01-30-2022 07:09-0400 Systolic Blood Pressure NBP [address] RODOLFO LUCAS MD [facility] 01-30-2022 06:49-0400 Body height 167.[address] RODOLFO LUCAS MD [facility] 01-30-2022 06:49-0400 Body weight [address] RODOLFO LUCAS MD [facility] 01-30-2022 06:48-0400 Body temperature 96.8 [degF] DR RODOLFO LUCAS MD [facility] 01-30-2022 06:48-0400 Heart rate 73 /min DR RODOLFO LUCAS MD [facility] Encounters Encounter Date Encounter Type Care Provider Facility Start: 01-25-2025 End: 01-25-2025 Emergency department patient visit Dr. Mireille Rosales MD Work Phone: -Emergency Department Work Phone: Start: 01-24-2025 End: 01-24-2025 Emergency department patient visit Dr. Mireille Rosales MD Work Phone: -Emergency Department Work Phone: Start: 01-22-2025 End: 01-22-2025 Emergency department patient visit Dr. Mireille Rosales MD Work Phone: -Emergency Department Work Phone: Start: 01-21-2025 End: 01-21-2025 Emergency department patient visit Dr. Mireille Rosales MD Work Phone: -Emergency Department Work Phone: Start: 01-20-2025 End: 01-20-2025 ambulatory MIREILLE ROSALES Facility:[facility] Start: 01-04-2025 End: 01-04-2025 ambulatory MIREILLE ROSALES Facility:[facility] Start: 12-18-2024 End: 12-18-2024 Patient encounter procedure Hamilton Vicente MD Work Phone: Urology Comment on above: Benign prostatic hyp erplasia with urinary retention (Primary Dx); Prostate cancer screening; Screening for genitourinary condition; Bladder wall thickening; Elevated prostate specific antigen (PSA) Start: 12-18-2024 End: 12-18-2024 ambulatory MIREILLE ROSALES Facility:[facility] Start: 12-10-2024 End: 12-10-[address] Mireille Rosales MD Work Phone: [facility] Work Phone: Start: 12-10-2024 End: 12-10-[address] Mireille Rosales MD -[facility] Work Phone: Start: 12-10-2024 End: 12-10-2024 ambulatory Mireille Rosales Facility:[facility] Start: 03-18-2024 End: 03-18-2024 ambulatory MIREILLE ROSALES Facility:[facility] Start: 03-18-2024 End: 03-18-2024 Patient encounter procedure Hamilton Vicente MD Work Phone: Urology Comment on above: Benign prostatic hyp erplasia with urinary retention (Primary Dx); Prostate cancer screening Start: 06-21-2023 Refill Hamilton miller MD Work Phone: Urology Comment on above: Refill Request Start: 01-29-2023 Refill Hamilton miller MD Work Phone: Urology Comment on above: Refill Request Start: 08-29-2022 Refill Hamilton miller MD Work Phone: Urology Comment on above: Refill Request Start: 04-23-2022 End: 04-23-2022 ambulatory [facility] Work Phone: Start: 04-23-2022 End: 04-23-2022 Patient encounter procedure [facility] Start: 04-05-2022 End: 04-05-2022 Patient encounter procedure Hamilton Vicente MD Work Phone: Urology Comment on above: Retention of urine ( Primary Dx); Benign prostatic hyperplasia with urinary retention Start: 04-04-2022 End: 04-04-2022 Patient encounter procedure Sussy Bishop MD Work Phone: General Surgery Comment on above: Status post skin and subcutaneous tissue surgery (Primary Dx) Start: 03-29-2022 End: 03-29-2022 Emergency department patient visit [facility] Start: 03-28-2022 End: 03-28-2022 Patient encounter procedure Sussy Bishop MD Work Phone: General Surgery Comment on above: Status post skin and subcutaneous tissue surgery (Primary Dx) Start: 03-26-2022 End: 03-26-2022 Patient encounter procedure Sussy Bishop MD Work Phone: General Surgery Comment on above: Status post skin and subcutaneous tissue surgery (Primary Dx); Dysuria Start: 03-24-2022 End: 03-24-2022 Evaluation and management of inpatient [facility] Start: 03-24-2022 End: 03-24-2022 Evaluation and management of inpatient [facility] Start: 03-19-2022 Telephone encounter Sussy Gutierrez MD Work Phone: General Surgery Comment on above: 03/23/2022 EXCISION O F INFECTED SEBACEOUS CYST [facility] Start: 03-19-2022 End: 03-19-2022 Patient encounter procedure Sussy Bishop MD Work Phone: General Surgery Comment on above: Infected sebaceous c yst (Primary Dx) Start: 01-30-2022 End: 01-30-[address] RODOLFO LUCAS MD [facility] Procedures Date Procedure Procedure Detail Performing Clinician Start: 01-25-2025 Urnls dip stick/tabl et reagent auto microscopy Dr. Mireille Rosales MD Work Phone: Start: 01-21-2025 Urnls dip stick/tabl et reagent auto microscopy Dr. Mireille Rosales MD Work Phone: Start: 12-18-2024 Urnls dip stick/tabl et rgnt auto w/o microscopy Hamilton Vciente MD Work Phone: Start: 12-10-2024 Prostate specific antigen measurement Dr. Mireille Rosales MD Work Phone: Comment on above: This test was perfor med using the [employer] tPSA method. Measured values of a patient sample can vary depending on the testing procedure used. PSA values determined on patient samples by different testing procedures cannot be used interchangeably. If there is a change in PSA assays while monitoring therapy, sequential testing should be performed to confirm baseline values. Start: 03-24-2022 Thyroidectomy Start: 07-17-2019 Adult depression screening assessment Sussy Bishop MD Work Phone: Start: 06-05-2019 Antibody screen Comment on above: Performed By: #### T [id number] #### [facility] [address] [place] [address] Start: 09-25-2007 Lipid 1996 panel - Serum or Plasma Hamilton Vicente MD Work Phone: Arthroplasty of knee DR BARON LUCAS MD Comment on above: RIGHT H/O: surgery Status post skin and subcutaneous tissue surgery Sussy Bishop MD Work Phone: H/O: surgery Status post skin and subcutaneous tissue surgery Sussy Bishop MD Work Phone: H/O: surgery Status post skin and subcutaneous tissue surgery Sussy Bishop MD Work Phone: Intracranial tumor (disorder) DR RODOLFO LUCAS MD Neck structure (body structure) DR RODOLFO LUCAS MD Plan of Treatment Date Care Activity Detail Author Start: 07-28-2025 End: 07-28-2025 Patient encounter procedure 07/28/2025 1:30 PM EST Office Visit Urology [address] [place] [id number] Hamilton Vicente MD [address] [place] [address] 6 MONTH FOLLOW UP, PSA PRIOR Urology Comment on above: 6 MONTH FOLLOW UP, P SA PRIOR Start: 05-03-2025 Influenza vaccination Influenz a Vaccine (Season Ended) [facility] Start: 01-25-2025 [facility] Start: 01-24-2025 [facility] Start: 01-24-2025 Removal of urinary catheter [facility] Start: 01-22-2025 [facility] Start: 01-21-2025 [facility] Start: 09-02-2024 Advance Directive Discussion Advance Directive Discussion [facility] Start: 05-03-2024 Covid-19 Vaccine ( season) Covid-19 Vaccine ( season) [facility] Start: 05-03-2024 Influenza vaccination Influenza Vacc ine (#1) [facility] Start: 09-02-2023 Advance Directive Discussion Advance Directive Discussion [facility] Start: 09-02-2023 Behavioral Health Screening Behavioral Health Screening [facility] Start: 05-03-2023 Covid-19 Vaccine ( season) Covid-19 Vaccine ( season) [facility] Start: 05-03-2023 Influenza vaccination [facility] Start: 10-13-2022 Urine microalbumin profile DTaP,Tdap,Td Vaccine (2 - Td or Tdap) [facility] Start: 09-02-2022 ADVANCE DIRECTIVE DISCUSSION ADVANCE DIRECTIVE DISCUSSION [facility] Start: 09-02-2022 DEPRESSION ASSESSMENT DEPRESSION ASS ESSMENT [facility] Start: 06-30-2022 DIABET[facility]CREEN [facility] Start: 06-30-2022 Diabetes Screening Diabetes Screenin g [facility] Start: 05-03-2022 Influenza vaccination INFLUENZA (#1) [facility] Start: 03-24-2022 Anes integ musc & nr v head neck&posterior trunk ANESTH HEAD/NECK/PTRUNK [facility] Work Phone: Start: 03-24-2022 Exploration penetrat ing wound spx neck EXPLORE WOUND NECK [facility] Work Phone: Start: 03-24-2022 Patient discharge [facility] Work Phone: Start: 03-24-2022 Admission procedure [facility] Work Phone: Start: 03-24-2022 Introduction of urin rajinder catheter [facility] Work Phone: Start: 03-24-2022 Application of intermittent pneumatic compression device [facility] Work Phone: Start: 03-24-2022 Following clinical pathway protocol [facility] Work Phone: Start: 03-24-2022 Ambulation without limitation [facility] Work Phone: Start: 03-24-2022 Assessment of risk o f venous thromboembolism [facility] Work Phone: Start: 03-24-2022 Catheterization of vein [facility] Work Phone: Start: 03-24-2022 Consultation for treatment [facility] Work Phone: Start: 03-24-2022 Incentive spirometry [facility] Work Phone: Start: 03-24-2022 Maintenance of drain age tube [facility] Work Phone: Start: 03-24-2022 Vital signs measurements [facility] Work Phone: Start: 03-24-2022 [facility] Work Phone: Start: 03-24-2022 Thyroidectomy Thyroidectomy (Not Applicable) [facility] Work Phone: Start: 09-02-2021 ADVANCE DIRECTIVE DISCUSSION ADVANCE DIRECTIVE DISCUSSION [facility] Start: 07-17-2020 Adult depression screening assessment DEPRESSION SCREENING [facility] Start: 02-20-2020 Pneumococcal Vaccine : 65+ (1 - PCV) Pneumococcal Vaccine: 65+ (1 - PCV) [facility] Start: 02-20-2020 Pneumococcal Vaccine : 65+ (1 of 1 - PCV) Pneumococcal Vaccine: 65+ (1 of 1 - PCV) [facility] Start: 02-20-2020 PNEUMOCOCCAL: 65+ (1 - PCV) PNEUMOCOCCAL: 65+ (1 - PCV) [facility] Start: 2015 RSV Vaccine (1 - 1-d ose 60+ series) RSV Vaccine (1 - 1-dose 60+ series) [facility] Start: 2015 RSV Vaccine (1 - Ris k 60-74 years 1-dose series) RSV Vaccine (1 - Risk 60-74 years 1-dose series) [facility] Start: 09-25-2012 Lipid 1996 panel - S mo or Plasma Lipid Screening [facility] Start: 09-25-2012 Lipid panel Lipid Screening [facility] Start: 09-25-2012 LIPID SCREEN LIPID SCREEN [facility] Start: 09-25-2012 PROSTATE CANCER SCRE ENING DISCUSSION PROSTATE CANCER SCREENING DISCUSSION [facility] Start: 09-25-2012 Prostate specific an tigen measurement Prostate Cancer Screening Discussion [facility] Start: 09-26-2007 Urine microalbumin profile [facility] Start: 2005 Pneumococcal Vaccine : 50+ (1 of 1 - PCV) Pneumococcal Vaccine: 50+ (1 of 1 - PCV) [facility] Start: 2005 SHINGRIX VACCINE (1 of 2) PERKINS GRIX VACCINE (1 of 2) [facility] Start: 02-20-2000 COLOGUARD (FIT-DNA) COLOGUARD (FIT-D NA) [facility] Start: 02-20-2000 Colonoscopy COLONOSCOPY [facility] Start: 02-20-2000 COLORECTAL CANCER SCREENING COLORECTAL CANCER SCREENING [facility] Start: 02-20-[address] COLONOGRAPHY [facility] Start: 02-20-2000 FECAL OCCULT BLOOD FECAL OCCULT BLOO D [facility] Start: 02-20-2000 Screening for malign ant neoplasm of colon [facility] Start: 02-20-2000 [facility] Start: 1973 ANNUAL PCP 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 ABDULKADIR DISEASE VISIT ANNUAL PCP TEAM CHRONIC DISEASE VISIT [facility] Start: 1973 Anxiety Screening Anxiety Screening [facility] Start: 1973 BP CONTROLLED (<130/80) BP CONTROLLE D (<130/80) [facility] Start: 1973 Depression Screening Depression Scre ening [facility] Start: 1973 HEPATITIS C SCREENING HEPATITIS C [facility] Start: 1973 Hepatitis C screening Hepatitis C [facility] Start: 1955 COVID-19 VACCINE (#1) COVID-19 VACCI NE (#1) [facility] CYSTO/TRUS ONLY CYSTO/TRUS ONLY Procedures Routine Benign prostatic hyperplasia with urinary retention Bladder wall thickening Ordered: 12/18/2024 [facility] Work Phone: Comment on above: Ordered: 12/18/2024 Patient Education [facility] Work Phone: Patient referral [facility] Work Phone: [facility] Immunizations Immunization Date Immunization Notes Care Provider Darinel puente 09-25-2007 tetanus and diphther ia toxoids, adsorbed, preservative free, for adult use (2 Lf of tetanus toxoid and 2 Lf of diphtheria toxoid) Sussy Bishop MD Work Phone: [facility] Work Phone: Payers Date Payer Category Payer Self-pay [id number] 2024 Unknown [id number] 2022 Unknown [facility]MED[facility] GENERIC MEDICAL GENERIC [id number] 2022-Present [phone] [address] [address] [place] [address] Indemnity [id number] 2022 Unknown HOSPITAL/MEDICAL GENERIC MEDICAL GENERIC [id number] 2022-Present [phone] [address] [address] [place] [address] Indemnity [id number] 2020 Medicare MEDICARE MEDICAR E A AND B [id number] 2020-Present [phone] [place] [address] Medicare [id number] 2020 Medicare [id number] 2020 Medicare [id number] Unknown [id number] Unknown [id number] Unknown [id number] Unknown [id number] Unknown [id number] Unknown [id number] Social History Date Type Detail Facility Start: 01-30-2022 End: 08-21-2023 Tobacco smoking status Never smoked tobacco (finding) [facility] Start: 1955 Sex Assigned At Male A [facility] Start: 03-19-2022 End: 03-18-2024 Alcohol intake Current drinker of alcohol (finding) [facility] Start: 1955 Sex Assigned At Not on file [facility] Start: 03-09-2022 End: 04-11-2022 Exposure to SARS-CoV-2 (event) Not sure [facility] Start: 03-23-2022 End: 03-29-2022 Tobacco smoking status NHIS Unknown if ever smoked [facility] Work Phone: Start: 07-03-2019 Spouse/ Signif icant Other [facility] Start: 04-07-2019 End: 08-21-2023 Tobacco use and exposure Smokeless tobacco non-user [facility] Start: 04-11-2022 End: 08-21-2023 History of Social function [facility] Work Phone: Start: 04-11-2022 End: 08-21-2023 Tobacco use panel [facility] Work Phone: PHQ2 Score 0 [facility] Work Phone: Start: 12-16-2024 Sex Male (finding) [facility] Medical Equipment Procedure Code Equipment Code Equipment Original Text Equipment Identifier Dates Thyroidectomy Plant polysaccha ride haemostatic agent, bioabsorbable ([id number] FDA Start: 03-24-2022 Cement Simplex P Bone Radiopaque Full Dose Sterile - [id number] Start: 06-29-2019 Component Triath silvia 4 Femoral Cemented Posterior Stabilize Knee Right - [id number] Start: 06-29-2019 Insert Triathlon 4 X3 9mm Tibial Posterior Stabilize Knee - [id number] Start: 06-29-2019 Component Triath silvia 35mm 10mm Patellar Asymmetric Knee - [id number] Start: 10-28-2019 Baseplate Triath silvia 4 [place] Cocr Tibial Total Stabilize Cemented Knee - [id number] Start: 06-29-2019 Goals Date Patient Goal Desired Activity /State Functional Status Date Assessment Result Facility 03-24-2022 Functional status Ambulates [facility] Work Phone: 01-30-2022 Functional Status Awake, Resting [facility] 07-02-2019 Are you deaf, or do you have serious difficulty hearing Yes 07/02/2019 4:15 PM Salome Bolden RN Yes [facility] 07-02-2019 Are you blind, or do you have serious difficulty seeing, even when wearing glasses No 07/02/2019 4:15 PM Salome Bolden RN No [facility] 07-02-2019 Do you have serious difficulty walking or climbing stairs Yes 07/02/2019 4:15 PM Salome Bolden RN Yes [facility] 07-02-2019 Do you have difficul ty dressing or bathing Yes 07/02/2019 4:15 PM Salome Bolden RN Yes [facility] 07-02-2019 Because of a physica l, mental, or emotional condition, do you have difficulty doing errands alone such as visiting a physician's office or shopping Yes 07/02/2019 4:15 PM Salome Bolden RN Yes [facility] Mental Status Date Assessment Result Facility 03-24-2022 Cognitive function Level Of Cons ciousness Awake;Alert;Appropriate;Fol lows Commands [facility] Work Phone: 03-24-2022 Cognitive function Voice/Name [facility] Work Phone: 01-30-2022 Mental Status Orientation Oriented x 4 [facility] 07-02-2019 Because of a physica l, mental, or emotional condition, do you have serious difficulty concentrating, remembering, or making decisions Yes 07/02/2019 4:15 PM EDSalome Dumont RN Yes [facility] Clinical Notes 01-30-2022 to 01-20-2025 Hamilton Vicente MD - 12/18/2024 10:28 AM Jamila Villa MA - 12/18/2024 10:01 AM Hamilton Lanier MD - 03/18/2024 11:31 AM Jamila Villa MA - 03/18/2024 11:09 AM EDT Note Date & Type Note Facility 01-20-2025 Note HNO ID: [id number] Author: HAMILTON VICENTE MD Service: ? Author Type: Physician Type: Progress Notes Filed: 01/20/2025 15:03 Note Text: [facility] UROLOGY PROCEDURE NOTE [facility]) FLEXIBLE CYSTOURETHROSCOPY AND TRUS UROLOGY OUTPATIENT PROCEDURE NOTE UNIVERSAL PROTOCOL AND SAFETY CHECKLISTUNIVERSAL PROTOCOL / SAFETY CHECKLIST Procedure to be Performed: Cysto/TRUS Indication: Bladder Wall Thickening Sign In: A Moment of CARE was completed. Personnel directly involved with the procedure wore the appropriate PPE (Personal Protective Equipment). Patient/Surrogate Stated/Verified: PATIENT VERIFIED(optional for EMERGENT procedures): Patient name, Date of , Relevant allergies and The intended procedure Time Out Communication: Intended patient and procedure match the source documents. Consent documented and matches the intended procedure. Sign Out: SIGN OUT (optional for EMERGENT procedures): All specimen containers correctly labeled. PHYSICIAN NOTE: FLEXIBLE CYSTOURETHROSCOPY AND TRANSRECTAL ULTRASOUND PROCEDURE DATE: January 20, 2025 FINDINGS Urethra: Normal Sphincter: Normal / Coapted Prostate: Enlarged Lateral Lobes / Enlarged Median Lobe Bladder Neck: High, Patent Urothelium: normal appearing, no evidence of tumor, no erythema, no foreign body Trabeculation: Yes Inflammation: No Diverticulum: Yes Ureteral Orifices: normal appearing, orthotopic position, clear efflux bilaterally Trigone: normal appearing Procedure: Flexible cystoscopy and transrectal ultrasound Anesthesia: Lidocaine Gel Procedure Details: In the cystoscopy suite, the patient was placed in the supine position, prepped, and draped in the usual manner. Lidocaine gel was placed per urethra for local anasthesia. No tamie-procedural antibiotics were given. Cystourethroscopy was performed using a flexible scope. Sterile technique was maintained throughout. The urethra, prostate, and bladder were inspected in their entirety. Specific findings from the procedure are detailed in the corresponding section of this note. The cystoscope was carefully removed. The patient was placed in the lateral decubitus position. Digital rectal exam was normal. The ultrasound probe was placed into the rectum and the prostate visualized. The prostate was visualized in sagittal and transverse planes and no hypoechoic lesion identified. The total prostate volume was 129 gm Complications: None Estimated Blood Loss: None Preoperative diagnosis: BPH with obstruction Postoperative diagnosis: Same Disposition / Plan: - I discussed the potential etiologies of his urinary symptoms which sound most consistent with an enlarged prostate - I discussed the treatment options which include medications or surgery - We discussed surgical options for BPH including simple prostatectomy, transurethral resection of prostate (TURP), greenlight photovaporization of the prostate (PVP), Rezum, Urolift, I-TIND, and HoLEP -We discussed the r/b with risks including bleeding, urinary retention, need for intermittent catheterization, worsened urinary symptoms, failure to improve symptoms, recurrent symptoms and retrograde ejaculation. - The decision for which surgical approach depends on patient preference, patient specific anatomy and size, and medical comorbidities - He would be a good candidate for HoLEP -He chose to discontinue Tamsulosin on his own. - We also discussed the addition of Finasteride if the patient would prefer maximal medical therapy - He will consider his options but prefers to remain off medication. - Check PSA in 6 months prior to follow up Hamilton Vicente MD, MS [facility] 12-18-2024 Note HNO ID: [id number] Author: HAMILTON VICENTE MD Service: ? Author Type: Physician Type: Progress Notes Filed: 02/01/2025 00:06 Note Text: [facility] [place] UROLOGY ESTABLISHED PATIENT CLINIC NOTE UROL [facility] PATIENT INFO: Norbert Goins AGE: [age] year old PCP: Mireille Rosales MD IMPRESSION/PLAN: 1. Benign prostatic hyperplasia with urinary retention - ICD9: 600.01, 788.20, ICD10: N40.1, R33.8 (primary diagnosis) -Patient had previously been on tamsulosin. Will not restart at this time since patient does not feel voiding symptoms are bothersome. Will further evaluate prostate lodgment and bladder wall thickening with cystoscopy/TRUS. 2. Prostate cancer screening - ICD9: V76.44, ICD10: Z12.5 Follow-up PSA as stated below 3. Screening for genitourinary condition - ICD9: V81.6, ICD10: Z13.89 4. Bladder wall thickening - ICD9: 596.89, ICD10: N32.89 -See above 5. Elevated prostate specific antigen (PSA) - ICD9: 790.93, ICD10: R97.20 - I discussed the implications of an elevated total PSA value. I discussed several possible causes of elevation, including BPH, prostatitis and prostate cancer. I also discussed causes of false elevations of PSA values, including sexual activity, bicycle/motorcycle riding, vigorous exercise, and taking vitamins containing biotin 48-72 hours prior to PSA test. We talked about approaches to management which would include surveillance with PSA rechecks at regular intervals, IsoPSA testing, MRI of prostate followed by biopsy, Transperineal biopsy, or standard TRUS Bx. After discussing the pros and cons of each approach we decided to proceed with obtaining an IsoPSA test, along with a repeat total and free PSA I explained that the iso-PSA test provides a clearer picture to determine if the elevation is caused by high-grade prostate cancer. In clinical studies of 429 patients undergoing biopsy, IsoPSA test had a sensitivity of 93% and specificity of 47% for predicting the presence of high grade prostate cancer (Cosme>=7) on biopsy. In that study, IsoPSA had a negative predictive value of 92%%, meaning that 92% of patients with IsoPSA Indicies <=6.0 did not have a high-grade cancer (Mcpherson>=7) detected on biopsy. REASON FOR VISIT: Elevated PSA, BPH HPI: Norbert Goins returns for continuing evaluation and management. Last seen March 18, 2024 Was recently told that his PSA was elevated, now at 4.58. Known history of BPH (without voiding dysfunction), and recent CT shows bladder wall thickening. INTERNATIONAL PROSTATE SYMPTOM SCORE (I-PSS) 1)INCOMPLETE EMPTYING Over the past month, how often have you had a sensation of not emptying your bladder completely after you finished urinating? SCORE: 1- Less than 1 time in 5 2)FREQUENCY Over the past month, how often have you had to urinate again less than two hours after you finished urinating? SCORE: 0- Not at all 3)INTERMITTENCY Over the past month, how often have you found you stopped and started again several times when you urinated? SCORE: 1- Less than 1 time in 5 4)URGENCY Over the past month, how often have you found it difficult to postpone urination? SCORE: 1- Less than 1 time in 5 5)WEAK STREAM Over the past month, how often have you had a weak stream? SCORE: 1- Less than 1 time in 5 6)STRAINING Over the past month, how often have you had to push or strain to begin urination SCORE: 0- Not at all 7)NOCTURIA Over the past month, how many times did you most typically get up to urinate from the time you went to bed at night until the time you get up in the morning? SCORE:1 TOTAL I-PSS SCORE: 5 QUALITY OF LIFE DUE TO URINARY SYMPTOMS If you were to spend the rest of yur life with your urinary condition just the way it is now, how would you feel about that? 1- Pleased UROLOGICAL DATA: Urinalysis: GLUCOSE UA (POCT) Negative 12/18/2024 BILIRUBIN UA (POCT) Small 12/18/2024 KETONE UA (POCT) 40 12/18/2024 SPECIFIC GRAVITY UA (POCT) 1.020 12/18/2024 HEMOGLOBIN/BLOOD UA (POCT) Negative 12/18/2024 PH UA (POCT) 6.0 12/18/2024 PROTEIN UA (POCT) Negative 12/18/2024 UROBILINOGEN UA (POCT) 1.0 12/18/2024 NITRITE UA (POCT) Negative 12/18/2024 LEUKOCYTES UA (POCT) Trace 12/18/2024 COLOR UA (POCT) Yellow 12/18/2024 CLARITY UA (POCT) Clear 12/18/2024 Post Void Residual, Ultrasound: 0 cc, empties well OTHER DATA: PSA Date Value 01/04/2025 4.02 ng/mL 08/18/2019 2.70 PSA, Percent Free (%) Date Value 01/04/2025 29 IsoPSA (no units) Date Value 01/04/2025 6.1 Creatinine Date Value Ref Range Status 06/30/2019 0.86 0.73 - 1.22 mg/dL Final 06/05/2019 0.93 0.73 - 1.22 mg/dL Final 05/04/2001 0.7 0.7 - 1.4 mg/dL Final 05/03/2001 0.6 (A) 0.7 - 1.4 mg/dL Final No results found for: TESTOST, TESTFREE PMHx/PSHx: see above, otherwise unchanged Rx: reviewed and unchanged ROS: see above, otherwise unchanged Labs: None Imag (more content not included)... [facility] 12-18-2024 History of Present illness Narrative Images from the original note were not included. [facility]: Norbert Goins AGE: [age] year old PCP: Mireille Rosales MD IMPRESSION/PLAN: 1. Benign prostatic hyperplasia with urinary retention - ICD9: 600.01, 788.20, ICD10: N40.1, R33.8 (primary diagnosis) -Patient had previously been on tamsulosin. Will not restart at this time since patient does not feel voiding symptoms are bothersome. Will further evaluate prostate lodgment and bladder wall thickening with cystoscopy/TRUS. 2. Prostate cancer screening - ICD9: V76.44, ICD10: Z12.5 Follow-up PSA as stated below 3. Screening for genitourinary condition - ICD9: V81.6, ICD10: Z13.89 4. Bladder wall thickening - ICD9: 596.89, ICD10: N32.89 -See above 5. Elevated prostate specific antigen (PSA) - ICD9: 790.93, ICD10: R97.20 - I discussed the implications of an elevated total PSA value. I discussed several possible causes of elevation, including BPH, prostatitis and prostate cancer. I also discussed causes of false elevations of PSA values, including sexual activity, bicycle/motorcycle riding, vigorous exercise, and taking vitamins containing biotin 48-72 hours prior to PSA test. We talked about approaches to management which would include surveillance with PSA rechecks at regular intervals, IsoPSA testing, MRI of prostate followed by biopsy, Transperineal biopsy, or standard TRUS Bx. After discussing the pros and cons of each approach we decided to proceed with obtaining an IsoPSA test, along with a repeat total and free PSA I explained that the iso-PSA test provides a clearer picture to determine if the elevation is caused by high-grade prostate cancer. In clinical studies of 429 patients undergoing biopsy, IsoPSA test had a sensitivity of 93% and specificity of 47% for predicting the presence of high grade prostate cancer (Cosme>=7) on biopsy. In that study, IsoPSA had a negative predictive value of 92%%, meaning that 92% of patients with IsoPSA Indicies <=6.0 did not have a high-grade cancer (Cosme>=7) detected on biopsy. REASON FOR VISIT: Elevated PSA, BPH HPI: Norbert Goins returns for continuing evaluation and management. Last seen March 18, 2024 Was recently told that his PSA was elevated, now at 4.58. Known history of BPH (without voiding dysfunction), and recent CT shows bladder wall thickening. INTERNATIONAL PROSTATE SYMPTOM SCORE (I-PSS) 1)INCOMPLETE EMPTYING Over the past month, how often have you had a sensation of not emptying your bladder completely after you finished urinating? SCORE: 1- Less than 1 time in 5 2)FREQUENCY Over the past month, how often have you had to urinate again less than two hours after you finished urinating? SCORE: 0- Not at all 3)INTERMITTENCY Over the past month, how often have you found you stopped and started again several times when you urinated? SCORE: 1- Less than 1 time in 5 4)URGENCY Over the past month, how often have you found it difficult to postpone urination? SCORE: 1- Less than 1 time in 5 5)WEAK STREAM Over the past month, how often have you had a weak stream? SCORE: 1- Less than 1 time in 5 6)STRAINING Over the past month, how often have you had to push or strain to begin urination SCORE: 0- Not at all 7)NOCTURIA Over the past month, how many times did you most typically get up to urinate from the time you went to bed at night until the time you get up in the morning? SCORE:1 TOTAL I-PSS SCORE: 5 QUALITY OF LIFE DUE TO URINARY SYMPTOMS If you were to spend the rest of yur life with your urinary condition just the way it is now, how would you feel about that? 1- Pleased UROLOGICAL DATA: Urinalysis: GLUCOSE UA (POCT) Negative 12/18/2024 BILIRUBIN UA (POCT) Small 12/18/2024 KETONE UA (POCT) 40 12/18/2024 SPECIFIC GRAVITY UA (POCT) 1.020 12/18/2024 HEMOGLOBIN/BLOOD UA (POCT) Negative 12/18/2024 PH UA (POCT) 6.0 12/18/2024 PROTEIN UA (POCT) Negative 12/18/2024 UROBILINOGEN UA (POCT) 1.0 12/18/2024 NITRITE UA (POCT) Negative 12/18/2024 LEUKOCYTES UA (POCT) Trace 12/18/2024 COLOR UA (POCT) Yellow 12/18/2024 CLARITY UA (POCT) Clear 12/18/2024 Post Void Residual, Ultrasound: 0 cc, empties well OTHER DATA: PSA Date Value 01/04/2025 4.02 ng/mL 08/18/2019 2.70 PSA, Percent Free (%) Date Value 01/04/2025 29 IsoPSA (no units) Date Value 01/04/2025 6.1 Creatinine Date Value Ref Range Status 06/30/2019 0.86 0.73 - 1.22 mg/dL Final 06/05/2019 0.93 0.73 - 1.22 mg/dL Final 05/04/2001 0.7 0.7 - 1.4 mg/dL Final 05/03/2001 0.6 (A) 0.7 - 1.4 mg/dL Final No results found for: TESTOST, TESTFREE PMHx/PSHx: see above, otherwise unchanged Rx: reviewed and unchanged ROS: see above, otherwise unchanged Labs: None Imaging: [facility] Imaging Services [address] [place] [address] Abdomen/Pelvis WITH Contrast MR#: [id number] Acct: [id number] Name: BUSTERLALITACHRISTIANO Emery Rep #: [id number] : 1955 M 67 From: Moose Emery PCP: Dr. Boni Rosales MD Status: REG CLI Study: Abdomen/Pelvis WITH Contrast Date of Exam: 08/24 Exam# [id number] Ordering Dr: Jordin Liao MD STUDY: CT Abdomen And Pelvis W/ Contrast Injection 01/11/2023 4:48 PM REASON FOR EXAM: Male, 67 years old. right to left lower abd pain x 3-4 weeks. worsened this past week. nausea. known enlarged prostate. Colonoscopy 1 year ago. pain ABD PAIN Individualized dose optimization techniques were used for this CT. COMPARISON: 03.24.18. TECHNIQUE: CT Abdomen And Pelvis W/ Contrast Injection Oral and amp; IV Gastrografin and amp; 100mL Isovue-300 __ FINDINGS: There are atherosclerotic calcifications of visualized coronary arteries. The visualized portions of the heart are within normal limits. Stable 25 mm hypodensity in the right lobe of the liver. ACR White Paper guidelines (Sheridan, et al. JACR 2017; 14(11):2942-4245.) suggest no follow-up is necessary. Normal gallbladder and extrahepatic biliary system. Normal spleen. Normal pancreas. Normal bilateral adrenal glands. No acute findings of the right kidney. No acute findings of the left kidney. Normal visualized stomach. Normal small intestine. There are multiple colonic diverticula consistent with diverticulosis. There is non-visualization of the appendix. There are calcifications of the abdominal aorta. This is consistent for atherosclerotic disease. There is NO abdominal aortic aneurysm. Vascular workup can be obtained based on clinical correlation. Normal inferior vena cava. Subcentimeter mesenteric lymph nodes. Urinary bladder wall has wall thickening. This can be related to a partially contractile state. However, a cystitis is not excluded. Urinalysis should be performed in an effort to exclude cystitis. There is enlargement of the prostate gland.There are prostatic calcifications. There is an umbilical hernia containing fat. There are diffuse degenerative changes of the visualized lumbar spine. There is bilateral neural foraminal stenosis at L4-5 and L5-S1.There is a left-sided inguinal hernia containing adipose tissue. __ CT/Abdomen/Pelvis WITH Contrast IMPRESSION: (NOT LISTED IN ORDER OF SIGNIFICANCE) Stable 25 mm hypodensity in the right lobe of the liver. ACR White Paper guidelines (Sheridan, et al. JACR 2017; 14(11):2036-4809.) suggest no follow-up is necessary. There is enlargement of the prostate gland. There is an umbilical hernia containing fat. Urinary bladder wall has wall thickening. This can be related to a partially contractile state. However, a cystitis is not excluded. Urinalysis should be performed in an effort to exclude cystitis. There are multiple colonic diverticula consistent with diverticulosis. Other findings as above. Electronically Signed: Moose Castellon MD at 16:54 EDT , MEDICATIONS: Current Outpatient Medications Medication Sig losartan (COZAAR) 100 mg tablet Take 1 tablet by mouth once daily. tamsulosin (FLOMAX) 0.4 mg Take 2 capsules by mouth daily at bedtime. acetaminophen (TYLENOL ARTHRITIS PAIN) 650 mg CR tablet Take 650 mg by mouth every 8 hours as needed. CPAP aspirin 325 mg ORAL tablet Take 325 mg by mouth as needed. No current facility-administered medications for this visit. PHYSICAL EXAM: Ht 167.6 cm (5' 6) Wt 133.8 kg (295 lb) BMI 47.61 kg/m Body mass index is 47.61 kg/m . General: Well masculinized, well nourished male Psych: euthymic, NAD Neuro: A&Ox3 Inguinal: No lesions, adenopathy, or hernias Phallus: normal, circumcised, no lesions Meatus: orthotopic, patent, no discharge Scrotum: no lesions, normal rugae Testes: Descended, nontender, and no masses bilaterally SUNSHINE reveals a large prostate approximately 80 to 100 g, nontender, normal anal sphincter tone FOLLOW UP: Return for cystoscopy/TRUS Hamilton Vicente M.D, MS Associate Staff [facility] [place] [facility] Post void bladder scan completed. 0 ml residual remaining. Results reported to Dr. Vicente documented in this encounter [facility] 12-18-2024 Note HNO ID: [id number] Author: JAMILA HUNTER MA Service: ? Author Type: Slat Basket Maker Helper Machine Type: Progress Notes Filed: 02/01/2025 00:06 Note Text: Post void bladder scan completed. 0 ml residual remaining. Results reported to Dr. Vicente [facility] 03-18-2024 Note HNO ID: [id number] Author: HAMILTON VICENTE MD Service: ? Author Type: Physician Type: Progress Notes Filed: 03/18/2024 11:42 Note Text: [facility] [place] [facility] INFO: Norbert Goins 69 year old PCP: Mireille Rosales MD IMPRESSION/PLAN: 1. Benign prostatic hyperplasia with urinary retention - ICD9: 600.01, 788.20, ICD10: N40.1, R33.8 (primary diagnosis) -At this point patient is really asymptomatic and does not have any major complaints such as the previous urinary retention he had presented with. Since he is rarely taking tamsulosin have asked him to discontinue the medication altogether. He is in agreement. He may contact me in the future if he develops symptoms. 2. Prostate cancer screening - ICD9: V76.44, ICD10: Z12.5 -Patient is due for PSA testing. He plans to see his PCP for general exam in the very near future and we will have him obtain a PSA. Visit complexity inherent to evaluation and management associated with medical care services that serve as the continuing focal point for all needed health care services and/or with medical care services that are part of ongoing care related to a patient?s single, serious condition or a complex condition. REASON FOR VISIT: BPH management HPI: Norbert Goins returns for continuing evaluation and management. Overall he feels to be doing well and does not present with any urinary complaints. He periodically takes tamsulosin 0.4 as needed, about 1 time a month, mostly if he's having more nocturia. I had originally asked him to increase his dose to 0.8 mg but he failed to do so. Overall feels that he's voiding fine without medication. INTERNATIONAL PROSTATE SYMPTOM SCORE (I-PSS) 1)INCOMPLETE EMPTYING Over the past month, how often have you had a sensation of not emptying your bladder completely after you finished urinating? SCORE: 1- Less than 1 time in 5 2)FREQUENCY Over the past month, how often have you had to urinate again less than two hours after you finished urinating? SCORE: 1- Less than 1 time in 5 3)INTERMITTENCY Over the past month, how often have you found you stopped and started again several times when you urinated? SCORE: 1- Less than 1 time in 5 4)URGENCY Over the past month, how often have you found it difficult to postpone urination? SCORE: 1- Less than 1 time in 5 5)WEAK STREAM Over the past month, how often have you had a weak stream? SCORE: 1- Less than 1 time in 5 6)STRAINING Over the past month, how often have you had to push or strain to begin urination SCORE: 0- Not at all 7)NOCTURIA Over the past month, how many times did you most typically get up to urinate from the time you went to bed at night until the time you get up in the morning? SCORE:1 TOTAL I-PSS SCORE: 6 QUALITY OF LIFE DUE TO URINARY SYMPTOMS If you were to spend the rest of yur life with your urinary condition just the way it is now, how would you feel about that? 1- Pleased UROLOGICAL DATA: Patient was unable to provide urine specimen today. Post Void Residual, Ultrasound: 0 cc, empties well OTHER DATA: PSA (no units) Date Value 08/18/2019 2.70 No results found for: ISOPSA Creatinine Date Value Ref Range Status 06/30/2019 0.86 0.73 - 1.22 mg/dL Final 06/05/2019 0.93 0.73 - 1.22 mg/dL Final 05/04/2001 0.7 0.7 - 1.4 mg/dL Final 05/03/2001 0.6 (A) 0.7 - 1.4 mg/dL Final No results found for: TESTOST, TESTFREE PMHx/PSHx: see above, otherwise unchanged Rx: reviewed and unchanged ROS: see above, otherwise unchanged Labs: None Imaging: None MEDICATIONS: Current Outpatient Medications Medication Sig tamsulosin (FLOMAX) 0.4 mg Take 2 capsules by mouth daily at bedtime. acetaminophen (TYLENOL ARTHRITIS PAIN) 650 mg CR tablet Take 650 mg by mouth every 8 hours as needed. CPAP aspirin 325 mg ORAL tablet Take 325 mg by mouth as needed. No current facility-administered medications for this visit. PHYSICAL EXAM: Ht 167.6 cm (5' 6) Wt (!) 138.8 kg (306 lb) BMI 49.39 kg/m? Body mass index is 49.39 kg/m?. General: Well masculinized, well nourished male Psych: euthymic, NAD Neuro: AANDOx3 Inguinal: No lesions, adenopathy, or hernias exam deferred SUNSHINE deferred FOLLOW UP: as needed Hamilton Vicente M.D, MS Associate Staff [facility] 03-18-2024 History of Present illness Narrative Images from the original note were not included. [facility] [place] [facility] ESTABLISHED PATIENT CLINIC NOTE [facility] PATIENT INFO: Norbert Goins 69 year old PCP: Mireille Rosales MD IMPRESSION/PLAN: 1. Benign prostatic hyperplasia with urinary retention - ICD9: 600.01, 788.20, ICD10: N40.1, R33.8 (primary diagnosis) -At this point patient is really asymptomatic and does not have any major complaints such as the previous urinary retention he had presented with. Since he is rarely taking tamsulosin have asked him to discontinue the medication altogether. He is in agreement. He may contact me in the future if he develops symptoms. 2. Prostate cancer screening - ICD9: V76.44, ICD10: Z12.5 -Patient is due for PSA testing. He plans to see his PCP for general exam in the very near future and we will have him obtain a PSA. Visit complexity inherent to evaluation and management associated with medical care services that serve as the continuing focal point for all needed health care services and/or with medical care services that are part of ongoing care related to a patient s single, serious condition or a complex condition. REASON FOR VISIT: BPH management HPI: Norbert Goins returns for continuing evaluation and management. Overall he feels to be doing well and does not present with any urinary complaints. He periodically takes tamsulosin 0.4 as needed, about 1 time a month, mostly if he's having more nocturia. I had originally asked him to increase his dose to 0.8 mg but he failed to do so. Overall feels that he's voiding fine without medication. INTERNATIONAL PROSTATE SYMPTOM SCORE (I-PSS) 1)INCOMPLETE EMPTYING Over the past month, how often have you had a sensation of not emptying your bladder completely after you finished urinating? SCORE: 1- Less than 1 time in 5 2)FREQUENCY Over the past month, how often have you had to urinate again less than two hours after you finished urinating? SCORE: 1- Less than 1 time in 5 3)INTERMITTENCY Over the past month, how often have you found you stopped and started again several times when you urinated? SCORE: 1- Less than 1 time in 5 4)URGENCY Over the past month, how often have you found it difficult to postpone urination? SCORE: 1- Less than 1 time in 5 5)WEAK STREAM Over the past month, how often have you had a weak stream? SCORE: 1- Less than 1 time in 5 6)STRAINING Over the past month, how often have you had to push or strain to begin urination SCORE: 0- Not at all 7)NOCTURIA Over the past month, how many times did you most typically get up to urinate from the time you went to bed at night until the time you get up in the morning? SCORE:1 TOTAL I-PSS SCORE: 6 QUALITY OF LIFE DUE TO URINARY SYMPTOMS If you were to spend the rest of yur life with your urinary condition just the way it is now, how would you feel about that? 1- Pleased UROLOGICAL DATA: Patient was unable to provide urine specimen today. Post Void Residual, Ultrasound: 0 cc, empties well OTHER DATA: PSA (no units) Date Value 08/18/2019 2.70 No results found for: ISOPSA Creatinine Date Value Ref Range Status 06/30/2019 0.86 0.73 - 1.22 mg/dL Final 06/05/2019 0.93 0.73 - 1.22 mg/dL Final 05/04/2001 0.7 0.7 - 1.4 mg/dL Final 05/03/2001 0.6 (A) 0.7 - 1.4 mg/dL Final No results found for: TESTOST, TESTFREE PMHx/PSHx: see above, otherwise unchanged Rx: reviewed and unchanged ROS: see above, otherwise unchanged Labs: None Imaging: None MEDICATIONS: Current Outpatient Medications Medication Sig tamsulosin (FLOMAX) 0.4 mg Take 2 capsules by mouth daily at bedtime. acetaminophen (TYLENOL ARTHRITIS PAIN) 650 mg CR tablet Take 650 mg by mouth every 8 hours as needed. CPAP aspirin 325 mg ORAL tablet Take 325 mg by mouth as needed. No current facility-administered medications for this visit. PHYSICAL EXAM: Ht 167.6 cm (5' 6) Wt (!) 138.8 kg (306 lb) BMI 49.39 kg/m Body mass index is 49.39 kg/m . General: Well masculinized, well nourished male Psych: euthymic, NAD Neuro: A&Ox3 Inguinal: No lesions, adenopathy, or hernias exam deferred SUNSHINE deferred FOLLOW UP: as needed Hamilton Vicente M.D, MS Associate Staff [facility] [place] [facility] documented in this encounter [facility] 03-18-2024 Nurse Note Post void bladder scan completed. 0 ml residual remaining. Results reported to Dr. Vicente [facility] 03-18-2024 Nurse Note Post void bladder scan completed. 0 ml residual remaining. Results reported to Dr. Vicente documented in this encounter [facility] 06-24-2023 Miscellaneous Notes Images from the original note were not included. Hamilton Vicente MD Klopp, Heather A, RN 2 hours ago (2:15 PM) Medication refilled for 30 days with 1 refill, please schedule patient for follow-up before end of year. Please Assist with follow up appt before the end of they year for any further refills. Thanks. Spoke with patient and he picked up a refill today. He has not been seen since 04-05-2022 and I tried to book appointment and he is really busy right now. Takes the Flomax daily. He feels it helps. Please advise if filling or refusing. HANDY 04/05/2022 NOV none scheduled documented in this encounter [facility] 01-29-2023 Miscellaneous Notes Patient phones requesting refills as follows: Requested Prescriptions Pending Prescriptions Disp Refills tamsulosin (FLOMAX) 0.4 mg 30 capsule 3 Sig: Take 1 capsule by mouth daily at bedtime. Please review and advise. Pharmacy on file is correct. Qamar Patiño documented in this encounter [facility] 08-29-2022 Miscellaneous Notes Pharmacy verified in [facility] Patient has been identified by name and date of : Yes Patient aware RX will be sent to pharmacy. No need to notify patient. Patient phones for refill(s): Requested Prescriptions Pending Prescriptions Disp Refills tamsulosin (FLOMAX) 0.4 mg 30 capsule 3 Sig: Take 1 capsule by mouth daily at bedtime. Date of last office visit : 04/05/2022 Date of next office visit : Visit date not found Last 2 Encounter Wt Readings: Date: Wt: 04/11/2022 132 kg (291 lb) 04/05/2022 134.3 kg (296 lb) Not applicable Please advise. Latricia Rai documented in this encounter [facility] 04-05-2022 History of Present illness Narrative FOLLOW UP VISIT NAME: Norbert Emery [facility] NO.: [id number] DATE OF SERVICE: 04/04/2022 : 1955 REFERRING PHYSICIAN: Mireille Rosales MD Norbert is s/p excision of skin lesion of right shoulder/base of neck area VITALS: Blood pressure 130/88, pulse 91, temperature 36.5 C (97.7 F), height 167.6 cm (5' 6), weight 134.5 kg (296 lb 9.6 oz), SpO2 95 %. On examination, wound is granulating well, but there is fibrinous exudate and senescent granulation tissue present. This was debrided. Assessment IMPRESSION: status post excision of infected sebaceous cyst - open wound PLAN: Patient to follow up with me next week Diagnoses: (Z98.890) Status post skin and subcutaneous tissue surgery (primary encounter diagnosis) I have confirmed and edited as necessary, the PFSH and ROS obtained by others. Sussy Bishop MD documented in this encounter [facility] 04-05-2022 History of Present illness Narrative Images from the original note were not included. [facility] ESTABLISHED PATIENT CLINIC NOTE PATIENT INFO: Norbert Goins 67 year old PCP: Mireille Rosales MD UROLOGY DIAGNOSES: 1. Retention of urine - ICD9: 788.20, ICD10: R33.9 (primary diagnosis) 2. Benign prostatic hyperplasia with urinary retention - ICD9: 600.01, 788.20, ICD10: N40.1, R33.8 HPI: Norbert Goins returns for continuing evaluation and management. He now returns for voiding trial and possible removal of his Castaneda catheter, now approximately 1 week after patient went into retention after undergoing shoulder surgery with general anesthesia. PMHx/PSHx: see above, otherwise unchanged Rx: reviewed and unchanged GUROS: has felt urine output has been slow for last couple years, usually having to void 1-2 times per night ROS: see above, otherwise unchanged Labs: None Imaging: None MEDICATIONS: Current Outpatient Medications Medication Sig tamsulosin (FLOMAX) 0.4 mg Take 1 capsule by mouth daily at bedtime. acetaminophen (TYLENOL ARTHRITIS PAIN) 650 mg CR tablet Take 650 mg by mouth every 8 hours as needed. CPAP aspirin 325 mg ORAL tablet Take 325 mg by mouth as needed. No current facility-administered medications for this visit. PHYSICAL EXAM: Ht 167.6 cm (5' 6) Wt 134.3 kg (296 lb) BMI 47.78 kg/m Body mass index is 47.78 kg/m . General: Well masculinized, well nourished male Psych: euthymic, NAD Neuro: A&Ox3 examination deferred UROLOGICAL DATA: Approximately 225 cc of water was infused into the patient's bladder. Castaneda catheter was removed by Sanjay Cruz MA. Patient was able to void approximate 150 cc. 07/24/19 PROSTATE ULTRASOUND The prostate sonogram was obtained via transrectal approach. The gland is moderately enlarged, measuring 68 cc. There is a homogeneous echo pattern throughout the prostate gland. Echogenic foci within the gland consistant with clacifications were noted. There is no focal lesion within the pereferal zone of the prostate gland. IMPRESSION/PLAN: 1. Retention of urine - ICD9: 788.20, ICD10: R33.9 (primary diagnosis) -Patient appears to be able to void at this time. Castaneda catheter removed. 2. Benign prostatic hyperplasia with urinary retention - ICD9: 600.01, 788.20, ICD10: N40.1, R33.8 -Remain on Flomax 0.4 mg daily. With patient's significant BPH and prostate volume of approximately 70 cc, he may benefit from finasteride, if Flomax is ineffective. Reevaluate in 4 weeks. Hamilton Vicente M.D, MS Associate Staff [facility] [place] [facility] documented in this encounter [facility] 03-28-2022 History of Present illness Narrative FOLLOW UP VISIT NAME: Norbert Emery [facility] NO.: [id number] DATE OF SERVICE: 03/28/2022 : 1955 REFERRING PHYSICIAN: MD Norbert Guzman is s/p excision of infected sebaceous cyst of right shoulder/base of neck area. VITALS: Blood pressure 140/84, pulse 97, temperature 36.6 C (97.8 F), height 167.6 cm (5' 6), weight 133.8 kg (295 lb), SpO2 96 %. On examination, the wound is granulating well. No further wound packing required. Assessment IMPRESSION: open wound s/p excision of infected sebaceous cyst PLAN: Patient to clean area gently with soap and water with soft wash clothe. Cover area with gauze. Do this on daily basis Follow up in a week. Diagnoses: (Z98.890) Status post skin and subcutaneous tissue surgery (primary encounter diagnosis) I have confirmed and edited as necessary, the PFSH and ROS obtained by others. Sussy Bishop MD documented in this encounter [facility] 03-26-2022 History of Present illness Narrative FOLLOW UP VISIT NAME: Norbert Emery [facility] NO.: [id number] DATE OF SERVICE: 03/26/2022 : 1955 REFERRING PHYSICIAN: Mireille Rosales MD Norbert is status post excision of subcutaneous mass that is probably an infected sebaceous cyst of the skin and this was done on Saturday, March 23. He was doing fine, until several hours later, he noted copious bleeding at the site. He went to the local ED and attempts to control the bleeding failed in the ED and he was brought to the OR by Dr. Triplett for hemostasis. This was done, but patient subsequently had post anesthesia urinary retention and required Castaneda placed. He presents with Castaneda placed and wound check this morning. He notes that in the past he was prescribed Flomax but didn't want to continue it due to side effects. He states that he has dysuria and would like a prescription for antibiotics. VITALS: There were no vitals taken for this visit. On examination, wound site is clean and dry. No active bleeding is noted. Wound is repacked. Assessment IMPRESSION: s/p excision of subcutaneous skin lesion, urinary retention probably due to prostatism PLAN: Follow up later this week. Prescription written for Bactrim Diagnoses: (R30.0) Dysuria (primary encounter diagnosis) Sussy Bishop MD documented in this encounter [facility] 03-26-[address] Bishop roomed patient per her request. Alisson Becah LPN documented in this encounter [facility] 03-19-2022 History of Present illness Narrative HISTORY AND PHYSICAL Norbert Goins 1955 REFERRING PHYSICIAN: MD Kole CHIEF COMPLAINT: Consult (Right sholder) HPI: The patient is a 67 year old male presents with complaint of pain and swelling of skin mass of right shoulder - base of neck area. He has noted a skin lesion there for years, however in the past few weeks it has grown larger. He states that his tried to squeeze the contents out, but could not and the area became more reddened and tender. He notes increased swelling also. He denies fevers. He denies cigarettes use. He denies diabetes. 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 CPAP aspirin 325 mg ORAL tablet Take 325 mg by mouth as needed. psyllium husk (METAMUCIL ORAL) Take by mouth. (Patient not taking: Reported on 03/19/2022 ) docusate sodium (COLACE) 100 mg capsule Take 1 capsule by mouth once daily as needed. (Patient not taking: Reported on 03/19/2022 ) ergocalciferol, vitamin D2, (VITAMIN D2 ORAL) Take by mouth once daily. (Patient not taking: Reported on 03/19/2022 ) ALLERGIES: Patient has no known allergies. PERSONAL HISTORY: Social History Tobacco Use Smoking status: Never Smoker Smokeless tobacco: Never Used Vaping Use Vaping Use: Never used Substance Use Topics Alcohol use: Yes Comment: rare Drug use: No FAMILY HISTORY Problem Relation Age of Onset Colon Cancer Mother Diabetes Mother No Known Problems Father Cancer Sister bladder The review of systems data was entered by the nurse and reviewed by me Nursing Notes: Alisson Beach LPN 03/19/2022 9:57 AM Signed REVIEW OF SYSTEMS: General: The patient denies fatigue, denies weight loss, denies weight gain, denies feeling hot, and denies feelings of cold. Eyes: The patient denies glaucoma, denies eye injury/surgery, wears glasses or contacts. Ear/Nose/Throat: The patient denies allergies, denies hayfever, denies ear infections, and denies bloody noses. Cardiovascular: The patient denies chest pain, denies heart disease, denies high blood pressure,denies cardiac stent, denies prior heart attack, denies irregular heart beat, denies high cholesterol, denies poor circulation, denies heart failure, other cardiac issues, denies claudication, denies cold feet, denies peripheral arterial stent. Respiratory: The patient denies tuberculosis, denies pneumonia, denies frequent cough, denies pulmonary embolism, denies shortness of breath, and denies coughing up blood. Gastrointestinal: The patient denies difficulty swallowing, denies acid reflux, denies ulcers, denies vomiting, denies jaundice/hepatitis, denies gallbladder problems, denies black or tarry stools, denies hemorrhoids, denies bleeding from rectum, denies diverticulitis, denies constipation, denies diarrhea, denies loss of stool control, and denies hernias. Kidney/Bladder: The patient denies kidney stones, denies urine infections, and denies bloody urine. Skin: The patient denies a history of skin cancer, denies bleeding/changing moles, and denies a history of skin rash. Neurologic: The patient denies a history of epilepsy/convulsions, denies headaches, denies head/spinal injuries, and denies stroke/TIA. Psychiatric: The patient denies psychiatric medications, denies depression, and denies voices, denies substance abuse. Endocrine: The patient denies thyroid disorders, denies diabetes, and denies hormonal problems. Hematologic: The patient denies a history of bruising, denies bleeding, and denies anemia, denies blood clots. Infections: The patient denies a history of measles and mumps, denies rheumatic fever, and denies sexually transmitted diseases. Musculoskeletal: The patient denies back pain/injury, denies back problems, denies sciatica, notes knee/foot trouble, denies arthritis, or denies gout. When was patient's last Mammogram screening? N/A Last Colonoscopy: 2019 Alisson Beach LPN PHYSICAL EXAMINATION: General: The patient is 67 year old male, well nourished, well hydrated in no acute distress. The patient is oriented to time, place, and person. VITALS: Blood pressure 166/110, pulse 88, temperature 36.6 C (97.8 F), temperature source Temporal, resp. rate 14, height 167.6 cm (5' 6), weight (!) 137 kg (302 lb), SpO2 97 %. Body mass index is 48.74 kg/m . Head: Normal cephalic, atraumatic Eyes: pupils are equally round, sclera are clear/anicteric Neck is supple with no tracheal deviation Respiratory: Normal respiratory excursion and pattern. Abdominal exam: soft and obese and benign Back/torso: right shoulder/base of neck - with central pore opening narayan/erythematous overlying skin changes/swelling - about 4.5 cm in maximum dimension with surrounding erythema of 1 cm, this is also protuberant - protruding 2 cm from surface of skin in a rounded fashion, also large back lipoma at least 12 cm Extremities: no clubbing, cyanosis or edema. Neuro: non focal Psych: normal mood Assessment IMPRESSION: infected large sebaceous cyst, large back lipoma - but patient does not want any procedures done at this point in time PLAN: I have discussed the above with the patient and his I have offered excision of infected sebaceous cyst I have explained the procedure to the patient. I have counseled the patient as to the risks of the procedure, including but not limited to: infection, bleeding, injury to any blood vessels/nerves, scar tissue, continued infection, complications of anesthesia, etc. the patient understands. The patient wishes to proceed. I have answered all questions to the patient s satisfaction and the patient has no further questions. I have confirmed and edited as necessary, the PFSH and ROS obtained by others. . Diagnoses: (L72.3, L08.9) Infected sebaceous cyst (primary encounter diagnosis) Return to Clinic: The patient will be scheduled at [facility] - procedure planned [id number]. Patient states that he does not require IV anesthesia. Medical Decision Making: Problems: Low: Acute, uncomplicated illness or injury Risk: Low: Low risk from testing/treatment Medical Decision Making Level: 3 - Low Sussy Bishop MD Patient states his PCP is aware of elevated blood pressure. Ginette Miller LPN documented in this encounter [facility] 03-19-2022 Miscellaneous Notes 03/23/2022 EXCISION OF INFECTED SEBACEOUS CYST ASC documented in this encounter [facility] 03-19-2022 Nurse Note REVIEW OF SYSTEMS: General: The patient denies fatigue, denies weight loss, denies weight gain, denies feeling hot, and denies feelings of cold. Eyes: The patient denies glaucoma, denies eye injury/surgery, wears glasses or contacts. Ear/Nose/Throat: The patient denies allergies, denies hayfever, denies ear infections, and denies bloody noses. Cardiovascular: The patient denies chest pain, denies heart disease, denies high blood pressure,denies cardiac stent, denies prior heart attack, denies irregular heart beat, denies high cholesterol, denies poor circulation, denies heart failure, other cardiac issues, denies claudication, denies cold feet, denies peripheral arterial stent. Respiratory: The patient denies tuberculosis, denies pneumonia, denies frequent cough, denies pulmonary embolism, denies shortness of breath, and denies coughing up blood. Gastrointestinal: The patient denies difficulty swallowing, denies acid reflux, denies ulcers, denies vomiting, denies jaundice/hepatitis, denies gallbladder problems, denies black or tarry stools, denies hemorrhoids, denies bleeding from rectum, denies diverticulitis, denies constipation, denies diarrhea, denies loss of stool control, and denies hernias. Kidney/Bladder: The patient denies kidney stones, denies urine infections, and denies bloody urine. Skin: The patient denies a history of skin cancer, denies bleeding/changing moles, and denies a history of skin rash. Neurologic: The patient denies a history of epilepsy/convulsions, denies headaches, denies head/spinal injuries, and denies stroke/TIA. Psychiatric: The patient denies psychiatric medications, denies depression, and denies voices, denies substance abuse. Endocrine: The patient denies thyroid disorders, denies diabetes, and denies hormonal problems. Hematologic: The patient denies a history of bruising, denies bleeding, and denies anemia, denies blood clots. Infections: The patient denies a history of measles and mumps, denies rheumatic fever, and denies sexually transmitted diseases. Musculoskeletal: The patient denies back pain/injury, denies back problems, denies sciatica, notes knee/foot trouble, denies arthritis, or denies gout. When was patient's last Mammogram screening? N/A Last Colonoscopy: 2019 Alisson Beach LPN documented in this encounter [facility] 01-30-2022 Hospital Discharge instructions Patient Education 01/30/2022 07:32:29 Joint Steroid Injection Joint Steroid Injection A joint steroid injection is a procedure to relieve swelling and pain in a joint. Steroids are medicines that reduce inflammation. In this procedure, your health care provider uses a syringe and a needle to inject a steroid medicine into a painful and inflamed joint. A pain-relieving medicine (anesthetic) may be injected along with the steroid. In some cases, your health care provider may use an imaging technique such as ultrasound or fluoroscopy to guide the injection. Joints that are often treated with steroid injections include the knee, shoulder, hip, and spine. These injections may also be used in the elbow, ankle, and joints of the hands or feet. You may have joint steroid injections as part of your treatment for inflammation caused by: Gout. Rheumatoid arthritis. Advanced pnlg-clh-zmgt arthritis (osteoarthritis). Tendinitis. Bursitis. Joint steroid injections may be repeated, but having them too often can damage a joint or the skin over the joint. You should not have joint steroid injections less than 6 weeks apart or more than four times a year. Tell a health care provider about: Any allergies you have. All medicines you are taking, including vitamins, herbs, eye drops, creams, and ycma-rik-qbpzaho medicines. Any problems you or family members have had with anesthetic medicines. Any blood disorders you have. Any surgeries you have had. Any medical conditions you have. Whether you are or may be . What are the risks? Generally, this is a safe treatment. However, problems may occur, including: Infection. Bleeding. Allergic reactions to medicines. Damage to the joint or tissues around the joint. Thinning of skin or loss of skin color over the joint. Temporary flushing of the face or chest. Temporary increase in pain. Temporary increase in blood sugar. Failure to relieve inflammation or pain. What happens before the treatment? You may have imaging tests of your joint. Ask your health care provider about: ?Changing or stopping your regular medicines. This is especially important if you are taking diabetes medicines or blood thinners. ?Taking medicines such as aspirin and ibuprofen. These medicines can thin your blood. Do not take these medicines unless your health care provider tells you to take them. ? Taking fhav-pvx-ihivdvb medicines, vitamins, herbs, and supplements. Ask your health care provider if you can drive yourself home after the procedure. What happens during the treatment? Your health care provider will position you for the injection and locate the injection site over your joint. The skin over the joint will be cleaned with a germ-killing soap. Your health care provider may: ?[place] a numbing solution (topical anesthetic) over the injection site. ?Inject a local anesthetic under the skin above your joint. The needle will be placed through your skin into your joint. Your health care provider may use imaging to guide the needle to the right spot for the injection. If imaging is used, a special contrast dye may be injected to confirm that the needle is in the correct location. The steroid medicine will be injected into your joint. Anesthetic may be injected along with the steroid. This may be a medicine that relieves pain for a short time (short-acting anesthetic) or for a longer time (long-acting anesthetic). The needle will be removed, and an adhesive bandage (dressing) will be placed over the injection site. The procedure may vary among health care providers and hospitals. What can I expect after the treatment? You will be able to go home after the treatment. It is normal to feel slight flushing for a few days after the injection. After the treatment, it is common to have an increase in joint pain after the anesthetic has worn off. This may happen about an hour after a short-acting anesthetic or about 8 hours after a longer-acting anesthetic. You should begin to feel relief from joint pain and swelling after 24 to 48 hours. Follow these instructions at home: Injection site care Leave the adhesive dressing over your injection site in place until your health care provider says you can remove it. Check your injection site every day for signs of infection. Check for: ?Redness, swelling, or pain. ?Fluid or blood. ?Warmth. ?Pus or a bad smell. Activity Return to your normal activities as told by your health care provider. Ask your health care provider what activities are safe for you. You may be asked to limit activities that put stress on the joint for a few days. Do joint exercises as told by your health care provider. Do not take baths, swim, or use a hot tub until your health care provider approves. Managing pain, stiffness, and swelling If directed, put ice on the joint. ?Put ice in a plastic bag. ?Place a towel between your skin and the bag. ?Leave the ice on for 20 minutes, 2 3 times a day. Raise (elevate) your joint above the level of your heart when you are sitting or lying down. General instructions Take nvnn-ibv-uauphbl and prescription medicines only as told by your health care provider. Do not use any products that contain nicotine or tobacco, such as cigarettes, e-cigarettes, and chewing tobacco. These can delay joint healing. If you need help quitting, ask your health care provider. If you have diabetes, be aware that your blood sugar may be slightly elevated for several days after the injection. Keep all follow-up visits as told by your health care provider. This is important. Contact a health care provider if you have: Chills or a fever. Any signs of infection at your injection site. Increased pain or swelling or no relief after 2 days. Summary A joint steroid injection is a treatment to relieve pain and swelling in a joint. Steroids are medicines that reduce inflammation. Your health care provider may add an anesthetic along with the steroid. You may have joint steroid injections as part of your arthritis treatment. Joint steroid injections may be repeated, but having them too often can damage a joint or the skin over the joint. Contact your health care provider if you have a fever, chills, or signs of infection or if you get no relief from joint pain or swelling. This information is not intended to replace advice given to you by your health care provider. Make sure you discuss any questions you have with your health care provider. Document Released: 04/21/2019 Document Revised: 04/21/2019 Document Reviewed: 04/21/2019 [employer] Patient Education 2020 [employer]. Follow Up Care 01/25/2022 10:45:47 With:RODOLFO LUCAS MD Address: [address] [place] [address] & [place] [phone] When: Unknown Comments:Follow-up as needed [facility] Evaluation + Plan note No data available for this section [facility] Evaluation note Diagnosis Infected sebaceous cyst- Primary Sebaceous cyst [facility] [place] [facility] Diagnosis Onset Date Resolution Status Postoperative hemorrhage from incision acute [facility] [place] Work Phone: Evaluation note* Diagnosis Onset Date Resolution Status Postoperative hemorrhage from incision acute Vasovagal near-syncope acute [facility] Work Phone: Evaluation note* Diagnosis Status post skin and subcutaneous tissue surgery- Primary Other postprocedural status Dysuria [facility] Diagnosis Status post skin and subcutaneous tissue surgery- Primary Other postprocedural status [facility] [place] [facility] Diagnosis Retention of urine- Primary Retention of urine, unspecified Benign prostatic hyperplasia with urinary retention [facility] [place] [facility] Diagnosis Status post skin and subcutaneous tissue surgery- Primary Other postprocedural status documented in this encounter [facility] note* Diagnosis Onset Date Resolution Status Postoperative hemorrhage from incision resolved Vasovagal near-syncope resol jaimie [facility] [place] Work Phone: Evaluation note* Diagnosis Benign prostatic hyperplasia with urinary retention- Primary Prostate cancer screening Special screening for malignant neoplasm of prostate documented in this encounter [facility] noteNo assessment information [facility] Work Phone: Evaluation note* Diagnosis Pre-operative examination- Primary Preoperative examination, unspecified Primary osteoarthritis of right knee Primary localized osteoarthrosis, lower leg Sleep apnea, unspecified type Morbid obesity (HCC) Morbid obesity Benign prostatic hyperplasia with urinary retention- Primary Prostate cancer screening Special screening for malignant neoplasm of prostate Screening for genitourinary condition Screening for other and unspecified genitourinary condition Bladder wall thickening Other specified disorders of bladder Elevated prostate specific antigen (PSA) documented in this encounter [facility] Discharge instructions Additional Instructions As we discussed in keeping with your wishes that you would like to try to self cath if needed as compared to placing a catheter now you are being discharged home. Continue to orally hydrate and if you cannot urinate self cath. If you are having difficulties self cathing and please return to emergency. 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 Advance Directive(s) Advance Directive(s) 03/20/2022 12:11 PM Advance Directive(s) 07/17/2019 9:25 AM Advance Directive(s) 06/29/2019 11:29 AM Advance Directive(s) 06/15/2019 12:23 PM Advance Directive(s) 03/10/2019 2:26 PM Advance Directive Response Recorded Date/ Time Living Will Yes March 23, 2022 9:13pm Power of Lithographic Proofer Apprentice Yes March 23 9:13pm Name of Medical Power of Lithographic Proofer Apprentice AMBER GOINS March 23, 2022 9:13pm Advance Directive Response Recorded Date/ Time Living Will Yes March 24, 2022 2:49am Power of Lithographic Proofer Apprentice Yes March 24 2:49am Name of Medical Power of Lithographic Proofer Apprentice AMBER GOINS March 24, 2022 2:49am Documents on File Type Date Recorded 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 Advance Directive(s) Advance Directive(s) 03/23/2022 11:49 AM Advance Directive(s) 03/20/2022 12:11 PM Advance Directive(s) 07/17/2019 9:25 AM Advance Directive(s) 06/29/2019 11:29 AM Advance Directive(s) 06/15/2019 12:23 PM Advance Directive(s) 03/10/2019 2:26 PM Advance Directive Response Recorded Date/ Time Name of Medical Power of Lithographic Proofer Apprentice AMBER GOINS March 24, 2022 2:49am Living Will No March 29, 2022 4:32am Power of Lithographic Proofer Apprentice No March 29 4:32am Advance Directive Response Recorded Date/ Time Do you have a Healthcare Power of Lithographic Proofer Apprentice? Yes January 21, 2025 7:19am Do you have a Healthcare Power of Lithographic Proofer Apprentice? No January 22, 2025 2:50pm Advance Directive Response Recorded Date/ Time Do you have a Healthcare Power of Lithographic Proofer Apprentice? Yes January 25, 2025 5:46am Do you have a Healthcare Power of Lithographic Proofer Apprentice? Yes January 21, 2025 7:19am Do you have a Healthcare Power of Lithographic Proofer Apprentice? No January 22, 2025 2:50pm Hospital Course Note HNO ID: [id number] Author: Nevaeh alcala (Sub Assembly Team Worker) Grater Service: Orthopaedic Surgery Author Type: Nurse Practitioner Type: Discharge Summary Filed: 07/02/2019 9:09 AM Note Text: Attestation signed by Enrrique Guillen at 07/15/2019 9:15 PM Orthopaedic Staff Note Patient seen and examined, and I agree with the above note. Patient shows no signs or symptoms of a DVT or infection at this time. Enrrique Guillen MD DISCHARGE SUMMARY PATIENT NAME: Norbert Goins ADMISSION DATE: 06/29/2019 DISCHARGE DATE: 07/02/2019 PATIENT DISCHARGE SUMMARY C O N F I D E N T I A L I N F O R M A T I O N The following is a brief overview of your hospitalization. Some of the information contained on this summary may be confidential. This information should be kept in your records and should be shared with your regular doctor. These instructions ex (more content not included)... Chief Complaint and Reason for Visit Chief Complaint POST OP BLEEDING Reason for Visit Postoperative hemorr harpal from incision Chief Complaint CYST REMOVAL R SHOUL LARISSA- POST OP Reason for Visit Postoperative hemorr harpal from incision Vasovagal near-syncope Chief Complaint CYST REMOVAL R SHOUL LARISSA- POST OP unable to void Reason for Visit Postoperative hemorr harpal from incision Vasovagal near-syncope Chief Complaint Admit Date E-ORDER December 10, 2024 11: 16am Chief Complaint Admit Date E-ORDER December 10, 2024 11: 16am urinary retention January 21, 2025 7:14a m CASTANEDA January 22, 2025 2:07p m castaneda January 24, 2025 7:36a m Chief Complaint Admit Date E-ORDER December 10, 2024 11: 16am urinary retention January 21, 2025 7:14a m CASTANEDA January 22, 2025 2:07p m castaneda January 24, 2025 7:36a m urinary retention January 25, 2025 5:43a m Additional Source Comments (unrecognized sect ion and content) No Status Records FoundNo Status Records FoundNo Status Records FoundNo Status Records FoundNo Status Records FoundNo Status Records Found INFORMATION SOURCE (unrecogn ized section and content) DATE CREATED AUTHOR 07/18/2019 [facility] DATE CREATED AUTHOR AUTHOR'S ORGANIZ ATION 07/18/2019 [facility] DATE CREATED AUTHOR AUTHOR'S ORGANIZ ATION 07/23/2019 [facility] DATE CREATED AUTHOR AUTHOR'S ORGANIZ ATION 02/01/2022 [facility] ([place]) DATE CREATED AUTHOR AUTHOR'S ORGANIZ ATION 01/30/2025 [facility] DATE CREATED AUTHOR AUTHOR'S ORGANIZ ATION 02/01/2025 [facility] Care Team (unrecognized sect ion and content) Maxillofacial Pathology Relationship Specialty Start Date End Date Mireille Rosales MD [address] [place], [place] [id number] PCP - General Family Practice 12/17/13 Maxillofacial Pathology Relationship Specialty Start Date End Date Mireille Rosales MD [address] [place], [place] [id number] PCP - General Family Practice 12/17/13 Maxillofacial Pathology Relationship Specialty Start Date End Date Mireille Rosales MD [address] [facility] [place] [id number] PCP - General Family Practice 12/17/13 Maxillofacial Pathology Relationship Specialty Start Date End Date Mireille Rosales MD [address] [place], [place] [address] PCP - General Family Practice 12/17/13 Maxillofacial Pathology Relationship Specialty Start Date End Date Mireille Rosales MD [address] [place] [address] PCP - General Family Practice 12/17/13 Maxillofacial Pathology Relationship Specialty Start Date End Date [facility] Rosales [facility] [address] [facility] [place] [place] [id number] PCP - General Family Practice 12/17/13 Maxillofacial Pathology Relationship Specialty Start Date End Date Mireille Rosales MD [address] [facility] [place] [place] [id number] PCP - General Family Medicine 12/17/13 Maxillofacial Pathology Relationship Specialty Start Date End Date Mireille Rosales MD [address] [facility] [place] [place] [id number] PCP - General Family Medicine 12/17/13 Maxillofacial Pathology Relationship Specialty Start Date End Date Mireille Rosales MD [address] [facility] [place] [place] [id number] PCP - General Family Medicine 12/17/13 Team Status: Active Member Role Status Dates Dr. Mireille Rosales MD Family Provider Active Dr. Mireille Rosales MD Primary Care Provider Acti ve Team Status: Inactive Member Role Status Dates Dr. Mireille Rosales MD Primary Care Provider Acti ve Start: December 10, 2024 End: December 10, 2024 Dr. Mireille Rosales MD Attending Provider Active Start: December 10, 2024 End: December 10, 2024 Dr. Mireille Rosales MD Referring Provider Active Start: December 10, 2024 End: December 10, 2024 Team Status: Active Member Role Status Dates Dr. Mireille Rosales MD Primary Care Provider Acti ve Team Status: Inactive Member Role Status Dates Dr. Mireille Rosales MD Primary Care Provider Acti ve Start: January 21, 2025 End: January 21, 2025 Juventino Escobar MD Emergency Provider Active Star t: January 21, 2025 End: January 21, 2025 Team Status: Inactive Member Role Status Dates Dr. Mireille Rosales MD Primary Care Provider Acti ve Start: January 22, 2025 End: January 22, 2025 Dr. Jayden Rahman MD Emergency Provider Active Start: January 22, 2025 End: January 22, 2025 Team Status: Inactive Member Role Status Dates Dr. Mireille Rosales MD Primary Care Provider Acti ve Start: January 24, 2025 End: January 24, 2025 Dr. Ton Zazueta DO Emergency Provider Active Start: January 24, 2025 End: January 24, 2025 Team Status: Inactive Member Role Status Dates Dr. Mireille Rosales MD Primary Care Provider Acti ve Start: January 25, 2025 End: January 25, 2025 Dr. James Trinidad DO Emergency Provider Active Start: January 25, 2025 End: January 25, 2025 Maxillofacial Pathology Relationship Specialty Start Date End Date Mireille Rosales MD [address] [place] [id number] PCP - General Family Medicine 12/17/13 Source Comments (unrecognize d section and content) In the event this informatio n is protected by the Federal Confidentiality of Alcohol and Drug Abuse Patient Records regulations: The Federal rules restrict any use of the information to criminally investigate or prosecute any alcohol or drug abuse patient.[facility] the event this information is protected by the Federal Confidentiality of Alcohol and Drug Abuse Patient Records regulations: The Federal rules restrict any use of the information to criminally investigate or prosecute any alcohol or drug abuse patient.[facility] the event this information is protected by the Federal Confidentiality of Alcohol and Drug Abuse Patient Records regulations: The Federal rules restrict any use of the information to criminally investigate or prosecute any alcohol or drug abuse patient.[facility] the event this information is protected by the Federal Confidentiality of Alcohol and Drug Abuse Patient Records regulations: The Federal rules restrict any use of the information to criminally investigate or prosecute any alcohol or drug abuse patient.[facility] the event this information is protected by the Federal Confidentiality of Alcohol and Drug Abuse Patient Records regulations: The Federal rules restrict any use of the information to criminally investigate or prosecute any alcohol or drug abuse patient.[facility] the event this information is protected by the Federal Confidentiality of Alcohol and Drug Abuse Patient Records regulations: The Federal rules restrict any use of the information to criminally investigate or prosecute any alcohol or drug abuse patient.[facility] the event this information is protected by the Federal Confidentiality of Alcohol and Drug Abuse Patient Records regulations: The Federal rules restrict any use of the information to criminally investigate or prosecute any alcohol or drug abuse patient.[facility] the event this information is protected by the Federal Confidentiality of Alcohol and Drug Abuse Patient Records regulations: The Federal rules restrict any use of the information to criminally investigate or prosecute any alcohol or drug abuse patient.[facility] the event this information is protected by the Federal Confidentiality of Alcohol and Drug Abuse Patient Records regulations: The Federal rules restrict any use of the information to criminally investigate or prosecute any alcohol or drug abuse patient.[facility] the event this information is protected by the Federal Confidentiality of Alcohol and Drug Abuse Patient Records regulations: The Federal rules restrict any use of the information to criminally investigate or prosecute any alcohol or drug abuse patient.[facility] the event this information is protected by the Federal Confidentiality of Alcohol and Drug Abuse Patient Records regulations: The Federal rules restrict any use of the information to criminally investigate or prosecute any alcohol or drug abuse patient.[facility] Reason for Visit (unrecogniz ed section and content) Reason Comments Consult Right sholder Reason Comments Follow Up right shoulder Reason Comments Urinary Retention Reason Comments Follow Up wound check right sh oulder Reason Comments 03/23/2022 EXCISION OF INFECTED SEBACEOUS CYST ASC Reason Onset Date Comments Refill Request 08/29/2022 Reason Comments Refill Request Reason Comments Established Patient 6 month follow up Reason Comments Established Patient Follow up/PSA Goals (unrecognized section and content) Goals may be documented in a n alternate section FOR RECORDS PERTAINING TO PATIENTS WHO ARE OR HAVE BEEN ENROLLED IN A CHEMICAL DEPENDENCY/SUBSTANCEABUSE PROGRAM, SOME INFORMATION MAY BE OMITTED. This clinical summary was aggregated from multiple sources. Caution should be exercised in using it in the provision of clinical care. This summary normalizes information from multiple sources, and as a consequence, information in this document may materially change the coding, format and clinical context of patient data. In addition, data may be omitted in some cases. CLINICAL DECISIONS SHOULD BE BASED ON THE PRIMARY CLINICAL RECORDS. [employer] provides no warranty or guarantee of the accuracy or completeness of information in this document.
[2025-02-13 08:08] VITALS: BP 166/95; PULSE 77; RESP 19; TEMP 36.6; O2SAT 98
== END 2025-02-13 08:09 | disposition home or self-care (01) ==
PROVIDERS: Emergency Provider Emergency Medicine; PCP Family Medicine; Visit Provider Emergency Medicine
DX: N40.1 Benign prostatic hyperplasia with lower urinary tract symptoms (principal); R33.8 Other retention of urine; T44.6X6A Underdosing of alpha-adrenoreceptor antagonists, initial encounter; Z91.148 Patient's other noncompliance with medication regimen for other reason; I10 Essential (primary) hypertension
CPT/HCPCS: 99283; P9612

== ENCOUNTER 2025-02-13 09:42 | Emergency (ER) | payer MEDICARE, OTHER, SELFPAY ==
[2025-02-13 09:42] VITALS: BP 210/87; BP 215/98; PULSE 98; RESP 14; TEMP 36.1; O2SAT 98; BMI 44.9
--- NOTE | 2025-02-13 10:16 | EDS_ITS ---
HPI History of Present Illness Chief Complaint: Complaint Narrative Narrative: 69-year-old male past medical history of BPH, previous urinary retention and hypertension had recently been discharged from the emergency department 1 to 2 hours ago after requesting straight catheterization for urinary retention. He had stated that he stopped taking his tamsulosin because he felt he did not need it. Straight catheterization was performed and he had 450 mL of urine output. He states that he had straight catheterization kits at home, but presents again to the emergency department because he states he could not find them and he did not want to wake up his . He had been given lubricant because during his previous visit he stated he did not have any of that at home as well. He presents with suprapubic discomfort again, and inability to urinate. PFSH COUNTS INCLUDE 234 BEDS AT THE [facility] Medical History Hypertension Prostate hypertrophy CPAP (continuous positive airway pressure) dependence Sleep apnea Home Medications ?Medication ?Instructions ?Recorded ?Last Taken ?Type tamsulosin 0.4 mg capsule (Flomax) 0.4 mg PO DAILY 02/13/25 History losartan 100 mg tablet 100 mg PO DAILY 01/24/25 History Allergy/AdvReac Type Severity Reaction Status Date / Time No Known Allergies Allergy Verified 02/13/25 09:42 Surgical History Hx of cystoscopy Hx of cervical discectomy Social History Smoking Status: Never smoker ROS ROS ED ROS Narrative Review of systems positive for suprapubic discomfort and urinary retention. No fevers or chills, no nausea or vomiting, no exacerbating or alleviating factors. EXAM Physical Exam Narrative Exam Narrative: Afebrile. Vital signs noted. Nontoxic-appearing. Examination performed after Castaneda catheter insertion. Cardiovascular examination regular rate and rhythm, lungs clear to auscultation bilaterally. Abdomen is soft and nontender with positive bowel sounds. No guarding or rebound. Neurological examination nonfocal and nonlateralizing. Const Vital Signs: 02/13/25 09:42 02/13/25 09:42 02/13/25 11:41 Temperature 97 F L Temperature Source Temporal Pulse Rate 98 Respiratory Rate 14 Blood Pressure 215/98 H 210/87 H 166/95 H Blood Pressure Mean 137 128 118 Pulse Ox 98 Oxygen Delivery Method Room Air MDM MDM MDM Narrative Medical decision making narrative: As I was the physician who saw the patient previously on his visit, I rereviewed his ED note. I do feel that UA is indicated at this time and that he should leave the Castaneda catheter in place to follow-up with urology. While he had stated he has a leg bag at home, he had stated that the previous regarding his catheterization kits. He will be given a Castaneda catheter leg bag here in the emergency department and suggested that he continue his tamsulosin as previously directed. He had stated previously that he took 2 today already. He will follow-up with his urologist, Dr. Dayton Narayan. Urinalysis will be obtained at this time. Additionally, his blood pressure will be rechecked as well. Urinalysis is negative for infection, I do not feel that antibiotics are indicated. Patient will be discharged to follow-up with urology, and his primary care provider as needed for his blood pressure. Patient motivated for discharge. Disposition is discharged in stable condition. History & Record Review Discussion w/independent historian: Patient Additional record(s) reviewed:: Prior ED visit Lab Data Attestation: I reviewed the patient's lab results. Labs: Laboratory Results - last 24 hr 02/13/25 10:40 Urine Color Yellow Urine Clarity Clear Urine pH 7.0 Ur Specific [place] 1.010 Urine Protein 30 H Urine Glucose (UA) Normal Urine Ketones Negative Urine Occult Blood 150 H Urine Nitrite Negative Urine Bilirubin Negative Urine Urobilinogen Normal Ur Leukocyte Esterase 25 H Urine RBC 0 SEEN Urine WBC 0 SEEN Ur Squamous Epith Cells 0 SEEN Urine Bacteria 0 SEEN Urine Mucus 0 SEEN Discharge Plan Triage Chief Complaint: Complaint ED Provider: Juventino Escobar Dx/Rx/DC Orders Clinical Impression: Urinary retention, Prostate hypertrophy, Hypertension Instructions: ED Castaneda Catheter, Care, ED Hypertension, Established, ED Urinary Retention, Male Prescriptions: No Action tamsulosin [Flomax] 0.4 mg Capsule 0.4 mg PO DAILY losartan 100 mg tablet 100 mg PO DAILY Primary Care Provider: Sharif Rosales Referrals: Sharif Rosales MD [Primary Care Provider] - 3-5 Days (For blood pressure control) Brad Narayan MD [Med Staff - Active Staff] - 1 Week Print Language: Welsh Disposition Disposition: Home, Self Care Discharge Date/Time: 02/13/25 11:42
--- OUTSIDE RECORDS SUMMARY | 2025-02-13 10:33 | XMS RPT_ITS | CCD ---
Author Organization [facility] Care Team Providers Care Instructional Coach Name Role Phone CONNIE WEN, DR KENDRICK Primary Care Physician Connie WEN, Mireille Love Primary Care Provider Connie WEN, Mireille Love Primary Care Provider Connie WEN, Mireille Love Primary Care Provider Connie WEN, Mireille Love Primary Care Provider Connie WEN, Mireille Love Primary Care Provider Connie WEN, Dr. Kendrick Primary Care Provider Connie WEN, Dr. Kendrick Attending Provider [phone] Connie WEN, Dr. Kendrick Referring Provider [phone] Juventino Escobar MD Emergency Provider Josiah WEN, Dr. Carpenter Emergency Provider Dr. Ton Zazueta DO Emergency Provider Dr. James Trinidad DO Emergency Provider [phone] Mireille Rosales Primary Care Unavailable Juventino Escobar [...] [facility] HAMILTON Ayala Attending David Escobar MD, Juventino Attending Provider Josiah WEN, Dr. Carpenter Attending Provider Dr. Ton Zazueta DO Attending Provider Dr. James Trinidad DO Attending Provider Medications Current Medications Medication Drug Class(es) Dates [...] CPAP losartan potassium 100 mg oral tablet (4 sources) Angiotensin 2 Receptor Darwin Start: 12-16-2024 [...] Comment on above: Take 1 capsule by [facility] once daily as needed. ergocalciferol, vitamin [...] DAYS. tamsulosin hydrochloride 0.4 mg oral capsule (16 sources) alpha-Adrenergic Darwin Start: 023 End: 025 take 2 capsules by mouth once daily [...] Episodic/Chronic Complication of device; implant or graft (12 sources) Obstructed indwelling urinary catheter; Translations: [Other mechanical complication of indwelling urethral catheter, initial encounter] Onset: 01-28-2025 07-04-2019 Episodic Complications of surgical procedures or medical care (12 sources) Postoperative hemorrhage; Translations: [Postoperative hemorrhage from incision] Episodic Disorders of lipid metabolism (11 sources) Hyperlipidemia; Translations: [Hyperlipidemia, unspecified] Onset: 09-25-2007 09-25-2007 Chronic Diverticulosis and diverticulitis (11 sources) Diverticulosis of colon; Translations: [Diverticulosis of large intestine without perforation or abscess without bleeding] Onset: 08-02-2006 10-19-2007 Chronic Essential hypertension (15 sources) Essential hypertension; Translations: [Essential (primary) hypertension] Onset: 09-25-2007 06-05-2019 Chronic Genitourinary symptoms and ill-defined conditions (20 sources) Nocturia; Translations: [Nocturia] Onset: 09-25-2007 10-19-2007 Episodic Hyperplasia of prostate (13 sources) Large prostate ; Translations: [Benign prostatic [...] apnea, unspecified] Onset: 09-25-2007 06-05-2019 Chronic Syncope (10 sources) Vasovagal symptom; Translations: [Syncope and collapse] Episodic Unclassified (3 sources) next week Past or Other Problems [...] on 01-25-2025 Bilirubin Ql (U) Negative Negative [facility] Emergency Department Summary on 01-25-2025 Emergency Department Summary [facility] Medical Records Department [address] [place] [address] Emergency Department Summary 01/25/25 MR#: [id number] Acct: [id number] Name: NORBERT GOINS Rupert Rep #: [id number] : 1955 69 From: James Trinidad DO PCP: Dr. Mireille Rosales MD Status:DEP ER Location: ED HPI History of Present Illness Chief Complaint: Complaint [...] is curious if he has a UTI. [facility] Medical History Hypertension Prostate hypertrophy CPAP (continuous [...] Prior ED (more content not included)... Normal [facility] Ketones Test strip Ql (U)Ord ered By: James Trinidad on 01-25-2025 Ketones Ql (U) Negative Negative [facility] Microscopic analysis of urin e for red blood cells (RBC)Ordered By: James Trinidad on 01-25-2025 Microscopic analysis of urine for red blood cells (RBC) 5-10 SEEN /hpf 0-5 [facility] Mucus LM Ql (Urine sed)Order ed By: James Trinidad on 01-25-2025 Mucus Ql (Urine sed) 0 SEEN /hpf [facility] Nitrite Test strip Ql (U)Ord ered By: James Trinidad on 01-25-2025 Nitrite Ql (U) Negative Negative [facility] Protein Test strip Ql (U)Ord ered By: James Trinidad on 01-25-2025 Protein Ql (U) 30 mg/dl High Negative [facility] Squamous epithelial cells de tection in urine sediment by light microscopyOrdered By: James Trinidad on 01-25-2025 Epithelial cells.squamous LM Ql (Urine sed) 0 SEEN /hpf 0-5 [facility] Urinalysis, Completeon 01-25 RBC 5-10 SEEN Normal 0-5 [facility] Comment on above: Order Comment: LOLY CTOR TO SPECIFY Performed By: #### L [id number] #### [facility] [address] [place], [address] BACTERIA 0 SEEN Normal None Seen [facility] Comment on above: Order Comment: LOLY CTOR TO SPECIFY Performed By: #### L [id number] #### [facility] [address] [place], [address] EPI,SQUAMOUS 0 SEEN Normal 0-5 [facility] Comment on above: Order Comment: LOLY CTOR TO SPECIFY Performed By: #### L [id number] #### [facility] [address] [place], [address] Mucus Ql (Urine sed) 0 SEEN Normal [facility] Comment on above: Order Comment: LOLY CTOR TO SPECIFY Performed By: #### L [id number] #### [facility] [address] [place], [address] WBC 0 SEEN Normal 0-5 [facility] Comment on above: Order Comment: LOLY CTOR TO SPECIFY Performed By: #### L [id number] #### [facility] [address] [place], [address] Urine clarityOrdered By: Bryan Trinidad on 01-25-2025 Clarity (U) Clear Clear [facility] Urine color determinationOrd ered By: James Trinidad on 01-25-2025 Color (U) Yellow Yellow [facility] Urine glucose detectionOrder ed By: James Trinidad on 01-25-2025 Glucose Ql (U) Normal mg/dl Normal [facility] Urine leukocyte esterase det ection by dipstickOrdered By: James Trinidad on 01-25-2025 Leukocyte esterase Test strip Ql (U) Negative Negative [facility] Urine pHOrdered By: James hewitt on 01-25-2025 pH (U) 6.0 [pH] 5.0 - 8.0 [facility] Urine sediment bacteria coun t by microscopy (number/high power field)Ordered By: James Trinidad on 01-25-2025 Bacteria LM.HPF (Urine sed) [#/Area] 0 /[HPF] None Seen [facility] Urine specific gravity measu rementOrdered By: James Trinidad on 01-25-2025 Specific gravity (U) [Rel density] 1.015 1.002-1.03 0 [facility] Urine urobilinogen measureme ntOrdered By: James Trinidad on 01-25-2025 Urobilinogen Ql (U) Normal mg/dl Normal [facility] White blood cell countOrdere d By: James Trinidad on 01-25-2025 White blood cell count 0 SEEN /hpf 0-5 [facility] Emergency Department Summary on 01-24-2025 Emergency Department Summary [facility] Medical Records Department [address] [place] [address] Emergency Department Summary 01/24/25 MR#: [id number] Acct: [id number] Name: NORBERT GOINS Rep #: [id number] : 1955 69 From: Ton Zazueta DO [...] has only been passing small clots occasionally. [facility] Medical History (Updated 01/24/25 @ 09:22 by [...] Care Provider] - 3-5 Days Print Language: [place] Citizen Disposition Disposition: Home, Self Care What to do if you have Problems For any increased pain, shortness of breath, bleeding, nausea or vomiting, chest pain, or any u (more content not included)... Normal [facility] Emergency Department Summary on 01-22-2025 Emergency Department Summary [facility] Medical Records Department [address] [place] [address] Emergency Department Summary 01/22/25 MR#: [id number] Acct: [id number] Name: NORBERT GOINS Rep #: [id number] : 1955 69 From: Jayden Rahman MD [...] or chills. He is on no anticoagulant. [facility] Medical History CPAP (continuous positive airway pressure) [...] Auscultation: normoactive bowel sounds Palpation: soft Narrative: [place]-tinged transparent urine within the catheter. He has [...] MD [Primary Care Provider] - Print Language: [place] Citizen Disposition Disposition: Home, Self Care What to do if you have Problems For any increased pain, shortness of breath, bleeding, nausea or vomiting, chest pain, or any unexpected problems, contact your Primary Care Provider. Call [facility] ([phone]) or report to the closest Emergency Room. Call 911 if necessary. 01/22/25 3458 Cosigner Signature (if applicable): CC: Dr. Mireille Rosales MD Signed Normal [facility] Bilirubin Test strip Ql (U)O rdered By: Juventino Escobar on 01-21-2025 Bilirubin Ql (U) Negative Negative [facility] Emergency Department Summary on 01-21-2025 Emergency Department Summary [facility] Medical Records Department [address] [place] [address] Emergency Department Summary 01/21/25 MR#: [id number] Acct: [id number] Name: NORBERT GOINS Rep #: [id number] : 1955 69 From: Juventino Escobar MD PCP: Dr. Mireille Rosales MD Status:REG ER Location: ED HPI History of Present Illness Chief Complaint: Castaneda C/O Narrative Narrative: 69-year-old male past medical history of BPH states he had a bladder scan performed yesterday and was seen by urology at [facility] yesterday. He states he had a bladder [...] catheters in the past. No exacerbating or's. PFSH PFS Medical History CPAP (continuous positive airway pressure) [...] Clarity Clear Urine pH 6.0 Ur Specific [place] 1.015 Urine Protein 15 H Urine Glucose (UA) Normal Urine Ketones Negative Urine Occult Blood 150 H Urine Nitrite Negative Urine Bilirubin Negative Urine Urobilinogen Normal Ur Leukocyte Esterase Negative Urine RBC 5-10 SEEN Urine WBC 0 SEEN Ur Squamous Epith Cells 0 SEEN U (more content not included)... Normal [facility] Ketones Test strip Ql (U)Ord ered By: Juventino Escobar on 01-21-2025 Ketones Ql (U) Negative Negative [facility] Microscopic analysis of urin e for red blood cells (RBC)Ordered By: Juventino Escobar on 01-21-2025 Microscopic analysis of urine for red blood cells (RBC) 5-10 SEEN /hpf 0-5 [facility] Mucus LM Ql (Urine sed)Order ed By: Juventino Escobar on 01-21-2025 Mucus Ql (Urine sed) 0 SEEN /hpf [facility] Nitrite Test strip Ql (U)Ord ered By: Juventino Escobar on 01-21-2025 Nitrite Ql (U) Negative Negative [facility] Protein Test strip Ql (U)Ord ered By: Juventino Escobar on 01-21-2025 Protein Ql (U) 15 mg/dl High Negative [facility] Squamous epithelial cells de tection in urine sediment by light microscopyOrdered By: Juventino Escobar on 01-21-2025 Epithelial cells.squamous LM Ql (Urine sed) 0 SEEN /hpf 0-5 [facility] Urinalysis, Completeon 01-21 RBC 5-10 SEEN Normal 0-5 [facility] Comment on above: Order Comment: NATHANIEL TER SPECIMEN Performed By: #### L [id number] #### [facility] [address] [place], [address] BACTERIA 0 SEEN Normal None Seen [facility] Comment on above: Order Comment: NATHANIEL TER SPECIMEN Performed By: #### L [id number] #### [facility] [address] [place], [address] EPI,SQUAMOUS 0 SEEN Normal 0-5 [facility] Comment on above: Order Comment: NATHANIEL TER SPECIMEN Performed By: #### L [id number] #### [facility] [address] [place], [address] Mucus Ql (Urine sed) 0 SEEN Normal [facility] Comment on above: Order Comment: NATHANIEL TER SPECIMEN Performed By: #### L [id number] #### [facility] [address] [facility] [place], [place], [address] WBC 0 SEEN Normal 0-5 [facility] Comment on above: Order Comment: NATHANIEL REED SPECIMEN Performed By: #### L [id number] #### [facility] [address] [place], [place], [address] Urine clarityOrdered By: Jessica Escobar on 01-21-2025 Clarity (U) Clear Clear [facility] Urine color determinationOrd ered By: Juventino Escobar on 01-21-2025 Color (U) Yellow Yellow [facility] Urine glucose detectionOrder ed By: Juventino Escobar on 01-21-2025 Glucose Ql (U) Normal mg/dl Normal [facility] Urine leukocyte esterase det ection by dipstickOrdered By: Juventino Escobar on 01-21-2025 Leukocyte esterase Test strip Ql (U) Negative Negative [facility] Urine pHOrdered By: Juventino carrington on 01-21-2025 pH (U) 6.0 [pH] 5.0 - 8.0 [facility] Urine sediment bacteria coun t by microscopy (number/high power field)Ordered By: Juventino Escobar on 01-21-2025 Bacteria LM.HPF (Urine sed) [#/Area] 0 /[HPF] None Seen [facility] Urine specific gravity measu rementOrdered By: Juventino Escobar on 01-21-2025 Specific gravity (U) [Rel density] 1.015 1.002-1.03 0 [facility] Urine urobilinogen measureme ntOrdered By: Juventino Escobar on 01-21-2025 Urobilinogen Ql (U) Normal mg/dl Normal [facility] White blood cell countOrdere d By: Juventino Escobar on 01-21-2025 White blood cell count 0 SEEN /hpf 0-5 [facility] CNOVon 01-20-2025 CNOV Office Visit (UROLMD ) -- NORBERT GOINS ([id number]) 1955 M Date Time Provider Department 01/20/25 [...] not clear with increased fluids. PHONE NUMBERS: [phone] [place] [phone] BLANDON BENEDICT [phone] Hamilton Dueñas MD 01/20/2025 3:03 PM Signed [facility] UROLOGY PROCEDURE NOTE [facility] ([facility]) FLEXIBLE CYSTOURETHROSCOPY AND TRUS UROLOGY OUTPATIENT PROCEDURE [...] Staff Richard (more content not included)... Normal [facility] ISOPSA ASSAY FOR UROLOGY USE ONLYOrdered By: Robin Andino on 01-05-2025 Interpretation View results in Scan hunter Documents link when available. [facility] IsoPSA 6.1 [facility] TPSA Results 4.4 [facility] Free PSA [Mass/Vol]on 2024 Free PSA/Total PSA [Mass fraction] 29 % [facility] Comment on above: Total and free [...] Interpretation and review of laboratory results Abnormal [facility] Prostate specific Ag [Mass/Vol] 4.02 ng/mL High NINF - 2.60 ng/mL [facility] Comment on above: Total PSA test [...] Specific Antigen. N Engl J Med 2003,349:335-42. [facility] Free PSA/Total PSA [Mass fraction] 29 % Normal [facility] Comment on above: Order Comment: Speci men Type: BLOOD SPECIMEN Ordering Facility: [facility] Address: [address] [place] [address] Result Comment: Tota l and free PSA [...] 15.8% Performed By: #### 1 0886-0 #### [facility] CLIA [id number] [address] [place] [address] [place] Prostate specific Ag [Mass/Vol] 4.02 ng/mL High <2.60 [facility] Comment on above: Order Comment: Speci men Type: BLOOD SPECIMEN Ordering Facility: [facility] Address: [address] [place] [address] Result Comment: Tota l PSA test methodology used is the Electrochemiluminescence Immunoassay by [employer]. Total PSA values by differing methodologies [...] Smith M.D., Ginette Watkins, M.P.H., Erica Pop ScSwathi. Effect of Verification Bias on Screening for Prostate Cancer by Measurement of Prostatic Specific Antigen. N Engl J Med 2003,349:335-42. Performed By: #### 1 0886-0 #### [facility] CLIA [id number] [address] [place] [address] [facility] ISOPSA ASSAY FOR UROLOGY USE ONLYon 01-04-2025 INTERPRETATION View results in Scan hunter Documents link when available. Normal [facility] Comment on above: Order Comment: Speci men Type: BLOOD SPECIMEN Ordering Facility: [facility] Address: [address] [place] [address] Performed By: #### I SOPSA #### [facility] CLIA [id number] [address] [place] [address], [place] [address] ISOPSA INDEX 6.1 Normal [facility] Comment on above: Order Comment: Speci men Type: BLOOD SPECIMEN Ordering Facility: [facility] Address: [address] [place] [address] Performed By: #### I SOPSA #### [facility] CLIA [id number] [address] [place] [address], [place] [address] TPSA RESULTS 4.4 Normal [facility] Comment on above: Order Comment: Speci men Type: BLOOD SPECIMEN Ordering Facility: [facility] Address: [address] [place] [address] Performed By: #### I SOPSA #### [facility] CLIA [id number] [address] [place] [address], [place] [address] CNOVon 12-18-2024 CNOV Office Visit (UROLMD ) -- NORBERT GOINS ([id number]) 1955 M Date Time Provider Department 12/18/24 10:00 AM HAMILTON VICENTE During your visit today, we recorded the following information about you: Weight Height 133.8 kg 1.676 m Dale Jamila NEREIDA 02/01/2025 12:06 AM Signed Post void bladder scan completed. 0 ml residual remaining. Results reported to Hamilton Frausto MD 02/01/2025 12:06 AM Signed [facility] [place] UR[facility]Y ESTABL[facility]: Norbert Goins AGE: [age] [...] <=6.0 did not have a high-grade cancer ([place]>=7) detected on biopsy. REASON FOR VISIT: Elevated [...] 01/04/2025 6.1 (more content not included)... Normal [facility] UA DIP, URINE (POC)on 2024 BILIRUBIN UA (POCT) Small Abnormal Negative [facility] CLARITY UA (POCT) Clear [facility] COLOR UA (POCT) Yellow [facility] GLUCOSE UA (POCT) Negative Negative mg/dL [facility] Hemoglobin Ql (U) Negative Negative [facility] Interpretation and review of laboratory results Abnormal [facility] KETONE UA (POCT) 40 mg/dL Abnormal Negative [facility] LEUKOCYTES UA (POCT) Trace Abnormal Negative [facility] NITRITE UA (POCT) Negative Negative [facility] PH UA (POCT) 6 4.5 - 8.0 [facility] Protein Ql (U) Negative Negative mg/dL [facility] SPECIFIC GRAVITY UA (POCT) 1.02 1.005 - 1.030 [facility] UROBILINOGEN UA (POCT) 1 Chante l E.U./dL [facility] Location:[facility], [address] [place], [address] [facility] PO[facility] Anion gap in Serum or Plasma Ordered By: Mireille Rosales on 12-10-2024 Anion gap [Moles/Vol] 11 mmol/L 01-14 [facility] BUN/creatinine ratioOrdered By: Mireille Rosales on 12-10-2024 Urea nitrogen/Creatinine [Mass ratio] 16.7 mg/mg 06-21 [facility] Bilirubin, totalOrdered By: Mireille Rosales on 12-10-2024 Bilirubin [Mass/Vol] 1.33 mg/dL High 0.00-1.30 [facility] Calculated very low density lipoprotein (VLDL) cholesterol measurementOrdered By: Mireille Rosales on 12-10-2024 Calculated very low density lipoprotein (VLDL) cholesterol measurement 19 mg/dL [facility] VLDL Cholesterol 19 mg/dL [facility] Carbon dioxide, total [Moles /volume] in Central venous bloodOrdered By: Mireille Rosales on 12-10-2024 CO2 [Moles/Vol] 27.0 mmol/L 21.0-32.0 [facility] Chloride assayOrdered By: Bossman Rosales on 12-10-2024 Chloride [Moles/Vol] 100 mmol/L 98-108 [facility] Comprehensive Metabolic Prof ilon 12-10-2024 Albumin [Mass/Vol] 4.2 g/dL Normal 3.4-4.8 [facility] Comment on above: Order Comment: Order Date: 06/30/24 Order Info: [id number] - CMP Order Info: [id number] - LIPID Order Info: [id number] - PSA Performed By: #### L [id number], L500.4100, L500.4050 #### [facility] [address] [place], [address] Albumin/Globulin [Mass ratio] 1.7 {ratio} Normal 0.9-2.4 [facility] Comment on above: Order Comment: Order Date: 06/30/24 Order Info: [id number] - CMP Order Info: [id number] - LIPID Order Info: [id number] - PSA Performed By: #### L 501.9910, L500.4100, L500.4050 #### [facility] [address] [place], [address] ALK PHOS 69 U/L Normal 40-129 [facility] Comment on above: Order Comment: Order Date: 06/30/24 Order Info: [id number] - CMP Order Info: [id number] - LIPID Order Info: [id number] - PSA Performed By: #### L 501.9910, L500.4100, L500.4050 #### [facility] [address] [place], [address] ALT [Catalytic activity/Vol] 17 U/L Normal <=46 [facility] Comment on above: Order Comment: Order Date: 06/30/24 Order Info: [id number] - CMP Order Info: - LIPID Order Info: [id number] - PSA Performed By: #### L [id number], L500.4100, L500.4050 #### [facility] [address] [place], [address] AST [Catalytic activity/Vol] 20 U/L Normal <=37 [facility] Comment on above: Order Comment: Order Date: 06/30/24 Order Info: [id number] - CMP Order Info: - LIPID Order Info: [id number] - PSA Performed By: #### L 501.9910, L500.4100, L500.4050 #### [facility] [address] [place], [address] Bilirubin [Mass/Vol] 1.33 mg/dL High 0.00-1.30 [facility] Comment on above: Order Comment: Order Date: 06/30/24 Order Info: [id number] - CMP Order Info: - LIPID Order Info: [id number] - PSA Performed By: #### L [id number], L500.4100, L500.4050 #### [facility] [address] [place], [address] BUN/CRE 16.7 RATIO Normal 10-20 [facility] Comment on above: Order Comment: Order Date: 06/30/24 Order Info: [id number] - CMP Order Info: [id number] - LIPID Order Info: [id number] - PSA Performed By: #### L 501.9910, L500.4100, L500.4050 #### [facility] [address] [place], [address] Calcium [Mass/Vol] 9.3 mg/dL Normal 7.6-11.0 [facility] Comment on above: Order Comment: Order Date: 06/30/24 Order Info: [id number] - CMP Order Info: - LIPID Order Info: [id number] - PSA Performed By: #### L [id number], L500.4100, L500.4050 #### [facility] [address] [place], [address] Chloride [Moles/Vol] 100 mmol/L Normal 98-108 [facility] Comment on above: Order Comment: Order Date: 06/30/24 Order Info: [id number] - CMP Order Info: - LIPID Order Info: [id number] - PSA Performed By: #### L [id number], L500.4100, L500.4050 #### [facility] [address] [place], [address] CO2 [Moles/Vol] 27.0 mmol/L Normal 21.0-32.0 [facility] Comment on above: Order Comment: Order Date: 06/30/24 Order Info: 1 - CMP Order Info: [id number] - LIPID Order Info: [id number] - PSA Performed By: #### L [id number], L500.4100, L500.4050 #### [facility] [address] [place], [address] Creatinine [Mass/Vol] 0.82 mg/dL Normal 0.70-1.20 [facility] Comment on above: Order Comment: Order Date: 06/30/24 Order Info: [id number] - CMP Order Info: - LIPID Order Info: [id number] - PSA Performed By: #### L 501.9910, L500.4100, L500.4050 #### [facility] [address] [place], [address] GAP 11 Normal 5-15 [facility] Comment on above: Order Comment: Order Date: 06/30/24 Order Info: [id number] - CMP Order Info: - LIPID Order Info: [id number] - PSA Performed By: #### L [id number], L500.4100, [id number] #### [facility] [address] [place], [address] GFR/1.73 sq M.predicted among non-blacks MDRD (S/P/Bld) [Vol rate/Area] 95 mL/min/{1.73_m2} Normal >60 [facility] Comment on above: Order Comment: Order Date: 06/30/24 Order Info: [id number] - CMP Order Info: - LIPID Order Info: [id number] - PSA Result Comment: mL/m in/1.73m2 CKD-EPI Creatinine Equation (2020) Performed By: #### L [id number], L500.4100, L500.4050 #### [facility] [address] [place], [address] Globulin (S) [Mass/Vol] 2.5 g/dL Normal 2.2-4.2 [facility] Comment on above: Order Comment: Order Date: 06/30/24 Order Info: [id number] - CMP Order Info: - LIPID Order Info: [id number] - PSA Performed By: #### L [id number], L500.4100, [id number] #### [facility] [address] [place], [address] Glucose [Mass/Vol] 109 mg/dL High 70-99 [facility] Comment on above: Order Comment: Order Date: 06/30/24 Order Info: [id number] - CMP Order Info: [id number] - LIPID Order Info: [id number] - PSA Performed By: #### L [id number], [id number], [id number] #### [facility] [address] [place], [address] Potassium [Moles/Vol] 4.3 mmol/L Normal 3.3-5.1 [facility] Comment on above: Order Comment: Order Date: 06/30/24 Order Info: [id number] - CMP Order Info: - LIPID Order Info: [id number] - PSA Performed By: #### L [id number], [id number], [id number] #### [facility] [address] [place], [address] Sodium [Moles/Vol] 138 mmol/L Normal 133-145 [facility] Comment on above: Order Comment: Order Date: 06/30/24 Order Info: [id number] - CMP Order Info: [id number] - LIPID Order Info: [id number] - PSA Performed By: #### L [id number], [id number], [id number] #### [facility] [address] [place], [address] T PROT 6.8 g/dL Normal 5.9-8.4 [facility] Comment on above: Order Comment: Order Date: 06/30/24 Order Info: [id number] - CMP Order Info: [id number] - LIPID Order Info: [id number] - PSA Performed By: #### L [id number], [id number], [id number] #### [facility] [address] [place], [address] Urea nitrogen [Mass/Vol] 14 mg/dL Normal 4-19 [facility] Comment on above: Order Comment: Order Date: 06/30/24 Order Info: [id number] - CMP Order Info: [id number] - LIPID Order Info: [id number] - PSA Performed By: #### L [id number], [id number], [id number] #### [facility] [address] [place], [address] GFR/1.73 sq M.predicted magdalene g non-blacks MDRD (S/P/Bld) [Vol rate/Area]Ordered By: Mireille Rosales on 12-10-2024 Estimated GFR (MDRD) Non-Af Amer 95 >60 [facility] Comment on above: mL/min/1.73m2 CKD-EP I Creatinine Equation (2020) Glomerular filtration rate ( GFR) estimation/1.73 sq m using serum, plasma, or whole bOrdered By: Mireille Rosales on 12-10-2024 GFR/1.73 sq M.predicted among non-blacks MDRD (S/P/Bld) [Vol rate/Area] 95 mL/min/{1.73_m2} >60 [facility] Comment on above: mL/min/1.73m2 CKD-EP I Creatinine Equation (2020) LDL calc ser/plasOrdered By: Mireille Rosales on 12-10-2024 Cholesterol in LDL [Mass/Vol] 120 mg/dL [facility] Comment on above: Ijiojfsctw=916-623 m g/dL & Higher Ipsx=096 mg/dL or greater LDL Cholesterol, Calculated 120 mg/dL [facility] Comment on above: Yamdurqrnm=530-172 m g/dL & Higher Petv=119 mg/dL or greater Laboratory - Chemistry and C hemistry - challengeOrdered By: Mireille Rosales on 12-10-2024 AST [Catalytic activity/Vol] 20 U/L <38 [facility] Lipid Profileon 12-10-2024 CHOL:HDL 4.01 Normal [facility] Comment on above: Order Comment: Order Date: 06/30/24 Order Info: [id number] - CMP Order Info: [id number] - LIPID Order Info: [id number] - PSA Performed By: #### L [id number], L500.4100, [id number] #### [facility] [address] [place], [place], [address] Cholesterol [Mass/Vol] 185 mg/dL Normal <=200 [facility] Comment on above: Order Comment: Order Date: 06/30/24 Order Info: 07 - CMP Order Info: [id number] - LIPID Order Info: [id number] - PSA Result Comment: Chol esterol level, Desirable <200 mg/dL Borderline high cholesterol 200-239 mg/dL High cholesterol >=240 mg/dL Recommendations of the NCEP Adult Treatment Panel for the following risk-cutoff thresholds for the [place] population. Performed By: #### L [id number], L500.4100, L500.4050 #### [facility] [address] [place], [place], [address] Cholesterol in HDL [Mass/Vol] 46 mg/dL Normal [facility] Comment on above: Order Comment: Order [...] By: #### L [id number], L500.4100, [id number] #### [facility] [address] [place], [place], [address] Cholesterol in LDL [Mass/Vol] 120 mg/dL Normal [facility] Comment on above: Order Comment: Order Date: 06/30/24 Order Info: [id number] - CMP Order Info: - LIPID Order Info: [id number] - PSA Result Comment: Bord lifipn=717-873 mg/dL Higher Ngbv=306 mg/dL or greater Performed By: #### L [id number], L500.4100, [id number] #### [facility] [address] [place], [place], [address] Cholesterol in VLDL [Mass/Vol] 19 mg/dL Normal 5-40 [facility] Comment on above: Order Comment: Order Date: 06/30/24 Order Info: [id number] - CMP Order Info: - LIPID Order Info: [id number] - PSA Performed By: #### L [id number], [id number], [id number] #### [facility] [address] [place], [address] Triglyceride [Mass/Vol] 96 mg/dL Normal [facility] Comment on above: Order Comment: Order Date: 06/30/24 Order Info: [id number] - CMP Order Info: - LIPID Order Info: [id number] - PSA Result Comment: The drugs N-Acetylcysteine and Metamizole may falsely depress this assay. Normal range: <150 mg/dL Borderline High: 150-199 mg/dL High: 200-499 mg/dL Very High: >500 mg/dL Performed By: #### L [id number], L500.4100, L500.4050 #### [facility] [address] [place], [place], [address] PSA, total screeningOrdered By: Mireille Rosales on 12-10-2024 Prostate Specific Antigen Screen 4.58 ng/mL High 0.02-4.00 [facility] Comment on above: This test was perfor [...] 12-10-2024 PSA,TOT SCREEN 4.58 ng/mL High 0.02-4.00 [facility] Comment on above: Order Comment: Order [...] By: #### L [id number], [id number], L500.4050 #### [facility] [place], [address] Potassium (Unsp spec) [Mass/ Vol]Ordered By: Mireille Rosales on 12-10-2024 Potassium [Moles/Vol] 4.3 mmol/L 3.3-5.1 [facility] Potassium measurement (mass/ volume)Ordered By: Mireille Rosales on 12-10-2024 Potassium (Unsp spec) [Mass/Vol] 4.3 mmol/L 3.3-5.1 [facility] Screening total cholesterol/ high density lipoprotein (HDL) cholesterol ratioOrdered By: Mireille Rosales on 12-10-2024 Cholesterol.total/Chol esterol in HDL [Mass ratio] 4.01 {ratio} [facility] Serum creatinine measurement (mass/volume)Ordered By: Mireille Rosales on 12-10-2024 Creatinine [Mass/Vol] 0.82 mg/dL 0.70-1.20 [facility] Serum globulin measurementOr dered By: Mireille Rosales on 12-10-2024 Globulin (S) [Mass/Vol] 2.5 g/dL 2.2-4.2 [facility] Serum glucose measurement (m ass/volume)Ordered By: Mireille Rosales on 12-10-2024 Glucose [Mass/Vol] 109 mg/dL High 70-99 [facility] Serum or plasma alanine aguirre otransferase (ALT) measurementOrdered By: Mireille Rosales 12-10-2024 ALT [Catalytic activity/Vol] 17 U/L <47 [facility] Serum or plasma albumin patrick urement (mass/volume)Ordered By: Mireille Rosales on 12-10-2024 Albumin [Mass/Vol] 4.2 g/dL 3.4-4.8 [facility] Serum or plasma albumin/glob ulin mass ratioOrdered By: Mireille Rosales on 12-10-2024 Albumin/Globulin [Mass ratio] 1.7 {ratio} 0.9-2.4 [facility] Serum or plasma alkaline jessica sphatase measurementOrdered By: Mireille Rosales on 12-10-2024 ALP [Catalytic activity/Vol] 69 U/L 40-129 [facility] Serum or plasma calcium patrick urement (mass/volume)Ordered By: Mireille Rosales on 12-10-2024 Calcium [Mass/Vol] 9.3 mg/dL 7.6-11.0 [facility] Serum or plasma cholesterol in HDL measurement (mass/volume)Ordered By: Mireille Rosales on 12-10-2024 Cholesterol in HDL [Mass/Vol] 46 mg/dL >40 [facility] Comment on above: National Cholesterol Education Program (NCEP) guidelines:<40 mg/dL: Low HDL-cholesterol (major risk factor for CHD)>= 60 mg/dL: High HDL-cholesterol (negative risk factor for CHD)HDL-cholesterol is affected by a number of factors, e.g. smoking, exercise, hormones, sex and age. Serum or plasma cholesterol measurement (mass/volume)Ordered By: Mireille Rosales on 12-10-2024 Cholesterol [Mass/Vol] 185 mg/dL <201 [facility] Comment on above: Cholesterol level, D esirable <200 mg/dLBorderline high cholesterol 200-239 mg/dLHigh cholesterol >=240 mg/dLRecommendations of the NCEP Adult Treatment Panel for the following risk-cutoff thresholds for the [place] population. Serum or plasma urea nitroge n measurement (mass/volume)Ordered By: Mireille Rosales on 12-10-2024 Urea nitrogen [Mass/Vol] 14 mg/dL 4-19 [facility] Sodium levelOrdered By: Hang Rosales on 12-10-2024 Sodium [Moles/Vol] 138 mmol/L 133-145 [facility] Total proteinOrdered By: Archana Rosales on 12-10-2024 Protein [Mass/Vol] 6.8 g/dL 5.9-8.4 [facility] Triglycerides measurementOrd ered By: Mireille Rosales on 12-10-2024 Triglyceride [Mass/Vol] 96 mg/dL <199 [facility] Comment on above: The drugs N-Acetylcy steine and Metamizole may falsely depress this assay. Normal range: <150 mg/dLBorderline High: 150-199 mg/dLHigh: 200-499 mg/dLVery High: >500 mg/dL Vitamin B12on 12-10-2024 Cobalamin (Vitamin B12) [Mass/Vol] 508 pg/mL Normal 180-914 [facility] Comment on above: Order Comment: Order Date: 06/30/24 Order Info: [id number] - CMP Order Info: [id number] - LIPID Order Info: [id number] - PSA Performed By: #### L 503.0106 #### [facility] [place], [address] Vitamin B12 ser/plasOrdered By: Mireille Rosales on 12-10-2024 Cobalamin (Vitamin B12) [Mass/Vol] 508 pg/mL 180-914 [facility] CNOVon 03-18-2024 CNOV Office Visit (UROLMD ) -- NORBERT GOINS ([id number]) 1955 M Date Time Provider Department 03/18/24 11:00 AM [facility] UROLMR[facility] During your visit today, we recorded the following information about you: Weight Height 138.8 kg 1.676 m Jamila Hunter MA 03/18/2024 11:42 AM Signed Post void bladder scan completed. 0 ml residual remaining. Results reported to Hamilton Frausto MD 03/18/2024 11:42 AM Signed [facility] UROLOGY ESTABLISHED PATIENT CLINIC NOTE UROL [facility] PATIENT INFO: Edward D Buster 69 year old PCP: Mireille Rosales MD [...] needed Hamilton Vicente M.D, MS Associate Staff [facility] [place] [facility] Allergies As of Date: 03/18/2024 (No Known Allergies) Date Reviewed: 03/18/2024 Reviewed by: Jamila Hunter, (more content not included)... Normal [facility] Basophil percentageon 2021 Bilirubin [Mass/Vol] 1.20 mg/dL 0.20-1.00 [facility] Work Phone: Comment on above: For patients on eltr ombopag therapy, use of Dimension [place] TBIL is not recommended. Cholesterol [Mass/Vol] 173 mg/dL <200 [facility] Work Phone: Comment on above: <200 mg/dL Desirable 200-240 mg/dL Borderline >240 mg/dL High Risk Protein [Mass/Vol] 6.5 g/dL 6.4-8.2 [facility] Work Phone: Triglyceride [Mass/Vol] 92 mg/dL <199 [facility] Work Phone: Comment on above: The drugs N-Acetylcy steine and Metamizole may falsely depress this assay.Serum Triglycerides Reference Interval Normal <150 mg/dL Borderline high 150 - 199 mg/dL High 200 - 499 mg/dL Very High > or = 500 mg/dL Direct bilirubinon 2 Bilirubin.direct [Mass/Vol] 0.22 mg/dL 0.00-0.30 [facility] Work Phone: Laboratory - Chemistry and C hemistry - challengeon 04-23-2022 ALP [Catalytic activity/Vol] 70 U/L 45-117 [facility] Work Phone: ALT [Catalytic activity/Vol] 20 U/L 16-61 [facility] Work Phone: Cobalamin (Vitamin B12) [Mass/Vol] 310 pg/mL 211-911 [facility] Work Phone: Globulin (S) [Mass/Vol] 3.0 g/dL 2.2-4.2 [facility] Work Phone: Serum or plasma albumin patrick urement (mass/volume)on 04-23-2022 Albumin [Mass/Vol] 3.5 g/dL 3.2-5.0 [facility] Work Phone: Serum or plasma cholesterol in HDL measurement (mass/volume)on 04-23-2022 Cholesterol in HDL [Mass/Vol] 45 mg/dL >40 [facility] Work Phone: Comment on above: The drugs N-Acetylcy steine and Metamizole may falsely depress this assay. Reference Range HDL <40 mg/dL Low HDL Cholesterol HDL >or= 60 mg/dL High HDL Cholesterol Serum or plasma cholesterol in VLDL measurement (mass/volume)on 04-23-2022 Cholesterol in VLDL [Mass/Vol] 18 mg/dL 5-40 [facility] Work Phone: Serum or plasma low density lipoprotein (LDL) cholesterol measurement (mass/volume)on 04-23-2022 Cholesterol in LDL [Mass/Vol] 110 mg/dL 0-130 [facility] Work Phone: Serum or plasma uric acid me asurement (mass/volume)on 04-23-2022 Urate [Mass/Vol] 6.7 mg/dL 3.5-7.2 [facility] Work Phone: Comment on above: The drugs N-Acetylcy steine and Metamizole may falsely depress this assay. Thin prep Papanicolaou smear with manual screeningon 04-23-2022 Thin prep Papanicolaou smear with manual screening 14 U/L 15-37 [facility] Work Phone: Absolute lymphocyte counton 03-24-2022 Lymphocytes Auto (Unsp spec) [#/Vol] 0.62 10*3/uL 0.83-4.51 [facility] Work Phone: Basophil percentageon 2021 Basophils/100 WBC (Bld) 0.2 % 0-1 [facility] Work Phone: Chloride [Moles/Vol] 105 mmol/L 98-107 [facility] Work Phone: Eosinophils/100 WBC (Bld) 0.0 % 0-5 [facility] Work Phone: Glucose [Mass/Vol] 152 mg/dL 74-106 [facility] Work Phone: Comment on above: Fasting Glucose resu lt greater than or equal to 126 mg/dL suggests DIABETES MELLITUS per A.D.A. criteria. Neutrophils (Bld) [#/Vol] 11.7 10*3/uL 2.0-7.7 [facility] Work Phone: Neutrophils/100 WBC (Bld) 93.1 % 47-70 [facility] Work Phone: Potassium [Moles/Vol] 4.2 mmol/L 3.5-5.1 [facility] Work Phone: Sodium [Moles/Vol] 140 mmol/L 136-145 [facility] Work Phone: WBC (Bld) [#/Vol] 12.5 10*3/uL 4.4-11.0 [facility] Work Phone: Blood erythrocytes count (nu mber/volume)on 03-24-2022 RBC (Bld) [#/Vol] 4.93 10*6/uL 4.6-6.2 [facility] Work Phone: Blood hemoglobin measurement (mass/volume)on 03-24-2022 Hemoglobin (Bld) [Mass/Vol] 15.3 g/dL 13.0-16.5 [facility] Work Phone: Blood lymphocytes/100 leukoc yteson 03-24-2022 Lymphocytes/100 WBC (Bld) 5.0 % 19-41 [facility] Work Phone: Blood monocytes/100 leukocyt eson 03-24-2022 Monocytes/100 WBC (Bld) 1.1 % 0-10 [facility] Work Phone: Blood platelet mean volumeon 03-24-2022 Platelet mean volume (Bld) [Entitic vol] 9.6 fL 6.2-12.0 [facility] Work Phone: Determination of erythrocyte mean corpuscular volume (MCV)on 03-24-2022 MCV (RBC) [Entitic vol] 92.7 fL 80-94 [facility] Work Phone: Hematocrit Auto (Bld) [Volum e fraction]on 03-24-2022 Hematocrit (Bld) [Volume fraction] 45.7 % 40-54 [facility] Work Phone: Laboratory - Chemistry and C hemistry - challengeon 03-24-2022 CO2 [Moles/Vol] 30.0 mmol/L 21.0-32.0 [facility] Work Phone: Urea nitrogen/Creatinine [Mass ratio] 22.8 mg/mg 10-20 [facility] Work Phone: Laboratory - Hematology and Cell countson 03-24-2022 Erythrocyte distribution width (RBC) [Entitic vol] 46.0 fL 35.1-43.9 [facility] Work Phone: Erythrocyte distribution width (RBC) [Ratio] 13.5 % 11.6-14.6 [facility] Work Phone: Immature granulocytes/100 WBC (Bld) 0.600 % 0.0-0.9 [facility] Work Phone: Comment on above: IG% - Immature Granu locytes (promyelocytes, myelocytes and metamyelocytes) > 1% indicates that a LEFT SHIFT is Present. MCH (RBC) [Entitic mass] 31.0 pg 27.0-32.0 [facility] Work Phone: Nucleated RBC/100 WBC (Bld) [Ratio] 0 % 0-5 [facility] Work Phone: [phone] MCHC Auto (RBC) [Mass/Vol]on 03-24-2022 MCHC (RBC) [Mass/Vol] 33.5 g/dL 32-36 [facility] Work Phone: No Panel Informationon 03-24 Estimated Creatinine Clearance Calc 70.31 ml/min [facility] Work Phone: Estimated GFR (MDRD) Amer 106 mL/min >60 [facility] Work Phone: Comment on above: GFR Calc Estimated GFR (MDRD) Non-Af Amer 87 mL/min >60 [facility] Work Phone: Comment on above: Non- GFR Calc Platelets bldon 03-24-2022 Platelets (Bld) [#/Vol] 238 10*3/uL 150-450 [facility] Work Phone: Serum or plasma calcium patrick urement (mass/volume)on 03-24-2022 Calcium [Mass/Vol] 8.8 mg/dL 8.5-10.1 [facility] Work Phone: Serum or plasma creatinine m easurement (mass/volume)on 03-24-2022 Creatinine [Mass/Vol] 0.92 mg/dL 0.70-1.30 [facility] Work Phone: Comment on above: The validity of the calculated GFR & GFRAA in patients over 70 years has not been determined. Clinical correlation is essential. Serum or plasma urea nitroge n measurement (mass/volume)on 03-24-2022 Urea nitrogen [Mass/Vol] 21 mg/dL 7-18 [facility] Work Phone: Thin prep Papanicolaou smear with manual screeningon 03-24-2022 Thin prep Papanicolaou smear with manual screening 5 5-15 [facility] Work Phone: Basophil percentageon 2021 WBC (Bld) [#/Vol] 8.4 10*3/uL 4.4-11.0 [facility] Work Phone: Blood erythrocytes count (nu mber/volume)on 03-23-2022 RBC (Bld) [#/Vol] 4.78 10*6/uL 4.6-6.2 [facility] Work Phone: Blood hemoglobin measurement (mass/volume)on 03-23-2022 Hemoglobin (Bld) [Mass/Vol] 14.8 g/dL 13.0-16.5 [facility] Work Phone: Blood platelet mean volumeon 03-23-2022 Platelet mean volume (Bld) [Entitic vol] 9.4 fL 6.2-12.0 [facility] Work Phone: Determination of erythrocyte mean corpuscular volume (MCV)on 03-23-2022 MCV (RBC) [Entitic vol] 90.8 fL 80-94 [facility] Work Phone: Hematocrit Auto (Bld) [Volum e fraction]on 03-23-2022 Hematocrit (Bld) [Volume fraction] 43.4 % 40-54 [facility] Work Phone: Laboratory - Hematology and Cell countson 03-23-2022 Erythrocyte distribution width (RBC) [Entitic vol] 44.8 fL 35.1-43.9 [facility] Work Phone: Erythrocyte distribution width (RBC) [Ratio] 13.5 % 11.6-14.6 [facility] Work Phone: MCH (RBC) [Entitic mass] 31.0 pg 27.0-32.0 [facility] Work Phone: MCHC Auto (RBC) [Mass/Vol]on 03-23-2022 MCHC (RBC) [Mass/Vol] 34.1 g/dL 32-36 [facility] Work Phone: Platelets bldon 03-23-2022 Platelets (Bld) [#/Vol] 237 10*3/uL 150-450 [facility] Work Phone: XR FLUORO GUIDANCE FOR THERA PY INJECTIONon 01-30-2022 XR FLUORO GUIDANCE FOR THERAPY INJECTION ORIGINAL Images acquired, not reported on this accession number. [facility] ([place]) PROGRESSon 07-23-2019 PROGRESS HNO ID: [id number] Author: LANETTE Falcon (Ct) Service: ? Author Type: Clinical Official Court Interpreter Type: Progress Notes Filed: 07/23/2019 11:22 AM Note Text: NAME:Norbert Goins DATE: July 23, 2019 CCF#: [id number] Lower Extremity X-Ray(s): Knee, AP / Lat / Merchant Right and Wt. Bearing COMPLETED TECH ID SIGN: LUCHO FRENCH [facility] XR KNEE 3V AP/LAT/MERCHANT R Ton 07-23-2019 [...] left knee appears similar. IMPRESSION: Interval TKA Handle Bender: ALEXIS Transcribe Date/Time: Jul 23 2019 11:33A Dictated by : ТАТЬЯНА NAIK MD This examination was interpreted and the report reviewed and electronically signed by: ТАТЬЯНА NAIK MD on Jul 23 2019 11:33AM EST [id number] [facility] Cult Urineon 07-17-2019 Cult Urine Test performed at [facility] No growth <1,000 CFU/ml. [facility] Comment on above: Performed By: #### C _URI #### [facility] [address] [address] ED NOTEon 07-17-2019 ED NOTE HNO ID: [id number] Author: Francisco OmerRn) CAROL Curiel Service: Emergency Medicine Author Type: Registered Nurse Type: ED Notes Filed: 07/17/2019 11:44 AM Note Text: Patient discharged to home, accompanied by W/ , Uses walker Discharge instructions given to patient, discharge teaching performed, Patient verbalized understanding of discharge instructions and follow-up care, Patient AANDOx4 MAEx4. Patient ambulates without difficulty. Pt provided information for accessing [employer]. Belongings remain with patient, Valuables remain with patient. [facility] ED NOTE HNO ID: [id number] Author: Sameera OmerRn) CAROL Farris Service: Emergency Medicine Author Type: Registered Nurse Type: ED Notes Filed: 07/17/2019 10:16 AM Note Text: Visitor at bedside. [facility] ED NOTE HNO ID: [id number] Author: Mariam Landers DO Service: Emergency Medicine [...] not urinate. He did see a physician's assistant production editor yesterday who pulled his Castaneda catheter and [...] cannot be seen by a urologist in [place]. Please see Dr. Wilson's note for final disposition and diagnosis. Abdomen is soft and pain much improved after Castaneda catheter placed. [facility] ED NOTE HNO ID: [id number] Author: Sameera Brock) CAROL Farris Service: Emergency Medicine Author Type: Registered Nurse Type: ED Notes Filed: 07/17/2019 8:59 AM Note Text: urine specimen obtained and sent. [facility] ED NOTE HNO ID: [id number] Author: Sameera Brock) CAROL Farris Service: Emergency Medicine Author Type: Registered Nurse Type: ED Notes Filed: 07/17/2019 9:00 AM Note Text: Bladder scan completed per order - appx 348 ml of urine noted in bladder - physician made aware [facility] ED NOTE HNO ID: [id number] Author: Sameera Brock) Brenton, RN Service: Emergency Medicine Author Type: Registered Nurse Type: ED Notes Filed: 07/17/2019 8:34 AM Note Text: Physician at bedside assessing pt at this time. Normal [facility] ED PROV NOTEon 07-17-2019 ED PROV NOTE HNO ID: [id number] Author: Mariam Landers DO Service: Emergency Medicine [...] yesterday at urology office by the physician's assistant production editor. Patient passed a voiding trial at that [...] Laterality Date - COLONOSCOP W/ OR W/O [facility] SPEC 08/02/06 Diverticulosis - EGD W/O [facility] SPECIMEN W/BX 08/02/06 HH, antral gastritis - [...] a three-day ciprofloxacin prescription. Urology attending paged. [phone] Lawson who will facilitate outpatient follow-up, no need for more abx. No indication for admission. Discussed findings and diagnosis with the patient, follow-up and return to ED precautions given, patient voiced understanding, agrees with plan, questions answered, patient was discharged. Clinical Impressions as of Jul 17 1622 Urine retention MDM / Disposition / Plan MDM SIGNATURE: MD Freeman Olivarez Res, MD Resident 07/17/191621 Mariam Landers, 07/18/19 2136 Normal [facility] Urinalysis Routineon 019 Bacteria LM.HPF (Urine sed) [#/Area] NONE Normal None [facility] Comment on above: Performed By: #### U RIN2 #### [facility] [address] [place], [place] [address] Ep Cells Urine 0.9 /hpf Normal 0.0-5.0 [facility] Comment on above: Performed By: #### U RIN2 #### [facility] 1 [place], [place] [address] Hyaline Cast 0.7 /lpf Normal 0.0-1.0 [facility] Comment on above: Performed By: #### U RIN2 #### [facility] 1 [place], [place] [address] RBC LM.HPF (Urine sed) [#/Area] 8.2 /[HPF] High 0.0-5.0 [facility] Comment on above: Performed By: #### U RIN2 #### [facility] 1 [place] [address] WBC LM.HPF (Urine sed) [#/Area] 26.5 /[HPF] High 0.0-5.0 [facility] Comment on above: Performed By: #### U RIN2 #### [facility] 1 [place] [address] Appearance (U) CLEAR Normal [facility] Comment on above: Performed By: #### U RIN2 #### [facility] 1 [place] [address] Bilirubin (U) [Mass/Vol] Negative Normal Negative [facility] Comment on above: Performed By: #### U RIN2 #### [place] [address] Color (U) YELLOW Normal [facility] Comment on above: Performed By: #### U RIN2 #### [place] [address] Glucose Ql (U) Negative Normal Negative [facility] Comment on above: Performed By: #### U RIN2 #### [place] [address] Hemoglobin,Urine SMALL Abnormal Negative [facility] Comment on above: Performed By: #### U RIN2 #### [place] [address] Ketone Urine 15 mg/dL Abnormal Negative [facility] Comment on above: Performed By: #### U RIN2 #### [place] [address] Leukocytes Esterase SMALL Abnormal Negative [facility] Comment on above: Performed By: #### U RIN2 #### [place] [address] Nitrites Urine Negative Normal Negative [facility] Comment on above: Performed By: #### U RIN2 #### [place] [address] pH (U) 7.0 [pH] Normal 5.0-8.0 [facility] Comment on above: Performed By: #### U RIN2 #### [address] [place] [address] Protein (U) [Mass/Vol] Negative Normal Negative [facility] Comment on above: Performed By: #### U RIN2 #### [facility] 1 [place] [address] Specific B[place], Ur 1.014 Normal 1.005-1 .03 0 [facility] Comment on above: Performed By: #### U RIN2 #### [facility] 1 [place] [address] Urobilinogen,Ur 0.2 EU/dL Normal 0.2-1.0 [facility] Comment on above: Performed By: #### U RIN2 #### [facility] 1 [place] [address] CASE MANAGEMon 07-02-2019 CASE MANAGEM HNO ID: [id number] Author: eNisha (Rn) CAROL Bauman Service: Case Management Author Type: Registered Nurse Type: Care Mgt Progress Note Filed: 07/02/2019 11:17 AM Note Text: CARE MANAGEMENT DISCHARGE NOTE SERVICE DATE: 07/02/2019 SERVICE TIME: 11:14 AM LOS: 0 days Admission Date: 06/29/2019 DISCHARGE ARRANGEMENT (list agency and phone number) Home Care - PT Provider: Jerrell [facility] Notified of dc, all dc documents completed, SOC 24-48 hrs after dc CAREGIVER ASSESSMENT: Caregiver is ready, willing and able to meet the patient's needs as recommended by the inter-professional team? Yes Patient's transition needs and plan for meeting these needs: DC home with [facility], surgical follow up Does the patient have an acute stroke diagnosis, or has the patient had a stroke during this admission? No HANDOFF COMMUNICATION: Primary Care Physician: Name: Mireille Rosales Summary of care sent to: Arturo Lockhart MD? Internal Medicine [phone] [facility] [address] [place] [address] Mireille Rosales MD? PCP - General [facility] [phone] [facility] [address] [place] [address] [place] [address] [facility]? [phone] [place] [address] Next Steps: Follow up Sushil Dumas Jr, MD? Urology Other [phone] [address] [facility] [address] TRANSPORTATION ARRANGEMENTS: Car - Spouse to transport ADDITIONAL CONTACT RESOURCES: Discharge Information Row Name Admission (Current) from 06/29/[address] Start of Care 07/03/19 FOLLOW UP: Future Appointments Date Time Provider Department Center 07/09/2019 9:30 AM Teo Montes) [facility] [place] 07/23/2019 11:30 AM Tima Montes) Oscar MCADAMS [facility] SIGNATURE: Neisha Bauman RN PATIENT NAME: Norbert Goins DATE: July 02, 2019 TIME: 11:13 AM PAGER/CONTACT #: [phone] Normal [facility] CBCon 07-02-2019 Erythrocyte distribution width (RBC) [Ratio] 13.6 % Normal 11.5-15.0 [facility] Comment on above: Performed By: #### T SCR30 #### [facility] Laboratory [address] [place] [address] Hematocrit (Bld) [Volume fraction] 35.4 % Low 39.0-51.0 [facility] Comment on above: Performed By: #### T SCR30 #### [facility] Laboratory [address] [facility] [phone] Hemoglobin (Bld) [Mass/Vol] 11.9 g/dL Low 13.0-17.0 [facility] Comment on above: Performed By: #### T SCR30 #### [facility] Laboratory [address] [facility] [phone] MCH (RBC) [Entitic mass] 30.5 pG Normal 26.0-34.0 [facility] Comment on above: Performed By: #### T SCR30 #### [facility] Laboratory [address] [facility] [phone] MCHC (RBC) [Mass/Vol] 33.6 g/dL Normal 30.5-36.0 [facility] Comment on above: Performed By: #### T SCR30 #### [facility] Laboratory [address] [facility] [phone] MCV (RBC) [Entitic vol] 90.8 fL Normal 80.0-100.0 [facility] Comment on above: Performed By: #### T SCR30 #### [facility] Laboratory [address] [facility] [phone] Platelet mean volume (Bld) [Entitic vol] 9.7 fL Normal 9.0-12.7 [facility] Comment on above: Performed By: #### T SCR30 #### [facility] Laboratory [address] [facility] [phone] Platelets (Bld) [#/Vol] 217 10*3/uL Normal 150-400 [facility] Comment on above: Performed By: #### T SCR30 #### [facility] Laboratory [address] [facility] [phone] RBC (Bld) [#/Vol] 3.90 10*6/uL Low 4.20-6.00 [facility] Comment on above: Performed By: #### T SCR30 #### [facility] Laboratory [address] [facility] [phone] WBC (Bld) [#/Vol] 6.08 10*3/uL Normal 3.70-11.00 [facility] Comment on above: Performed By: #### T SCR30 #### [facility] Laboratory [address] [facility] [phone] CNCOon 07-02-2019 CNCO Letter Text Normal [facility] PLAN OF CAREon 07-02-2019 PLAN OF CARE HNO ID: [id number] Author: Lynsey Henry (Bean Weigher) Service: Pharmacy Author Type: ? Type: Plan of Care Filed: 07/02/2019 3:51 PM Note Text: GEOSCIENTIST BEDSIDE DELIVERY SURVEY 1. Patient to use [facility] Bedside Delivery - YES Insurance Information as follows: 2. Insurance card on file - YES 3. Credit card for payment - YES PHARMACY BEDSIDE DELIVERY SERVICE Patient Name: Norbert Goins The marked outpatient medications were Filled at: [facility] and delivered to the patient's bedside to [...] 325 mg Cap Generic drug: acetaminophen Lynsey Carl (Muut) PAGER: [phone] July 02, 2019 3:51 PM [facility] PROGRESSon 07-02-2019 PROGRESS HNO ID: [id number] Author: Arturo Lockhart Service: General Internal Medicine [...] home with castaneda SIGNATURE: Arturo Lockhart MD [facility] PROGRESS HNO ID: [id number] Author: Juan F Leija) [place] Service: Orthopaedic Surgery Author Type: Nurse Practitioner [...] 1615 VTE RISK CATEGORY: SURGICAL MODERATE RISK ([place], [place]) Active VTE Medication Orders: 06/30/19 0900 ENOXAPARIN 30 MG INJECTION (LOVENOX) Active VTE Prophylaxis Orders: 06/29/19 161 PNEUMATIC COMPRESSION STOCKINGS ([place], [place]) 06/29/19 161 ACTIVITY - MOBILIZE PATIENT ([place], [place]) PHYSICAL EXAMINATION: Right Lower Extremity: Dorsalis [...] 02, 2019 TIME: 8:29 AM PAGER/CONTACT #: [phone] The patient has undergone major orthopedic surgery [...] Patient demonstrated understanding of risks of benefits. [facility] THERAPY NTon 07-02-2019 THERAPY NT HNO ID: [id number] Author: Maureen Milan Service: Physical Therapy Author Type: Ceiling Cleaner Type: Therapy (PT/OT/Speech/Resp) Filed: 07/02/2019 9:49 AM Note Text: -- Attestation signed by Pedro Eddy at 07/08/2019 9:08 AM I reviewed and agree with the documentation corresponding to this therapy visit. SIGNATURE: Pedro Eddy, PT DATE: July 08, 2019 TIME: 9:08 AM -- Physical Therapy Treatment SERVICE DATE: 07/02/2019 SERVICE TIME: 08 to 0850 ROOM: [place] [address] Recommended Discharge Disposition: Home PT Recommended Discharge [...] mobility. Patient now agreeable to Home PT, immigration case worker notified. Patient would benefit from continued therapy [...] Ambulate with: Supervision(WBAT RLE, safe tech) Distance: [phone]' for basic self care AND home mobility [...] daily living (ADL) Interventions Provided: Therapeutic Exercise (30935);Therapeutic Activity (25906);Gait Training (12318) Therapeutic Exercise (40592) Treatment Minutes: 10 1 unit Skilled Intervention(s): Instruction in therapeutic exercise for bilateral AP, GS with 5 second hold; R LE only heel slides, LAQ, slightly resisted isometric hip abduction/addduction x 15 reps each Verbal and tactile cuing provided for correct performance of exercises Cues for diaphragmatic breathing Re-emphasized the importance of frequent performance of anti-embolic exercises Therapeutic Activity (06902) Treatment Minutes: 4 0 units Skilled Intervention(s): Instructed patient in supine to sit pushing with upper extremities to sit up Instruction in sit to stand technique with proper hand placement and body positioning at edge of bed/chair Instruction in stand to sit technique with lower extremities touching chair/bed and reaching back for surface Gait Training (87505) Treatment Minutes: 15 1 unit Skilled Intervention(s): [...] Lives With: Family(spouse AND daughter) Assistance Available: maritime officer(spouse works a few days per week) Entry To Home: Stairs Number Of Stairs Into Home: 1 Number Of Stairs To Bed/Bath: 0(basement business office; 13 stairs w/1 rail) Tub/Shower Type: walk in shower Laundry: spouse will complete Equipment Owned: Cane;Rollator;Elevated Toilet Seat;Crutch(es) Prior Functional Level: Within Functional Limits Prior Functional Level Comments: per patient, ind with ADLS, IADLS, +drives,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,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 [employer], travels OBJECTIVE: CURRENT FUNCTIONAL STATUS: Current Functional [...] Gait Distance (feet): 250'x1 Stairs Contact Guard Assistance([id number]) Not attempted this session Stairs Device: Crutch(es);Hand [...] July 02, 2019 TIME: 9:44 AM Normal [facility] CBCon 07-01-2019 Erythrocyte distribution width (RBC) [Ratio] 13.5 % Normal 11.5-15.0 [facility] Comment on above: Performed By: #### C BC ####[facility] [address] [place] [address] Hematocrit (Bld) [Volume fraction] 35.6 % Low 39.0-51.0 [facility] Comment on above: Performed By: #### C BC ####[facility] [address] [place] [address] Hemoglobin (Bld) [Mass/Vol] 12.0 g/dL Low 13.0-17.0 [facility] Comment on above: Performed By: #### C BC ####[facility] [address] [place] [address] MCH (RBC) [Entitic mass] 30.4 pG Normal 26.0-34.0 [facility] Comment on above: Performed By: #### C BC ####[facility] [address] [place] [address] MCHC (RBC) [Mass/Vol] 33.7 g/dL Normal 30.5-36.0 [facility] Comment on above: Performed By: #### C BC ####[facility] [address] [place], [place] [address] MCV (RBC) [Entitic vol] 90.1 fL Normal 80.0-100.0 [facility] Comment on above: Performed By: #### C BC ####[facility] [address] [place], [place] [phone] Platelet mean volume (Bld) [Entitic vol] 10.1 fL Normal 9.0-12.7 [facility] Comment on above: Performed By: #### C BC ####[facility] Hetuuezofq5592 [address]721-[address]160 Platelets (Bld) [#/Vol] 212 10*3/uL Normal 150-400 [facility] Comment on above: Performed By: #### C BC ####[facility] Rhpkxybgkv9177 [address]721-[address] RBC (Bld) [#/Vol] 3.95 10*6/uL Low 4.20-6.00 [facility] Comment on above: Performed By: #### C BC ####[facility] Cheukpqzcr9003 [address]721-[address]160 WBC (Bld) [#/Vol] 8.46 10*3/uL Normal 3.70-11.00 [facility] Comment on above: Performed By: #### C BC ####[facility] [address] [place], [place] [phone] NURSING PROGon 07-01-2019 NURSING PROG HNO ID: [id number] Author: Holly (Rn) CAROL Lynn Service: ? Author Type: Registered Nurse Type: Nursing Progress Note Filed: 07/01/2019 5:46 AM Note Text: Nursing Progress Note Patient Name: Norbert Goins Patient Location: [place] [id number] Daily Note: 2200 Pt BS 313. No pain or pressure at this time. 2225 Pt able to void 100ml 2335 Pt void 50ml 300Pt void 50ml. Pt C/o pain and pressure. BS 568. PRESCHOOL TEACHER'S ASSISTANT paged to confirm straight cath vs castaneda. Straight cath attempted x2. Large blood clots obstructing catheter. PRESCHOOL TEACHER'S ASSISTANT paged. 400 PRESCHOOL TEACHER'S ASSISTANT to floor to attempt [address] castaneda. Coude placed for 1000ml dark mariam urine with clots. Will continue to monitor. This note was completed by: Holly Lynn RN [facility] PROGRESSon 07-01-2019 PROGRESS HNO ID: [id number] Author: Arturo Lockhart Service: General Internal Medicine [...] Possible discharge today SIGNATURE: Arturo Lockhart MD [facility] PROGRESS HNO ID: [id number] Author: Juan F Mohamud Service: Orthopaedic Surgery Author Type: Nurse Practitioner Type: Progress Notes Filed: 07/01/2019 8:24 AM Note Text: -- Attestation signed by Enrrique Guillen at 07/02/2019 12:25 AM Orthopaedic Staff Note [...] 1615 VTE RISK CATEGORY: SURGICAL MODERATE RISK ([place], [place]) Active VTE Medication Orders: 06/30/19 0900 ENOXAPARIN 30 MG INJECTION (LOVENOX) Active VTE Prophylaxis Orders: 06/29/19 161 PNEUMATIC COMPRESSION STOCKINGS ([place], [place]) 06/29/19 161 ACTIVITY - MOBILIZE PATIENT ([place]) PHYSICAL EXAMINATION: Right Lower Extremity: Dorsalis [...] 01, 2019 TIME: 8:22 AM PAGER/CONTACT #: [phone] The patient has undergone major orthopedic surgery [...] Patient demonstrated understanding of risks of benefits. [facility] THERAPY NTon 07-01-2019 THERAPY NT HNO ID: [id number] Author: Maureen Milan Service: Physical Therapy Author Type: Ceiling Cleaner Type: Therapy (PT/OT/Speech/Resp) Filed: 07/01/2019 11:00 AM Note Text: -- Attestation signed by Pedro Eddy at 07/08/2019 9:06 AM I reviewed and agree with the documentation corresponding to this therapy visit. SIGNATURE: Pedro Eddy, PT DATE: July 08, 2019 TIME: 9:06 AM -- PHYSICAL THERAPY MISSED VISIT SERVICE DATE: 07/01/2019 SERVICE TIME: 1035 to 1035 ROOM: [id number]-[id number]- Attempted Treatment. Patient not seen due to [...] Patient with many questions regarding urology, notified WEB CONTENT SPECIALIST Clifton Mohamud. Will re-attempt patient as schedule permits and with patient appropriateness. SIGNATURE: Maureen Milan PTA PATIENT NAME: Norbert Goins DATE: July 01, 2019 TIME: 10:57 AM Normal [facility] Urinalysison 07-01-2019 Bilirubin, Urine Negative Normal Negative [facility] Comment on above: Performed By: #### U A, UAMIC ####[facility] [address] [place], [place] [phone] Clarity (U) Clear Normal Clear [facility] Comment on above: Performed By: #### U A, UAMIC ####[facility] [address] [place] [address] Color (U) Yellow Normal Yellow [facility] Comment on above: Performed By: #### U A, UAMIC ####[facility] [address] [place] [address] Glucose Ql (U) Negative Normal Negative [facility] Comment on above: Performed By: #### U A, UAMIC ####[facility] [address] [place] [address] Hemoglobin/Blood,Ur Large Critically abnormal Negative [facility] Comment on above: Performed By: #### U A, UAMIC ####[place] [address] Ketones Ql (U) Negative Normal Negative [facility] Comment on above: Performed By: #### U A, UAMIC ####[place] [address] Leukest Negative Normal Negative [facility] Comment on above: Performed By: #### U A, UAMIC ####[facility] [address] [place] [address] Nitrite Ql (U) Negative Normal Negative [facility] Comment on above: Performed By: #### U A, UAMIC ####[place] [address] pH (Bld) 6.0 Normal 5.0-8.0 [facility] Comment on above: Performed By: #### U A, UAMIC ####[facility] [address] [place] [address] Protein (U) [Mass/Vol] Negative Normal Negative [facility] Comment on above: Performed By: #### U A, UAMIC ####[facility] [address] [place] [address] Specific [place], Ur <=1.005 Normal 1.001-[address] [place] [address] Comment on above: Performed By: #### U A, UAMIC ####[facility] [address] [place] [address] Urobilinogen Qn (U) 0.2 Normal 0.2-1.0 [facility] Comment on above: Performed By: #### U A, UAMIC ####[facility] Zqdfsgrjum6271 [address]5[address] Urine Microscopic (FOR LAB U SE ONLY)on 07-01-2019 Cast SEE COMMENT Normal 0 [facility] Comment on above: Result Comment: 0 Performed By: #### T SCR30 #### [facility] Laboratory [address] [facility] [phone] Epithelial cells LM.HPF (Urine sed) [#/Area] SEE COMMENT Normal [facility] Comment on above: Result Comment: 0-5 Squamous Epithelial Cells Performed By: #### T SCR30 #### [facility] Laboratory [address]5[address] RBC (U) [#/Vol] 5-10 Critically abnormal 0-3 [facility] Comment on above: Performed By: #### T SCR30 #### [facility] Laboratory [address] [facility] [phone] WBC (Bld) [#/Vol] 0-5 Normal 0-5 [facility] Comment on above: Performed By: #### T SCR30 #### [facility] Laboratory [address] [place] [phone] Basic Metabolic Panlon 06-30 Anion gap [Moles/Vol] 10 mmol/L Normal 9-18 [facility] Comment on above: Performed By: #### C BC, BMP ####[facility] [address] [place], [place] [phone] Calcium [Mass/Vol] 8.9 mg/dL Normal 8.5-10.2 [facility] Comment on above: Performed By: #### C BC, BMP ####[facility] Fafljjpzgt4634 [address] Chloride [Moles/Vol] 100 mmol/L Normal 97-105 [facility] Comment on above: Performed By: #### C BC, BMP ####[facility] Pxoejxjrlc0567 [address] CO2 [Moles/Vol] 26 mmol/L Normal 22-30 [facility] Comment on above: Performed By: #### C BC, BMP ####[facility] [address] [place], [place] [phone] Creatinine [Mass/Vol] 0.86 mg/dL Normal 0.73-1.22 [facility] Comment on above: Performed By: #### C ESTELLA, YANELI ####[facility] [address] [place] [address] eGFR- Amer. >60 Normal [facility] Comment on above: Performed By: #### Aroldo SORIA, BMP ####[facility] [address] [place] [address] GFR/1.73 sq M predicted among non-blacks MDRD (S/P/Bld) [Vol rate/Area] mL/min/{1.73_m2} Normal [facility] Comment on above: Result Comment: eGFR (Estimated [...] GFR. Performed By: #### C ESTELLA, BMP ####[facility] [address] [place] [address] Glucose [Mass/Vol] 136 mg/dL High 74-99 [facility] Comment on above: Result Comment: The [place] Diabetes Association (ADA) provides guidance for cutoff [...] Standards of Medical Care in Diabetes 2016, [place] [employer] Association. Diabetes Care. 2016.39(Suppl 1). Performed By: #### C ESTELLA, BMP ####[facility] Rnwhybmfsc2214 [address] Potassium [Moles/Vol] 4.1 mmol/L Normal 3.7-5.1 [facility] Comment on above: Performed By: #### C BC, BMP ####[facility] Ad[address]4 [place] [address] Sodium [Moles/Vol] 136 mmol/L Normal 136-144 [facility] Comment on above: Performed By: #### C BC, BMP ####[facility] [address] [place] [address] Urea nitrogen [Mass/Vol] 20 mg/dL Normal 9-24 [facility] Comment on above: Performed By: #### C BC, BMP ####[facility] [address] [place] [address] CASE MGT INIT Tresa 2018 CASE MGT INIT ARASELI HNO ID: [id number] Author: Neisha OmerRn) CAROL Bauman Service: Case Management Author Type: Registered Nurse Type: Care Mgt Initial Assessment Filed: 06/30/2019 12:46 PM Note Text: CARE MANAGEMENT: ASSESSMENT AND DISCHARGE PLAN SERVICE DATE: 06/30/2019 SERVICE TIME: 12:41 PM PRIMARY CARE PHYSICIAN: Mireille Rosales MD (Confirmed with spouse) ADMISSION STATUS: Extended Recovery Needs Prior to Discharge: To Be Determined;Discharge Prescriptions;OT/PT Evaluation;Discharge Transportation;Pharmacy Bedside Delivery 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 No Advance Directive: Current Advance Directive: Health Care Power of Data Processing Systems Consultant In Chart: No Dry Wall Finisher Attempted to Assist with AD Completion: Yes [...] Bars Has the Patient Been in a Jail Facility in the Past 30 days? No SOCIAL: Living Arrangement: Home Lives With: Spouse Financial Resources: Employed: [employer] Primary Contact: Extended Emergency Contact Information Primary Emergency Contact: Amber Goins Mobile Relation: Spouse Supportive: Yes Other Important [...] 0 I feel financially burdened by my ijp-hz-hqszkk expenses for my prescription medication: Disagree completely - 0 Patient is categorized as low risk < 2 Are you interested in bedside delivery of your medications? Yes, uses [facility] [address] in [place] Food Concerns: In the Last Month, Have [...] 30, 2019 TIME: 12:41 PM PAGER/CONTACT #: [phone] Normal [facility] CBCon 06-30-2019 Erythrocyte distribution width (RBC) [Ratio] 13.3 % Normal 11.5-15.0 [facility] Comment on above: Performed By: #### C BC, BMP ####[facility] [address] [place] [address] Hematocrit (Bld) [Volume fraction] 39.2 % Normal 39.0-51.0 [facility] Comment on above: Performed By: #### C BC, BMP ####[facility] [address] [place] [address] Hemoglobin (Bld) [Mass/Vol] 13.5 g/dL Normal 13.0-17.0 [facility] Comment on above: Performed By: #### C BC, BMP ####[facility] [address] [place] [address] MCH (RBC) [Entitic mass] 30.4 pG Normal 26.0-34.0 [facility] Comment on above: Performed By: #### C BC, BMP ####[facility] [address] [place] [address] MCHC (RBC) [Mass/Vol] 34.4 g/dL Normal 30.5-36.0 [facility] Comment on above: Performed By: #### C BC, BMP ####[facility] [address] [place] 0844960 MCV (RBC) [Entitic vol] 88.3 fL Normal 80.0-100.0 [facility] Comment on above: Performed By: #### C BC, BMP ####[facility] [address] [place] [address] Platelet mean volume (Bld) [Entitic vol] 10.3 fL Normal 9.0-12.7 [facility] Comment on above: Performed By: #### C BC, BMP ####[facility] [address] Platelets (Bld) [#/Vol] 241 10*3/uL Normal 150-400 [facility] Comment on above: Performed By: #### C BC, BMP ####[facility] [address]6550 [phone] RBC (Bld) [#/Vol] 4.44 10*6/uL Normal 4.20-6.00 [facility] Comment on above: Performed By: #### C BC, BMP ####[facility] [address]98 [phone] WBC (Bld) [#/Vol] 11.76 10*3/uL High 3.70-11.00 [facility] Comment on above: Performed By: #### C ESTELLA, BMP ####[facility] [address] [place] [id number] PROGRESSon 06-30-2019 PROGRESS HNO ID: [id number] Author: Arturo Lockhart Service: General Internal Medicine [...] SIGNATURE: Arturo Lockhart MD TIME: 10:38 AM [facility] PROGRESS HNO ID: [id number] Author: Juan F Mohamud Service: Orthopaedic Surgery [...] 1615 VTE RISK CATEGORY: SURGICAL MODERATE RISK (MS,NC) Active VTE Medication Orders: 06/30/19 0900 ENOXAPARIN 30 MG INJECTION (LOVENOX) Active VTE Prophylaxis Orders: 06/29/19 161 PNEUMATIC COMPRESSION STOCKINGS ([place], [place]) 06/29/19 161 ACTIVITY - MOBILIZE PATIENT ([place], [place]) PHYSICAL EXAMINATION: Right Lower Extremity: Dorsalis [...] 30, 2019 TIME: 9:10 AM PAGER/CONTACT #: [phone] The patient has undergone major orthopedic surgery [...] Patient demonstrated understanding of risks of benefits. [facility] THERAPY NTon 06-30-2019 THERAPY NT HNO ID: [id number] Author: Maureen Milan Service: Physical Therapy Author Type: Ceiling Cleaner Type: Therapy (PT/OT/Speech/Resp) Filed: 06/30/2019 5:01 PM Note Text: -- Attestation signed by Pedro Eddy at 07/08/2019 9:07 AM I reviewed and agree with the documentation corresponding to this therapy visit. SIGNATURE: Pedro Eddy, PT DATE: July 08, 2019 TIME: 9:07 AM -- Physical Therapy Treatment SERVICE DATE: 06/30/2019 SERVICE TIME: 1544 to 1624 ROOM: [id number] Recommended Discharge Disposition: Outpatient Physical Therapy Recommended [...] Ambulate with: Supervision(WBAT RLE, safe tech) Distance: w284-210' for basic self care AND home mobility [...] daily living (ADL) Interventions Provided: Therapeutic Exercise (05690);Therapeutic Activity (57624);Gait Training (43571) Therapeutic Exercise (90700) Treatment Minutes: 10 1 unit Skilled Intervention(s): Instruction in therapeutic exercise for R LE only heel slides, LAQ x 15 reps each Verbal and tactile cuing provided for correct performance of exercises Cues for diaphragmatic breathing Re-emphasized the importance of frequent performance of anti-embolic exercises Therapeutic Activity (51656) Treatment Minutes: 10 1 unit Skilled Intervention(s): [...] phone number and contact information Gait Training (73546) Treatment Minutes: 20 1 unit Skilled Intervention(s): Instruction in sequencing, gait pattern, step-to gait Instruction in correction of gait deviations, cues for upright posture, safety, safe pacing Instruction in stair negotiation, [id number]-wm-[id number]. 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 [employer], travels OBJECTIVE: CURRENT FUNCTIONAL STATUS: Current Functional [...] Gait Distance (feet): 80'x2 Stairs Contact Guard Assistance(uhvt-fr-vqnt) Stairs Device: Crutch(es);Hand Held Assist;Rail Number of [...] DATE: June 30, 2019 TIME: 4:57 PM [facility] THERAPY NT HNO ID: [id number] Author: Pedro (Pt) Surjit Service: Physical Therapy Author Type: Physical Therapist Type: Therapy (PT/OT/Speech/Resp) Filed: 06/30/2019 3:40 PM Note Text: Physical Therapy Evaluation SERVICE DATE: 06/30/2019 SERVICE TIME: 1046 to 1136 ROOM: [place] [address] Recommended Discharge Disposition: Outpatient Physical Therapy Recommended [...] Ambulate with: Supervision(WBAT RLE, safe tech) Distance: c922-622' for basic self care AND home mobility [...] daily living (ADL) Interventions Provided: Evaluation;Therapeutic Exercise (39299);Therapeutic Activity (26245);Gait Training (87379) $ Evaluation-Low (87805) Billed Units: 1 unit Therapeutic Exercise (59700) Treatment Minutes: 15 1 unit Skilled Intervention(s): [...] reviewed written TKA HEP instructions. Therapeutic Activity (49054) Treatment Minutes: 15 1 unit Skilled Intervention(s): [...] and rationale for discharge recommendation of initial HHC for safe transition to home setting, including basement business. Instructed patient in use of call light for ALL OOB and mobility activities for safety in hospital setting Gait Training (59570) Treatment Minutes: 10 1 unit Skilled Intervention(s): [...] Lives With: Family(spouse AND daughter) Assistance Available: maritime officer(spouse works a few days per week) Entry To Home: Stairs Number Of Stairs Into Home: 1 Number Of Stairs To Bed/Bath: 0(basement business office; 13 stairs w/1 rail) Tub/Shower Type: walk in shower Laundry: spouse will complete Equipment Owned: Cane;Rollator;Elevated Toilet Seat;Crutch(es) Prior Functional Level: Within Functional Limits Prior Functional Level Comments: per patient, ind with ADLS, IADLS, +drives,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 SIGNATURE: Pedro Eddy PT PATIENT NAME: Norbert Goins DATE: June 30, 2019 TIME: 3:10 PM [facility] THERAPY NT HNO ID: [id number] Author: Erika OmerOt) Peyton Service: Occupational Therapy Author Type: Occupational Therapist Type: Therapy (PT/OT/Speech/Resp) Filed: 06/30/2019 10:38 AM Note Text: Occupational Therapy Evaluation SERVICE DATE: 06/30/2019 SERVICE TIME: 914 to 950 ROOM: [place] [address] Recommended Discharge Disposition: Home OT Recommended Discharge [...] daily living (ADL) Interventions Provided: Evaluation;Therapeutic Activity (75049) $ Evaluation-Low (87534) Billed Units: 1 unit Therapeutic Activity (33981) Treatment Minutes: 24 2 units Skilled Intervention(s): [...] Lives With: Spouse(and adult daughter) Assistance Available: maritime officer(spouse works a few days per week) Entry To Home: Stairs Number Of Stairs Into Home: 1 Number Of Stairs To Bed/Bath: 0(first floor set-up) Tub/Shower Type: walk in shower Laundry: spouse will complete Equipment Owned: Cane;Wheeled Walker;Rollator;Elevated Toilet Seat Prior Functional Level: Within Functional Limits Prior Functional Level Comments: per patient, ind with ADLS, IADLS, + 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 SPECIMEN W/BX 08/02/06 HH, antral gastritis - [...] June 29, 2019 TIME: 11:31 AM CSN: [id number] Normal [facility] CONSULTon 06-29-2019 CONSULT HNO ID: [id number] Author: Arturo Lockhart Service: General Internal Medicine Author Type: Physician Type: Consults Filed: 07/14/2019 11:56 AM Note Text: [facility]- Consultation NORBERT GOINS : 1955 AGE: 64 SEX: M ACCTNUM: [id number] [facility]: [facility] LOCATION: [facility] ATTENDING PHYSICIAN: ENRRIQUE GUILLEN DATE OF SERVICE: [...] the hospital. Arturo Lockhart M.D. Internal Medicine BLAINE:[id number] [facility] NURSING PROGon 06-29-2019 NURSING PROG HNO ID: [id number] Author: Devante Brock) CAROL Bailey Service: Nursing Author Type: Registered Nurse Type: Nursing Progress Note Filed: 06/29/2019 3:52 PM Note Text: Report to Pebbles MACHADO. [facility] OPERATIVE NOon 06-29-2019 OPERATIVE NO HNO ID: [id number] Author: Enrrique Guillen Service: Orthopaedic Surgery Author Type: Physician Type: Operative Report Filed: 06/29/2019 4:12 PM Note Text: [facility] OPERATIVE REPORT PATIENT NAME: Norbert Goins CSN: [id number] LOG ID: [id number] Surgery Date: 06/29/2019 Surgeon(s) and Project Management Intern(s): Surgeon(s) and Role: * Enrrique Guillen - [...] Implant Name Type Inv. Item Serial No. Foot Drill Operator Lot No. [id number] Model Num No. Used CEMENT SIMPLEX P BONE RADIOPAQUE FULL DOSE STERILE - [id number] Cement / Putty CEMENT SIMPLEX P BONE RADIOPAQUE FULL DOSE STERILE STRY/[employer] [id number] Right [id number] COMPONENT TRIATHLON 4 FEMORAL CEMENTED POSTERIOR STABILIZE KNEE RIGHT - [id number] Joint - Knee COMPONENT TRIATHLON 4 FEMORAL CEMENTED POSTERIOR STABILIZE KNEE RIGHT [employer]Y/[employer] [id number] Right [id number] 1 INSERT TRIATHLON 4 X3 9MM TIBIAL POSTERIOR STABILIZE KNEE - [id number] Joint - Knee INSERT TRIATHLON 4 X3 9MM TIBIAL POSTERIOR STABILIZE KNEE STRY/[employer] [id number] Right [id number] 1 BASEPLATE TRIATHLON 4 UNIVERSAL COCR TIBIAL TOTAL STABILIZE CEMENTED KNEE - [id number] Plate BASEPLATE TRIATHLON 4 UNIVERSAL COCR TIBIAL TOTAL STABILIZE CEMENTED KNEE STRY/[employer] [id number] Right [id number] 1 COMPONENT TRIATHLON 35MM 10MM PATELLAR ASYMMETRIC KNEE - [id number] Joint - Patella COMPONENT TRIATHLON 35MM 10MM PATELLAR ASYMMETRIC KNEE [employer]Y/[employer] [id number] Right [id number] 1 Problem List: ACTIVE PROBLEM LIST DIVERTICULOSIS [...] and muscles. We discussed my relationship with [facility] and that I receive royalty payments from [employer] for technology I developed was fully disclosed. A [employer] product may be used in this care I provide. I do not receive any money for products that I or any other [facility] physicians prescribe or use. My choice on which product to use in this care was not influenced by my relationship with [employer]. I select the product that in my [...] DATE: June 29, 2019 TIME: 2:25 PM [facility] PT EDon 06-29-2019 PT ED HNO ID: [id number] Author: Libertad (Carol) CAROL Beach Service: ? [...] Signed By: Libertad Beach RN In Department: [facility] SURGERY [facility] SURGICAL PATHOLOGYon 019 SURGICAL PATHOLOGY Specimen originated from [facility] Specimen #: [id number] Submitting Physician: Enrrique Guillen M.D. FINAL DIAGNOSIS [...] articular surfaces. No soft tissue is present. Outside Sales Representative sections to include articular surface are submitted in one cassette following decalcification. NELonny/lito 06/30/2019 Gross examination [place] [address] Date of Report: 07/03/2019 Date of Procedure: 06/29/2019 Date of Receipt: 06/29/2019 Submitted by: Enrrique Guillen M.D. Location: 2E Diagnostic interpretation performed at [place] [address]. CLIA Number: [id number] [facility] NURSING PROGon 06-09-2019 NURSING PROG HNO ID: [id number] Author: Ale (Rn) CAROL Villeda Service: ? [...] EKG remains preliminary. Maddi Alcala RN Normal [facility] Type and SCR (30D)on 019 ABO/RH(D) Positive Normal [facility] Comment on above: Performed By: #### T SCR30 #### [facility] Laboratory [address] [place] [address] HOSPon 05-27-2019 HOSP Patient:Norbert Goins MRN: Height:5' [...] 45.4 % 06/05/2019 51.0 39.0 Progress Notes ([facility] [facility]): MAYELIN Ricci 06/23/2019 4:03 PM Signed TOTAL JOINT COMPLETE CARE PROGRAM PRE-OPERATIVE TEACHING Service Date: 06/16/2019 Service Time: 3:54 PM Date of : 1955 Gender: male Date of Surgery: 06/29/19 Procedure: Right Total Knee Replacement Complete Care Program was discussed with the patient: Insurance Coordinator Identification: Patient identified a chiropractic care to help when discharged to home: , [...] 16, 2019 TIME: 1:24 PM PAGER/CONTACT #: [phone] Progress Notes (PRE [facility]): Maddi Saenz PA-C 06/10/2019 8:17 AM Signed Elissa called into [facility] [place]. Ale Villeda will notify the patient. [facility] PROGRESSon 03-10-2019 PROGRESS HNO ID: [id number] Author: Myriam (Ct) Carolynn, LANETTE Service: ? Author Type: Clinical Official Court Interpreter Type: Progress Notes Filed: 03/10/2019 2:36 PM Note Text: NAME:Norbert Goins DATE: March 10, 2019 CCF#: [id number] Lower Extremity X-Ray(s): Knee, AP / Lat / Merchant Bilateral and Wt. Bearing COMPLETED TECH ID SIGN: MYRIAM BRADY [facility] XR KNEE 3V AP/LAT/ANAMIKA BILon 03-10-2019 XR [...] fracture or joint effusion. IMPRESSION: Bilateral osteoarthrosis Handle Bender: [id number] Transcribe Date/Time: Mar 10 2019 3:56P Dictated by : ТАТЬЯНА NAIK MD This examination was interpreted and the report reviewed and electronically signed by: ТАТЬЯНА NAIK MD on Mar 10 2019 3:58PM EST [id number] [facility] Vital Signs Date Time Vital Sign Value Performing Clinician Katia velásquez 02-13-2025 08:08-0400 Body temperature 98 [degF] Dr. Mireille bonilla MD Work Phone: [facility] 02-13-2025 08:08-0400 Diastolic blood pressure 95 mm[Hg] Dr. Mireille Rosales MD Work Phone: [facility] 02-13-2025 08:08-0400 Heart rate 77 /min Dr. Mireille bonilla MD Work Phone: 2(288)961-014911 [address] 02-13-2025 08:08-0400 Respiratory rate 19 /min Dr. Mireille bonilla MD Work Phone: 1(215)479-195349 [place] [address] 02-13-2025 08:08-0400 SaO2% (BldA) [Mass fraction] 98 % Dr. Mireille Rosales MD Work Phone: 3(963)943-279449 [place] [address] 02-13-2025 08:08-0400 Systolic blood pressure 166 mm[Hg] Dr. Mireille Rosales MD Work Phone: [facility] 02-13-2025 07:17-0400 Body height 167.[address] Mireille bonilla MD Work Phone: 1(340)626-213311 [address] 02-13-2025 07:17-0400 Body mass index (BMI) [Ratio] 44.9 kg/m2 Dr. Mireille Rosales MD Work Phone: 9(382)721-393211 [address] 02-13-2025 07:17-0400 Body weight 126.[address] Mireille bonilla MD Work Phone: 7(085)024-330660 [place] [address] 01-25-2025 07:04-0400 Body temperature 98 [degF] Dr. Mireille bonilla MD Work Phone: 8(869)855-449711 [address] 01-25-2025 07:04-0400 Diastolic blood pressure 84 mm[Hg] Dr. Mireille Rosales MD Work Phone: [facility] 01-25-2025 07:04-0400 Heart rate 80 /min Dr. Mireille bonilla MD Work Phone: [facility] 01-25-2025 07:04-0400 Respiratory rate 18 /min Dr. Mireille bonilla MD Work Phone: [facility] 01-25-2025 07:04-0400 SaO2% (BldA) [Mass fraction] 96 % Dr. Mireille Rosales MD Work Phone: 3(724)800-952860 [place] [address] 01-25-2025 07:04-0400 Systolic blood pressure 139 mm[Hg] Dr. Mireille Rosales MD Work Phone: 5(054)084-791949 [place] [address] 01-25-2025 05:44-0400 Body height 167.[address] Mireille bonilla MD Work Phone: 6(642)650-189849 [place] [address] 01-25-2025 05:44-0400 Body mass index (BMI) [Ratio] 45.5 kg/m2 Dr. Mireille Rosales MD Work Phone: 0(090)808-408949 [place] [address] 01-25-2025 05:44-0400 Body weight 127.[address] Mireille bonilla MD Work Phone: 8(807)982-557049 [place] [address] 01-24-2025 09:26-0400 Body temperature 98 [degF] Dr. Mireille bonilla MD Work Phone: 6(806)614-576049 [place] [address] 01-24-2025 09:26-0400 Diastolic blood pressure 78 mm[Hg] Dr. Mireille Rosales MD Work Phone: 4(022)792-104960 [place] [address] 01-24-2025 09:26-0400 Heart rate 82 /min Dr. Mireille bonilla MD Work Phone: 0(915)487-878549 [place] [address] 01-24-2025 09:26-0400 Respiratory rate 18 /min Dr. Mireille bonilla MD Work Phone: [facility] 01-24-2025 09:26-0400 SaO2% (BldA) [Mass fraction] 96 % Dr. Mireille Rosales MD Work Phone: 6(693)520-839711 [address] 01-24-2025 09:26-0400 Systolic blood pressure 180 mm[Hg] Dr. Mireille Rosales MD Work Phone: [facility] 01-24-2025 07:37-0400 Body height 167.[address] Mireille bonilla MD Work Phone: [facility] 01-24-2025 07:37-0400 Body mass index (BMI) [Ratio] 45.4 kg/m2 Dr. Mireille Rosales MD Work Phone: 9(133)736-758360 [place] [address] 01-24-2025 07:37-0400 Body weight 127.[address] Mireille bonilla MD Work Phone: 2(133)768-977149 [place] [address] 01-22-2025 16:33-0400 Body temperature 98 [degF] Dr. Mireille bonilla MD Work Phone: 3(946)282-497049 [place] [address] 01-22-2025 16:33-0400 Diastolic blood pressure 83 mm[Hg] Dr. Mireille Rosales MD Work Phone: 0(929)856-840360 [place] [address] 01-22-2025 16:33-0400 Heart rate 78 /min Dr. Mireille bonilla MD Work Phone: 3(803)288-831260 [place] [address] 01-22-2025 16:33-0400 Respiratory rate 16 /min Dr. Mireille bonilla MD Work Phone: 2(770)925-729460 [place] [address] 01-22-2025 16:33-0400 SaO2% (BldA) [Mass fraction] 99 % Dr. Mireille Rosales MD Work Phone: [facility] 01-22-2025 16:33-0400 Systolic blood pressure 150 mm[Hg] Dr. Mireille Rosales MD Work Phone: 3(830)271-366911 [address] 01-21-2025 08:18-0400 Diastolic blood pressure 64 mm[Hg] Dr. Mireille Rosales MD Work Phone: 1(534)318-105911 [address] 01-21-2025 08:18-0400 Systolic blood pressure 110 mm[Hg] Dr. Mireille Rosales MD Work Phone: [facility] 01-21-2025 08:17-0400 Body temperature 98.5 [degF] Dr. Mireille bonilla MD Work Phone: [facility] 01-21-2025 08:17-0400 Heart rate 75 /min Dr. Mireille bonilla MD Work Phone: [facility] 01-21-2025 08:17-0400 Respiratory rate 18 /min Dr. Mireille bonilla MD Work Phone: [facility] 01-21-2025 08:17-0400 SaO2% (BldA) [Mass fraction] 94 % Dr. Mireille Rosales MD Work Phone: [facility] 01-21-2025 07:14-0400 Body mass index (BMI) [Ratio] 45.1 kg/m2 Dr. Mireille Rosales MD Work Phone: [facility] 01-21-2025 07:14-0400 Body weight [address] Mireille bonilla MD Work Phone: [facility] 12-18-2024 10:01-0400 Body height 167.6 cm Hamilton Vicente MD Work Phone: [facility] 12-18-2024 10:01-0400 Body mass index (BMI) [Ratio] 47.61 kg/m2 Hamilton Vicente MD Work Phone: [facility] 12-18-2024 10:01-0400 Body weight 133.81 kg Hamilton Vicente MD Work Phone: [facility] 03-18-2024 11:08-0400 Body height 167.6 cm Hamilton Vicente MD Work Phone: [facility] 03-18-2024 11:08-0400 Body mass index (BMI) [Ratio] 49.39 kg/m2 Hamilton Vicente MD Work Phone: [facility] 03-18-2024 11:08-0400 Body weight 138.8 kg Hamilton Vicetne MD Work Phone: [facility] 04-05-2022 10:22-0400 Body height 167.6 cm Hamilton Vicente MD Work Phone: [facility] 04-05-2022 10:22-0400 Body weight 134.26 kg Hamilton Vicente MD Work Phone: [facility] 04-04-2022 14:38-0400 Body height 167.6 cm Sussy Bishop MD Work Phone: [facility] 04-04-2022 14:38-0400 Body temperature 97.7 [degF] Sussy Bishop MD Work Phone: [facility] 04-04-2022 14:38-0400 Body weight 134.54 kg Sussy Bishop MD Work Phone: [facility] 04-04-2022 14:38-0400 Diastolic blood pressure 88 mm[Hg] Sussy Bishop MD Work Phone: [facility] 04-04-2022 14:38-0400 Heart rate 91 /min Sussy Bishop MD Work Phone: [facility] 04-04-2022 14:38-0400 SaO2% (BldA) [Mass fraction] 95 % Sussy Bishop MD Work Phone: [facility] 04-04-2022 14:38-0400 Systolic blood pressure 130 mm[Hg] Sussy Bishop MD Work Phone: [facility] [facility] 03-29-2022 05:06-0400 Diastolic blood pressure 76 mm[Hg] [facility] Work Phone: 03-29-2022 05:06-0400 Heart rate 81 /min [facility] Work Phone: 03-29-2022 05:06-0400 Respiratory rate 18 /min [facility] Work Phone: 03-29-2022 05:06-0400 SaO2% (BldA) [Mass fraction] 96 % [facility] Work Phone: 03-29-2022 05:06-0400 Systolic blood pressure 178 mm[Hg] [facility] Work Phone: 03-29-2022 04:39-0400 Body height 167.64 cm [facility] Work Phone: 03-29-2022 04:39-0400 Body mass index (BMI) [Ratio] 47.3 kg/m2 [facility] Work Phone: 03-29-2022 04:39-0400 Body temperature 98 [degF] [facility] Work Phone: 03-29-2022 04:39-0400 Body weight 133 kg [facility] Work Phone: 03-28-2022 14:35-0400 Body height 167.6 cm Sussy Bishop MD Work Phone: [facility] 03-28-2022 14:35-0400 Body temperature 97.81 [degF] Sussy Bishop MD Work Phone: [facility] 03-28-2022 14:35-0400 Body weight 133.81 kg Sussy Bishop MD Work Phone: [facility] 03-28-2022 14:35-0400 Diastolic blood pressure 84 mm[Hg] Sussy Bishop MD Work Phone: [facility] 03-28-2022 14:35-0400 Heart rate 97 /min Sussy Bishop MD Work Phone: [facility] 03-28-2022 14:35-0400 SaO2% (BldA) [Mass fraction] 96 % Sussy Bishop MD Work Phone: [facility] 03-28-2022 14:35-0400 Systolic blood pressure 140 mm[Hg] Sussy Bishop MD Work Phone: [facility] 03-24-2022 12:56-0400 Body temperature 99 [degF] [facility] Work Phone: 03-24-2022 12:56-0400 Diastolic blood pressure 88 mm[Hg] [facility] Work Phone: 03-24-2022 12:56-0400 Heart rate 85 /min [facility] Work Phone: 03-24-2022 12:56-0400 Respiratory rate 18 /min [facility] Work Phone: 03-24-2022 12:56-0400 SaO2% (BldA) [Mass fraction] 95 % [facility] Work Phone: 03-24-2022 12:56-0400 Systolic blood pressure 135 mm[Hg] [facility] Work Phone: 03-24-2022 08:59-0400 Inhaled oxygen flow rate 2 L/min [facility] Work Phone: 03-24-2022 02:44-0400 Body height 167.64 cm [facility] Work Phone: 03-24-2022 02:44-0400 Body mass index (BMI) [Ratio] 46 kg/m2 [facility] Work Phone: 03-24-2022 02:44-0400 Body weight 129.27 kg [facility] Work Phone: 03-24-2022 00:23-0400 Body temperature 98 [degF] [facility] Work Phone: 03-24-2022 00:23-0400 Diastolic blood pressure 93 mm[Hg] [facility] Work Phone: 03-24-2022 00:23-0400 Heart rate 81 /min [facility] Work Phone: 03-24-2022 00:23-0400 Respiratory rate 16 /min [facility] Work Phone: 03-24-2022 00:23-0400 SaO2% (BldA) [Mass fraction] 95 % [facility] Work Phone: 03-24-2022 00:23-0400 Systolic blood pressure 133 mm[Hg] [facility] Work Phone: 03-23-2022 23:40-0400 Body height 167.64 cm [facility] Work Phone: 03-23-2022 23:40-0400 Body mass index (BMI) [Ratio] 46 kg/m2 [facility] Work Phone: 03-23-2022 23:40-0400 Body weight 129.27 kg [facility] Work Phone: 03-19-2022 09:49-0400 Body height 167.6 cm Sussy Bishop MD Work Phone: [facility] 03-19-2022 09:49-0400 Body temperature 97.81 [degF] Sussy Bishop MD Work Phone: [facility] 03-19-2022 09:49-0400 Body weight 136.99 kg Sussy Bishop MD Work Phone: [facility] 03-19-2022 09:49-0400 Diastolic blood pressure 110 mm[Hg] Sussy Bishop MD Work Phone: [facility] 03-19-2022 09:49-0400 Heart rate 88 /min Sussy Bishop MD Work Phone: [facility] 03-19-2022 09:49-0400 Respiratory rate 14 /min Sussy Bishop MD Work Phone: [facility] 03-19-2022 09:49-0400 SaO2% (BldA) [Mass fraction] 97 % Sussy Bishop MD Work Phone: [facility] 03-19-2022 09:49-0400 Systolic blood pressure 166 mm[Hg] Sussy Bishop MD Work Phone: [facility] 01-30-2022 07:36-0400 Heart rate 69 /min DR RODOLFO LUCAS MD [facility] 01-30-2022 07:22-0400 Diastolic Blood Pressure NBP [address] RODOLFO LUCAS MD [facility] 01-30-2022 07:22-0400 Heart rate 74 /min DR RODOLFO LUCAS MD [facility] 01-30-2022 07:22-0400 Respiratory rate 16 /min DR RODOLFO LUCAS MD [facility] 01-30-2022 07:22-0400 Systolic Blood Pressure NBP [address] RODOLFO LUCAS MD [facility] 01-30-2022 07:13-0400 Diastolic Blood Pressure NBP [address] RODOLFO LUCAS MD [facility] 01-30-2022 07:13-0400 Heart rate 79 /min DR RODOLFO LUCAS MD [facility] 01-30-2022 07:13-0400 Respiratory rate 16 /min DR RODOLFO LUCAS MD [facility] 01-30-2022 07:13-0400 Systolic Blood Pressure NBP [address] RODOLFO LUCAS MD [facility] 01-30-2022 07:09-0400 Diastolic Blood Pressure NBP [address] RODOLFO LUCAS MD [facility] 01-30-2022 07:09-0400 Respiratory rate 15 /min DR RODOLFO LUCAS MD [facility] 01-30-2022 07:09-0400 Systolic Blood Pressure NBP [address] RODOLFO LUCAS MD [facility] 01-30-2022 06:49-0400 Body height 167.[address] RODOLFO LUCAS MD [facility] 01-30-2022 06:49-0400 Body weight [address] RODOLFO LUCAS MD [facility] 01-30-2022 06:48-0400 Body temperature 96.8 [degF] DR RODOLFO LUCAS MD [facility] 01-30-2022 06:48-0400 Heart rate 73 /min DR RODOLFO LUCAS MD [facility] Encounters Encounter Date Encounter Type Care Provider Facility Start: 02-13-2025 End: 02-13-2025 Emergency department patient visit Dr. Mireille Rosales MD Work Phone: -Emergency Department Work Phone: Start: 01-25-2025 End: 01-25-2025 Emergency department patient [...] Start: 01-20-2025 End: 01-20-2025 ambulatory MIREILLE ROSALES Facility:[facility] Start: 01-04-2025 End: 01-04-2025 ambulatory MIREILLE ROSALES Facility:[facility] Start: 12-18-2024 End: 12-18-2024 Patient encounter procedure Hamilton Vicente MD Work Phone: Urology Comment on above: Benign prostatic hyp erplasia with urinary retention (Primary Dx); Prostate cancer screening; Screening for genitourinary condition; Bladder wall thickening; Elevated prostate specific antigen (PSA) Start: 12-18-2024 End: 12-18-2024 ambulatory MIREILLE ROSALES Facility:[facility] Start: 12-10-2024 End: 12-10-[address] Mireille Rosales MD Work Phone: [facility] Work Phone: Start: 12-10-2024 End: 12-10-[address] Mireille Rosales MD -Laboratory, [place] Work Phone: Start: 12-10-2024 End: 12-10-2024 ambulatory Mireille Rosales Facility:[facility] Start: 03-18-2024 End: 03-18-2024 ambulatory MIREILLE ROSALES Facility:[facility] Start: 03-18-2024 End: 03-18-2024 Patient encounter [...] Refill Request Start: 04-23-2022 End: 04-23-2022 ambulatory [facility] Work Phone: Start: 04-23-2022 End: 04-23-2022 Patient encounter procedure [facility] Start: 04-05-2022 End: 04-05-2022 Patient encounter procedure Hamilton Vicente MD Work Phone: Urology Comment on above: Retention of urine ( Primary Dx); Benign prostatic hyperplasia with urinary retention Start: 04-04-2022 End: 04-04-2022 Patient encounter procedure Sussy Bishop MD Work Phone: General Surgery Comment on above: Status post skin and subcutaneous tissue surgery (Primary Dx) Start: 03-29-2022 End: 03-29-2022 Emergency department patient visit [facility]-Emergency Department Start: 03-28-2022 End: 03-28-2022 Patient encounter procedure Sussy Bishop MD Work Phone: General Surgery Comment on above: Status post skin and subcutaneous tissue surgery (Primary Dx) Start: 03-26-2022 End: 03-26-2022 Patient encounter procedure Sussy Bishop MD Work Phone: General Surgery Comment on above: Status post skin and subcutaneous tissue surgery (Primary Dx); Dysuria Start: 03-24-2022 End: 03-24-2022 Evaluation and management of inpatient [facility] 3 Start: 03-24-2022 End: 03-24-2022 Evaluation and management of inpatient [facility] 3 Start: 03-19-2022 Telephone encounter Sussy Gutierrez MD Work Phone: General Surgery Comment on above: 03/23/2022 EXCISION O F INFECTED SEBACEOUS CYST [facility] Start: 03-19-2022 End: 03-19-2022 Patient encounter procedure Sussy Bishop MD Work Phone: General Surgery Comment on above: Infected sebaceous c yst (Primary Dx) Start: 01-30-2022 End: 01-30-[address] RODOLFO LUCAS MD [facility] Procedures Date Procedure Procedure Detail Performing Clinician Start: 01-25-2025 Urnls dip stick/tabl et reagent auto microscopy Dr. Mireille Rosales MD Work Phone: Start: 01-21-2025 Urnls dip stick/tabl et reagent auto microscopy Dr. Mireille Rosales MD Work Phone: Start: 12-18-2024 Urnls dip stick/tabl et rgnt auto w/o microscopy Hamilton Vicente MD Work Phone: Start: 12-10-2024 Prostate specific [...] above: Performed By: #### T [id number] #### [facility] [address] [place] [address] Start: 09-25-2007 Lipid 1996 panel - Serum [...] 07/28/2025 1:30 PM EST Office Visit Urology [address] [place] [id number] Hamilton Vicente MD [address] [place] [address] 6 MONTH FOLLOW UP, PSA PRIOR Urology Comment on above: 6 MONTH FOLLOW UP, P SA PRIOR Start: 05-03-2025 Influenza vaccination Influenz a Vaccine (Season Ended) [facility] Start: 02-13-2025 [facility] Start: 01-25-2025 [facility] Start: 01-24-2025 [facility] Start: 01-24-2025 Removal of urinary catheter [facility] Start: 01-22-2025 [facility] Start: 01-21-2025 [facility] Start: 09-02-2024 Advance Directive Discussion Advance Directive Discussion [facility] Start: 05-03-2024 Covid-19 Vaccine ( season) Covid-19 Vaccine ( season) [facility] Start: 05-03-2024 Influenza vaccination Influenza Vacc ine (#1) [facility] Start: 09-02-2023 Advance Directive Discussion Advance Directive Discussion [facility] Start: 09-02-2023 Behavioral Health Screening Behavioral Health Screening [facility] Start: 05-03-2023 Covid-19 Vaccine ( season) Covid-19 Vaccine ( season) [facility] Start: 05-03-[address] [facility] Start: 10-13-2022 Urine microalbumin profile DTaP,Tdap,Td Vaccine (2 - Td or Tdap) [facility] Start: 09-02-2022 ADVANCE DIRECTIVE DISCUSSION ADVANCE DIRECTIVE DISCUSSION [facility] Start: 09-02-2022 DEPRESSION ASSESSMENT DEPRESSION ASS ESSMENT [facility] Start: 06-30-2022 DIABETES SCREEN DIABETES SCREEN [facility] Start: 06-30-2022 Diabetes Screening Diabetes Screenin g [facility] Start: 05-03-2022 Influenza vaccination INFLUENZA (#1) [facility] Start: 03-24-2022 Anes integ musc & nr v head neck&posterior trunk ANESTH HEAD/NECK/PTRUNK [facility] Work Phone: Start: 03-24-2022 Exploration penetrat ing wound spx neck EXPLORE WOUND NECK [facility] Work Phone: Start: 03-24-2022 Patient discharge [facility] Work Phone: Start: 03-24-2022 [facility] Work Phone: Start: 03-24-2022 Introduction of urin rajinder catheter [facility] Work Phone: Start: 03-24-2022 Application of intermittent pneumatic compression device [facility] Work Phone: Start: 03-24-2022 Following clinical pathway protocol [facility] Work Phone: Start: 03-24-2022 Ambulation without limitation [facility] Work Phone: Start: 03-24-2022 Assessment of risk o f venous thromboembolism [facility] Work Phone: Start: 03-24-2022 Catheterization of vein [facility] Work Phone: Start: 03-24-2022 Consultation for treatment [facility] Work Phone: Start: 03-24-2022 Incentive spirometry [facility] Work Phone: Start: 03-24-2022 Maintenance of drain age tube [facility] Work Phone: Start: 03-24-2022 Vital signs measurements [facility] Work Phone: Start: 03-24-2022 [facility] Work Phone: Start: 03-24-2022 Thyroidectomy Thyroidectomy (Not Applicable) [facility] Work Phone: Start: 09-02-2021 ADVANCE DIRECTIVE DISCUSSION ADVANCE DIRECTIVE DISCUSSION [facility] Start: 07-17-2020 Adult depression screening assessment DEPRESSION SCREENING [facility] Start: 02-20-2020 Pneumococcal Vaccine : 65+ (1 - PCV) Pneumococcal Vaccine: 65+ (1 - PCV) [facility] Start: 02-20-2020 Pneumococcal Vaccine : 65+ (1 of 1 - PCV) Pneumococcal Vaccine: 65+ (1 of 1 - PCV) [facility] Start: 02-20-2020 PNEUMOCOCCAL: 65+ (1 - PCV) PNEUMOCOCCAL: 65+ (1 - PCV) [facility] Start: 2015 RSV Vaccine (1 - 1-d ose 60+ series) RSV Vaccine (1 - 1-dose 60+ series) [facility] Start: 2015 RSV Vaccine (1 - Ris k 60-74 years 1-dose series) RSV Vaccine (1 - Risk 60-74 years 1-dose series) [facility] Start: 09-25-2012 Lipid 1996 panel - S mo or Plasma Lipid Screening [facility] Start: 09-25-2012 Lipid panel Lipid Screening [facility] Start: 09-25-2012 LIPID SCREEN LIPID SCREEN [facility] Start: 09-25-2012 PROSTATE CANCER SCRE ENING DISCUSSION PROSTATE CANCER SCREENING DISCUSSION [facility] Start: 09-25-2012 Prostate specific an tigen measurement Prostate Cancer Screening Discussion [facility] Start: 09-26-2007 Urine microalbumin profile [facility] Start: 2005 Pneumococcal Vaccine : 50+ (1 of 1 - PCV) Pneumococcal Vaccine: 50+ (1 of 1 - PCV) [facility] Start: 2005 SHINGRIX VACCINE (1 of 2) PERKINS GRIX VACCINE (1 of 2) [facility] Start: 02-20-2000 COLOGUARD (FIT-DNA) COLOGUARD (FIT-D NA) [facility] Start: 02-20-2000 Colonoscopy COLONOSCOPY [facility] Start: 02-20-2000 COLORECTAL CANCER SCREENING COLORECTAL CANCER SCREENING [facility] Start: 02-20-[address] COLONOGRAPHY [facility] Start: 02-20-2000 FECAL OCCULT BLOOD FECAL OCCULT BLOO D [facility] Start: 02-20-2000 Screening for malign ant neoplasm of colon [facility] Start: 02-20-2000 SIGMOIDOSCOPY SIGMOIDOSCOPY [facility] Start: 1973 ANNUAL PCP TEAM M[employer] EDUCATIONAL SPECIALIST ABDULKADIR DISEASE VISIT ANNUAL PCP TEAM CHRONIC DISEASE VISIT [facility] Start: 1973 Anxiety Screening Anxiety Screening [facility] Start: 1973 BP CONTROLLED (<130/80) BP CONTROLLE D (<130/80) [facility] Start: 1973 Depression Screening Depression Scre ening [facility] Start: 1973 HEPATITIS C SCREENING HEPATITIS C SC [facility] Start: 1973 Hepatitis C screening Hepatitis C Sc [facility] Start: 1955 COVID-19 VACCINE (#1) COVID-19 VACCI NE (#1) [facility] CYSTO/TRUS ONLY CYSTO/TRUS ONLY Procedures Routine Benign prostatic hyperplasia with urinary retention Bladder wall thickening Ordered: 12/18/2024 [facility] Work Phone: Comment on above: Ordered: 12/18/2024 Patient Education [facility] Work Phone: Patient referral [facility] Work Phone: [facility] Immunizations Immunization Date Immunization Notes Care Provider Darinel puente 09-25-2007 tetanus and diphther ia toxoids, adsorbed, preservative free, for adult use (2 Lf of tetanus toxoid and 2 Lf of diphtheria toxoid) Sussy Bishop MD Work Phone: [facility] Work Phone: Payers Date Payer Category Payer Self-pay [id number] 2024 Unknown [id number] 2022 Unknown [facility] GENERIC MEDICAL GENERIC [id number] 2022-Present [phone] [address] [address] [place] [address] Indemnity [id number] 2022 Unknown HOSPITAL/MEDICAL GENERIC MEDICAL GENERIC [id number] 2022-Present [phone] [address] [address] [place] [address] Indemnity [id number] 2020 Medicare MEDICARE MEDICAR E A AND B [id number] 2020-Present [phone] [place] [address] Medicare [id number] 2020 Medicare [id number] 2020 Medicare [id number] Unknown [id number] Unknown [id number] Unknown [id number] Unknown [id number] Unknown [id number] Unknown [id number] Social History Date Type Detail Facility Start: 01-30-2022 End: 02-13-2025 Tobacco smoking status Never smoked tobacco (finding) [facility] Start: 1955 Sex Assigned At Male A [facility] Start: 03-19-2022 End: 03-18-2024 Alcohol intake Current drinker of alcohol (finding) [facility] Start: 1955 Sex Assigned At Not on file [facility] Start: 03-09-2022 End: 04-11-2022 Exposure to SARS-CoV-2 (event) Not sure [facility] Start: 03-23-2022 End: 03-29-2022 Tobacco smoking status NHIS Unknown if ever smoked [facility] Work Phone: Start: 07-03-2019 Spouse/ Signif icant Other [facility] Start: 04-07-2019 End: 08-21-2023 Tobacco use and exposure Smokeless tobacco non-user [facility] Start: 04-11-2022 End: 08-21-2023 History of Social function [facility] Work Phone: Start: 04-11-2022 End: 08-21-2023 Tobacco use panel [facility] Work Phone: [id number] [id number] [phone] [facility] Work Phone: Start: 12-16-2024 Sex Male (finding) [facility] Medical Equipment Procedure Code Equipment Code Equipment Original Text Equipment Identifier Dates Thyroidectomy Plant polysaccha ride haemostatic agent, bioabsorbable ([id number] Start: 03-24-2022 Cement Simplex P Bone Radiopaque Full Dose Sterile - [id number] Start: 06-29-2019 Component Triath silvia 4 Femoral Cemented Posterior Stabilize Knee Right - [id number] Start: 06-29-2019 Insert Triathlon 4 X3 9mm Tibial Posterior Stabilize Knee - [id number] Start: 06-29-2019 Component Triath silvia 35mm 10mm Patellar Asymmetric Knee - [id number] Start: 06-29-2019 Baseplate Triath silvia 4 Boswell Cocr Tibial Total Stabilize Cemented Knee - [id number] Start: 06-29-2019 Goals Date Patient Goal Desired Activity /State Functional Status Date Assessment Result Facility 03-24-2022 Functional status Ambulates [facility] Work Phone: 01-30-2022 Functional Status Awake, Resting [facility] 07-02-2019 Are you deaf, or do you have serious difficulty hearing Yes 07/02/2019 4:15 PM Salome Bolden RN Yes [facility] 07-02-2019 Are you blind, or do you have serious difficulty seeing, even when wearing glasses No 07/02/2019 4:15 PM Salome Bolden RN No [facility] 07-02-2019 Do you have serious difficulty walking or climbing stairs Yes 07/02/2019 4:15 PM Salome Bolden RN Yes [facility] 07-02-2019 Do you have difficul ty dressing or bathing Yes 07/02/2019 4:15 PM Salome Bolden RN Yes [facility] 07-02-2019 Because of a physica l, mental, or emotional condition, do you have difficulty doing errands alone such as visiting a physician's office or shopping Yes 07/02/2019 4:15 PM Salome Bolden RN Yes [facility] Mental Status Date Assessment Result Facility 03-24-2022 Cognitive function Level Of Cons ciousness Awake;Alert;Appropriate;Fol lows Commands [facility] Work Phone: 03-24-2022 Cognitive function Voice/Name [facility] Work Phone: 01-30-2022 Mental Status Orientation Oriented x 4 [facility] 07-02-2019 Because of a physica l, mental, or emotional condition, do you have serious difficulty concentrating, remembering, or making decisions Yes 07/02/2019 4:15 PM EDT Salome Schneider RN Yes [facility] Clinical Notes 01-30-2022 to 02-13-2025 Hamilton Vicente MD - 12/18/2024 10:28 AM Jamila Villa MA - 12/18/2024 10:01 AM Hamilton Lanier MD - 03/18/2024 11:31 AM Jamila Villa MA - 03/18/2024 11:09 AM EDT Note Date & Type Note Facility 02-13-2025 Discharge summary [facility] 01-20-2025 Note HNO ID: [id number] Author: HAMILTON VICENTE MD Service: ? Author Type: Physician Type: Progress Notes Filed: 01/20/2025 15:03 Note Text: [facility] UR[facility]Y PROCEDURE NOTE [facility] ([facility]) FLEXIBLE CYSTOURETHROSCOPY AND TRUS UROLOGY OUTPATIENT PROCEDURE [...] up Hamilton Vicente MD, MS Associate Staff [facility] 12-18-2024 Note HNO ID: [id number] Author: HAMILTON VICENTE MD Service: ? Author Type: Physician Type: Progress Notes Filed: 02/01/2025 00:06 Note Text: [facility] [place] [facility] ESTABLISHED PATIENT CLINIC NOTE [facility] PATIENT INFO: Norbert Goins AGE: [...] the presence of high grade prostate cancer ([place]>=7) on biopsy. In that study, IsoPSA had [...] Labs: None Imag (more content not included)... [facility] 12-18-2024 History of Present illness Narrative Images from the original note were not included. [facility] UROLOG[facility] ESTABLISHED PATIENT CLINIC NOTE [facility] PATIENT INFO: Norbert Goins AGE: [...] the presence of high grade prostate cancer ([place]>=7) on biopsy. In that study, IsoPSA had [...] see above, otherwise unchanged Labs: None Imaging: [facility] Imaging Services [address] [place] [id number] Abdomen/Pelvis WITH Contrast MR#: [id number] Acct: [id number] Name: NORBERT GOINS Rupert Rep #: [id number] : 1955 M 67 From: [place] PCP: Dr. Boni Rosales MD Status: REG CLI Study: Abdomen/Pelvis WITH Contrast Date of Exam: 08/24 Exam# [id number] Ordering Dr: Jordin Liao MD STUDY: CT [...] amp; IV Gastrografin and amp; 100mL Isovue-300 _ FINDINGS: There are atherosclerotic calcifications of visualized coronary arteries. The visualized portions of the heart are within normal limits. Stable 25 mm hypodensity in the right lobe of the liver. ACR White Paper guidelines (Jessie, et al. JACR 2017; 14(11):5432-2618.) suggest no follow-up is necessary. Normal gallbladder [...] a left-sided inguinal hernia containing adipose tissue. _ CT/Abdomen/Pelvis WITH Contrast IMPRESSION: (NOT LISTED IN ORDER OF SIGNIFICANCE) Stable 25 mm hypodensity in the right lobe of the liver. ACR White Paper guidelines (Jessie, et al. JACR 2017; 14(11):5303-8023.) suggest no follow-up is necessary. There is [...] cystoscopy/TRUS Hamilton Vicente M.D, MS Associate Staff [facility] [place] [facility] Post void bladder scan completed. 0 ml residual remaining. Results reported to Dr. Vicente documented in this encounter [facility] 12-18-2024 Note HNO ID: [id number] Author: JAMILA HUNTER MA Service: ? Author Type: Railroad Yard Worker Type: Progress Notes Filed: 02/01/2025 00:06 Note Text: Post void bladder scan completed. 0 ml residual remaining. Results reported to Dr. Vicente [facility] 03-18-2024 Note HNO ID: [id number] Author: HAMILTON VICENTE MD Service: ? Author Type: Physician Type: Progress Notes Filed: 03/18/2024 11:42 Note Text: [facility] UROLOGY ESTABLISHED PATIENT CLINIC NOTE UROL [facility] PATIENT INFO: Norbert Goins 69 [...] needed Hamilton Vicente M.D, MS Associate Staff [facility] 03-18-2024 History of Present illness Narrative Images from the original note were not included. [facility] [place] UROLOGY ESTABLISHED PATIENT CLINIC NOTE UROL [facility] PATIENT INFO: Norbert Goins 69 [...] needed Hamilton Vicente M.D, MS Associate Staff [facility] [place] [facility] documented in this encounter [facility] 03-18-2024 Nurse Note Post void bladder scan completed. 0 ml residual remaining. Results reported to Dr. Vicente [facility] 03-18-2024 Nurse Note Post void bladder scan completed. 0 ml residual remaining. Results reported to Dr. Vicente documented in this encounter [facility] 06-24-2023 Miscellaneous Notes Images from the [...] NOV none scheduled documented in this encounter [facility] 01-29-2023 Miscellaneous Notes Patient phones requesting refills as follows: Requested Prescriptions Pending Prescriptions Disp Refills tamsulosin (FLOMAX) 0.4 mg 30 capsule 3 Sig: Take 1 capsule by mouth daily at bedtime. Please review and advise. Pharmacy on file is correct. Qamar Patiño documented in this encounter [facility] 08-29-2022 Miscellaneous Notes Pharmacy verified in [facility] Patient has been identified by name and [...] advise. Latricia Rai documented in this encounter [facility] 04-05-2022 History of Present illness Narrative FOLLOW UP VISIT NAME: Norbert Goins CLINIC NO.: [id number] DATE OF SERVICE: 04/04/2022 : 1955 REFERRING [...] Sussy Bishop MD documented in this encounter [facility] 04-05-2022 History of Present illness Narrative Images from the original note were not included. [facility] UROLOGY ESTABLISHED PATIENT [...] weeks. Hamilton Vicente M.D, MS Associate Staff [facility] [place] [facility] documented in this encounter [facility] 03-28-2022 History of Present illness Narrative FOLLOW UP VISIT NAME: Tonyezekiel Rupert [facility] NO.: [id number] DATE OF SERVICE: 03/28/2022 : 1955 REFERRING PHYSICIAN: Mireille Rosales MD Norbert is s/p excision of infected sebaceous cyst [...] Sussy Bishop MD documented in this encounter [facility] 03-26-2022 History of Present illness Narrative FOLLOW UP VISIT NAME: Norbert Emery [facility] NO.: [id number] DATE OF SERVICE: 03/26/2022 : 1955 REFERRING PHYSICIAN: Mireille Rosales MD Norbert is status post excision of subcutaneous mass that is probably an infected sebaceous cyst of the skin and this was done on March 23. He was doing fine, until [...] Sussy Bishop MD documented in this encounter [facility] 03-26-[address] Bishop roomed patient per her request. [place] LPN documented in this encounter [facility] 03-19-2022 History of Present illness Narrative HISTORY AND PHYSICAL Norbert Goins 1955 REFERRING PHYSICIAN: MD Kole CHIEF COMPLAINT: Consult (Right octavialdadam) HPI: The patient is a 67 year [...] Clinic: The patient will be scheduled at [facility] - procedure planned . Patient states that he does not require IV anesthesia. Medical Decision Making: Problems: Low: Acute, uncomplicated illness or injury Risk: Low: Low risk from testing/treatment Medical Decision Making Level: 3 - Low Sussy Bishop MD Patient states his PCP is aware of elevated blood pressure. Ginette Miller LPN documented in this encounter [facility] 03-19-2022 Miscellaneous Notes 03/23/2022 EXCISION OF INFECTED SEBACEOUS CYST [facility] documented in this encounter [facility] 03-19-2022 Nurse Note REVIEW OF SYSTEMS: [...] [place] LPN documented in this encounter [facility] 01-30-2022 Hospital Discharge instructions Patient Education [...] inflammation caused by: Gout. Rheumatoid arthritis. Advanced ayne-yck-awzt arthritis (osteoarthritis). Tendinitis. Bursitis. Joint steroid injections [...] including vitamins, herbs, eye drops, creams, and onxy-rbk-ovsaksj medicines. Any problems you or family members [...] tells you to take them. ? Taking ytbr-leg-xohgdqv medicines, vitamins, herbs, and supplements. Ask your health care provider if you can drive yourself home after the procedure. What happens during the treatment? Your health care provider will position you for the injection and locate the injection site over your joint. The skin over the joint will be cleaned with a germ-killing soap. Your health care provider may: ?Ramsay a numbing solution (topical anesthetic) over the [...] sitting or lying down. General instructions Take konx-mda-uogmsvc and prescription medicines only as told by [...] 04/21/2019 Document Revised: 04/21/2019 Document Reviewed: 04/21/2019 [employer] Patient Education 2020 [employer]. Follow Up Care 01/25/2022 10:45:47 With:RODOLFO LUCAS MD Address: [address] [place] [address] [place] [place] [address] [phone] When: Unknown Comments:Follow-up as needed [facility] Discharge summary Note Date/Time February 13, 2025 8:02am [facility] Medical Records Department [address] [place] [address] Emergency Department Summary 02/13/25 MR#: [id number] Acct: [id number] Name: NORBERT GOINS Rupert Rep #:[id number] : 1955 69 From: Juventino Escobar MD PCP: Dr. Mireille Rosales MD Status :REG ER Location: ED HPI History of Present Illness Chief Complaint: Complaint Narrative Narrative: 69-year-old male past medical history of BPH, previous urinary retention, statesthat sometimes he self catheterizes presents with urinary retention requesting astraight catheterization. He relates history that he just returned from [place]. He had been doing well for a few weeks so he stopped taking his Flomaxabout a week ago. Additionally, he tried pumpkin seeds, and thinks he is constipated which is pressing against his bladder and causing him to go into urinary retention. He has catheters at home which he usually self catheterizes when this happens, but states he does not have any lubrication. Since around midnight, he has not urinated. This was 8 hours ago. The pain developed at around 4 AM, approximately 4 hours ago. He presents to the emergency departmentdenying other symptoms and wanting a straight catheterization. He states he does not want a Castaneda with a bag. PFSH [facility] Medical History Hypertension Prostate hypertrophy CPAP (continuous positive airway pressure) dependence Sleep apnea Home Medications ?Medication ?Instructions ?Recorded ?Last Taken ?Type tamsulosin 0.4 mg capsule (Flomax) 0.4 mg PO QHS 03/2901/24/25 History losartan 100 mg tablet 100 mg PO DAILY 01/24/25 History Allergy/AdvReac Type Severity Reaction Status Date / Time No Known Allergies Allergy Verified 02/13/25 07:18 Surgical History Hx of cystoscopy Hx of cervical discectomy Social History Smoking Status: Never smoker ROS ROS ED ROS Narrative Review of systems positive for urinary retention, suprapubic discomfort, unable to urinate for 8 hours. Denies other symptoms. EXAM Physical Exam Narrative Exam Narrative: Afebrile. Vital signs noted. Patient sitting up on the edge of the bed, rocking back and forth, appears mildly uncomfortable. Cardiovascular examination regular rate and rhythm. Lungs clear to auscultation bilaterally. Abdomen is soft with mild suprapubic discomfort. Positive bowel sounds. Neurological examination nonfocal, nonlateralizing, moves all extremities. Const Vital Signs: 02/13/25 07:17 Temperature 98 F Temperature Source Temporal Pulse Rate 95 Respiratory Rate 14 Blood Pressure 216/129 H Blood Pressure Mean 158 Pulse Ox 98 Oxygen Delivery Method Room Air MDM MDM MDM Narrative Medical decision making narrative: Differential diagnosis includes but not limited to urinary retention from BPH and medication noncompliance versus constipation. Patient does have elevated blood pressure which I think is secondary to his suprapubic discomfort and urinary retention. As he is familiar with self catheterization, straight cath will be performed. As long as this relieves his abdominal discomfort, he will be sent home with lubrication for his catheters, although he states that he can pick some up at the drugstore. He already has follow-up with Dr. Narayan. He was told that he should take his Flomax as previously directed daily. He had approximately 450 mL of urine drained from his bladder through straight cath. He feels markedly improved on reexamination and was motivated for discharge. He was given a few packets of lubrication, but told that he should still take his Flomax daily and follow-up with urology as scheduled. Return instructions to the emergency department were reviewed. Disposition is discharged home in improved and stable condition. History & Record Review Discussion w/independent historian: Patient Additional record(s) reviewed:: Prior ED visit (Previous urinary retention and BPH) Discharge Plan Triage Chief Complaint: Complaint ED Provider: Juventino Escobar Dx/Rx/DC Orders Clinical Impression: Urinary retention, Prostate hypertrophy Instructions: Self-Catheterization for Men, ED BPH (Enlarged Prostate), ED Urinary Retention, Male Prescriptions: No Action tamsulosin [Flomax] 0.4 mg Capsule 0.4 mg PO QHS losartan 100 mg tablet 100 mg PO DAILY Patient Comments: PT TAKES EVERY OTHER DAY Primary Care Provider: Mireille Rosales Referrals: Mireille Rosales MD [Primary Care Provider] - Brad Narayan MD [Med Staff - Active Staff] - Keep Andi appointment Activity Restrictions/Additional Instructions: If you go into urinary retention again, you may need to self catheterize like you have in the past. Make sure you are taking your Flomax daily. Follow-up with urology, Dr. Narayan, as scheduled. Return with new or worsening symptoms. Print Language: [place] Citizen Disposition Disposition: Home, Self Care What to do if you have Problems For any increased pain, shortness of breath, bleeding, nausea or vomiting, chestpain, or any unexpected problems, contact your Primary Care Provider. Call [facility] ([phone]) or report to the closest Emergency Room. Call 911 if necessary. 02/13/25 0802 <Electronically signed by Juventino Escobar MD> Cosigner Signature (if applicable): CC: Dr. iMreille Rosales MD ~ Signed [facility] Work Phone: Evaluation + Plan note No data available for this section [facility] Evaluation note* Diagnosis Infected sebaceous cyst- Primary Sebaceous cyst [facility] Diagnosis Onset Date Resolution Status Postoperative hemorrhage from incision acute [facility] Work Phone: Evaluation note* Diagnosis Onset Date Resolution Status Postoperative hemorrhage from incision acute Vasovagal near-syncope [facility] Work Phone: Evaluation note* Diagnosis Status post skin and subcutaneous tissue surgery- Primary Other postprocedural status Dysuria documented in this [facility] Diagnosis Status post skin and subcutaneous tissue surgery- Primary Other postprocedural status documented in this [facility] Diagnosis Retention of urine- Primary Retention of urine, unspecified Benign prostatic hyperplasia with urinary retention documented in this encounter [facility] Diagnosis Status post skin and subcutaneous tissue surgery- Primary Other postprocedural status documented in this encounter [facility] Diagnosis Onset Date Resolution Status Postoperative hemorrhage from incision resolved Vasovagal near-syncope resol jaimie [facility] Work Phone: Evaluation note* Diagnosis Benign prostatic hyperplasia with urinary retention- Primary Prostate cancer screening Special screening for malignant neoplasm of prostate documented in this encounter [facility] noteNo assessment information availableWMetroHealth [facility] Work Phone: Evaluation note* Diagnosis Pre-operative examination- [...] specific antigen (PSA) [facility] Additional Instructions As we discussed [...] emergency. Please follow-up with your urologist as scheduled.[facility] Work Phone: Hospital Discharge instructions Additional Instructions If you go into urinary retention again, you may need to self catheterize like you have in the past. Make sure you are taking your Flomax daily. Follow-up with urology, Dr. Narayan, as scheduled. Return with new or worsening symptoms.[facility] Work Phone: Progress note No data available for this section [facility] Reason for referral (narrative)No reason for referral information availableWMetroHealth [facility] Work Phone: Summary Purpose Family History No Family History Records FoundNo Family History Records FoundNo Family History Records FoundNo Family History Records FoundNo Family History Records FoundNo Family History Records Found Advance Directives Documents on File Type Date Recorded Patient Outside Sales Representative Expl anation Advance Directive(s) Advance Directive(s) 03/20/2022 12:11 PM Advance Directive(s) 07/17/2019 9:25 AM Advance Directive(s) 06/29/2019 11:29 AM Advance Directive(s) 06/15/2019 12:23 PM Advance Directive(s) 03/10/2019 2:26 PM Advance Directive Response Recorded Date/ Time Living Will Yes March 23, 2022 9:13pm Power of Data Processing Systems Consultant Yes March 23 9:13pm Name of Medical Power of Data Processing Systems Consultant AMBER GOINS March 23, 2022 9:13pm Advance Directive Response Recorded Date/ Time Living Will Yes March 24, 2022 2:49am Power of Data Processing Systems Consultant Yes March 24 2:49am Name of Medical Power of Data Processing Systems Consultant AMBER GOINS March 24, 2022 2:49am Documents on File Type Date Recorded Patient Outside Sales Representative Expl anation Advance Directive(s) Advance Directive(s) 03/23/2022 11:49 AM Advance Directive(s) 03/20/2022 12:11 PM Advance Directive(s) 07/17/2019 9:25 AM Advance Directive(s) 06/29/2019 11:29 AM Advance Directive(s) 06/15/2019 12:23 PM Advance Directive(s) 03/10/2019 2:26 PM Advance Directive Response Recorded Date/ Time Name of Medical Power of Data Processing Systems Consultant AMBER GOINS March 24, 2022 2:49am Living Will No March 29, 2022 4:32am Power of Data Processing Systems Consultant No March 29 4:32am Advance Directive Response Recorded Date/ Time Do you have a Healthcare Power of Data Processing Systems Consultant? Yes January 21, 2025 7:19am Do you have a Healthcare Power of Data Processing Systems Consultant? No January 22, 2025 2:50pm Advance Directive Response Recorded Date/ Time Do you have a Healthcare Power of Data Processing Systems Consultant? Yes January 25, 2025 5:46am Do you have a Healthcare Power of Data Processing Systems Consultant? Yes January 21, 2025 7:19am Do you have a Healthcare Power of Data Processing Systems Consultant? No January 22, 2025 2:50pm Advance Directive Response Recorded Date/ Time Do you have a Healthcare Power of Data Processing Systems Consultant? Yes January 25, 2025 5:46am Do you have a Healthcare Power of Data Processing Systems Consultant? Yes January 21, 2025 7:19am Do you have a Healthcare Power of Data Processing Systems Consultant? No January 22, 2025 2:50pm Do you have a Healthcare Power of Data Processing Systems Consultant? No February 13, 2025 7:26am Hospital Course Note HNO ID: [id number] Author: Nevaeh alcala (Assembly Line Upholsterer) Grater Service: Orthopaedic Surgery Author Type: Nurse [...] urinary retention January 25, 2025 5:43a m Chief Complaint Admit Date E-ORDER December 10, 2024 11: 16am urinary retention January 21, 2025 7:14a m CASTANEDA January 22, 2025 2:07p m castaneda January 24, 2025 7:36a m urinary retention January 25, 2025 5:43a m urinary February 13, 2025 7:17 am Additional Source Comments (unrecognized sect ion and content) No Status Records FoundNo Status Records FoundNo Status Records FoundNo Status Records FoundNo Status Records FoundNo Status Records Found INFORMATION SOURCE (unrecogn ized section and content) DATE CREATED AUTHOR 07/18/2019 [facility] DATE CREATED AUTHOR AUTHOR'S ORGANIZ ATION 07/18/2019 [facility] DATE CREATED AUTHOR AUTHOR'S ORGANIZ ATION 07/23/2019 [facility] DATE CREATED AUTHOR AUTHOR'S ORGANIZ ATION 02/01/2022 [facility] ([place]) DATE CREATED AUTHOR AUTHOR'S ORGANIZ ATION 01/30/2025 [facility] DATE CREATED AUTHOR AUTHOR'S ORGANIZ ATION 02/01/2025 [facility] Care Team (unrecognized sect ion and content) Instructional Coach Relationship Specialty Start Date End Date Mireille Rosales MD [address] [place], [place] [phone] PCP - General Family Practice 12/17/13 Instructional Coach Relationship Specialty Start Date End Date Mireille Rosales MD [address] [place], [place] [phone] PCP - General Family Practice 12/17/13 Instructional Coach Relationship Specialty Start Date End Date Mireille Rosales MD [address] [place] [phone] PCP - General Family Practice 12/17/13 Instructional Coach Relationship Specialty Start Date End Date Mireille Rosales MD [address] [place], [place] [id number] PCP - General Family Practice 12/17/13 Instructional Coach Relationship Specialty Start Date End Date Mireille Rosales MD [address] [place], [place] [id number] PCP - General Family Practice 12/17/13 Instructional Coach Relationship Specialty Start Date End Date Mireille Rosales MD [address] [place] [address] PCP - General Family Practice 12/17/13 Instructional Coach Relationship Specialty Start Date End Date Mireille Rosales MD [address] [place], [place] [address] PCP - General Family Medicine 12/17/13 Instructional Coach Relationship Specialty Start Date End Date Mireille Rosales MD [address] [place], [place] [address] PCP - General Family Medicine 12/17/13 Instructional Coach Relationship Specialty Start Date End Date Mireille Rosales MD [address] [place], [place] [id number] PCP - General Family Medicine 12/17/13 Team [...] January 25, 2025 End: January 25, 2025 Instructional Coach Relationship Specialty Start Date End Date Mireille Rosales MD [address] [place] [id number] PCP - General Family Medicine 12/17/13 Team Status: Inactive Member Role Status Dates Dr. Mireille Rosales MD Primary Care Provider Acti ve Start: January 21, 2025 End: January 21, 2025 Juventino Escobar MD Attending Provider Active Star t: January 21, 2025 End: January 21, 2025 Juventino Escobar MD Emergency Provider Active Star t: January 21, 2025 End: January 21, 2025 Team Status: Inactive Member Role Status Dates Dr. Mireille Rosales MD Primary Care Provider Acti ve Start: January 22, 2025 End: January 22, 2025 Dr. Jayden Rahman MD Attending Provider Active Start: January 22, 2025 End: January 22, 2025 Dr. Jayden Rahman MD Emergency Provider Active Start: January 22, 2025 End: January 22, 2025 Team Status: Inactive Member Role Status Dates Dr. Mireille Rosales MD Primary Care Provider Acti ve Start: January 24, 2025 End: January 24, 2025 Dr. Ton Zazueta DO Attending Provider Active Start: January 24, 2025 End: January 24, 2025 Dr. Ton Zazueta DO Emergency Provider Active Start: January 24, 2025 End: January 24, 2025 Team Status: Inactive Member Role Status Dates Dr. Mireille Rosales MD Primary Care Provider Acti ve Start: January 25, 2025 End: January 25, 2025 Dr. James Trinidad DO Attending Provider Active Start: January 25, 2025 End: January 25, 2025 Dr. James Trinidad DO Emergency Provider Active Start: January 25, 2025 End: January 25, 2025 Team Status: Inactive Member Role Status Dates Dr. Mireille Rosales MD Primary Care Provider Acti ve Start: February 13, 2025 End: February 13, 2025 Juventino Escobar MD Emergency Provider Active Star t: February 13, 2025 End: February 13, 2025 Source Comments (unrecognize d section and content) In the event this informatio n is protected by the Federal Confidentiality of Alcohol and Drug Abuse Patient Records regulations: The Federal rules restrict any use of the information to criminally investigate or prosecute any alcohol or drug abuse patient.[facility] the event this information is protected by the Federal Confidentiality of Alcohol and Drug Abuse Patient Records regulations: The Federal rules restrict any use of the information to criminally investigate or prosecute any alcohol or drug abuse patient.[facility] the event this information is protected by the Federal Confidentiality of Alcohol and Drug Abuse Patient Records regulations: The Federal rules restrict any use of the information to criminally investigate or prosecute any alcohol or drug abuse patient.[facility] the event this information is protected by the Federal Confidentiality of Alcohol and Drug Abuse Patient Records regulations: The Federal rules restrict any use of the information to criminally investigate or prosecute any alcohol or drug abuse patient.[facility] the event this information is protected by the Federal Confidentiality of Alcohol and Drug Abuse Patient Records regulations: The Federal rules restrict any use of the information to criminally investigate or prosecute any alcohol or drug abuse patient.[facility] the event this information is protected by the Federal Confidentiality of Alcohol and Drug Abuse Patient Records regulations: The Federal rules restrict any use of the information to criminally investigate or prosecute any alcohol or drug abuse patient.[facility] the event this information is protected by the Federal Confidentiality of Alcohol and Drug Abuse Patient Records regulations: The Federal rules restrict any use of the information to criminally investigate or prosecute any alcohol or drug abuse patient.[facility] the event this information is protected by the Federal Confidentiality of Alcohol and Drug Abuse Patient Records regulations: The Federal rules restrict any use of the information to criminally investigate or prosecute any alcohol or drug abuse patient.[facility] the event this information is protected by the Federal Confidentiality of Alcohol and Drug Abuse Patient Records regulations: The Federal rules restrict any use of the information to criminally investigate or prosecute any alcohol or drug abuse patient.[facility] the event this information is protected by the Federal Confidentiality of Alcohol and Drug Abuse Patient Records regulations: The Federal rules restrict any use of the information to criminally investigate or prosecute any alcohol or drug abuse patient.[facility]In the event this information is protected by the Federal Confidentiality of Alcohol and Drug Abuse Patient Records regulations: The Federal rules restrict any use of the information to criminally investigate or prosecute any alcohol or drug abuse patient.[facility] Reason for Visit (unrecogniz ed section [...] BE BASED ON THE PRIMARY CLINICAL RECORDS. [employer] [facility]. provides no warranty or guarantee of the accuracy or completeness of information in this document.
[2025-02-13 10:47] LABS: Bacteria 0 SEEN /hpf (None Seen); Color, Urine Yellow (Yellow); Glucose, Dipstick Normal (Normal); Ketone-Dipstick Negative (Negative); Leukocyte Esterase-Dipstick 25 /ul (Negative); Mucous, Urine 0 SEEN /hpf (<or=2+); Nitrite-Dipstick Negative (Negative); Occult Blood-Urine 150 /ul (Negative); Protein-Dipstick 30 mg/dl (Negative); Red Blood Cells-Urine 0 SEEN /hpf (0-5); Squamous Epithelial Cells - UA 0 SEEN /hpf (0-5); Urine Bilirubin Dipstick Negative (Negative); Urine Clarity Clear (Clear); Urine Urobilinogen Normal (Normal); White Blood Cells 0 SEEN /hpf (0-5)
[2025-02-13 11:41] VITALS: BP 166/95
== END 2025-02-13 11:42 | disposition home or self-care (01) ==
PROVIDERS: Emergency Provider Emergency Medicine; PCP Family Medicine; Visit Provider Emergency Medicine
DX: N40.1 Benign prostatic hyperplasia with lower urinary tract symptoms (principal); R33.8 Other retention of urine; I10 Essential (primary) hypertension; G47.30 Sleep apnea, unspecified; Z79.899 Other long term (current) drug therapy
CPT/HCPCS: 51702; 81001; 99283

== ENCOUNTER → 2025-03-10 | Outpatient (CLI) | payer MEDICARE, OTHER, SELFPAY ==
--- NOTE | 2025-03-10 14:43 | RAD_ITS ---
PROCEDURE: L/S SPINE W BEND MIN 6 VW 03/10/2025 REASON FOR EXAM: RIGHT SIDE PAIN TECHNIQUE: L/S SPINE W BEND MIN 6 VW COMPARISON: None. FINDINGS: No evidence acute fracture or dislocation. Moderate degenerative changes of the visualized spine. Vertebral body heights are maintained. Normal alignment. RAD/L/S Spine w Bend Min 6 Vw IMPRESSION: Moderate spondylosis. Reading Location: [place] [id number]
== END | disposition home or self-care (01) ==
LOC: MTRAD 14:42
PROVIDERS: PCP Family Medicine; Referring Provider Nurse Practitioner Family; Visit Provider Nurse Practitioner Family
DX: M54.50 Low back pain, unspecified (principal)
CPT/HCPCS: 72114